=== PATIENT | male | born 1965 | race African-American/Black ===

== ENCOUNTER 2019-11-01 03:06 | Inpatient (IN) | payer MEDICARE, SELFPAY ==
[2019-11-01] VITALS (57 sets, daily range): BP systolic 92–188; BP diastolic 58–102; PULSE 42–92; RESP 14–24; TEMP 34.7–36.8; O2SAT 93–100; BMI 18.6
--- NOTE | ~2019-11-01 | XR_ITS ---
EXAMINATION: XR abdomen NG/feed tube insert DATE: 11/02/2019 12:16 INDICATION: Orogastric tube replacement. TECHNIQUE: An upright view of the abdomen was obtained. COMPARISON: Abdomen single view 11/01/2019 FINDINGS: The lower abdomen is excluded. The nasogastric tube tip is in the stomach. IMPRESSION: 1. Nasogastric tube tip in the stomach. Reviewed, dictated and finalized at location A.
--- NOTE | ~2019-11-01 | XR_ITS ---
EXAMINATION: XR abdomen NG/feed tube insert DATE: 11/01/2019 05:29 INDICATION: Orogastric tube placement TECHNIQUE: A supine view of the abdomen and lower chest was obtained for evaluation of feeding tube placement. COMPARISON: None. FINDINGS: Orogastric tube tip in proximal side port in the body of the stomach. No dilated loops of gas-filled bowel in the visualized abdomen. Calcified nodule at the left lung base consistent with old granuloma tous disease. IMPRESSION: 1. Orogastric tube tip in the stomach. Reviewed, dictated and finalized at location A.
--- NOTE | ~2019-11-01 | XR_ITS ---
EXAMINATION: XR chest 1V portable DATE: 11/05/2019 06:34 INDICATION: Respiratory failure. TECHNIQUE: A single frontal view of the chest was obtained. COMPARISON: Chest single view 11/04/2019, chest CT 11/02/2019 FINDINGS: There are airspace opacities in the right perihilar region and left lower lung zone. No ple ural effusion or pneumothorax. The heart size is normal. The endotracheal tube tip is 6.5 cm above th e river. The nasogastric tube tip is beyond the inferior margin of the radiograph, but at least to t he stomach. IMPRESSION: 1. Airspace opacities in the right perihilar region and left lower lung zone with worsening on the ri ght, consistent with atelectasis versus pneumonia. Reviewed, dictated and finalized at location A. IMPRESSION: 1. Airspace opacities in the right perihilar region and left lower lung zone wi th worsening on the right, consistent with atelectasis versus pneumonia.
--- NOTE | ~2019-11-01 | XR_ITS ---
EXAMINATION: XR chest ET placement DATE: 11/02/2019 12:49 INDICATION: Reintubation. TECHNIQUE: A single frontal view of the chest was obtained. COMPARISON: Chest single view at 12:10 PM FINDINGS: There is mild atelectasis in left lower lung zone. A calcified left lung nodule is consiste nt with old granulomatous disease. No pleural effusion or pneumothorax. The heart size is normal. The nasogastric tube tip is in the stomach. The endotracheal tube tip is 3.8 cm above the river. IMPRESSION: 1. Mild atelectasis in left lower lung zone. Reviewed, dictated and finalized at location A.
--- NOTE | ~2019-11-01 | XR_ITS ---
EXAMINATION: XR abdomen NG/feed tube insert DATE: 11/02/2019 12:49 INDICATION: Orogastric tube placement TECHNIQUE: A semiupright AP view of the upper abdomen and chest was obtained for evaluation of feedi ng tube placement. COMPARISON: 11/02/2019 at 12:16 PM FINDINGS: Orogastric tube has been advanced by several centimeters with distal tip in proximal side port in the body of the stomach. Endotracheal tube tip 3.2 cm above the river. Linear discoid atelectasis/scarr ing at the left lung base. No pleural effusion or pneumothorax. Gas in the stomach. No dilated loops of gas-filled bowel in the visualized upper abdomen. No free intraperineal gas. IMPRESSION: 1. Orogastric tube in the stomach. 2. Mild left basilar atelectasis. Reviewed, dictated and finalized at location A.
--- NOTE | ~2019-11-01 | XR_ITS ---
EXAMINATION: XR chest 1V portable DATE: 11/05/2019 13:09 INDICATION: Respiratory failure. TECHNIQUE: A single frontal view of the chest was obtained. COMPARISON: Chest single view 11/05/2019 at 5:35 AM, CT abdomen and pelvis 11/05/2019 FINDINGS: There are airspace opacities in the mid and lower lung zones. No pleural effusion or pneumo thorax. The heart size is normal. The endotracheal tube tip is 5.7 cm above the river. The nasogastr ic tube tip is in the stomach. IMPRESSION: 1. Worsened airspace opacities in the mid and lower lung zones, consistent with pneumonia. Reviewed, dictated and finalized at location A.
--- NOTE | ~2019-11-01 | XR_ITS ---
EXAMINATION: XR chest 1V portable DATE: 11/04/2019 05:41 INDICATION: Respiratory failure TECHNIQUE: frontal view of the chest was obtained. COMPARISON: Chest radiograph dated 11/03/2019 FINDINGS: Endotracheal tube tip 4.2 cm above the river. Nasogastric tube extends below the left hemidiaphragm with distal tip collimated off the study. Calcified nodule at the left lung base consistent with old granulomatous disease. Opacities in the bi lateral lower lung zones predominantly linear/bandlike discoid atelectasis although superimposed pneu monia not excludable. No pleural effusion or pneumothorax. The cardiomediastinal silhouette is normal . Visualized bones and soft tissues are unremarkable. IMPRESSION: 1. No change in opacities in the bilateral lower lung zones most likely atelectasis although superimp osed pneumonia not excludable. Reviewed, dictated and finalized at location A. IMPRESSION: 1. No change in opacities in the bilateral lower lung zones most likely atelect asis although superimposed pneumonia not excludable.
--- NOTE | ~2019-11-01 | XR_ITS ---
EXAMINATION: XR chest 1V portable DATE: 11/03/2019 05:48 INDICATION: Respiratory failure TECHNIQUE: frontal view of the chest was obtained. COMPARISON: Chest radiograph dated 11/02/2019 FINDINGS: Endotracheal tube tip 4.9 cm above the river. Nasogastric tube extends below the left hemidiaphragm with distal tip collimated off the study. Unchanged linear discoid atelectasis at the left lower lung zone. Calcified nodule at the left lower lung zone consistent with old granulomatous disease. No pleural effusion or pneumothorax. The cardiom ediastinal silhouette is normal. IMPRESSION: 1. Unchanged mild atelectasis at the left lower lung zone. Reviewed, dictated and finalized at location A.
--- NOTE | ~2019-11-01 | XR_ITS ---
EXAMINATION: XR chest 1V portable DATE: 11/06/2019 05:45 INDICATION: Respiratory failure. TECHNIQUE: A single frontal view of the chest was obtained. COMPARISON: Chest single view 11/05/2019, chest CT 11/05/2019 FINDINGS: There are airspace opacities in the perihilar regions and lower lung zones. No pleural effu neli or pneumothorax. Cardiomegaly is noted. The endotracheal tube tip is 6.3 cm above the river. Th e nasogastric tube tip is beyond the inferior margin of the radiograph, but at least to the stomach. IMPRESSION: 1. Stable airspace opacities in the perihilar regions and lower lung zones, consistent with pneumonia . 2. Cardiomegaly. Reviewed, dictated and finalized at location A. IMPRESSION: 1. Stable airspace opacities in the perihilar regions and lower lung zones, con sistent with pneumonia. 2. Cardiomegaly.
--- NOTE | ~2019-11-01 | XR_ITS ---
EXAMINATION: XR chest ET placement DATE: 11/02/2019 12:16 INDICATION: Endotracheal tube repositioning. TECHNIQUE: A single frontal view of the chest was obtained. COMPARISON: Chest single view at 5:31 AM FINDINGS: There is mild atelectasis in right midlung zone. A calcified left lung nodule is consistent with old granulomatous disease. No pleural effusion or pneumothorax. The heart size is normal. The e ndotracheal tube tip is 5.9 cm above the river. The nasogastric tube tip is in the stomach. IMPRESSION: 1. Endotracheal tube tip 5.5 cm above the river. 2. Mild atelectasis in right midlung zone. Reviewed, dictated and finalized at location A.
--- NOTE | ~2019-11-01 | XR_ITS ---
EXAMINATION: XR chest ET placement DATE: 11/01/2019 04:20 INDICATION: Endotracheal tube placement. TECHNIQUE: frontal view of the chest was obtained. COMPARISON: None FINDINGS: Endotracheal tube tip 4.4 cm above the river. Calcified nodule at the left lung base consistent with old granulomatous disease. No other airspace opacities, pulmonary edema, pleural effusion or pneumot horax. The cardiomediastinal silhouette is normal. Mild scattered degenerative skeletal changes. IMPRESSION: 1. Endotracheal tube tip 4.4 cm above the river. No acute cardiopulmonary disease. Reviewed, dictated and finalized at location A. IMPRESSION: 1. Endotracheal tube tip 4.4 cm above the river. No acute cardiopulmonary dise ase.
--- NOTE | ~2019-11-01 | CT_ITS ---
EXAMINATION: CT soft tissue neck chest w DATE: 11/02/2019 11:23 INDICATION: Angioedema. Swelling of the neck. Dental pain. TECHNIQUE: Computed tomography (CT) of the neck and chest was performed with 75 mL Omnipaque-350 intr avenous contrast. Automated exposure control and iterative reconstruction technique were employed. Th e dose-length product was 928.50 mGy-cm. COMPARISON: CT abdomen and pelvis 01/11/2019 FINDINGS: CT NECK: Right ocular globe is absent. There are no pathologically enlarged lymph nodes. There is fat stranding in the lower face and anterior neck bilaterally, consistent with edema. The endotracheal t ube tip is in expected position. The orogastric tube tip is in the stomach. The nasopharynx and oroph arynx are unremarkable. The epiglottis is normal. There is no abscess. There is mild mucosal thickeni ng in the paranasal sinuses. The mastoid air cells are normal. Multiple teeth are absent. No carious lesions identified. CT CHEST: There are blebs in right lung apex. There is mild atelectasis bilaterally with a posterior predominance. A calcified left lung nodule is consistent with old granulomatous disease. The heart si ze is normal. No pericardial effusion. There is mild bilateral gynecomastia. There are no pathologica lly enlarged lymph nodes. The bones are unremarkable. IMPRESSION: 1. Soft tissue edema in the lower face and anterior neck. No abscess. Reviewed, dictated and finalized at location A.
--- NOTE | ~2019-11-01 | CT_ITS ---
EXAMINATION: CT abdomen pelvis wo con DATE: 11/05/2019 10:00 INDICATION: Lymphadenopathy. TECHNIQUE: Computed tomography (CT) of the abdomen and pelvis was performed without intravenous contr ast. Automated exposure control and iterative reconstruction technique were employed. The dose-length product was 1252.06 mGy-cm. COMPARISON: CT abdomen and pelvis 01/11/2019 FINDINGS: Please refer to the chest CT performed at the same time for the chest findings. The nasogas tric tube tip is in the stomach. The liver, spleen, gallbladder, pancreas, adrenal glands, and kidney s are normal. There is no urolithiasis. There is a small left inguinal hernia containing fat. There a re no dilated loops of bowel. The appendix is normal. The prostate is mildly enlarged. There are no p athologically enlarged lymph nodes. There is edema of the intra-abdominal fat and body wall fat. The scrotum demonstrates hydroceles. There is severe lumbar spondylosis. IMPRESSION: 1. No lymphadenopathy. Reviewed, dictated and finalized at location A. IMPRESSION: 1. No lymphadenopathy.
--- NOTE | ~2019-11-01 | CT_ITS ---
EXAMINATION: CT soft tissue neck chest wo DATE: 11/05/2019 10:00 INDICATION: Respiratory failure. TECHNIQUE: Computed tomography (CT) of the neck and chest was performed intravenous contrast. The dos e-length product was 887.19 mGy-cm. COMPARISON: Neck and chest CT 11/02/2019 FINDINGS: NECK CT: Right neck in the globe is absent. There are no pathologically enlarged lymph nodes. The end otracheal tube tip is in expected position above the river. An orogastric tube is noted. The pharyng eal mucosal space is unremarkable. There is fat stranding in the lower face, consistent with edema. T here is mild mucosal thickening in the paranasal sinuses. The mastoid air cells are normal. There is mild cervical spondylosis. CHEST CT: There is mucous in the mainstem bronchi. There are extensive airspace opacities in the lowe r lobes, right worse than left. There are patchy airspace opacities and centrilobular nodules in the right middle lobe and right upper lobe. There is mild atelectasis in left upper lobe. A calcified lef t lung nodule is consistent with old granulomatous disease. There are small pleural effusions. Cardio megaly is noted. No pericardial effusion. There is mild thoracic spondylosis. IMPRESSION: 1. Bilateral pneumonia with a posterior predominance, right worse than left. 2. Small pleural effusions. Reviewed, dictated and finalized at location A.
--- NOTE | ~2019-11-01 | XR_ITS ---
EXAMINATION: XR chest 1V portable DATE: 11/02/2019 06:09 INDICATION: Respiratory failure TECHNIQUE: frontal view of the chest was obtained. COMPARISON: Chest radiograph dated 11/01/2019 FINDINGS: Endotracheal tube tip 4.8 cm above the river. Nasogastric tube with proximal side-port in the stoma ch and distal tip collimated off the study. Linear discoid atelectasis in the bilateral lower lung zones. Calcified nodule at the left lung base consistent with old granulomatous disease. No pulmonary edema, pleural effusion or pneumothorax. The cardiomediastinal silhouette is normal. Visualized bones and soft tissues are unremarkable. IMPRESSION: 1. Linear discoid atelectasis at both lower lung zones. Reviewed, dictated and finalized at location A.
[2019-11-01] MEDS: methylPREDNISolone SOD SUCC 125 MG VIAL IV PUSH (03:24)
[2019-11-01] MEDS: EPINEPHrine HCL INJ 1 MG/ML AMPUL 0.3 MG IM (03:24)
--- NOTE | 2019-11-01 03:36 | PC.NURSE ---
ERP in room at this time with patient, setting up intubation on standby. Patient receiving nebulized lidocaine per RT.
[2019-11-01] MEDS: LIDOCAINE HCL 4% SOLN 50 ML BTL 1 APPLIC TOPICAL (03:39)
[2019-11-01] MEDS: FAMOTIDINE 20 MG/2 ML VIAL IV PUSH ×3 (03:40→21:59)
--- NOTE | 2019-11-01 04:04 | PC.NURSE ---
Addendum entered by Lidia Calderon RN 11/01/19 05:08: ERP , SIDDHARTH Coker, and RT in room at this time. VORB 0405 20mg ketamine given per . 0407 VORB give 50mg IVP more of ketamine. 0408 ERP at head of bed attempting intubation with 6.5 size tube. VORB give 30mg of propofol via IVP. 0410 VORB give 30mg Etomidate and 100mg of succ rapid IVP. Intubation successful with chest rise and fall, color change and visually seeing tube pass through cords. VS: 110bpm, 100% being placed on ventilator, 14 RR, and 104/82 BP recycling vital signs. 0413 100mg of Propofol given IVP. 0415 xray in room to verify placement of ET tube. Original Note: ERP , SIDDHARTH Coker, and RT in room at this time. VORB 0405 20mg ketamine given per . 0407 VORB give 50mg IVP more of ketamine. 0408 ERP at head of bed attempting intubation with 6.5 size tube. VORB give 30mg of propofol via IVP. 0410 VORB give 30mg succs and 100mg of succ rapid IVP. Intubation successful with chest rise and fall, color change and visually seeing tube pass through cords. VS: 110bpm, 100% being placed on ventilator, 14 RR, and 104/82 BP recycling vital signs. 0413 100mg of Propofol given IVP. 0415 xray in room to verify placement of ET tube.
[2019-11-01 04:06] LABS: Basophils Percent Auto 0.4 % (0.2-1.2); Eosinophils Absolute Auto 0.1 K/mm3 (0-0.3); Eosinophils Percent Auto 2.6 % (0-4.4); Hematocrit 25.3 % (42.0-52.0); Hemoglobin 8.6 g/dL (14.0-18.0); Immature Granulocyte Absolute 0.01 K/mm3 (0.00-0.031); Immature Granulocyte Percent A 0.2 % (0-0.5); Lymphocytes Absolute Auto 2.86 K/mm3 (0.9-3.2); Lymphocytes Percent Auto 58.1 % (18.3-44.2); Mean Corpuscular Hemoglobin 36.1 pg (26-34); Mean Corpuscular Volume 106.3 fl (80-100); Mean Platelet Volume 10.2 fl (7.4-10.4); Monocytes Absolute Auto 0.4 K/mm3 (0.1-0.6); Monocytes Percent Auto 8.3 % (2.6-8.5); Neutrophils Absolute Auto 1.5 K/mm3 (1.3-6.7); Neutrophils Percent Auto 30.4 % (45.5-73.1); Platelet Count Result 85 k/mm3 (150-375); Red Blood Count 2.38 M/mm3 (4.6-6.20); Red Cell Distribution Width 12.4 % (11.5-14.5); White Blood Count 4.9 K/mm3 (4.5-10.0)
[2019-11-01] MEDS: PROPOFOL IV EMULSION 100 ML 20 MG IV CONT (04:15)
[2019-11-01 04:16] LABS: INR 1.7; Partial Thromboplastin Time 41.5 SECONDS (22.3-36.8); Prothrombin Time 19.2 Seconds (11.1-14.7)
--- NOTE | 2019-11-01 04:28 | PC.NURSE ---
OG placed and taped to ET tube.
--- NOTE | 2019-11-01 04:30 | PC.NURSE ---
IV propofol titrated up to 40mcg/kg/hr.
--- NOTE | 2019-11-01 04:31 | PC.NURSE ---
VOR 0430 give 1mg versed IVP.
--- NOTE | 2019-11-01 04:37 | PC.NURSE ---
VORB per ERP give 50mg of Jean via IVP.
--- NOTE | 2019-11-01 04:42 | PC.NURSE ---
IV propofol titrated up to 50mcg/kg/hr.
[2019-11-01 04:43] LABS: Basophils Percent Auto 0.6 % (0.2-1.2); Eosinophils Absolute Auto 0.2 K/mm3 (0-0.3); Eosinophils Percent Auto 2.9 % (0-4.4); Hematocrit 32.8 % (42.0-52.0); Hemoglobin 11.5 g/dL (14.0-18.0); Immature Granulocyte Absolute 0.01 K/mm3 (0.00-0.031); Immature Granulocyte Percent A 0.2 % (0-0.5); Lymphocytes Absolute Auto 2.96 K/mm3 (0.9-3.2); Lymphocytes Percent Auto 56.6 % (18.3-44.2); Mean Corpuscular HGB Conc 35.1 g/dl (32-36); Mean Corpuscular Hemoglobin 36.4 pg (26-34); Mean Corpuscular Volume 103.8 fl (80-100); Mean Platelet Volume 10.4 fl (7.4-10.4); Monocytes Absolute Auto 0.4 K/mm3 (0.1-0.6); Neutrophils Absolute Auto 1.7 K/mm3 (1.3-6.7); Neutrophils Percent Auto 31.7 % (45.5-73.1); Platelet Count Result 106 k/mm3 (150-375); Red Blood Count 3.16 M/mm3 (4.6-6.20); Red Cell Distribution Width 12.4 % (11.5-14.5); White Blood Count 5.2 K/mm3 (4.5-10.0)
[2019-11-01 04:55] LABS: Blood Urea Nitrogen 7 mg/dL (9-20); Calcium 7.2 mg/dL (8.4-10.2); Carbon Dioxide 19 mmol/L (22-30); Chloride 108 mmol/L (98-107); Estimated Glomerular Filt Rate > 60; Glucose 153 mg/dL (75-110); Potassium 3.4 mmol/L (3.4-5.0); Sodium 134 mmol/L (137-145)
[2019-11-01 04:56] LABS: Alveolar/Arterial O2 Gradient 270.2 mmHg; Base Excess ABG -5.6 mEq/l (+/-2.0); Carboxyhemoglobin 1.7 % THb (0-2.0); Fractional Inspired Oxygen 70 %; HCO3 ABG 18.6 mEq/l (22.0-26.0); Methemoglobin ABG 0.4 %THb (0-1.5); Oxygen Content ABG 16.7 %vol (16.0-22.0); Oxygen Saturation ABG 99.3 % (95.0-100.0); Oxyhemoglobin 96.4 % THb (90.0-100.0); PCO2 ABG 32.3 mmHg (35.0-45.0); PO2 ABG 194.2 mmHg (80.0-100.0); PO2 FiO2 Ratio Arterial Blood 2.77 %; Reduced Hemoglobin 1.5 %THb (0-5.0); pH ABG 7.378 (7.350-7.450)
[2019-11-01 04:57] LABS: Device VENTILATOR; Modified Allen's Test Pass; Site Drawn RIGHT RADIAL
[2019-11-01 04:58] LABS: Arterial Blood Gas PEEP 5 cmH2O; Arterial Blood Gas Tidal Volume 420 ml; Arterial Blood Gas Vent Mode CMV; Arterial Blood Gas Ventilator rate 18 /MIN
--- NOTE | 2019-11-01 05:30 | PC.NURSE ---
Patient's ET tube secured and OG tube secured at 60.
--- NOTE | 2019-11-01 05:36 | PC.NURSE ---
Patient bucking tube, ERP gives VORB to give patient 50mg more of Jean via IVP.
--- NOTE | 2019-11-01 05:37 | ED.GENADULT ---
HPI - General Adult General Chief complaint: Skin/Abscess/Foreign Body Stated complaint: Abcess Time Seen by Provider: 11/01/19 03:12 History of Present Illness HPI narrative: Patient is a 54-year-old male who presents ER with facial swelling. Began about 10:30 PM. Reports he noticed some swelling to his left cheek that then went into his tongue as well as his lips. He is being have difficulty breathing and swallowing. He still able to speak however it is slightly dysarthric due to the size of his tongue. Reports mild discomfort near the angle of the left jaw and was concerned he may have a dental abscess but not been having dental pain over the last couple of days. He has had no fevers or sweats or chills. He does take lisinopril for blood pressure. He has been taking this for about a decade. Patient is found no alleviating factors and noticed he been choking on water prior to coming to the ER. Related Data Home Medications Medication Instructions Recorded Confirmed gabapentin 11/01/19 lisinopril 11/01/19 metoprolol succinate PO 11/01/19 oxycodone-acetaminophen 11/01/19 Allergies Allergy/AdvReac Type Severity Reaction Status Date / Time No Known Allergies Allergy Unverified 01/11/19 21:10 Review of Systems Review of Systems: All systems reviewed & are unremarkable except as noted in HPI and below Constitutional: Constitutional: Denies chills, Denies fever(s) and Denies weakness ENT: Comments: Swelling of the tongue and lips as well as discomfort in the back of his throat. Cardiovascular: Cardiovascular: Denies chest pain and Denies radiating jaw, neck or arm pain Respiratory: Respiratory: Denies cough, Reports dyspnea and Denies wheezing Gastrointestinal: Gastrointestinal: Denies abdominal pain, Denies bloating, Denies nausea and Denies vomiting Musculoskeletal: Musculoskeletal: Denies back pain and Denies myalgias Neurologic: Denies numbness and Denies weakness Allergic/Immunologic: Allergic/Immunologic: Reports lip swelling, Reports throat swelling, Reports tongue swelling and Denies wheezing [facility] Past Medical History Medical History (Updated 11/01/19 @ 05:49 by Charles Segura MD) Depression GERD (gastroesophageal reflux disease) Hypertension Pancreatitis Prosthetic eye globe Right side Surgical History Surgical History (Updated 11/01/19 @ 05:41 by Charles Segura MD) H/O elbow surgery Left Social History Social History (Updated 11/01/19 @ 05:42 by Charles Segura MD) Smoking status: Current every day smoker Alcohol intake: current Gender identity (if verbalized by the patient): Female Exam Narrative: Exam Narrative: GENERAL: Uncomfortable-appearing, well-nourished, and in mild distress. HEAD: Normocephalic, atraumatic. ENT: Angioedema of the left half of the upper and lower lips as well as the left half of the tongue that is significant enough to obscure the posterior oropharynx. Palpation of the gum lines throughout the mouth reveal no fluctuant abscess or areas of tenderness. Submandibular glands seem to be swollen bilaterally. NECK: Supple. CHEST: Clear to auscultation. No stridor or wheezing. Reports difficulty breathing but is able to speak in full sentences. Broken speech due to tongue swelling. HEART: Regular rate and rhythm. Normal peripheral pulses. ABDOMEN: Soft, nontender, nondistended. EXTREMITIES: Normal range of motion. No edema. SKIN: Warm, dry, no rash. NEURO: Alert and oriented x3. Course Course Emergency Course: Patient received epinephrine, Solu-Medrol, Benadryl, and famotidine without improvement or cessation of symptoms. Patient's upper lips were entirely swollen by the time intubation was performed. Anesthesia contacted for support during semi-awake intubation. Patient received nebulized lidocaine 4% and glycopyrrolate to help with numbing of the airway and to decrease secretions. During intubation patient received 20 mg of k
--- NOTE | 2019-11-01 05:45 | PM.IMHP ---
H&P: HPI History of Present Illness Chief complaint: respiratory failure/akila induced angioedema Narrative: This is a 54 year old male with known history of HTN, Depression and Pancreatitis who presented to the hospital with lip swelling and posterior oral swelling. The patient is known to be on Lisinopril. His symptoms worsened in the ER and the patient was emergently intubated and placed on mechanical ventilation to protect his airway. The patient was treated with epinphrine, Solu-medrol, pepcid, and benadryl. Assistant Office Manager, Dr. Ratliff has been consulted. There is no family at bedside and on my encounter the patient is intubated and sedated. No futher history is unobtainable at this time. Review of Systems Review of Systems: ROS unobtainable: Yes unobtainable due to medical condition PMFSH Past Medical History Medical History Depression GERD (gastroesophageal reflux disease) Hypertension Pancreatitis Prosthetic eye globe Right side Surgical History Surgical History H/O elbow surgery Left Social History Social History Years smoked: 18 Smoking status: Current every day smoker Tobacco type: cigarettes Alcohol intake: current Gender identity (if verbalized by the patient): Female Spiritual care concerns: No Comments Family medical history is unobtainable from the patient. Meds Home Medications and Allergies Home Medications Medication Instructions Recorded Confirmed Type celecoxib 100 mg PO QAM 11/01/19 11/01/19 History chlorthalidone 50 mg PO DAILY 11/01/19 11/01/19 History diclofenac sodium 75 mg PO BID 11/01/19 11/01/19 History gabapentin 300 mg PO BID 11/01/19 11/01/19 History lisinopril 40 mg PO DAILY 11/01/19 11/01/19 History metoprolol succinate 50 mg PO DAILY 11/01/19 11/01/19 History omeprazole 20 mg PO DAILY 11/01/19 11/01/19 History oxycodone-acetaminophen 1 tablet PO Q8H 11/01/19 11/01/19 History Allergies Allergy/AdvReac Type Severity Reaction Status Date / Time ampicillin Allergy Severe Anaphylactic Verified 11/01/19 20:03 Shock lisinopril Allergy Severe Anaphylactic Verified 11/01/19 20:06 Shock Vital Signs Vital Signs - 24 hr 11/01/19 03:10 11/01/19 03:13 11/01/19 03:32 Temperature 36.2 C L 36.2 C L Pulse Rate 81 81 78 Respiratory Rate 15 20 14 Blood Pressure 132/90 132/90 118/81 Pulse Oximetry 100 100 100 11/01/19 03:39 11/01/19 04:24 11/01/19 04:34 Temperature Pulse Rate 77 92 88 Respiratory Rate 20 20 Blood Pressure 188/102 H Pulse Oximetry 100 100 11/01/19 04:35 11/01/19 04:59 11/01/19 05:07 Temperature Pulse Rate 88 82 80 Respiratory Rate 20 18 18 Blood Pressure 153/92 H 108/74 Pulse Oximetry 93 100 Exam Const: General: other (untubated, sedated, on mechanical ventilation) Nutritional Appearance: well nourished Orientation/consciousness: Other orientation findings (intubated and sedated) HENMT: General nose exam: Normal external nose present Face and sinus: other (labial edema of both upper/lower lips. ) Eyes: Pupils: Equal, round and reactive pupils present EOM: EOMs intact bilaterally Neck: Neck: supple and no JVD Thyroid: thyroid normal Lymphatic: lymphadenopathy not noted Resp: Effort & Inspection: normal respiratory effort Auscultation: clear to auscultation bilaterally Cardio: Rate: regular rate Rhythm: regular rhythm Heart sounds: no murmurs GI: Inspection: normal to inspection Auscultation: normal bowel sounds Skin: General skin exam: normal color Neuro: Cranial nerves: Yes Equal, round and reactive pupils present Extrem: General: no edema H&P: Results Labs Labs: Short CBC 11/01/19 11/01/19 Range/Units 04:00 04:35 WBC 4.9 5.2 (4.5-10.0) K/mm3 Hgb 8.6 L 11.5 L (14.0-18.0) g/dL Hct 25.3 L 32.8 L (42.0-52.0) %
[2019-11-01] MEDS: SODIUM CHLORIDE 0.9% IV 1,000 ML 125 ML IV CONT ×2 (06:39→15:32)
--- NOTE | 2019-11-01 06:39 | PC.NURSE ---
This patient, Harman Llamas, was admitted to Intensive Care Unit-11. Patient/family oriented to hospital policies and general routines including ID bracelet, bed and alarms, visiting hours, pain management, procedures, bathroom and other care routines, personal items, smoking policy, room service/diet, and visiting hours. Valuables list has been completed. Information on how to activate the Rapid Response Team has been discussed. Patient/Family are encouraged to report perceived risks to care and to ask questions if they do not understand what they are told or what they should do.
[2019-11-01 07:11] LABS: CRP 4.8 mg/dL (<1.0)
[2019-11-01 07:17] LABS: Erythrocyte Sedimentation Rate 21 mm/hr (0-20)
[2019-11-01 07:26] LABS: Hemoglobin A1C 5.9 % (<5.7)
[2019-11-01 08:14] LABS: Alveolar/Arterial O2 Gradient 97.1 mmHg; Base Excess ABG -4.1 mEq/l (+/-2.0); Fractional Inspired Oxygen 50 %; HCO3 ABG 20.5 mEq/l (22.0-26.0); Oxygen Saturation ABG 99.4 % (95.0-100.0); Oxyhemoglobin 98.2 % THb (90.0-100.0); PCO2 ABG 36.1 mmHg (35.0-45.0); PO2 ABG 218.8 mmHg (80.0-100.0); PO2 FiO2 Ratio Arterial Blood 4.38 %; Total Hemoglobin 13.4 g/dL (12.0-18.0); pH ABG 7.372 (7.350-7.450)
[2019-11-01 08:32] LABS: Site Drawn RIGHT BRACHIAL
[2019-11-01 08:33] LABS: Arterial Blood Gas PEEP 5 cmH2O; Arterial Blood Gas Tidal Volume 420 ml; Arterial Blood Gas Vent Mode CMV; Arterial Blood Gas Ventilator rate 18 /MIN; Device VENTILATOR
[2019-11-01] MEDS: ALBUTEROL SULFATE NEB 2.5 MG/0.5 ML INH 5 MG INHALATION ×3 (08:34→20:46)
[2019-11-01] MEDS: PROPOFOL IV EMULSION 100 ML 18.7 MG IV CONT (08:38)
[2019-11-01] MEDS: POTASSIUM CHLORIDE 20 MEQ PACKET (FOR LIQUID) 40 MEQ PO (08:46)
--- NOTE | 2019-11-01 10:00 | WPDCNINT ---
Assessment and Plan Assessment and plan (1) Acute respiratory failure: Qualifiers: Respiratory failure complication: unspecified whether with hypoxia or hypercapnia Qualified Code(s): J96.00 - Acute respiratory failure, unspecified whether with hypoxia or hypercapnia Code(s): J96.00 - Acute respiratory failure, unspecified whether with hypoxia or hypercapnia Status: Acute Assessment and Plan: Patient with pending respiratory failure was intubated with 6.5 ET tube secondary to swelling of the lips, tongue, posterior airway due to angioedema -intubation was difficult the ER note -wean FiO2 to maintain O2 sats greater than 92% -chest x-ray and ABGs reviewed, ventilator adjusted -sedation with Versed and propofol, will switch propofol to fentanyl -maintain RASS of 0 to -2, daily sedation vacation (2) Angioedema due to angiotensin converting enzyme inhibitor (CHARLES-I): Code(s): T78.3XXA - Angioneurotic edema, initial encounter; T46.4X5A - Adverse effect of wrvwboxenjq-jiobrysrai-eebcuv inhibitors, initial encounter Status: Acute Assessment and Plan: Swelling of the lips, tongue, oropharynx, anterior neck -continue Solu-Medrol, Pepcid, Benadryl -C1 esterase has been obtained and pending -patient received 2 units of FFP - will obtain CT scan of the soft tissues of the neck prior to extubation (3) Thrombocytopenia: Code(s): D69.6 - Thrombocytopenia, unspecified Status: Acute Assessment and Plan: Patient has had thrombocytopenia in the past in December 2018 -will continue to monitor platelet count (4) Abnormal glucose: Code(s): R73.09 - Other abnormal glucose Status: Acute Assessment and Plan: Elevated blood sugars could be related to steroids -continue Accu-Cheks and sliding scale insulin (5) Elevated lipase: Code(s): R74.8 - Abnormal levels of other serum enzymes Status: Acute Assessment and Plan: Lipase elevated, unknown reason -will continue to monitor (6) Dietary counseling and surveillance: Code(s): Z71.3 - Dietary counseling and surveillance Status: Acute Assessment and Plan: Will start tube feeds (7) DVT prophylaxis: Code(s): Z29.9 - Encounter for prophylactic measures, unspecified Status: Acute Assessment and Plan: SCDs due to thrombocytopenia Additional Plan Will replace potassium. Will update family Code status: Full code Critical care time spent: 43 minutes Due to a high probability of clinically significant, life threatening deterioration, the patient required my highest level of preparedness to intervene emergently and I personally spent this critical care time directly and personally managing the patient. This critical care time included obtaining a history; examining the patient; pulse oximetry; ordering and review of studies; arranging urgent treatment with development of a management plan; evaluation of patient's response to treatment; frequent reassessment; and discussions with other providers. It was exclusive of separately billable procedures and treating other patients and teaching time. Please see Assessment and Plan section and the rest of the note for further information on patient assessment and treatment [employer] [facility] [employer] Consult Note Consult date: 11/01/19 Time Seen: 07:07 Reason for consult: Acute respiratory failure, Angioedema likely secondary to lisinopril HPI: Harman Llamas is a 54 year old male with past medical history of essential hypertension, depression, GERD, pancreatitis, prosthetic eye globe on the right side presented the ED swelling of his lips, tongue and posterior oral swelling. Patient has been known to be on lisinopril. Patient stated his swelling started about 10:30 p.m. on 10/31/2019 and since has worsened to a level where he has been having difficulty breathing, difficulty swallowing, dysarthric due to increase in size of the tongue. He also re
--- NOTE | 2019-11-01 11:11 | PC.NURSE ---
Patient raising up chest/head in bed and kicking feet. Help called and RNs to bedside. Increased fentenyl to 200mcgs. Dr. asif updated.
--- NOTE | 2019-11-01 11:46 | PM.IMPN ---
Progress Note: A&P Assessment and Plan (1) Acute respiratory failure: Code(s): J96.00 - Acute respiratory failure, unspecified whether with hypoxia or hypercapnia Status: Acute Assessment and Plan: Secondary to angioedema. Remains on MV - continue ventilatory support. The patient is currently being sedated. Vent managemtn per ict help desk officer. (2) Angioedema due to angiotensin converting enzyme inhibitor (CHARLES-I): Code(s): T78.3XXA - Angioneurotic edema, initial encounter; T46.4X5A - Adverse effect of yehqhgwdgfh-eqznhkgkhp-gcbput inhibitors, initial encounter Status: Acute Assessment and Plan: Angioedema is likely secondary to ACEI. HOLD lisinopril. Continue Solumedrol, benadryl and Pepcid scheduled. Edema appears better. Continue current treatment. (3) Macrocytic anemia: Code(s): D53.9 - Nutritional anemia, unspecified Status: Deleted Assessment and Plan: Hgb 8.6 on admission but improved to 11.5 on recheck (first draw in error?). Continue to follow. (4) Thrombocytopenia: Code(s): D69.6 - Thrombocytopenia, unspecified Status: Acute Assessment and Plan: Plt 140K on admission but dropped to 85K but up to 106K on recheck. Continue to monitor platelets. (5) Abnormal glucose: Code(s): R73.09 - Other abnormal glucose Status: Acute Assessment and Plan: A1c 5.9. Glucose reviewed on 11/01/19. Patient on steroids so will start Acucheks with sliding scale. Subjective Date/time seen: 11/01/19 11:46 Interval history: 54yo male here for acute respiratory failure due to angioedema. Assuming care. Chart reviewed. Patient currently intubated and sedated. Per nursing staff, patient was more agitated earlier but sedation was adjusted and patient resting quietly now. No issues overnight Review of Systems Review of Systems: ROS unobtainable: Yes unobtainable due to endotracheal tube Exam Narrative: Exam Narrative: AF 97/67 57 15 100% MV Gen -intubated sedated HEENT - NC/AT, left pupil pinpoint. ETT and OG secured. lips edematous Chest - lungs clear anteriorly CV - RRR S1/S2; Tele showing no significant dysrhythmias Abd - Soft, ND, +BS Ext - No pedal edema Neuro - sedated Skin - Warm and dry Objective Data Vital Signs Vital Signs: Vital Signs - 24 hr 11/01/19 03:10 11/01/19 03:13 11/01/19 03:32 Temperature 97.1 F L 97.1 F L Pulse Rate 81 81 78 Respiratory Rate 15 20 14 Blood Pressure 132/90 132/90 118/81 Pulse Oximetry 100 100 100 11/01/19 03:39 11/01/19 04:24 11/01/19 04:34 Temperature Pulse Rate 77 92 88 Respiratory Rate 20 20 Blood Pressure 188/102 H Pulse Oximetry 100 100 11/01/19 04:35 11/01/19 04:59 11/01/19 05:07 Temperature Pulse Rate 88 82 80 Respiratory Rate 20 18 18 Blood Pressure 153/92 H 108/74 Pulse Oximetry 93 100 11/01/19 05:10 11/01/19 05:40 11/01/19 05:50 Temperature 98.2 F 97.6 F Pulse Rate 90 76 74 Respiratory Rate 24 H 18 18 Blood Pressure 125/90 148/102 H Pulse Oximetry 100 100 11/01/19 05:57 11/01/19 06:00 11/01/19 07:55 Temperature Pulse Rate 87 73 74 Respiratory Rate 18 20 Blood Pressure 117/89 Pulse Oximetry 97 100 11/01/19 08:00 11/01/19 08:01 11/01/19 08:24 Temperature 96.4 F L Pulse Rate 72 72 72 Respiratory Rate 18 18 Blood Pressure 115/81 Pulse Oximetry 100 11/01/19 08:35 11/01/19 08:45 11/01/19 09:05 Temperature Pulse Rate 69 74 72 Respiratory Rate 18 15 Blood Pressure Pulse Oximetry 100 11/01/19 10:00 11/01/19 10:01 11/01/19 10:45 Temperature Pulse Rate 63 64 57 L Respiratory Rate 15 15 Blood Pressure 97/67 L Pulse Oximetry 100 100 Intake/Output Intake/Output: Intake & Output 10/29/19 10/30/19 10/31/19 11/01/19 23:59 23:59 23:59 23:59 Output Total 1525 Balance -1525 Meds/Results Medications: Active Medications Generic Name Dose Route Start
[2019-11-01] MEDS: methylPREDNISolone SOD SUCC 125 MG VIAL 60 MG IV PUSH ×2 (13:38→17:40)
[2019-11-01 13:39] LABS: Glucose Point of Care 160 (65-105)
[2019-11-01] MEDS: SODIUM CHLORIDE 0.9% IV 250 ML 30 ML IV CONT (13:56)
--- NOTE | 2019-11-01 17:02 | PC.NURSE ---
Emergency contact criss. Brigette (DGT) to be patients 1 visitor for stay and point of contact. Patient does not have a spouse per daughter.
[2019-11-01 17:48] LABS: Glucose Point of Care 150 (65-105)
--- NOTE | 2019-11-01 19:38 | PC.NURSE ---
Blood consent was verified with Gissell who stated was patients in AM. After speaking with patient's dgt and son, patient does not have a . RN obtained consent from DGT for blood products. Consents in chart. Will continue to monitor patient.
[2019-11-02] VITALS (89 sets, daily range): BP systolic 106–144; BP diastolic 56–85; PULSE 48–135; RESP 15–22; TEMP 35.9–36.9; O2SAT 94–100
[2019-11-02] MEDS: methylPREDNISolone SOD SUCC 125 MG VIAL 60 MG IV PUSH ×4 (00:06→18:16)
[2019-11-02 00:14] LABS: Glucose Point of Care 141 (65-105)
[2019-11-02] MEDS: SODIUM CHLORIDE 0.9% IV 1,000 ML 75 ML IV CONT ×2 (01:53→13:37)
[2019-11-02] MEDS: ALBUTEROL SULFATE NEB 2.5 MG/0.5 ML INH 5 MG INHALATION ×4 (02:55→20:25)
[2019-11-02 04:11] LABS: Base Excess ABG -4.3 mEq/l (+/-2.0); Carboxyhemoglobin 0.3 % THb (0-2.0); Fractional Inspired Oxygen 30 %; HCO3 ABG 20.9 mEq/l (22.0-26.0); Methemoglobin ABG 0.5 %THb (0-1.5); Oxygen Content ABG 16.5 %vol (16.0-22.0); Oxygen Saturation ABG 97.8 % (95.0-100.0); Oxyhemoglobin 96.3 % THb (90.0-100.0); PCO2 ABG 38.7 mmHg (35.0-45.0); PO2 ABG 108.4 mmHg (80.0-100.0); PO2 FiO2 Ratio Arterial Blood 3.61 %; Reduced Hemoglobin 2.9 %THb (0-5.0); Total Hemoglobin 12.1 g/dL (12.0-18.0)
[2019-11-02 04:13] LABS: Arterial Blood Gas PEEP 5 cmH2O; Arterial Blood Gas Tidal Volume 500 ml; Arterial Blood Gas Vent Mode CMV; Arterial Blood Gas Ventilator rate 15 /MIN; Device VENTILATOR; Modified Allen's Test Pass; Site Drawn RIGHT RADIAL
[2019-11-02 04:38] LABS: Hematocrit 32.3 % (42.0-52.0); Hemoglobin 11.1 g/dL (14.0-18.0); Immature Granulocyte Absolute 0.06 K/mm3 (0.00-0.031); Immature Granulocyte Percent A 0.5 % (0-0.5); Lymphocytes Absolute Auto 0.96 K/mm3 (0.9-3.2); Lymphocytes Percent Auto 7.8 % (18.3-44.2); Mean Corpuscular HGB Conc 34.4 g/dl (32-36); Mean Corpuscular Volume 104.9 fl (80-100); Mean Platelet Volume 10.9 fl (7.4-10.4); Monocytes Absolute Auto 0.3 K/mm3 (0.1-0.6); Monocytes Percent Auto 2.6 % (2.6-8.5); Neutrophils Absolute Auto 10.9 K/mm3 (1.3-6.7); Neutrophils Percent Auto 89.1 % (45.5-73.1); Platelet Count Result 119 k/mm3 (150-375); Red Blood Count 3.08 M/mm3 (4.6-6.20); Red Cell Distribution Width 12.5 % (11.5-14.5); White Blood Count 12.2 K/mm3 (4.5-10.0)
[2019-11-02 04:54] LABS: Lactic Acid 2.6 mmol/L (0.7-2.1)
[2019-11-02 04:57] LABS: Blood Urea Nitrogen 6 mg/dL (9-20); CRP 2.5 mg/dL (<1.0); Calcium 7.9 mg/dL (8.4-10.2); Carbon Dioxide 23 mmol/L (22-30); Chloride 108 mmol/L (98-107); Estimated CRCL calculation 82 ml/min; Estimated Glomerular Filt Rate > 60; Glucose 189 mg/dL (75-110); Lipase 278 U/L (23-300); Magnesium 1.4 mg/dL (1.6-2.3); Phosphorus 2.9 mg/dL (2.5-4.5); Potassium 3.8 mmol/L (3.4-5.0); Sodium 138 mmol/L (137-145)
[2019-11-02 05:58] LABS: Glucose Point of Care 223 (65-105)
[2019-11-02] MEDS: INSULIN ASPART (*BKC) 100 UNITS/ML SUB-Q (06:01)
--- NOTE | 2019-11-02 08:03 | ECG_ITS ---
Measurements Intervals [place] Rate: 71 P: 55 CA: 146 QRS: 48 QRSD: 104 T: 5 QT: 418 QTc: 456 Interpretive Statements SINUS RHYTHM WITH SINUS ARRHYTHMIA NONSPECIFIC ST & T-WAVE ABNORMALITY- INF/LAT LEADS BORDERLINE ECG Electronically Signed On 11-02-2019 8:58:47 CDT by Kalpesh Rubi D.O.
--- NOTE | 2019-11-02 08:03 | PM.IMPN ---
Progress Note: A&P Assessment and Plan (1) Acute respiratory failure: Qualifiers: Respiratory failure complication: unspecified whether with hypoxia or hypercapnia Qualified Code(s): J96.00 - Acute respiratory failure, unspecified whether with hypoxia or hypercapnia Code(s): J96.00 - Acute respiratory failure, unspecified whether with hypoxia or hypercapnia Status: Acute Assessment and Plan: Secondary to angioedema. Remains on MV - continue ventilatory support. The patient is being weaned off sedation in plans for extubation later this morning. Vent management per photonics technician. Appreciate photonics technician input. (2) Angioedema due to angiotensin converting enzyme inhibitor (CHARLES-I): Code(s): T78.3XXA - Angioneurotic edema, initial encounter; T46.4X5A - Adverse effect of shxyyffigwo-tpcwwfjagz-fhgvap inhibitors, initial encounter Status: Acute Assessment and Plan: Angioedema is likely secondary to ACEI. HOLD lisinopril. Continue Solumedrol, benadryl and Pepcid scheduled. Edema continues to improve. Continue current treatment. (3) Macrocytic anemia: Code(s): D53.9 - Nutritional anemia, unspecified Status: Acute Assessment and Plan: Hgb 8.6 on admission but improved to 11.5 on recheck (first draw in error?). Hgb stable in the 11 range. Macrocytosis noted. Consider underlying liver disease as well. Will check B12 and hepatic panel. Continue to follow. Could also explain his TCP. Will ask about alchol use. (4) Thrombocytopenia: Code(s): D69.6 - Thrombocytopenia, unspecified Status: Acute Assessment and Plan: Plt 140K on admission but dropped to 85K but up to 106K on recheck. Platelet count 119 this morning. Continue to monitor platelets. (5) Abnormal glucose: Code(s): R73.09 - Other abnormal glucose Status: Acute Assessment and Plan: A1c 5.9. Glucose reviewed on 11/02/19. Glucose elevated at times most likely related to the steroids. Continue Acucheks with sliding scale. (6) Hypertension: Code(s): I10 - Essential (primary) hypertension Status: Acute Assessment and Plan: Blood pressure reviewed 11/02/2019. Blood pressure remains well controlled. Continue to hold chlorthalidone and metoprolol. No plans to resume lisinopril. Subjective Date/time seen: 11/02/19 08:03 Interval history: 54yo male here for acute respiratory failure due to angioedema. Patient remains intubated and mildly sedated. Patient is awake. He denies headache but is having sore throat. He also complains of abd and chest pain. Chest pain does not radiate. He continues to point to the restraints to appear to ask about having the restraints undone. Exam Narrative: Exam Narrative: AF 116/63 55 16 100% MV Gen -intubated and only mildly sedated HEENT - NC/AT, ETT and OG secured. lips with minimal edema Chest - lungs clear anteriorly CV - RRR S1/S2; Tele showing no significant dysrhythmias Abd - Soft, ND, +BS, no apparent tenderness and no guarding Ext - No pedal edema Neuro - awake but still mildly sedated Skin - Warm and dry Objective Data Vital Signs Vital Signs: Vital Signs - 24 hr 11/01/19 08:24 11/01/19 08:35 11/01/19 08:45 Temperature Pulse Rate 72 69 74 Respiratory Rate 18 18 15 Blood Pressure Pulse Oximetry 11/01/19 09:05 11/01/19 10:00 11/01/19 10:01 Temperature Pulse Rate 72 63 64 Respiratory Rate 15 Blood Pressure 97/67 L Pulse Oximetry 100 100 11/01/19 10:45 11/01/19 12:00 11/01/19 12:01 Temperature Pulse Rate 57 L 56 L 59 L Respiratory Rate 15 15 Blood Pressure 99/66 L Pulse Oximetry 100 100 11/01/19 12:10 11/01/19 13:01 11/01/19 13:24 Temperature Pulse Rate 49 L 48 L 47 L Respiratory Rate 15 15 Blood Pressure 92/59 L Pulse Oximetry 100 100 11/01/19 13:30 11/01/19 13:33 11/01/19 13:49 Temperature 95.4 F L 95.2 F L
[2019-11-02] MEDS: FAMOTIDINE 20 MG/2 ML VIAL IV PUSH ×2 (08:11→20:13)
[2019-11-02] MEDS: MAGNESIUM SULF 2 GM/WATER 50ML 2 GM/50 ML BAG IVPB (08:17)
[2019-11-02 09:00] LABS: Alanine Aminotransferase 37 U/L (4-50); Albumin Level 3.2 g/dL (3.5-5.1); Alkaline Phosphatase 53 U/L (38-126); Aspartate Amino Transferase 42 U/L (17-59); Bilirubin,Total 0.4 mg/dL (0.2-1.3)
[2019-11-02 09:07] LABS: Troponin I < 0.012 ng/mL (0.000-0.034)
[2019-11-02 10:04] LABS: Folic Acid 8.3 ng/mL (2.76->20)
--- NOTE | 2019-11-02 11:25 | PCDIET ---
ICU Rounding Note: Tube feedings on hold for SBT. Previously tolerating Jevity 1.2 which was advancing toward goal rate. Last recorded weight is 69.4kg which is increased from last review. Bowel Motility: No documented BM as of yet. Labs Reviewed: Glu (223), Alb (3.2), Danielle Ca (8.54) Meds Noted: Albuterol, Fentanyl, Solu Medrol, Pepcid, Novolog, Versed, NS at 75mL/hr, s/p Magnesium Sulfate Additional Notes: No documented skin breakdown. Following daily in ICU rounds. Assessing/reassessing every Thursday/Thursday.
[2019-11-02] MEDS: PROPOFOL IV EMULSION 100 ML 12.5 MG IV CONT (12:38)
[2019-11-02] MEDS: CISATRACURIUM BESYLATE 20 MG/10 ML VIAL 10.4 MG IV PUSH (13:47)
--- NOTE | 2019-11-02 14:17 | WPDINTPN ---
Progress Note: A&P Assessment and Plan (1) Acute respiratory failure: Qualifiers: Respiratory failure complication: unspecified whether with hypoxia or hypercapnia Qualified Code(s): J96.00 - Acute respiratory failure, unspecified whether with hypoxia or hypercapnia Code(s): J96.00 - Acute respiratory failure, unspecified whether with hypoxia or hypercapnia Status: Acute Assessment and Plan: Patient with pending respiratory failure was intubated with 6.5 ET tube secondary to swelling of the lips, tongue, posterior airway due to angioedema -on 11/02/2019, patient coughed up his OG tube and ET tube, had to be intubated using a glide scope and a size 6.5 ETT. Swelling and fullness was noted in the pharynx, hypopharynx and around the vocal cords. Intubation was uneventful. -intubation was difficult the ER note -chest x-ray and ABGs reviewed, patient on 40% FiO2 and peep of 5 -sedation with Versed, fentanyl and propofol. -patient started on Nimbex infusion (2) Angioedema due to angiotensin converting enzyme inhibitor (CHARLES-I): Code(s): T78.3XXA - Angioneurotic edema, initial encounter; T46.4X5A - Adverse effect of ulohrlhocxg-vprjkqazox-zfklno inhibitors, initial encounter Status: Acute Assessment and Plan: Swelling of the lips, tongue, oropharynx, anterior neck -continue Solu-Medrol, Pepcid, Benadryl -C1 esterase has been obtained and pending -patient received 2 units of FFP on in 10/2019, will give additional unit of FFP today -CT scan of the soft tissues of the neck showed soft tissue edema in the lower face and anterior neck, no abscess (3) Thrombocytopenia: Code(s): D69.6 - Thrombocytopenia, unspecified Status: Acute Assessment and Plan: Patient has had thrombocytopenia in the past in December 2018 -improving -will continue to monitor platelet count (4) Abnormal glucose: Code(s): R73.09 - Other abnormal glucose Status: Acute Assessment and Plan: Elevated blood sugars could be related to steroids -continue Accu-Cheks and sliding scale insulin (5) Elevated lipase: Code(s): R74.8 - Abnormal levels of other serum enzymes Status: Acute Assessment and Plan: Lipase elevated on admission, unknown reason -normalized this morning -will continue to monitor (6) Dietary counseling and surveillance: Code(s): Z71.3 - Dietary counseling and surveillance Status: Acute Assessment and Plan: Tolerating tube feeds (7) DVT prophylaxis: Code(s): Z29.9 - Encounter for prophylactic measures, unspecified Status: Acute Assessment and Plan: SCDs due to thrombocytopenia Additional Plan Discussed with patient and his daughter and updated them with patient's condition and plan of care. I answered all questions Code status: Full code Critical care time spent: 49 minutes Due to a high probability of clinically significant, life threatening deterioration, the patient required my highest level of preparedness to intervene emergently and I personally spent this critical care time directly and personally managing the patient. This critical care time included obtaining a history; examining the patient; pulse oximetry; ordering and review of studies; arranging urgent treatment with development of a management plan; evaluation of patient's response to treatment; frequent reassessment; and discussions with other providers. It was exclusive of separately billable procedures and treating other patients and teaching time. Please see Assessment and Plan section and the rest of the note for further information on patient assessment and treatment Subjective Date/time seen: 11/02/19 14:17 Interval history: Acute respiratory failure, angioedema 11/02/2019: Patient seen and examined the ICU. Remains intubated, on CMV mode, 30% FiO2, peep of 5. Urine output has been adequate, afebrile CRP is 2.5, lactic acid of 2.6 and magne
--- NOTE | 2019-11-02 14:26 | WPDPROCEDUR ---
Procedures Intubation Intubation Date: 11/02/19 Sedative: etomidate Paralytic: succinylcholine Laryngoscope: fiber optic video scope Assist device used: fiber optic device ET tube size: 6.5 Tube secured depth (cm): 28 Tube secured location: lips Tube placement confirmation: visualized tube passing through cords, equal breath sounds bilaterally, no breath sounds over epigastrium and confirmation by capnometry Patient tolerated procedure: well and no complications Intubation complications: none Additional comments: Patient coughed up his OG and his ETT, was not getting his tidal volume, patient was bagged, I alerted anesthesia for backup patient was a difficult intubation according the ER note when he presented on 11/01/2019. Patient was bagged with good O2 sats , I intubated the patient using the glide scope was able to visualize the vocal cords, the anesthesiologist was also by my side. ETT was successfully seen passing the vocal cords, confirmed by capnometry. Patient tolerated the procedure well
[2019-11-02 14:39] LABS: Glucose Point of Care 136 (65-105)
[2019-11-02] MEDS: PROPOFOL IV EMULSION 100 ML 14.6 MG IV CONT (17:46)
[2019-11-02 18:19] LABS: Glucose Point of Care 161 (65-105)
[2019-11-03] VITALS (77 sets, daily range): BP systolic 114–184; BP diastolic 56–97; PULSE 46–123; RESP 15–16; TEMP 35.8–36.6; O2SAT 97–100
[2019-11-03] MEDS: methylPREDNISolone SOD SUCC 125 MG VIAL 60 MG IV PUSH ×5 (00:01→23:12)
[2019-11-03 00:07] LABS: Glucose Point of Care 145 (65-105)
[2019-11-03] MEDS: ALBUTEROL SULFATE NEB 2.5 MG/0.5 ML INH 5 MG INHALATION ×4 (01:34→19:24)
[2019-11-03] MEDS: PROPOFOL IV EMULSION 100 ML 10.4 MG IV CONT (03:05)
--- NOTE | 2019-11-03 03:43 | PC.NURSE ---
11/03/19 0245 2/4 twitches left radial with baseline of 7 but nimbex increased due to pt moving eyebrows and bottom lip. Sedation changes charted.
[2019-11-03] MEDS: SODIUM CHLORIDE 0.9% IV 1,000 ML 75 ML IV CONT (04:07)
[2019-11-03 04:52] LABS: Alveolar/Arterial O2 Gradient 75.1 mmHg; Base Excess ABG -0.8 mEq/l (+/-2.0); Carboxyhemoglobin 0.2 % THb (0-2.0); Device VENTILATOR; Fractional Inspired Oxygen 30 %; HCO3 ABG 22.8 mEq/l (22.0-26.0); Methemoglobin ABG 0.3 %THb (0-1.5); Modified Allen's Test Pass; Oxygen Saturation ABG 97.8 % (95.0-100.0); Oxyhemoglobin 96.2 % THb (90.0-100.0); PCO2 ABG 34.1 mmHg (35.0-45.0); PO2 ABG 98.7 mmHg (80.0-100.0); PO2 FiO2 Ratio Arterial Blood 3.29 %; Reduced Hemoglobin 3.3 %THb (0-5.0); Site Drawn LEFT RADIAL; pH ABG 7.443 (7.350-7.450)
[2019-11-03 04:53] LABS: Arterial Blood Gas PEEP 5 cmH2O; Arterial Blood Gas Tidal Volume 500 ml; Arterial Blood Gas Vent Mode CMV; Arterial Blood Gas Ventilator rate 15 /MIN
[2019-11-03 04:57] LABS: Hematocrit 28.9 % (42.0-52.0); Hemoglobin 9.9 g/dL (14.0-18.0); Mean Corpuscular HGB Conc 34.3 g/dl (32-36); Mean Corpuscular Hemoglobin 36.3 pg (26-34); Mean Corpuscular Volume 105.9 fl (80-100); Mean Platelet Volume 10.9 fl (7.4-10.4); Platelet Count Result 123 k/mm3 (150-375); Red Blood Count 2.73 M/mm3 (4.6-6.20); Red Cell Distribution Width 13.1 % (11.5-14.5); White Blood Count 9.6 K/mm3 (4.5-10.0)
[2019-11-03 05:10] LABS: Potassium 3.7 mmol/L (3.4-5.0)
[2019-11-03 05:12] LABS: Blood Urea Nitrogen 9 mg/dL (9-20); Calcium 8.3 mg/dL (8.4-10.2); Carbon Dioxide 23 mmol/L (22-30); Chloride 108 mmol/L (98-107); Estimated CRCL calculation 99 ml/min; Estimated Glomerular Filt Rate > 60; Glucose 164 mg/dL (75-110); Sodium 138 mmol/L (137-145)
[2019-11-03 05:13] LABS: Magnesium 2.2 mg/dL (1.6-2.3); Phosphorus 3.2 mg/dL (2.5-4.5)
[2019-11-03] MEDS: FAMOTIDINE 20 MG/2 ML VIAL IV PUSH ×2 (08:48→20:03)
[2019-11-03] MEDS: PROPOFOL IV EMULSION 100 ML 14.6 MG IV CONT ×3 (08:54→20:20)
--- NOTE | 2019-11-03 09:06 | WPDINTPN ---
Progress Note: A&P Assessment and Plan (1) Acute respiratory failure: Qualifiers: Respiratory failure complication: unspecified whether with hypoxia or hypercapnia Qualified Code(s): J96.00 - Acute respiratory failure, unspecified whether with hypoxia or hypercapnia Code(s): J96.00 - Acute respiratory failure, unspecified whether with hypoxia or hypercapnia Status: Acute Assessment and Plan: Patient with pending respiratory failure was intubated with 6.5 ET tube secondary to swelling of the lips, tongue, posterior airway due to angioedema -on 11/02/2019, patient coughed up his OG tube and ET tube, had to be re-intubated using a glide scope and a size 6.5 ETT. Swelling and fullness was noted in the pharynx, hypopharynx and around the vocal cords. Intubation was uneventful. -intubation was difficult the 1st time when he was intubated in the ER -chest x-ray and ABGs reviewed, patient on 30% FiO2 and peep of 5 -sedation with Versed, fentanyl and propofol. -continue Nimbex infusion for paralysis. Patient being paralyzed as he coughed up as ETT on 11/02/2019, given significant swelling and fullness in the pharynx, hypopharynx and around the vocal cords it would be safe and in the best interest of the patient to be on Nimbex for paralysis (2) Angioedema due to angiotensin converting enzyme inhibitor (CHARLES-I): Code(s): T78.3XXA - Angioneurotic edema, initial encounter; T46.4X5A - Adverse effect of eliqmdnjgvr-rmdilbsgko-ciqslj inhibitors, initial encounter Status: Acute Assessment and Plan: Swelling of the lips, tongue, oropharynx, anterior neck -continue Solu-Medrol, Pepcid, Benadryl -C1 esterase has been obtained and pending -patient received total of 3 units of FFP since admission -CT scan of the soft tissues of the neck showed soft tissue edema in the lower face and anterior neck. No abscess (3) Thrombocytopenia: Code(s): D69.6 - Thrombocytopenia, unspecified Status: Acute Assessment and Plan: Patient has had thrombocytopenia in the past in December 2018 -improving -will continue to monitor platelet count (4) Abnormal glucose: Code(s): R73.09 - Other abnormal glucose Status: Acute Assessment and Plan: Elevated blood sugars could be related to steroids -continue Accu-Cheks and sliding scale insulin (5) Elevated lipase: Code(s): R74.8 - Abnormal levels of other serum enzymes Status: Acute Assessment and Plan: Lipase elevated on admission, unknown reason -resolved -will continue to monitor (6) Dietary counseling and surveillance: Code(s): Z71.3 - Dietary counseling and surveillance Status: Acute Assessment and Plan: Will restart tube feeds (7) DVT prophylaxis: Code(s): Z29.9 - Encounter for prophylactic measures, unspecified Status: Acute Assessment and Plan: SCDs due to thrombocytopenia Additional Plan Discussed with patient's daughter and updated her with patient's condition and plan of care. I answered all questions Code status: Full code Critical care time spent: 34 minutes Due to a high probability of clinically significant, life threatening deterioration, the patient required my highest level of preparedness to intervene emergently and I personally spent this critical care time directly and personally managing the patient. This critical care time included obtaining a history; examining the patient; pulse oximetry; ordering and review of studies; arranging urgent treatment with development of a management plan; evaluation of patient's response to treatment; frequent reassessment; and discussions with other providers. It was exclusive of separately billable procedures and treating other patients and teaching time. Please see Assessment and Plan section and the rest of the note for further information on patient assessment and treatment Subjective Date/time seen: 11/03/19 09:06 Int
[2019-11-03] MEDS: polyethylene glycoL 3350 17 GM POWD.PACK PO (11:23)
--- NOTE | 2019-11-03 11:44 | PCDIET ---
ICU Rounding Note: Tube feeding held due to self-extubation/reintubation. RN reports tube feedings now at 40mL/hr with goal of 60mL/hr Jevity 1.2. Last recorded weight is 66.6kg which is decreased from last review, despite +I/O. Bowel Motility: No reported BM. adding Miralax today. Labs Reviewed: Hgb (9.9), Hct (28.9), Glu (164), Alb (3.2), Danielle Ca (8.94) Meds Noted: Albuterol, Nimbex, Solu Medrol, Pepcid, Fentanyl, Versed, Novolog, Propofol (rate of 14.6mL/hr provides 353kcal over 24 hours) Additional Notes: No skin breakdown. Recommend continuing to advance tube feedings toward goal. If Propofol continues, may need to reduce goal but anticipate tapering. Following daily in ICU rounds. Assessing/reassessing every Thursday/Thursday.
[2019-11-03 11:53] LABS: Glucose Point of Care 164 (65-105)
--- NOTE | 2019-11-03 17:07 | PM.IMPN ---
Progress Note: A&P Assessment and Plan (1) Acute respiratory failure: Qualifiers: Respiratory failure complication: unspecified whether with hypoxia or hypercapnia Qualified Code(s): J96.00 - Acute respiratory failure, unspecified whether with hypoxia or hypercapnia Code(s): J96.00 - Acute respiratory failure, unspecified whether with hypoxia or hypercapnia Status: Acute Assessment and Plan: Secondary to angioedema. Back on MV and now requiring paralytics. Stable now. Continue ventilatory support. Vent management per adult school teacher. Appreciate adult school teacher input. (2) Angioedema due to angiotensin converting enzyme inhibitor (CHARLES-I): Code(s): T78.3XXA - Angioneurotic edema, initial encounter; T46.4X5A - Adverse effect of ftmybhckump-sjhjkpkvsd-hqzfmn inhibitors, initial encounter Status: Acute Assessment and Plan: Head/Neck CT 11/01 showing soft tissue edema in the lower face and anterior neck but no abscess. Angioedema is likely secondary to ACEI. HOLD lisinopril. Continue Solumedrol, benadryl and Pepcid scheduled. Edema continues to improve. Continue current treatment. (3) Macrocytic anemia: Code(s): D53.9 - Nutritional anemia, unspecified Status: Deleted Assessment and Plan: Hemoglobin 13 last year. Hemoglobin 8.6 on admission but may have been lab error since recheck was 11.5. Since that time, hemoglobin has dropped to 9.9 this morning. B12 and folate levels normal. (4) Thrombocytopenia: Code(s): D69.6 - Thrombocytopenia, unspecified Status: Acute Assessment and Plan: Plt 140K on admission but dropped to 85K but up to 123K on recheck today. Etiology unclear but possibly related to his macrocytic anemia. B12 level normal. Continue to monitor platelets. (5) Abnormal glucose: Code(s): R73.09 - Other abnormal glucose Status: Acute Assessment and Plan: A1c 5.9. Glucose reviewed on 11/03/19. Glucose elevated at times most likely related to the steroids. Continue Acucheks with sliding scale. Subjective Date/time seen: 11/03/19 17:07 Interval history: 54yo male here for acute respiratory failure due to angioedema. Patient intubated in ER on admission (11/01/19). He self extubated on 11/02/19 (coughed up tube) and required immediate re-intubation. Date of service 11/03/2019: Patient remains intubated, sedated and now paralyzed. Patient provide history. He is 200 fentanyl, 6 of Versed and Nimbex. He is tolerating his tube feedings. Exam Narrative: Exam Narrative: AF 134/74 48 15 99% MV Gen -intubated, sedated and paralyzed HEENT - NC/AT, ETT and OG secured. lips with minimal edema. Tongue swelling is improved Chest - lungs clear anteriorly CV - RRR S1/S2; Tele showing sinus bradycardia Abd - Soft, ND, +BS -Banks secured draining clear yellow urine. Ext - No pedal edema Neuro -sedated paralyzed Skin - Warm and dry Objective Data Vital Signs Vital Signs: Vital Signs - 24 hr 11/02/19 17:30 11/02/19 17:44 11/02/19 17:46 Temperature Pulse Rate 56 L 55 L 54 L Respiratory Rate 15 15 15 Blood Pressure 123/68 Pulse Oximetry 11/02/19 17:57 11/02/19 17:59 11/02/19 18:00 Temperature 96.8 F L Pulse Rate 59 L 53 L 58 L Respiratory Rate 15 15 15 Blood Pressure 121/72 Pulse Oximetry 100 11/02/19 18:13 11/02/19 19:26 11/02/19 19:30 Temperature 97.1 F L 97.1 F L Pulse Rate 57 L 59 L 57 L Respiratory Rate 15 15 15 Blood Pressure 120/69 124/71 Pulse Oximetry 99 99 11/02/19 19:45 11/02/19 19:46 11/02/19 20:00 Temperature 97.2 F L 97.2 F L Pulse Rate 54 L 59 L 52 L Respiratory Rate 15 15 15 Blood Pressure 120/61 122/70 120/61 Pulse Oximetry 100 100 11/02/19 20:01 11/02/19 20:16 11/02/19 20:29 Temperature 97.2 F L 97.1 F L Pulse Rate 57 L 59 L 54 L Respiratory Rate 15 15 Blood Pressure 120/61 123/65 Pulse Oximetry 100 99 100 11/02/19 20:30 07
[2019-11-03 18:00] LABS: Glucose Point of Care 166 (65-105)
[2019-11-03 23:24] LABS: Glucose Point of Care 180 (65-105)
[2019-11-04] VITALS (76 sets, daily range): BP systolic 119–198; BP diastolic 64–111; PULSE 57–155; RESP 14–15; TEMP 36.1–37.3; O2SAT 93–99
[2019-11-04] MEDS: ALBUTEROL SULFATE NEB 2.5 MG/0.5 ML INH 5 MG INHALATION ×4 (01:44→19:48)
[2019-11-04] MEDS: PROPOFOL IV EMULSION 100 ML 16.7 MG IV CONT (02:37)
[2019-11-04 04:13] LABS: Alveolar/Arterial O2 Gradient 57.1 mmHg; Base Excess ABG -0.6 mEq/l (+/-2.0); Carboxyhemoglobin 0.3 % THb (0-2.0); Fractional Inspired Oxygen 30 %; HCO3 ABG 25.8 mEq/l (22.0-26.0); Methemoglobin ABG 0.5 %THb (0-1.5); Oxygen Content ABG 16.6 %vol (16.0-22.0); Oxyhemoglobin 95.5 % THb (90.0-100.0); PCO2 ABG 49.9 mmHg (35.0-45.0); PO2 ABG 98.2 mmHg (80.0-100.0); PO2 FiO2 Ratio Arterial Blood 3.27 %; Reduced Hemoglobin 3.7 %THb (0-5.0); Total Hemoglobin 12.3 g/dL (12.0-18.0); pH ABG 7.332 (7.350-7.450)
[2019-11-04 04:14] LABS: Device VENTILATOR; Modified Allen's Test Unable to perform; Site Drawn RIGHT RADIAL
[2019-11-04 04:15] LABS: Arterial Blood Gas PEEP 5 cmH2O; Arterial Blood Gas Tidal Volume 500 ml; Arterial Blood Gas Vent Mode CMV; Arterial Blood Gas Ventilator rate 15 /MIN
[2019-11-04 04:41] LABS: Hematocrit 34.8 % (42.0-52.0); Hemoglobin 11.4 g/dL (14.0-18.0); Mean Corpuscular HGB Conc 32.8 g/dl (32-36); Mean Corpuscular Hemoglobin 35.1 pg (26-34); Mean Corpuscular Volume 107.1 fl (80-100); Mean Platelet Volume 10.7 fl (7.4-10.4); Platelet Count Result 135 k/mm3 (150-375); Red Blood Count 3.25 M/mm3 (4.6-6.20); Red Cell Distribution Width 13.2 % (11.5-14.5); White Blood Count 11.2 K/mm3 (4.5-10.0)
[2019-11-04 04:54] LABS: Lactic Acid 3.9 mmol/L (0.7-2.1)
[2019-11-04 04:58] LABS: Blood Urea Nitrogen 12 mg/dL (9-20); CRP 0.7 mg/dL (<1.0); Calcium 8.8 mg/dL (8.4-10.2); Carbon Dioxide 26 mmol/L (22-30); Chloride 105 mmol/L (98-107); Estimated CRCL calculation 78 ml/min; Estimated Glomerular Filt Rate > 60; Glucose 200 mg/dL (75-110); Magnesium 2.6 mg/dL (1.6-2.3); Phosphorus 3.2 mg/dL (2.5-4.5); Potassium 3.7 mmol/L (3.4-5.0); Sodium 139 mmol/L (137-145)
[2019-11-04] MEDS: methylPREDNISolone SOD SUCC 125 MG VIAL 60 MG IV PUSH ×4 (05:11→23:52)
[2019-11-04] MEDS: PROPOFOL IV EMULSION 100 ML 20.8 MG IV CONT ×4 (06:51→20:38)
[2019-11-04] MEDS: amLODIPine BESYLATE 5 MG TABLET PO (08:04)
[2019-11-04] MEDS: METOPROLOL TARTRATE 25 MG TABLET PO (08:05)
[2019-11-04] MEDS: FAMOTIDINE 20 MG/2 ML VIAL IV PUSH ×2 (08:06→20:37)
[2019-11-04] MEDS: polyethylene glycoL 3350 17 GM POWD.PACK PO (08:07)
--- NOTE | 2019-11-04 09:06 | PM.IMPN ---
Progress Note: A&P Assessment and Plan (1) Acute respiratory failure: Qualifiers: Respiratory failure complication: unspecified whether with hypoxia or hypercapnia Qualified Code(s): J96.00 - Acute respiratory failure, unspecified whether with hypoxia or hypercapnia Code(s): J96.00 - Acute respiratory failure, unspecified whether with hypoxia or hypercapnia Status: Acute Assessment and Plan: Secondary to angioedema. Patient intubated in the ER on admission (10/31). He coughed up his tube on 11/01 and ultimately required re-intubation later that day. Patient remains on MV and now requiring paralytics. Remaining stable. Continue ventilatory support. Vent management per conduit worker. Appreciate conduit worker input. (2) Angioedema due to angiotensin converting enzyme inhibitor (CHARLES-I): Code(s): T78.3XXA - Angioneurotic edema, initial encounter; T46.4X5A - Adverse effect of bloonmuxihh-fietnlzgle-uqfuko inhibitors, initial encounter Status: Acute Assessment and Plan: Head/Neck CT 11/01 showing soft tissue edema in the lower face and anterior neck but no abscess. Angioedema is likely secondary to ACEI. HOLD lisinopril. Continue Solumedrol, benadryl and Pepcid scheduled. Edema continues to improve. Continue current treatment. (3) Macrocytic anemia: Code(s): D53.9 - Nutritional anemia, unspecified Status: Deleted Assessment and Plan: Hemoglobin 13 last year. Hemoglobin 8.6 on admission but may have been lab error since recheck was 11.5. Since that time, hemoglobin mostly in the 11 range. B12 and folate levels normal. LFTs okay but will check abd US to assess liver and spleen. (4) Thrombocytopenia: Code(s): D69.6 - Thrombocytopenia, unspecified Status: Acute Assessment and Plan: Plt 140K on admission but dropped to 85K but up to 135K on recheck today. Etiology unclear but possibly in relation to his macrocytic anemia. B12 level normal. Continue to monitor platelets. (5) Abnormal glucose: Code(s): R73.09 - Other abnormal glucose Status: Acute Assessment and Plan: A1c 5.9. Glucose reviewed on 11/04/19. Glucose elevated at times most likely related to the steroids. Continue Acucheks with sliding scale. Subjective Date/time seen: 11/04/19 09:07 Interval history: 54yo male here for acute respiratory failure due to angioedema. Patient intubated in ER on admission (11/01/19). He self extubated on 11/02/19 (coughed up tube) and required immediate re-intubation. Date of service 11/04/2019: Patient remains intubated, sedated and paralyzed. Patient unable provide history. He is 200 fentanyl, 5 of Versed, 50 Propofol and Nimbex. He is tolerating his tube feedings. RN states that when she weanes paralytics and sedation, patient becomes agitated with HR in to the 140 and SBP into the 200's. Tongue swelling still evident with suctioning per RN Exam Narrative: Exam Narrative: AF 123/80 65 15 Gen -intubated, sedated and paralyzed HEENT - NC/AT, ETT and OG secured. lips with minimal edema. Tongue swelling mildly persistent but improved Chest - lungs clear anteriorly CV - RRR S1/S2; Tele showing occas Sinus Tach Abd - Soft, ND, +BS -Banks secured draining clear yellow urine. Ext - No pedal edema Neuro -sedated and paralyzed Skin - Warm and dry Objective Data Vital Signs Vital Signs: Vital Signs - 24 hr 11/03/19 10:00 11/03/19 11:00 11/03/19 12:00 Temperature 98 F 97.8 F Pulse Rate 56 L 53 L 49 L Respiratory Rate 15 15 15 Blood Pressure 114/60 121/71 123/68 Pulse Oximetry 98 100 11/03/19 12:08 11/03/19 12:11 11/03/19 12:29 Temperature Pulse Rate 51 L 53 L 48 L Respiratory Rate 15 15 Blood Pressure Pulse Oximetry 100 11/03/19 13:47 11/03/19 13:57 11/03/19 14:00 Temperature 97.5 F L Pulse Rate 52 L 53 L 57 L Respiratory Rate 15 15 15 Blood Pressure 127/63 Pulse Oximetry
--- NOTE | 2019-11-04 11:33 | WPDINTPN ---
Progress Note: A&P Assessment and Plan (1) Acute respiratory failure: Qualifiers: Respiratory failure complication: unspecified whether with hypoxia or hypercapnia Qualified Code(s): J96.00 - Acute respiratory failure, unspecified whether with hypoxia or hypercapnia Code(s): J96.00 - Acute respiratory failure, unspecified whether with hypoxia or hypercapnia Status: Acute Assessment and Plan: Patient with pending respiratory failure was intubated with 6.5 ET tube secondary to swelling of the lips, tongue, posterior airway due to angioedema -on 11/02/2019, patient coughed up his OG tube and ET tube, had to be re-intubated using a glide scope and a size 6.5 ETT. Swelling and fullness was noted in the pharynx, hypopharynx and around the vocal cords. Intubation was uneventful. -intubation was difficult the 1st time when he was intubated in the ER -chest x-ray and ABGs reviewed, patient on 30% FiO2 and peep of 5 -sedation with Versed, fentanyl and propofol. -continue Nimbex infusion for paralysis. Patient being paralyzed as he coughed up as ETT on 11/02/2019, given significant swelling and fullness in the pharynx, hypopharynx and around the vocal cords it would be safe and in the best interest of the patient to be on Nimbex for paralysis -swelling of the tongue still persists, swelling of the lips and neck has improved. Will obtain CT scan of the neck and soft tissues on 11/05/2019 (2) Angioedema due to angiotensin converting enzyme inhibitor (CHARLES-I): Code(s): T78.3XXA - Angioneurotic edema, initial encounter; T46.4X5A - Adverse effect of xxxawfwnata-cseifsbfly-taxowa inhibitors, initial encounter Status: Acute Assessment and Plan: Swelling of the lips, tongue, oropharynx, anterior neck on 11/01/2020 and intubating the 2nd time -continue Solu-Medrol, Pepcid, Benadryl -C1 esterase has been obtained and pending -patient received total of 3 units of FFP since admission -CT scan of the soft tissues of the neck showed soft tissue edema in the lower face and anterior neck. No abscess -will repeat CT scan of the neck and soft tissues on 11/05/2019 (3) Thrombocytopenia: Code(s): D69.6 - Thrombocytopenia, unspecified Status: Acute Assessment and Plan: Patient has had thrombocytopenia in the past in December 2018 -improving -will continue to monitor platelet count (4) Abnormal glucose: Code(s): R73.09 - Other abnormal glucose Status: Acute Assessment and Plan: Elevated blood sugars could be related to steroids -continue Accu-Cheks and sliding scale insulin (5) Elevated lipase: Code(s): R74.8 - Abnormal levels of other serum enzymes Status: Acute Assessment and Plan: Lipase elevated on admission, unknown reason -resolved -will continue to monitor (6) Dietary counseling and surveillance: Code(s): Z71.3 - Dietary counseling and surveillance Status: Acute Assessment and Plan: Tolerating tube feeds, at goal (7) DVT prophylaxis: Code(s): Z29.9 - Encounter for prophylactic measures, unspecified Status: Acute Assessment and Plan: SCDs due to thrombocytopenia Additional Plan Discussed with patient's daughter and updated her with patient's condition and plan of care. I answered all questions Code status: Full code Critical care time spent: 32 minutes Due to a high probability of clinically significant, life threatening deterioration, the patient required my highest level of preparedness to intervene emergently and I personally spent this critical care time directly and personally managing the patient. This critical care time included obtaining a history; examining the patient; pulse oximetry; ordering and review of studies; arranging urgent treatment with development of a management plan; evaluation of patient's response to treatment; frequent reassessment; and discussions with other providers. It was exclusi
--- NOTE | 2019-11-04 11:47 | PCDIET ---
Nutrition Follow-Up Complete: Nutrition Diagnosis: Inadequate oral intake related to oral intubation as evidenced by NPO status. Nutrition Goal: Patient to meet estimated nutritional needs. Goal met. Patient tolerating Jevity 1.2 at goal rate of 60mL/hr. Continues on 30mL water flush every 4 hours. Discussed with MD change to Glucerna 1.2 to potentially improve blood sugars. Recommend same rate of 60mL/hr x 22 hours/day for 1584kcal, 79g protein and 1062mL free water. Last recorded weight is 68.1 kg which is increased. +I/O noted. Bowel Motility: No reported BM. Labs Reviewed: Hgb (11.4), Hct (34.8), Glu (200) Meds Noted: Albuterol, Fentanyl, Nimbex, Novolog, Pepcid, Solu Medrol, Versed, Miralax Additional Notes: No documented pressure ulcers. MD approved change to Glucerna 1.2. Will continue to monitor with same goal. Nutrition Monitoring and Evaluation: Follow up every Thursday/Thursday. Follow daily in ICU rounds.
[2019-11-04 12:04] LABS: Glucose Point of Care 152 (65-105)
[2019-11-04] MEDS: METOPROLOL TARTRATE INJ 5 MG/5 ML VIAL IV PUSH (14:20)
[2019-11-04] MEDS: hydrALAZINE HCL 20 MG/ML VIAL IV PUSH (15:26)
[2019-11-04] MEDS: hydrALAZINE 10 MG TABLET FEED TUBE ×2 (16:53→20:38)
[2019-11-04] MEDS: amLODIPine BESYLATE 5 MG TABLET FEED TUBE (16:53)
[2019-11-04 17:37] LABS: Glucose Point of Care 152 (65-105)
--- NOTE | 2019-11-04 18:34 | PC.NURSE ---
Spoke with Mike DIAZ regarding patient o2 sat maintaining at 92-93%. Suctioned small amount of thick yellow from ET tube.
[2019-11-04] MEDS: METOPROLOL TARTRATE 50 MG TAB PO (20:37)
[2019-11-04 23:52] LABS: Glucose Point of Care 153 (65-105)
[2019-11-05] VITALS (52 sets, daily range): BP systolic 108–211; BP diastolic 60–114; PULSE 60–104; RESP 15–20; TEMP 36.7–37.6; O2SAT 93–100
[2019-11-05] MEDS: PROPOFOL IV EMULSION 100 ML 20.8 MG IV CONT ×5 (00:33→23:07)
[2019-11-05] MEDS: ALBUTEROL SULFATE NEB 2.5 MG/0.5 ML INH 5 MG INHALATION ×4 (01:59→20:36)
[2019-11-05 04:01] LABS: Alveolar/Arterial O2 Gradient 83.9 mmHg; Base Excess ABG 4.5 mEq/l (+/-2.0); Carboxyhemoglobin 0.3 % THb (0-2.0); Fractional Inspired Oxygen 30 %; HCO3 ABG 30.2 mEq/l (22.0-26.0); Methemoglobin ABG 0.5 %THb (0-1.5); Oxygen Content ABG 16.6 %vol (16.0-22.0); Oxygen Saturation ABG 94.4 % (95.0-100.0); Oxyhemoglobin 92.6 % THb (90.0-100.0); PCO2 ABG 49.3 mmHg (35.0-45.0); PO2 ABG 72.1 mmHg (80.0-100.0); Reduced Hemoglobin 6.6 %THb (0-5.0); Total Hemoglobin 12.7 g/dL (12.0-18.0); pH ABG 7.405 (7.350-7.450)
[2019-11-05 04:02] LABS: Arterial Blood Gas Vent Mode CMV; Arterial Blood Gas Ventilator rate 15 /MIN; Device VENTILATOR; Modified Allen's Test Unable to perform; Site Drawn RIGHT RADIAL
[2019-11-05 04:03] LABS: Arterial Blood Gas PEEP 5 cmH2O; Arterial Blood Gas Tidal Volume 500 ml
[2019-11-05 04:13] LABS: Hematocrit 32.2 % (42.0-52.0); Hemoglobin 10.8 g/dL (14.0-18.0); Mean Corpuscular HGB Conc 33.5 g/dl (32-36); Mean Corpuscular Hemoglobin 36.1 pg (26-34); Mean Corpuscular Volume 107.7 fl (80-100); Mean Platelet Volume 10.7 fl (7.4-10.4); Platelet Count Result 133 k/mm3 (150-375); Red Blood Count 2.99 M/mm3 (4.6-6.20); Red Cell Distribution Width 13.4 % (11.5-14.5); White Blood Count 7.1 K/mm3 (4.5-10.0)
[2019-11-05 04:28] LABS: Lactic Acid 1.7 mmol/L (0.7-2.1)
[2019-11-05 04:34] LABS: Blood Urea Nitrogen 17 mg/dL (9-20); CRP 3.3 mg/dL (<1.0); Calcium 8.1 mg/dL (8.4-10.2); Carbon Dioxide 28 mmol/L (22-30); Chloride 101 mmol/L (98-107); Estimated CRCL calculation 117 ml/min; Estimated Glomerular Filt Rate > 60; Glucose 145 mg/dL (75-110); Magnesium 2.5 mg/dL (1.6-2.3); Phosphorus 3.9 mg/dL (2.5-4.5); Potassium 4.5 mmol/L (3.4-5.0); Sodium 134 mmol/L (137-145)
[2019-11-05] MEDS: methylPREDNISolone SOD SUCC 125 MG VIAL 60 MG IV PUSH ×4 (05:15→23:18)
[2019-11-05 05:19] LABS: Glucose Point of Care 185 (65-105)
--- NOTE | 2019-11-05 07:30 | WPDINTPN ---
Progress Note: A&P Assessment and Plan (1) Acute respiratory failure: Qualifiers: Respiratory failure complication: unspecified whether with hypoxia or hypercapnia Qualified Code(s): J96.00 - Acute respiratory failure, unspecified whether with hypoxia or hypercapnia Code(s): J96.00 - Acute respiratory failure, unspecified whether with hypoxia or hypercapnia Status: Acute Assessment and Plan: Patient with pending respiratory failure was intubated with 6.5 ET tube secondary to swelling of the lips, tongue, posterior airway due to angioedema -on 11/02/2019, patient coughed up his OG tube and ET tube, had to be re-intubated using a glide scope and a size 6.5 ETT. Swelling and fullness was noted in the pharynx, hypopharynx and around the vocal cords. Intubation was uneventful. -intubation was difficult the 1st time when he was intubated in the ER -chest x-ray and ABGs reviewed, patient on 30% FiO2 and peep of 5 -sedation with Versed, fentanyl and propofol. -continue Nimbex infusion for paralysis. Patient being paralyzed as he coughed up as ETT on 11/02/2019, given significant swelling and fullness in the pharynx, hypopharynx and around the vocal cords it would be safe and in the best interest of the patient to be on Nimbex for paralysis -swelling of the tongue appears to have improved, swelling of the lips and neck has improved. Will obtain CT scan of the neck and soft tissues on 11/05/2019 -chest x-ray also shows worsening infiltrate but patient does not have any fever white count is normal. Will also obtain chest CT for further evaluation -check BNP (2) Angioedema due to angiotensin converting enzyme inhibitor (CHARLES-I): Code(s): T78.3XXA - Angioneurotic edema, initial encounter; T46.4X5A - Adverse effect of mvlbndwbtcb-xvsobyaiwy-pwjpbs inhibitors, initial encounter Status: Acute Assessment and Plan: Swelling of the lips, tongue, oropharynx, anterior neck on 11/01/2020 and intubating the 2nd time -continue Solu-Medrol, Pepcid, Benadryl -C1 esterase has been obtained and pending -patient received total of 3 units of FFP since admission -CT scan of the soft tissues of the neck showed soft tissue edema in the lower face and anterior neck. No abscess -will repeat CT scan of the neck and soft tissues today on 11/05/2019 (3) Thrombocytopenia: Code(s): D69.6 - Thrombocytopenia, unspecified Status: Acute Assessment and Plan: Patient has had thrombocytopenia in the past in December 2018 -improving -will continue to monitor platelet count (4) Abnormal glucose: Code(s): R73.09 - Other abnormal glucose Status: Acute Assessment and Plan: Elevated blood sugars could be related to steroids -continue Accu-Cheks and sliding scale insulin (5) Elevated lipase: Code(s): R74.8 - Abnormal levels of other serum enzymes Status: Acute Assessment and Plan: Lipase elevated on admission, unknown reason -resolved -will continue to monitor (6) Dietary counseling and surveillance: Code(s): Z71.3 - Dietary counseling and surveillance Status: Acute Assessment and Plan: Tolerating tube feeds, at goal (7) DVT prophylaxis: Code(s): Z29.9 - Encounter for prophylactic measures, unspecified Status: Acute Assessment and Plan: Was on SCDs due to thrombocytopenia Platelet count improved hence will start Lovenox (8) Hypertension: Code(s): I10 - Essential (primary) hypertension Status: Acute Assessment and Plan: Patient on p.o. amlodipine and metoprolol Will add IV p.r.n. Lopressor Additional Plan Code status: Full code Critical care time spent: 30 minutes Due to a high probability of clinically significant, life threatening deterioration, the patient required my highest level of preparedness to intervene emergently and I personally spent this critical care time directly and personally managing the pat
[2019-11-05] MEDS: amLODIPine BESYLATE 5 MG TABLET 10 MG FEED TUBE (08:26)
[2019-11-05] MEDS: FAMOTIDINE 20 MG/2 ML VIAL IV PUSH ×2 (08:26→21:06)
[2019-11-05] MEDS: hydrALAZINE 10 MG TABLET FEED TUBE ×4 (08:26→21:06)
[2019-11-05] MEDS: METOPROLOL TARTRATE 50 MG TAB PO ×2 (08:27→21:06)
[2019-11-05] MEDS: polyethylene glycoL 3350 17 GM POWD.PACK PO (08:27)
[2019-11-05] MEDS: hydrALAZINE HCL 20 MG/ML VIAL 10 MG IV PUSH (08:38)
--- NOTE | 2019-11-05 09:15 | PM.IMPN ---
Progress Note: A&P Assessment and Plan (1) Acute respiratory failure: Qualifiers: Respiratory failure complication: unspecified whether with hypoxia or hypercapnia Qualified Code(s): J96.00 - Acute respiratory failure, unspecified whether with hypoxia or hypercapnia Code(s): J96.00 - Acute respiratory failure, unspecified whether with hypoxia or hypercapnia Status: Acute Assessment and Plan: Secondary to angioedema. Patient intubated in the ER on admission (10/31). He coughed up his tube on 11/01 and ultimately required re-intubation later that day. Patient remains on MV and now requiring paralytics. Remaining stable. Continue ventilatory support. Vent management per emergency room doctor. Appreciate emergency room doctor input. (2) Angioedema due to angiotensin converting enzyme inhibitor (CHARLES-I): Code(s): T78.3XXA - Angioneurotic edema, initial encounter; T46.4X5A - Adverse effect of jhqfcafbyoc-ywlzfhzwye-inrtls inhibitors, initial encounter Status: Acute Assessment and Plan: Head/Neck CT 11/01 showing soft tissue edema in the lower face and anterior neck but no abscess. Angioedema is likely secondary to ACEI. HOLD lisinopril. Continue Solumedrol, benadryl and Pepcid scheduled. Edema continues to improve. Continue current treatment. Repeat CT ordered. (3) Macrocytic anemia: Code(s): D53.9 - Nutritional anemia, unspecified Status: Deleted Assessment and Plan: Hemoglobin 13 last year. Hemoglobin 8.6 on admission but may have been lab error since recheck was 11.5. Since that time, hemoglobin mostly in the 10-11 range. B12 and folate levels normal. LFTs okay but will check CT to assess liver and spleen. (4) Thrombocytopenia: Code(s): D69.6 - Thrombocytopenia, unspecified Status: Acute Assessment and Plan: Plt 140K on admission but dropped to 85K but up to 133K today. Etiology unclear but possibly in relation to his macrocytic anemia. B12 level normal. Continue to monitor platelets. (5) Abnormal glucose: Code(s): R73.09 - Other abnormal glucose Status: Acute Assessment and Plan: A1c 5.9. Glucose reviewed on 11/05/19. Glucose elevated at times most likely related to the steroids. Continue Acucheks with sliding scale. (6) Hypertension: Code(s): I10 - Essential (primary) hypertension Status: Acute Assessment and Plan: BP reviewed on 11/05/19. BP elevated this morning related to adjustments in sedation. Overnight, blood pressure well controlled. Continue metoprolol, Norvasc and hydralazine. Sedation has been increased so will recheck blood pressure to see if this improves. Subjective Date/time seen: 11/05/19 09:15 Interval history: 54yo male here for acute respiratory failure due to angioedema. Patient intubated in ER on admission (11/01/19). He self extubated on 11/02/19 (coughed up tube) and required immediate re-intubation. Date of service 11/05/2019: Patient remains intubated, sedated and paralyzed. Patient unable provide history. He remains on 200 fentanyl, 6 of Versed, 50 Propofol and Nimbex. He is tolerating his tube feedings. No issues overnight per RN. This morning however, RN states that when she weaned proprofol, the patient's HR and BP both became elevated. Exam Narrative: Exam Narrative: AF 211/113 101 15 Gen -intubated, sedated and paralyzed HEENT - NC/AT, ETT and OG secured. lips without edema. Tongue swelling mild Neck - less edema Chest - lungs clear anteriorly and in the flanks CV - RRR S1/S2; Tele showing no significant dysrhythmias Abd - Soft, ND, +BS -Banks secured draining clear yellow urine. Ext - No pedal edema Neuro -sedated and paralyzed Skin - Warm and dry Objective Data Vital Signs Vital Signs: Vital Signs - 24 hr 11/04/19 09:52 11/04/19 09:53 11/04/19 09:54 Temperature Pulse Rate 64 64 64 Respiratory Rate 15 15 15 Blood Pressure 121/8
[2019-11-05 09:56] LABS: NT Pro B Type Natriuretic Pept 1190 PG/ML (5-100)
[2019-11-05] MEDS: ENOXAPARIN 40 MG/0.4 ML SYRINGE SUB-Q (11:34)
[2019-11-05 11:39] LABS: Glucose Point of Care 145 (65-105)
[2019-11-05] MEDS: PROPOFOL IV EMULSION 200 MG/20 ML VIAL 50 MG IV PUSH (12:43)
--- NOTE | 2019-11-05 12:49 | PM.EVENT ---
Event Note Event Note Event Note: Chest CT obtained and showed evidence of pneumonia patient was started on aztreonam and Flagyl. I stopped the paralytic in anticipation of doing a sedation holiday and a weaning trial. Patient did have cuff leak on my exam. Once paralytics wore off patient became agitated. He was following commands intermittently but did not hold still for a breathing trial. I was evaluating patient to be extubated without doing weaning trial as patient's main issue is airway rather than hypoxia or ventilation. Despite pneumonia patient was saturating well on 30% FiO2. But while we were evaluating patient at bedside patient desatted into 80s, patient was suction and had secretions. Patient was bucking the vent and extubating at that point became risky hence patient was placed back on full ventilation and sedated. I have increased dose of both Versed and propofol. I will also add Precedex which may help next time will perform sedation holiday. I would try to avoid resuming nimbex if possible.
[2019-11-05] MEDS: PROPOFOL IV EMULSION 100 ML 29.1 MG IV CONT (15:01)
[2019-11-05] MEDS: metroNIDAZOLE 500 MG/ISO 100ML 500 MG/100 ML BAG 100 MG IVPB ×3 (15:33→23:18)
[2019-11-05] MEDS: AZTREONAM 1 GM in DEXTROSE 5% IN WATER 50 ML IVPB ×2 (17:38→21:08)
[2019-11-05 18:23] LABS: Glucose Point of Care 155 (65-105)
[2019-11-05 23:31] LABS: Glucose Point of Care 152 (65-105)
[2019-11-06] VITALS (25 sets, daily range): BP systolic 119–165; BP diastolic 71–97; PULSE 46–91; RESP 15–33; TEMP 36.3–38.1; O2SAT 91–99
[2019-11-06] MEDS: ALBUTEROL SULFATE NEB 2.5 MG/0.5 ML INH 5 MG INHALATION ×4 (02:58→20:21)
[2019-11-06] MEDS: PROPOFOL IV EMULSION 100 ML 20.8 MG IV CONT ×2 (03:35→08:03)
[2019-11-06 04:01] LABS: Hematocrit 30.7 % (42.0-52.0); Hemoglobin 10.5 g/dL (14.0-18.0); Mean Corpuscular HGB Conc 34.2 g/dl (32-36); Mean Corpuscular Hemoglobin 36.2 pg (26-34); Mean Corpuscular Volume 105.9 fl (80-100); Mean Platelet Volume 9.9 fl (7.4-10.4); Platelet Count Result 147 k/mm3 (150-375); Red Cell Distribution Width 13.4 % (11.5-14.5); White Blood Count 5.6 K/mm3 (4.5-10.0)
[2019-11-06 04:24] LABS: Blood Urea Nitrogen 22 mg/dL (9-20); Calcium 8.3 mg/dL (8.4-10.2); Carbon Dioxide 31 mmol/L (22-30); Chloride 102 mmol/L (98-107); Estimated CRCL calculation 97 ml/min; Estimated Glomerular Filt Rate > 60; Glucose 163 mg/dL (75-110); Potassium 4.6 mmol/L (3.4-5.0); Sodium 136 mmol/L (137-145)
[2019-11-06 04:25] LABS: Lactic Acid 1.5 mmol/L (0.7-2.1)
[2019-11-06 04:30] LABS: Alveolar/Arterial O2 Gradient 223.8 mmHg; Carboxyhemoglobin 0.3 % THb (0-2.0); Fractional Inspired Oxygen 50 %; HCO3 ABG 28.7 mEq/l (22.0-26.0); Methemoglobin ABG 0.3 %THb (0-1.5); Oxygen Content ABG 15.2 %vol (16.0-22.0); Oxygen Saturation ABG 96.4 % (95.0-100.0); Oxyhemoglobin 93.6 % THb (90.0-100.0); PCO2 ABG 44.1 mmHg (35.0-45.0); PO2 ABG 83.1 mmHg (80.0-100.0); PO2 FiO2 Ratio Arterial Blood 1.66 %; Reduced Hemoglobin 5.8 %THb (0-5.0); Total Hemoglobin 11.5 g/dL (12.0-18.0); pH ABG 7.432 (7.350-7.450)
[2019-11-06 04:31] LABS: Arterial Blood Gas PEEP 5 cmH2O; Arterial Blood Gas Tidal Volume 500 ml; Arterial Blood Gas Vent Mode CMV; Arterial Blood Gas Ventilator rate 15 /MIN; Device VENTILATOR; Modified Allen's Test Pass; Site Drawn RIGHT RADIAL
[2019-11-06 04:40] LABS: CRP 15.5 mg/dL (<1.0); Magnesium 2.8 mg/dL (1.6-2.3); Phosphorus 4.1 mg/dL (2.5-4.5)
[2019-11-06] MEDS: AZTREONAM 1 GM in DEXTROSE 5% IN WATER 50 ML IVPB ×3 (05:40→22:07)
[2019-11-06] MEDS: methylPREDNISolone SOD SUCC 125 MG VIAL 60 MG IV PUSH ×4 (05:40→23:40)
[2019-11-06] MEDS: metroNIDAZOLE 500 MG/ISO 100ML 500 MG/100 ML BAG 100 MG IVPB ×4 (05:41→23:38)
--- NOTE | 2019-11-06 07:30 | WPDINTPN ---
Progress Note: A&P Assessment and Plan (1) Acute respiratory failure: Qualifiers: Respiratory failure complication: unspecified whether with hypoxia or hypercapnia Qualified Code(s): J96.00 - Acute respiratory failure, unspecified whether with hypoxia or hypercapnia Code(s): J96.00 - Acute respiratory failure, unspecified whether with hypoxia or hypercapnia Status: Acute Assessment and Plan: Patient with pending respiratory failure was intubated with 6.5 ET tube secondary to swelling of the lips, tongue, posterior airway due to angioedema -on 11/02/2019, patient coughed up his OG tube and ET tube, had to be re-intubated using a glide scope and a size 6.5 ETT. Swelling and fullness was noted in the pharynx, hypopharynx and around the vocal cords. Intubation was uneventful. -intubation was difficult the 1st time when he was intubated in the ER -chest x-ray and ABGs reviewed, patient on 40% FiO2 and peep of 5 -sedation with Versed, fentanyl, fentanyl and propofol. - CT 11/04 IMPRESSION: 1. Bilateral pneumonia with a posterior predominance, right worse than left. 2. Small pleural effusions. -started aztreonam and Flagyl -sputum cultures ordered - Will give 40 of Lasix IV -Nimbex infusion was discontinued on 11/04 -swelling of the tongue appears to have improved, swelling of the lips and neck has improved. Will obtain CT scan of the neck and soft tissues on 11/05/2019 -BNP was elevated will give a dose of Lasix and check echocardiogram 11/04 - Once paralytics wore off patient became agitated. He was following commands intermittently but did not hold still for a breathing trial. I was evaluating patient to be extubated without doing weaning trial as patient's main issue is airway rather than hypoxia or ventilation. Despite pneumonia patient was saturating well on 30% FiO2. But while we were evaluating patient at bedside patient desatted into 80s, patient was suction and had secretions. Patient was bucking the vent and extubating at that point became risky hence patient was placed back on full ventilation and sedated. -will try a spontaneous breathing trial again today (2) Angioedema due to angiotensin converting enzyme inhibitor (CHARLES-I): Code(s): T78.3XXA - Angioneurotic edema, initial encounter; T46.4X5A - Adverse effect of pqcnwnqibyg-fvbmmuzogk-iwfdbb inhibitors, initial encounter Status: Acute Assessment and Plan: Swelling of the lips, tongue, oropharynx, anterior neck on 11/01/2020 and intubating the 2nd time -continue Solu-Medrol, Pepcid, Benadryl -C1 esterase has been obtained and pending -patient received total of 3 units of FFP since admission -CT scan of the soft tissues of the neck showed soft tissue edema in the lower face and anterior neck. No abscess -repeat CT scan of the neck and soft tissues done on 11/05/2019 was reviewed (3) Thrombocytopenia: Code(s): D69.6 - Thrombocytopenia, unspecified Status: Acute Assessment and Plan: Patient has had thrombocytopenia in the past in December 2018 -improving -will continue to monitor platelet count (4) Abnormal glucose: Code(s): R73.09 - Other abnormal glucose Status: Acute Assessment and Plan: Elevated blood sugars could be related to steroids -continue Accu-Cheks and sliding scale insulin (5) Elevated lipase: Code(s): R74.8 - Abnormal levels of other serum enzymes Status: Acute Assessment and Plan: Lipase elevated on admission, unknown reason -resolved -will continue to monitor (6) Dietary counseling and surveillance: Code(s): Z71.3 - Dietary counseling and surveillance Status: Acute Assessment and Plan: Tolerating tube feeds, at goal (7) DVT prophylaxis: Code(s): Z29.9 - Encounter for prophylactic measures, unspecified Status: Acute Assessment and Plan: Was on SCDs due to thrombocytopenia Platelet count improved hence was started o
[2019-11-06] MEDS: FUROSEMIDE INJ 40 MG/4 ML VIAL IV PUSH (07:35)
[2019-11-06] MEDS: amLODIPine BESYLATE 5 MG TABLET 10 MG FEED TUBE (07:53)
[2019-11-06] MEDS: ENOXAPARIN 40 MG/0.4 ML SYRINGE SUB-Q (07:53)
[2019-11-06] MEDS: FAMOTIDINE 20 MG/2 ML VIAL IV PUSH ×2 (07:53→21:05)
[2019-11-06] MEDS: hydrALAZINE 10 MG TABLET FEED TUBE ×3 (07:54→21:06)
--- NOTE | 2019-11-06 10:00 | PM.EVENT ---
Event Note Event Note Event Note: Sedation holiday was done. Patient awake following commands. Patient was placed on pressure support but did not tolerate as he kept on coughing and was agitated trying to get out of bed. He did had a cough leak and was saturating adequately on 40% FiO2. Lasix was given earlier and patient already put out 2 L of urine output. I think this is the best the patient was going to get and was ready for extubation hence I extubated patient without a spontaneous breathing trial. He has no stridor upon extubation and is saturating well on room air. Will continue monitoring. All sedation except Precedex is off. Incentive spirometry. Additional critical care time 20 minutes
--- NOTE | 2019-11-06 10:08 | PC.NURSE ---
At 0930 patient woke up, Dr. Contreras in the room and patient put on breathing trial. At 0935 Dr. Contreras ordered propofol cut to rate of 20. At 0940 Dr. Contreras ordered propofol be turned off. Patient awake, following commands with stable vitals signs so patient extubated at 0945 to 2L NC
--- NOTE | 2019-11-06 10:31 | PM.EVENT ---
Event Note Event Note Event Note: 5/5 PSV SBT done for more than 1 hour. RSBI, ABGI and Vitals acceptable. Pt awake and following commands. Will extubate and monitor. NPO for now. Bipap PRN
--- NOTE | 2019-11-06 11:15 | PM.IMPN ---
Progress Note: A&P Assessment and Plan (1) Acute respiratory failure: Qualifiers: Respiratory failure complication: unspecified whether with hypoxia or hypercapnia Qualified Code(s): J96.00 - Acute respiratory failure, unspecified whether with hypoxia or hypercapnia Code(s): J96.00 - Acute respiratory failure, unspecified whether with hypoxia or hypercapnia Status: Acute Assessment and Plan: Secondary to angioedema. Patient intubated in the ER on admission (10/31). He coughed up his tube on 11/01 and ultimately required re-intubation later that day. Patient able to be extubated earlier this morning. So far appears to be protecting his airway. Continue to monitor closely. Appreciate machining associate input. (2) Aspiration pneumonia: Code(s): J69.0 - Pneumonitis due to inhalation of food and vomit Status: Acute Assessment and Plan: Chest CT 11/04 showing bilateral PNA right>left. Possibly aspiration when he coughed up his ETT on 11/01. Abx started. Sputum Cx pending. Continue the same. (3) Angioedema due to angiotensin converting enzyme inhibitor (CHARLES-I): Code(s): T78.3XXA - Angioneurotic edema, initial encounter; T46.4X5A - Adverse effect of hghwuoytjsr-rojofroypp-jgyicb inhibitors, initial encounter Status: Acute Assessment and Plan: Head/Neck CT 11/01 showing soft tissue edema in the lower face and anterior neck but no abscess. Angioedema is likely secondary to ACEI. Repeat CT Head/neck showing lower face edema. Continue to HOLD lisinopril. Continue Solumedrol, benadryl and Pepcid scheduled. Facial edema almost resolved. Continue current treatment. (4) Macrocytic anemia: Code(s): D53.9 - Nutritional anemia, unspecified Status: Deleted Assessment and Plan: Hemoglobin 13 last year. Hemoglobin 8.6 on admission but may have been lab error since recheck was 11.5. Since that time, hemoglobin mostly in the 10-11 range. B12 and folate levels normal. LFTs okay. CT Abd/pelvis showing no organomegaly or lymphadenopathy. Follow HH. (5) Thrombocytopenia: Code(s): D69.6 - Thrombocytopenia, unspecified Status: Acute Assessment and Plan: Plt 140K on admission but dropped to 85K. Plt coung has improved to 147K today. Etiology unclear but possibly in relation to his macrocytic anemia. B12 level normal. Continue to monitor platelets. (6) Abnormal glucose: Code(s): R73.09 - Other abnormal glucose Status: Acute Assessment and Plan: A1c 5.9. Glucose reviewed on 11/06/19. Glucose elevated at times most likely related to the steroids. Continue Acucheks with sliding scale. (7) Hypertension: Code(s): I10 - Essential (primary) hypertension Status: Acute Assessment and Plan: BP reviewed on 11/06/19. BP well controlled. Continue metoprolol, Norvasc and hydralazine. Subjective Date/time seen: 11/06/19 11:16 Interval history: 54yo male here for acute respiratory failure due to angioedema. Patient intubated in ER on admission (11/01/19). He self extubated on 11/02/19 (coughed up tube) and required immediate re-intubation. Date of service 11/06/2019: Patient extubated earlier today. Currently switched to Precedex. He is somnolent but awake. He has a cough. Feels slightly SOB. +abd pain. No CP. Exam Narrative: Exam Narrative: AF 140/71 83 25 92% Gen - NARD sitting up in bed HEENT - NC/AT, no lip edema. no significant tongue swelling. Neck - supple Chest - bibasilat inspiratory crackles CV - RRR S1/S2; Tele showing no significant dysrhythmias Abd - Soft, ND, +BS, no guarding. -Banks secured draining clear yellow urine. Ext - No pedal edema Neuro - awake but somnolent. 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 Skin - Warm and dry Objective Data Vital Signs Vital Signs: Vital Signs - 24 hr 11/05/19 12:00 11/05/19 13:06 11/05/19 13:24 Temperature 98.2 F Pulse Rate
[2019-11-06] MEDS: METOPROLOL TARTRATE 50 MG TAB PO ×2 (12:46→21:06)
[2019-11-06 12:52] LABS: Glucose Point of Care 120 (65-105)
[2019-11-06] MEDS: PROMETHAZINE HCL 25 MG/ML AMPUL 12.5 MG IV PUSH ×2 (22:09→22:24)
[2019-11-06] MEDS: NICOTINE (*PBKC) 14 MG PATCH 1 PATCH TRANSDERM (23:38)
[2019-11-07] VITALS (20 sets, daily range): BP systolic 138–171; BP diastolic 75–100; PULSE 54–80; RESP 13–32; TEMP 36.5–37.9; O2SAT 93–98
--- NOTE | 2019-11-07 | ECHO_ITS ---
Patient Info Name: Harman Llamas Age: 54 years : 1965 Gender: Male Ht: 72 in Wt: 165 lbs BSA: 1.95 m2 HR: 60 bpm BP: 161 / 104 mmHg Heart Rhythm: Sinus Rhythm Technical Quality: Good Exam Date: 11/07/2019 1:23 PM Exam Location: [facility] Pulmonary Patient Status: Inpatient Admit Date: 11/01/2019 Staff Ordering Physician: Cristi Contreras MD Volunteer Assistant: Kee Rivera [facility] Attending Provider: Hiro Diaz MD Exam Type: CA echo doppler color flow Study Info Indications I50.9 - Heart failure, unspecified Complete two-dimensional, color flow and Doppler transthoracic echocardiogram is performed. History/Risk Factors Heart failure; HTN, acute respiratory failure 2/2 ACEinhibitor induced angiodema. Summary 1. Left ventricular chamber dimension is normal. 2. Left ventricular systolic function is hyperdynamic, estimated at 65-70%. 3. No significant valve pathology. Left Ventricle Left ventricular chamber dimension is normal. Left ventricular systolic function is hyperdynamic, estimated at 65-70%. The left ventricular diastolic function is normal. Right Ventricle Right ventricular chamber dimension is normal. Left Atria Left atrial chamber dimension is normal. Right Atria Right atrial chamber dimension is normal. Aortic Valve The aortic valve is normal. Pulmonic Valve The pulmonic valve is normal. Mitral Valve The mitral valve has normal leaflets. There is trace mitral valve regurgitation. Tricuspid Valve The tricuspid valve leaflets are normal. Pericardium/Pleural The pericardium appears normal. Aorta The aortic root size at the sinus of Valsalva is normal. Left Ventricular Outflow Tract Name Value Normal LVOT 2D LVOT Diameter 2.0 cm LVOT Doppler LVOT Peak Gradient 5 mmHg LVOT Mean Gradient 2 mmHg LVOT VTI 24 cm LVOT VTI/AV VTI Ratio 0.8 LVOT Stroke Volume 77 ml LVOT CO 5.1 l/min LVOT CI 2.6 l/min/m2 Mitral Valve Name Value Normal MV Doppler MV Decel Collin 511 cm/s2 MV PHT 47 ms MV Area (PHT) 4.7 cm2 4.0-5.0 MV Diastolic Function MV E Peak Velocity 83 cm/s MV A Peak Velocity 50 cm/s MV E/A 1.7 MV Decel Time 163 ms MV Annular TDI MV E/e' (Septal) 6.4 <=8.0 MV E/e' (Lateral)
[2019-11-07] MEDS: ALBUTEROL SULFATE NEB 2.5 MG/0.5 ML INH 5 MG INHALATION ×2 (01:24→09:36)
[2019-11-07] MEDS: hydrALAZINE HCL 20 MG/ML VIAL 10 MG IV PUSH (02:42)
[2019-11-07 04:55] LABS: Basophils Percent Auto 0.2 % (0.2-1.2); Hematocrit 36.2 % (42.0-52.0); Hemoglobin 12.8 g/dL (14.0-18.0); Immature Granulocyte Absolute 0.65 K/mm3 (0.00-0.031); Immature Granulocyte Percent A 5.2 % (0-0.5); Lymphocytes Absolute Auto 1.09 K/mm3 (0.9-3.2); Lymphocytes Percent Auto 8.6 % (18.3-44.2); Mean Corpuscular HGB Conc 35.4 g/dl (32-36); Mean Corpuscular Volume 101.7 fl (80-100); Mean Platelet Volume 10.2 fl (7.4-10.4); Monocytes Absolute Auto 1.2 K/mm3 (0.1-0.6); Monocytes Percent Auto 9.5 % (2.6-8.5); Neutrophils Absolute Auto 9.6 K/mm3 (1.3-6.7); Neutrophils Percent Auto 76.5 % (45.5-73.1); Nucleated Red Blood Cells Perc 0.2 % (0.0-0.2); Platelet Count Result 195 k/mm3 (150-375); Red Blood Count 3.56 M/mm3 (4.6-6.20); Red Cell Distribution Width 12.9 % (11.5-14.5); White Blood Count 12.6 K/mm3 (4.5-10.0)
[2019-11-07 05:11] LABS: Blood Urea Nitrogen 27 mg/dL (9-20); Calcium 8.7 mg/dL (8.4-10.2); Carbon Dioxide 32 mmol/L (22-30); Chloride 98 mmol/L (98-107); Estimated CRCL calculation 111 ml/min; Estimated Glomerular Filt Rate > 60; Glucose 129 mg/dL (75-110); Magnesium 2.4 mg/dL (1.6-2.3); Phosphorus 4.2 mg/dL (2.5-4.5); Potassium 3.3 mmol/L (3.4-5.0); Sodium 139 mmol/L (137-145)
[2019-11-07] MEDS: AZTREONAM 1 GM in DEXTROSE 5% IN WATER 50 ML IVPB ×3 (05:25→22:27)
[2019-11-07] MEDS: methylPREDNISolone SOD SUCC 125 MG VIAL 60 MG IV PUSH ×2 (05:25→16:58)
[2019-11-07] MEDS: metroNIDAZOLE 500 MG/ISO 100ML 500 MG/100 ML BAG 100 MG IVPB ×4 (05:25→23:54)
[2019-11-07 05:32] LABS: CRP 14.9 mg/dL (<1.0)
[2019-11-07] MEDS: amLODIPine BESYLATE 5 MG TABLET 10 MG FEED TUBE (08:39)
[2019-11-07] MEDS: hydrALAZINE 10 MG TABLET FEED TUBE ×2 (08:40→14:21)
[2019-11-07] MEDS: METOPROLOL TARTRATE 50 MG TAB PO ×2 (08:40→22:22)
[2019-11-07] MEDS: FAMOTIDINE 20 MG/2 ML VIAL IV PUSH (08:40)
[2019-11-07] MEDS: NICOTINE (*PBKC) 14 MG PATCH 1 PATCH TRANSDERM (08:41)
[2019-11-07] MEDS: polyethylene glycoL 3350 17 GM POWD.PACK PO (08:42)
[2019-11-07] MEDS: POTASSIUM CHLORIDE 20 MEQ TABLET 40 MEQ PO (08:45)
--- NOTE | 2019-11-07 09:59 | WPDINTPN ---
Progress Note: A&P Assessment and Plan (1) Acute respiratory failure: Qualifiers: Respiratory failure complication: unspecified whether with hypoxia or hypercapnia Qualified Code(s): J96.00 - Acute respiratory failure, unspecified whether with hypoxia or hypercapnia Code(s): J96.00 - Acute respiratory failure, unspecified whether with hypoxia or hypercapnia Status: Acute Assessment and Plan: Patient with pending respiratory failure was intubated with 6.5 ET tube secondary to swelling of the lips, tongue, posterior airway due to angioedema -on 11/02/2019, patient coughed up his OG tube and ET tube, had to be re-intubated using a glide scope and a size 6.5 ETT. Swelling and fullness was noted in the pharynx, hypopharynx and around the vocal cords. Intubation was uneventful. -intubation was difficult the 1st time when he was intubated in the ER - CT 11/04 IMPRESSION: 1. Bilateral pneumonia with a posterior predominance, right worse than left. 2. Small pleural effusions. -patient was started aztreonam and Flagyl for suspected aspiration pneumonia -sputum cultures ordered -BNP was elevated and echocardiogram is ordered and pending -patient was given 40 of Lasix IV yesterday -swelling of the tongue and lips appears to have resolved Patient was extubated yesterday and has done well and is now saturating on room air (2) Angioedema due to angiotensin converting enzyme inhibitor (CHARLES-I): Code(s): T78.3XXA - Angioneurotic edema, initial encounter; T46.4X5A - Adverse effect of pojxaekvrbv-edjtjixszr-imcpqi inhibitors, initial encounter Status: Acute Assessment and Plan: Swelling of the lips, tongue, oropharynx, anterior neck on 11/01/2020 and intubating the 2nd time -swelling has improved and almost resolved -decreased Solu-Medrol, and discontinue Pepcid, Benadryl -C1 esterase has been obtained and pending -patient received total of 3 units of FFP since admission -CT scan of the soft tissues of the neck showed soft tissue edema in the lower face and anterior neck. No abscess -repeat CT scan of the neck and soft tissues done on 11/05/2019 was reviewed (3) Thrombocytopenia: Code(s): D69.6 - Thrombocytopenia, unspecified Status: Acute Assessment and Plan: Patient has had thrombocytopenia in the past in December 2018 -improving and has normalized -will continue to monitor platelet count (4) Abnormal glucose: Code(s): R73.09 - Other abnormal glucose Status: Acute Assessment and Plan: Elevated blood sugars could be related to steroids -continue Accu-Cheks and sliding scale insulin (5) Elevated lipase: Code(s): R74.8 - Abnormal levels of other serum enzymes Status: Acute Assessment and Plan: Lipase elevated on admission, unknown reason -resolved -will continue to monitor (6) Dietary counseling and surveillance: Code(s): Z71.3 - Dietary counseling and surveillance Status: Acute Assessment and Plan: Diet advanced (7) DVT prophylaxis: Code(s): Z29.9 - Encounter for prophylactic measures, unspecified Status: Acute Assessment and Plan: Was on SCDs due to thrombocytopenia Platelet count improved hence was started on Lovenox (8) Hypertension: Code(s): I10 - Essential (primary) hypertension Status: Acute Assessment and Plan: Patient on p.o. amlodipine and metoprolol And IV p.r.n. Lopressor Additional Plan Code status: Full code Transfer out of ICU today Subjective Date/time seen: 11/07/19 0710 Patient was extubated yesterday and feels good today. He complains of back pain which is chronic and wants to get up and sit in chair. He was asking if he still has a tube in his lungs. He does have some dry cough otherwise feels good with no other new complaints. His voice is not hoarse and he would like to eat his breakfast. Patient was extubated yesterday He denies any fever
--- NOTE | 2019-11-07 10:51 | PCDIET ---
Nutrition Follow-Up Complete: Nutrition Diagnosis: Inadequate oral intake related to oral intubation as evidenced by NPO status. Nutrition Goal: Patient to meet estimated nutritional needs. Goal in progress. Patient extubated and clear liquid diet initiated. Patient reports tolerating clears well and is eager for diet to advance. Recommend NORMALIZER evaluation. Dietary to provide Ensure Clear (240kcal, 8g protein) TID with meals while on clear liquid diet. Last recorded weight is 64.3 kg which is down from last review. -I/O. Significant urine output noted. Bowel Motility: BM x 1 today. Labs Reviewed: Hgb (12.8), Hct (36.2), Glu (129), K (3.3) Meds Noted: Albuterol, Aztreonam, Solu Medrol, Flagyl, Miralax, s/p KCl Additional Notes: No documented skin breakdown. Will continue to monitor with same goals. Recommend advancing diet to heart healthy once diet able to safely advance. Nutrition Monitoring and Evalution: Follow up every 3 days.
--- NOTE | 2019-11-07 15:22 | PM.IMPN ---
Progress Note: A&P Assessment and Plan (1) Acute respiratory failure: Qualifiers: Respiratory failure complication: unspecified whether with hypoxia or hypercapnia Qualified Code(s): J96.00 - Acute respiratory failure, unspecified whether with hypoxia or hypercapnia Code(s): J96.00 - Acute respiratory failure, unspecified whether with hypoxia or hypercapnia Status: Acute Assessment and Plan: Secondary to angioedema. Patient intubated in the ER on admission (10/31). He coughed up his tube on 11/01 and ultimately required re-intubation later that day. He may have aspirated at that time. Patient able to be extubated on 11/05. Improved and not requiring supplemental O2. Continue to encourage IS use. (2) Aspiration pneumonia: Code(s): J69.0 - Pneumonitis due to inhalation of food and vomit Status: Acute Assessment and Plan: Chest CT 11/04 showing bilateral PNA right>left. Possibly aspiration when he coughed up his ETT on 11/01. Sputum Cx growing E coli. Currently on aztreonam and Flagyl. He has developed low-grade fever. White count higher today. Will add Levaquin to cover EColi. Repeat CXR in the morning. (3) Angioedema due to angiotensin converting enzyme inhibitor (CHARLES-I): Code(s): T78.3XXA - Angioneurotic edema, initial encounter; T46.4X5A - Adverse effect of rjewnsyncpp-ogvdwcuzcy-zwdjlt inhibitors, initial encounter Status: Acute Assessment and Plan: Head/Neck CT 11/01 showing soft tissue edema in the lower face and anterior neck but no abscess. Angioedema is likely secondary to ACEI. Repeat CT Head/neck 11/04 showing lower face edema. Continue to HOLD lisinopril. Continue Solumedrol. Benadryl and Pepcid have been stopped. Facial edema almost resolved. Continue current treatment. (4) Macrocytic anemia: Code(s): D53.9 - Nutritional anemia, unspecified Status: Deleted Assessment and Plan: Hemoglobin 13 last year. Hemoglobin 8.6 on admission but may have been lab error since recheck was 11.5. Since that time, hemoglobin mostly in the 10-11 range possibly related to IV fluids. Hemoglobin 12.8 today after giving Lasix yesterday. B12 and folate levels normal. LFTs okay. CT Abd/pelvis showing no organomegaly or lymphadenopathy. Follow HH. (5) Thrombocytopenia: Code(s): D69.6 - Thrombocytopenia, unspecified Status: Acute Assessment and Plan: Plt 140K on admission but dropped to 85K. Plt coung has improved to 195K today. Etiology unclear but possibly in relation to his macrocytic anemia. B12 level normal. Continue to monitor platelets. (6) Abnormal glucose: Code(s): R73.09 - Other abnormal glucose Status: Acute Assessment and Plan: A1c 5.9. Glucose reviewed on 11/07/19. Glucose elevated at times most likely related to the steroids. Continue Acucheks with sliding scale. (7) Hypertension: Code(s): I10 - Essential (primary) hypertension Status: Acute Assessment and Plan: BP reviewed on 11/07/19. BP more elevated today. Continue metoprolol, Norvasc and hydralazine. Will increase hydralazine. Subjective Date/time seen: 11/07/19 15:22 Interval history: 54yo male here for acute respiratory failure due to angioedema. Patient intubated in ER on admission (11/01/19). He self extubated on 11/02/19 (coughed up tube) and required immediate re-intubation. Date of service 11/07/2019: No problems overnight. Patient fels okay today. No Cp or SOB. Doing well with the IS. Toelrating the clear liquid diet without odynophagia or dysphagia. Was up to the chair. Patient did not sleep well. He did have low-grade fevers overnight. Exam Narrative: Exam Narrative: Tm 100.5 99.9 161/83 58 22 95% ra Gen - NARD sitting up in bed HEENT - NC/AT, no lip or tongue swelling. Neck - supple Chest -clear to auscultation bilaterally. Normal respiratory rate. CV - RRR S
--- NOTE | 2019-11-07 19:09 | PC.NURSE ---
This patient, Harman Llamas, was transferred to [[id number]] on 11/07/19 at 1909. Personal belongings sent with patient. Report given to [Martínez CANCINO]. Appropriate documentation sent with patient. Telemetry discontinued.
--- NOTE | 2019-11-07 19:51 | PC.NURSE ---
This patient, Harman Llamas, was admitted to Medical Room 250-. Patient/family oriented to hospital policies and general routines including ID bracelet, bed and alarms, visiting hours, pain management, procedures, bathroom and other care routines, personal items, smoking policy, room service/diet, and visiting hours. Valuables list has been completed. Information on how to activate the Rapid Response Team has been discussed. Patient/Family are encouraged to report perceived risks to care and to ask questions if they do not understand what they are told or what they should do.
[2019-11-07] MEDS: hydrALAZINE HCL 25 MG TABLET PO (22:24)
[2019-11-08] MEDS: AZTREONAM 1 GM in DEXTROSE 5% IN WATER 50 ML IVPB (05:52)
[2019-11-08 06:00] VITALS: BP 139/80; PULSE 60; RESP 18; TEMP 37.4; O2SAT 94
[2019-11-08] MEDS: methylPREDNISolone SOD SUCC 125 MG VIAL 60 MG IV PUSH (06:02)
[2019-11-08] MEDS: hydrALAZINE HCL 25 MG TABLET PO (06:06)
[2019-11-08 06:09] LABS: Basophils Percent Auto 0.3 % (0.2-1.2); Hematocrit 37.2 % (42.0-52.0); Hemoglobin 12.5 g/dL (14.0-18.0); Immature Granulocyte Absolute 0.27 K/mm3 (0.00-0.031); Immature Granulocyte Percent A 2.4 % (0-0.5); Lymphocytes Absolute Auto 1.21 K/mm3 (0.9-3.2); Lymphocytes Percent Auto 10.8 % (18.3-44.2); Mean Corpuscular HGB Conc 33.6 g/dl (32-36); Mean Corpuscular Hemoglobin 34.8 pg (26-34); Mean Corpuscular Volume 103.6 fl (80-100); Mean Platelet Volume 10.1 fl (7.4-10.4); Monocytes Absolute Auto 1.2 K/mm3 (0.1-0.6); Monocytes Percent Auto 10.8 % (2.6-8.5); Neutrophils Absolute Auto 8.5 K/mm3 (1.3-6.7); Neutrophils Percent Auto 75.7 % (45.5-73.1); Nucleated Red Blood Cells Perc 0.2 % (0.0-0.2); Platelet Count Result 189 k/mm3 (150-375); Red Blood Count 3.59 M/mm3 (4.6-6.20); Red Cell Distribution Width 12.9 % (11.5-14.5); White Blood Count 11.2 K/mm3 (4.5-10.0)
[2019-11-08] MEDS: metroNIDAZOLE 500 MG/ISO 100ML 500 MG/100 ML BAG 100 MG IVPB ×2 (06:23→12:41)
[2019-11-08 06:33] LABS: Albumin Level 3.2 g/dL (3.5-5.1); Blood Urea Nitrogen 23 mg/dL (9-20); Calcium 8.6 mg/dL (8.4-10.2); Carbon Dioxide 28 mmol/L (22-30); Chloride 101 mmol/L (98-107); Estimated CRCL calculation 102 ml/min; Estimated Glomerular Filt Rate > 60; Glucose 119 mg/dL (75-110); Magnesium 2.5 mg/dL (1.6-2.3); Phosphorus 4.7 mg/dL (2.5-4.5); Potassium 3.9 mmol/L (3.4-5.0); Sodium 132 mmol/L (137-145)
--- NOTE | 2019-11-08 09:00 | PC.NURSE ---
Patient refuses Lovenox, stating he is going to be discharged today. Will notify Dr. Bowling on rounds.
[2019-11-08 10:00] VITALS: BP 130/83; PULSE 61; RESP 14; TEMP 36.6; O2SAT 100
[2019-11-08 10:16] VITALS: PULSE 60
[2019-11-08] MEDS: amLODIPine BESYLATE 5 MG TABLET 10 MG PO (10:16)
[2019-11-08] MEDS: METOPROLOL TARTRATE 50 MG TAB PO (10:16)
[2019-11-08] MEDS: NICOTINE (*PBKC) 14 MG PATCH 1 PATCH TRANSDERM (10:17)
[2019-11-08] MEDS: polyethylene glycoL 3350 17 GM POWD.PACK PO (10:17)
--- NOTE | 2019-11-08 13:00 | PC.NURSE ---
Patient very talkative, telling me all about his family and all of his kids and relatives. Talking incessantly and does not stop for me to talk to him at all. Patient is oriented x 3. States he has been here for 7 days and he wants to go home. [facility]porters here to take patient to radiology for CXR and he refuses CXR stating he is going to be discharged today and he does not want another CXR. Spoke with Dr. Bowling and notified him that patient has refused his Lovenox and his CXR and is requesting discharge home. Daughter now here at bedside.
--- NOTE | 2019-11-08 14:00 | PC.NURSE ---
Reviewed discharge instructions with patient and his daughter. Patient continues to talk incessantly about going home. Refuses to go downstairs in a wheelchair. Discussed the fact that he has been slightly unsteady on his feet and I would feel better if he did not walk from his room to his daughter's car. Patient initially refusing wheelchair adamantly, but eventually agreed and got into wheelchair to be taken to his car.
--- NOTE | 2019-11-08 15:10 | PC.NURSE ---
Received call from patient's daughter Brigette. She states patient did well on the ride home from the hospital and was talkative but cooperative in the car. However, she states when they got home he got out of the car and ran into the house and has been steadily more agitated since arriving home. Patient is pacing at home and refuses to sit down and rest. He has thrown his incentive spirometer and a cup of water, according to daughter. She states her brother is also there trying to reason with the patient but he is very agitated and will not stop yelling. He refuses to listen to either of them. She is requesting medication to calm him down . Called Dr. Bowling and discussed situation with him. He states the family will have to bring the patient back to the ED if they cannot settle him down. He states they should try to give it a little time, but if the situation continues to escalate and he does not calm down, they may have to return to the ED. I spoke with Brigette again and informed her that I spoke with Dr. Bowling and if she and her family cannot get the patient to calm down, she may have to bring him back to the ED for further evaluation. She verbalized her understanding.
--- NOTE | 2019-11-08 16:02 | PM.DS ---
DS: Admitting Diagnosis Admitting Diagnosis Admitting Diagnosis: Acute respiratory failure, unspecified whether with hypoxia or hypercapnia DS: Discharge Diagnosis Discharge Diagnosis (1) Acute respiratory failure: Qualifiers: Respiratory failure complication: unspecified whether with hypoxia or hypercapnia Qualified Code(s): J96.00 - Acute respiratory failure, unspecified whether with hypoxia or hypercapnia Code(s): J96.00 - Acute respiratory failure, unspecified whether with hypoxia or hypercapnia Status: Acute Assessment and Plan: Secondary to angioedema. Patient intubated in the ER on admission (10/31). He coughed up his tube on 11/01 and ultimately required re-intubation later that day. He may have aspirated at that time. Patient able to be extubated on 11/05. Improved and not requiring supplemental O2. Received 4 days of IV antibiotics here along with Solu-Medrol and discharged on Levaquin 750 daily (2) Aspiration pneumonia: Code(s): J69.0 - Pneumonitis due to inhalation of food and vomit Status: Acute Assessment and Plan: Chest CT 11/04 showing bilateral PNA right>left. Possibly aspiration when he coughed up his ETT on 11/01. Sputum Cx grew E coli. Flagyl and Levaquin here. . White count higher 11/06 with slightly elevated but down to 11.2 the day of discharge . Levaquin to cover EColi for 3 more days for a total of 7 days treatment. (3) Angioedema due to angiotensin converting enzyme inhibitor (FRANCO-I): Code(s): T78.3XXA - Angioneurotic edema, initial encounter; T46.4X5A - Adverse effect of gctpvnaerhe-gmrefggmwa-zczzxm inhibitors, initial encounter Status: Acute Assessment and Plan: Head/Neck CT 11/01 showing soft tissue edema in the lower face and anterior neck but no abscess. Angioedema is likely secondary to ACEI. Repeat CT Head/neck 11/04 showing lower face edema. Discontinued lisinopril. Continue Solumedrol while here. Benadryl and Pepcid have been stopped. Facial edema almost resolved. Received 3 units of FFP also.. CT abdomen showed no lymphadenopathy Franco to suggest lymphoma and C1 esterase inhibitor assay was pending at the time of discharge (4) Macrocytic anemia: Code(s): D53.9 - Nutritional anemia, unspecified Status: Deleted Assessment and Plan: Hemoglobin 13 last year. Hemoglobin 8.6 on admission but may have been lab error since recheck was 11.5. Since that time, hemoglobin mostly in the 10-11 range possibly related to IV fluids. . B12 and folate levels normal. LFTs okay. CT Abd/pelvis showing no organomegaly or lymphadenopathy. Follow up with primary (5) Thrombocytopenia: Code(s): D69.6 - Thrombocytopenia, unspecified Status: Acute Assessment and Plan: Plt 140K on admission but dropped to 85K. Plt coung has improved and above 150 K a 11/06 and 11/07. Etiology unclear but possibly in relation to his macrocytic anemia. B12 level normal. (6) Abnormal glucose: Code(s): R73.09 - Other abnormal glucose Status: Acute Assessment and Plan: A1c 5.9. . Glucose elevated at times most likely related to the steroids. sliding scale. While here (7) Hypertension: Code(s): I10 - Essential (primary) hypertension Status: Acute Assessment and Plan: Good but discharge.. Continue metoprolol, and the substituted amlodipine for the lisinopril. Had hydralazine here but not discharged on that will follow-up with primary DS: Summary Hospital Course Hospital Course: 54-year-old hypertensive male admitted with angioedema and respiratory failure. Had to be intubated and thought to have aspirated when he self-extubated on . Reintubated and eventually extubated 11/05. Postextubation did fine respiratory mcclain and continued on antibiotics and Solu-Medrol. For the angioedema received Benadryl, steroids, FFP,. For presumed aspiration pneumonia received Flagyl
--- NOTE | 2019-11-12 10:25 | PC.NURSE ---
Brigette Llamas, patient's daughter, calls today, asking for copies of patient's medical record. She states he is not the same person that he was before he came to your hospital. They put him in a coma. She asks why didn't they do an MRI to check if there is something wrong with his brain? She asks if it is possible that he lost oxygen to his brain when they put him in a coma. I told her that he was most likely losing oxygen to his brain when the patient was intubated and that if the tube were dislodged, it would be difficult for him to get oxygen since his airway was swelled, obstructing his airway. She asked why an MRI wasn't done when he came in and I explained the doctor would have prioritized his airway & oxygenation above sending him to have a scan of his brain at that time. Brigette requests a copy of patient's medical record. I explained that Thursday, she would be able to obtain a release of information form to have him sign to obtain the medical record, which could take a couple of days. She states that he is in police custody and isn't sure whether she will be allowed to have him sign the form at the residential.
== END 2019-11-08 14:00 | disposition home or self-care (01) | DRG 915 ==
LOC: ANHED 05:50 → ANHICU 06:40 → ANH2MED 11-08 13:32 → ANHICU 11-09 09:18
PROVIDERS: Internal Medicine; Admitting Provider Family Medicine; Emergency Provider Emergency Medicine; Visit Provider Internal Medicine
DX: T78.3XXA Angioneurotic edema, initial encounter (principal); J96.00 Acute respiratory failure, unspecified whether with hypoxia or hypercapnia; J69.0 Pneumonitis due to inhalation of food and vomit; T88.6XXA Anaphylactic reaction due to adverse effect of correct drug or medicament properly administered, initial encounter; T46.4X5A Adverse effect of angiotensin-converting-enzyme inhibitors, initial encounter; D53.9 Nutritional anemia, unspecified; D69.6 Thrombocytopenia, unspecified; R73.09 Other abnormal glucose; I10 Essential (primary) hypertension
CPT/HCPCS: 31500; 36415; 36430; 36600; 70490; 70491; 71045; 71250; 71260; 74176; 80048; 80069; 80076; 82375; 82607; 82746; 82805; 83036; 83050; 83605; 83690; 83735; 83880; 84100; 84484; 85025; 85027; 85610; 85652; 85730; 86140; 86160; 86850; 86900; 86901; 87070; 87077; 87186; 87205; 93005; 93306; 94003; 94640; 96365; 96366; 96368; 96372; 96375; 96376; 97116; 97161; 97165; 97530; 97535; 99291; A9270; J0171; J0330; J0360; J1200; J1650; J1815; J1940; J1956; J2060; J2250; J2550; J2704; J2930; J3010; J3475; J7030; J7050; J7060; P9017; Q9967

== ENCOUNTER 2020-01-31 15:26 | Emergency (ER) | payer MEDICARE, SELFPAY ==
--- NOTE | 2020-01-31 15:35 | PC.NURSE ---
1533- Pt went to retrieve something from personal vehicle.
[2020-01-31 15:40] VITALS: BP 156/84; PULSE 60; RESP 16; TEMP 36.7; O2SAT 97
--- NOTE | 2020-01-31 16:01 | ED.ABDPAIN ---
HPI - Abdominal Pain General Chief Complaint: Abdominal Pain Stated Complaint: abdominal pains Time Seen by Provider: 01/31/20 16:02 Source: patient and RN notes reviewed Mode of arrival: ambulatory Limitations: no limitations History of Present Illness HPI narrative: 54-year-old male with history of pancreatitis presents with concern for 1 day history of epigastric pain, nausea with vomiting. Reports normal appetite, has been eating and drinking today. Reports he vomited 2 hours prior to arrival. He denies diarrhea, fever, body aches, chills, malaise. MD elicited complaint: abdominal pain Related Data Home Medications Medication Instructions Recorded Confirmed amlodipine [Norvasc] 10 mg PO DAILY 01/31/20 01/31/20 celecoxib [Celebrex] 100 mg PO DAILY 01/31/20 01/31/20 diclofenac sodium 75 mg PO BID 01/31/20 01/31/20 gabapentin [Neurontin] 300 mg PO BID 01/31/20 01/31/20 metoprolol succinate [Toprol XL] 50 mg PO DAILY 01/31/20 01/31/20 omeprazole magnesium [Prilosec OTC] 20 mg PO DAILY 01/31/20 01/31/20 oxycodone-acetaminophen 1 tablet PO Q6-8H 01/31/20 01/31/20 Allergies Allergy/AdvReac Type Severity Reaction Status Date / Time ampicillin Allergy Severe Anaphylactic Verified 01/31/20 15:46 Shock lisinopril Allergy Severe Anaphylactic Verified 01/31/20 15:46 Shock Review of Systems Review of Systems: Narrative: CONSTITUTIONAL: Denies malaise, chills, sweats, or fever. CARDIOVASCULAR: Denies chest pain, palpitations, or edema. RESPIRATORY: Denies cough or dyspnea. GASTROINTESTINAL: Reports epigastric abdominal pain, nausea, vomiting. Denies diarrhea, bloody, or mucous stools. GENITOURINARY: Denies dysuria or hematuria. MUSCULOSKELETAL: Denies myalgia. All systems reviewed & are unremarkable except as noted in HPI and below PMFSH Social History Social History Smoking packs per day: 0.5 Smoking cigarettes per day: 10.0 Years smoked: 40 Smoking pack-years: 20.00 Smoking status: Current every day smoker Tobacco type: cigarettes Alcohol intake: current Drinks per week: 2 Substance use: former Substance use type: former substance user and marijuana Gender identity (if verbalized by the patient): Male Spiritual care concerns: No Comments At time of signature, agree with nursing past medical, surgical, social and family history. There is no relevant family history pertinent to the presenting complaint Exam Narrative: Exam Narrative: GENERAL: Well-appearing, well-nourished, and in no acute distress. HEAD: Normocephalic. EYES: PERRLA, conjunctivae clear. NECK: Supple. No lymphadenopathy CHEST: Clear to auscultation. No respiratory distress. HEART: Regular rate and rhythm. No murmur heard. Normal peripheral pulses. ABDOMEN: Soft, epigastric tenderness upon palpation, nondistended, normal active bowel sounds, no palpable or pulsatile masses, no guarding. No CVA tenderness SKIN: Warm, dry, no rash. NEURO: Alert and oriented x3. PSYCH: Normal mood and affect Course Course Emergency Course: Patient is aware of, understands and agrees to be seen in the emergency department. Patient agrees to proceed directly to the emergency department. Portions of this record may have been created with voice recognition software Vital Signs Vital signs: Vital Signs Temperature 98.1 F 01/31/20 15:40 Pulse Rate 60 01/31/20 15:40 Respiratory Rate 16 01/31/20 15:40 Blood Pressure 156/84 H 01/31/20 15:40 Pulse Oximetry 97 01/31/20 15:40 Temperature 98.1 F 01/31/20 15:40 Pulse Rate 60 01/31/20 15:40 Respiratory Rate 16 01/31/20 15:40 Blood Pressure 156/84 H 01/31/20 15:40 Pulse Oximetry 97 01/31/20 15:40 Reviewed. Patient has history of hypertension Transfer Transfered to: [place] Transportation: Other (Private vehicle) Transfer rationale: Epigastric pain, history of pancreatitis Accepting physician: Efrem Best
== END 2020-01-31 16:11 | disposition short-term general hospital (02) ==
LOC: EXPCOLL 15:32
PROVIDERS: Emergency Provider Nurse Practitioner
DX: R10.13 Epigastric pain (principal); F17.210 Nicotine dependence, cigarettes, uncomplicated; I10 Essential (primary) hypertension; K21.9 Gastro-esophageal reflux disease without esophagitis; M10.9 Gout, unspecified; Z97.0 Presence of artificial eye
CPT/HCPCS: 99212; G0463

== ENCOUNTER 2020-01-31 16:32 | Emergency (ER) | payer MEDICARE, MEDICAID, SELFPAY ==
[2020-01-31 16:47] VITALS: BP 143/79; PULSE 64; RESP 14; TEMP 36.1; O2SAT 100
[2020-01-31 16:58] LABS: Basophils Percent Auto 0.4 % (0.2-1.2); Eosinophils Percent Auto 0.5 % (0-4.4); Hematocrit 41.3 % (42.0-52.0); Hemoglobin 14.6 g/dL (14.0-18.0); Immature Granulocyte Absolute 0.01 K/mm3 (0.00-0.031); Immature Granulocyte Percent A 0.1 % (0-0.5); Lymphocytes Absolute Auto 2.55 K/mm3 (0.9-3.2); Lymphocytes Percent Auto 34.5 % (18.3-44.2); Mean Corpuscular HGB Conc 35.4 g/dl (32-36); Mean Corpuscular Hemoglobin 35.8 pg (26-34); Mean Corpuscular Volume 101.2 fl (80-100); Mean Platelet Volume 9.9 fl (7.4-10.4); Monocytes Absolute Auto 0.7 K/mm3 (0.1-0.6); Monocytes Percent Auto 8.9 % (2.6-8.5); Neutrophils Absolute Auto 4.1 K/mm3 (1.3-6.7); Neutrophils Percent Auto 55.6 % (45.5-73.1); Platelet Count Result 156 k/mm3 (150-375); Red Blood Count 4.08 M/mm3 (4.6-6.20); White Blood Count 7.4 K/mm3 (4.5-10.0)
[2020-01-31 17:02] LABS: Add Urine Microscopic? NO; Appearance Urine Clear (Clear); Bilirubin Urine Negative (Negative); Blood Urine Negative (Negative); Color Urine Yellow (Yellow); Glucose Urine UA Negative (Negative); Ketones Urine Negative (Negative); Leukocyte Esterase Ur Negative LEU/UL (Negative); Nitrate Urine Negative (Negative); Protein Urine Negative (Negative); Specific Grav Ur 1.024 (1.001-1.035); Urobilinogen Urine Negative mg/dL (<2.0)
[2020-01-31 17:08] LABS: Alanine Aminotransferase 71 U/L (4-50); Albumin Level 4.4 g/dL (3.5-5.1); Alkaline Phosphatase 83 U/L (38-126); Anion Gap 11 mmol/L (8-16); Aspartate Amino Transferase 71 U/L (17-59); Bilirubin,Total 0.6 mg/dL (0.2-1.3); Blood Urea Nitrogen 11 mg/dL (9-20); Calcium 8.9 mg/dL (8.4-10.2); Carbon Dioxide 25 mmol/L (22-30); Chloride 99 mmol/L (98-107); Estimated CRCL calculation 78 ml/min; Estimated Glomerular Filt Rate > 60; Glucose 109 mg/dL (75-110); Lipase 794 U/L (23-300); Potassium 3.5 mmol/L (3.4-5.0); Sodium 135 mmol/L (137-145)
--- NOTE | 2020-01-31 18:12 | PC.NURSE ---
Pt has decided to leave and come back later. Ambulatory out of dept with steady gait.
== END 2020-01-31 18:12 | disposition left against medical advice (07) ==
LOC: ANHED 18:44
PROVIDERS: Emergency Provider Emergency Medicine
DX: R10.10 Upper abdominal pain, unspecified (principal)
CPT/HCPCS: 36415; 80053; 81003; 83690; 85025; 99199

== ENCOUNTER 2020-01-31 19:12 | Inpatient (IN) | payer MEDICARE, SELFPAY ==
--- NOTE | ~2020-01-31 | CT_ITS ---
EXAMINATION: CT abdomen pelvis w con INDICATION: Abdominal pain TECHNIQUE: Computed tomographic images of the abdomen and pelvis were obtained after the administrati on of 100 cc of Omnipaque 350 intravenous contrast. The dose-length product (DLP) was 379.11 mGy-cm. Automated exposure control and iterative reconstruction technique were employed. COMPARISON: 11/05/2019 FINDINGS: Minimal dependent atelectasis is present in the lung bases. The heart size is normal. The l iver, spleen, gallbladder, and adrenal glands are normal. There is peripancreatic fat stranding, wors t near the head and tail of the pancreas. A small amount of fluid is seen near the body of the pancre as. The kidneys are unremarkable. No pathologically enlarged abdominal or pelvic lymph nodes are iden tified. There is no free intraperitoneal gas or evidence of bowel obstruction. A moderate volume of c olonic stool is present. There is chronic enlargement of the appendix, which measures up to 8 mm, but contains gas and is without periappendiceal fat stranding. An intramuscular lipoma is noted in the l eft hip flexors. There is severe lumbar spondylosis. IMPRESSION: 1. Acute pancreatitis, likely interstitial edematous pancreatitis with acute peripancreatic fluid col lection Reviewed, dictated and finalized at location A. IMPRESSION: 1. Acute pancreatitis, likely interstitial edematous pancreatitis with acute pe ripancreatic fluid collection
[2020-01-31 19:34] VITALS: BP 149/88; PULSE 73; RESP 16; TEMP 36.4; O2SAT 99
--- NOTE | 2020-01-31 20:27 | ED.GENADULT ---
HPI - General Adult General Chief complaint: Abdominal Pain Stated complaint: abd pain Time Seen by Provider: 01/31/20 20:17 Source: patient History of Present Illness HPI narrative: Patient is 54 y/o male complaining of epigastric abdominal pain starting 3:00 AM this morning. He starts his pain radiates to back. He rates his pain as 9/10. He has some vomiting, but no diarrhea. He admits that he drank alcohol 2-3 days ago. He is concerned about pancreatitis. Related Data Home Medications Medication Instructions Recorded Confirmed amlodipine [Norvasc] 10 mg PO DAILY 01/31/20 01/31/20 celecoxib [Celebrex] 100 mg PO DAILY 01/31/20 01/31/20 diclofenac sodium 75 mg PO BID 01/31/20 01/31/20 gabapentin [Neurontin] 300 mg PO BID 01/31/20 01/31/20 metoprolol succinate [Toprol XL] 50 mg PO DAILY 01/31/20 01/31/20 omeprazole magnesium [Prilosec OTC] 20 mg PO DAILY 01/31/20 01/31/20 oxycodone-acetaminophen 1 tablet PO Q6-8H 01/31/20 01/31/20 Allergies Allergy/AdvReac Type Severity Reaction Status Date / Time ampicillin Allergy Severe Anaphylactic Verified 01/31/20 15:46 Shock lisinopril Allergy Severe Anaphylactic Verified 01/31/20 15:46 Shock Review of Systems Constitutional: Constitutional: Denies chills, Denies fever(s), Denies headache(s) and Denies weakness Eyes: Eyes: Denies blurry vision ENT: Denies headache(s) and Denies neck pain Cardiovascular: Cardiovascular: Denies chest pain and Denies dyspnea Respiratory: Respiratory: Denies cough and Denies dyspnea Gastrointestinal: Gastrointestinal: Reports abdominal pain, Denies diarrhea, Reports nausea and Reports vomiting Genitourinary: Genitourinary: Denies hematuria and Denies dysuria Musculoskeletal: Musculoskeletal: Denies back pain and Denies neck pain Neurologic: Denies headache(s) and Denies weakness PMF Past Medical History Medical History Depression GERD (gastroesophageal reflux disease) Hypertension Pancreatitis Prosthetic eye globe Right side Surgical History Surgical History H/O elbow surgery Left Social History Social History Smoking packs per day: 0.5 Smoking cigarettes per day: 10.0 Years smoked: 40 Smoking pack-years: 20.00 Smoking status: Current every day smoker Tobacco type: cigarettes Alcohol intake: current Drinks per week: 2 Substance use: former Substance use type: former substance user and marijuana Gender identity (if verbalized by the patient): Male Spiritual care concerns: No Exam Const: General: no acute distress and well developed Orientation/consciousness: oriented to person, oriented to place, oriented to time and patient oriented x3 HENMT: Head: normocephalic Ears: external ears normal General nose exam: Normal external nose present Eyes: General: appearance normal, both eyes and all related structures Conjunctivae: conjunctivae normal Neck: Neck: normal visual inspection and full ROM Chest: Chest palpation & inspection: normal inspection of the chest Resp: Effort & Inspection: normal respiratory effort Auscultation: clear to auscultation bilaterally Cardio: Rate: regular rate Rhythm: regular rhythm GI: GI Palp: Yes abdominal tenderness (epigastric area) and Yes Soft to palpation Skin: General skin exam: normal color and turgor normal Neuro: General: oriented to person, oriented to place, oriented to time and patient oriented x3 Cognition (Neuro): normal cognition Extrem: General: normal to inspection, full ROM and no pedal edema Psych: Appearance: grossly normal Mental Status: mental status grossly normal Affect: normal affect Course Consultations Consultation #1: Discussed with Dr. Erickson, who agrees to admit. Date: 01/31/20 Time: 23:05 Vital Signs Vital signs: Vital Signs Temperature 36.4 C
[2020-01-31 21:20] LABS: Basophils Percent Auto 0.3 % (0.2-1.2); Eosinophils Absolute Auto 0.1 K/mm3 (0-0.3); Eosinophils Percent Auto 0.7 % (0-4.4); Hematocrit 38.7 % (42.0-52.0); Hemoglobin 13.7 g/dL (14.0-18.0); Immature Granulocyte Absolute 0.01 K/mm3 (0.00-0.031); Immature Granulocyte Percent A 0.1 % (0-0.5); Lymphocytes Absolute Auto 2.91 K/mm3 (0.9-3.2); Lymphocytes Percent Auto 40.9 % (18.3-44.2); Mean Corpuscular HGB Conc 35.4 g/dl (32-36); Mean Corpuscular Hemoglobin 35.9 pg (26-34); Mean Corpuscular Volume 101.3 fl (80-100); Mean Platelet Volume 9.8 fl (7.4-10.4); Monocytes Absolute Auto 0.6 K/mm3 (0.1-0.6); Monocytes Percent Auto 8.2 % (2.6-8.5); Neutrophils Absolute Auto 3.5 K/mm3 (1.3-6.7); Neutrophils Percent Auto 49.8 % (45.5-73.1); Platelet Count Result 137 k/mm3 (150-375); Red Blood Count 3.82 M/mm3 (4.6-6.20); White Blood Count 7.1 K/mm3 (4.5-10.0)
[2020-01-31] MEDS: MORPHINE SULFATE (*CRX) 4 MG/ML INJ IV PUSH (21:26)
[2020-01-31] MEDS: KETOROLAC 15 MG/ML VIAL (*BKC) IV PUSH (21:26)
[2020-01-31] MEDS: ONDANSETRON INJ 4 MG/2 ML VIAL IV PUSH (21:26)
[2020-01-31] MEDS: SODIUM CHLORIDE 0.9% IV 1,000 ML 999 ML IV CONT (21:26)
[2020-01-31 21:30] VITALS: BP 158/83; PULSE 61; RESP 19; O2SAT 98
[2020-01-31 21:32] LABS: Alanine Aminotransferase 56 U/L (4-50); Albumin Level 3.8 g/dL (3.5-5.1); Alkaline Phosphatase 65 U/L (38-126); Anion Gap 7 mmol/L (8-16); Aspartate Amino Transferase 53 U/L (17-59); Bilirubin,Total 0.6 mg/dL (0.2-1.3); Blood Urea Nitrogen 10 mg/dL (9-20); Calcium 8.8 mg/dL (8.4-10.2); Carbon Dioxide 28 mmol/L (22-30); Chloride 99 mmol/L (98-107); Estimated CRCL calculation 87 ml/min; Estimated Glomerular Filt Rate > 60; Glucose 114 mg/dL (75-110); Lipase 978 U/L (23-300); Potassium 3.6 mmol/L (3.4-5.0); Sodium 134 mmol/L (137-145)
[2020-01-31 22:05] LABS: Add Urine Microscopic? NO; Appearance Urine Clear (Clear); Bilirubin Urine Negative (Negative); Blood Urine Negative (Negative); Color Urine Yellow (Yellow); Glucose Urine UA Negative (Negative); Ketones Urine Negative (Negative); Leukocyte Esterase Ur Negative LEU/UL (Negative); Nitrate Urine Negative (Negative); Protein Urine Negative (Negative); Specific Grav Ur 1.015 (1.001-1.035); Urobilinogen Urine Negative mg/dL (<2.0)
[2020-01-31 23:03] VITALS: BP 143/85; PULSE 65; RESP 20; O2SAT 100
[2020-01-31 23:48] VITALS: BP 141/88; PULSE 57; RESP 18; TEMP 36.7; O2SAT 97
--- NOTE | 2020-01-31 23:55 | PC.NURSE ---
This patient, Harman Llamas, was admitted to [facility] Surg Room 313-01. Patient/family oriented to hospital policies and general routines including ID bracelet, bed and alarms, visiting hours, pain management, procedures, bathroom and other care routines, personal items, smoking policy, room service/diet, and visiting hours. Valuables list has been completed. Information on how to activate the Rapid Response Team has been discussed. Patient/Family are encouraged to report perceived risks to care and to ask questions if they do not understand what they are told or what they should do.
[2020-02-01] VITALS: BP 135/90; PULSE 55; RESP 18; TEMP 35.9; O2SAT 94; BMI 25.9
[2020-02-01] MEDS: DEXTROSE 5%/0.45% SOD CHL 1,000 ML 150 ML IV CONT (00:17)
[2020-02-01] MEDS: MORPHINE SULFATE (*CRX) 4 MG/ML INJ IV PUSH ×3 (01:10→08:52)
[2020-02-01 06:00] VITALS: BP 133/85; PULSE 69; RESP 18; TEMP 36.4; O2SAT 97
[2020-02-01 08:55] VITALS: PULSE 69
[2020-02-01] MEDS: METOPROLOL SUCCINATE EXT REL 50 MG TABCR PO (08:55)
[2020-02-01] MEDS: LACTATED RINGERS 1,000 ML 125 ML IV CONT ×2 (08:55→16:32)
--- NOTE | 2020-02-01 09:07 | PM.IMHP ---
H&P: HPI History of Present Illness Date/Time: 02/01/20 09:07 Chief complaint: acute pancreatitis Narrative: Harman Llamas is a 54 year old male with PMH significant for pancreatitis associated with alcohol use, hypertension, and GERD who presented to the emergency department for the evaluation of abdominal pain. Pain started at 3AM yesterday morning and is located in the epigastrium with radiation to the back. He notes two episodes of associated vomiting yesterday morning. He endorses that he drank alcohol several days ago and he believes provoked this episode. He notes 4 prior episodes of pancreatitis since 2016 which were associated with alcohol use. He drinks socially and reports that he drinks three 12 oz beers approximately twice weekly. He has no prior hx of alcohol withdrawal or delirium tremens. He does not adhere to any specific diet. He had a regular, formed bowel movement yesterday and is not having any diarrhea, constipation, melena, hematochezia, and hematemesis. Initial workup was significant for lipase of [address] abd/pelvis demonstrating peripancreatic fat stranding, worse near the head and tail of the pancreas with a small amount of fluid near the body of the pancreas. AST was 53 and ALT 56. ALP is 65. Bilirubin 0.6. He was treated with IV fluids, antiemetics and analgesics PRN, and admitted to the hospitalist service. At the time of my evaluation, he feels much better. His pain has improved significantly. He is passing flatus. He denies associated fever, chills, chest pain, and dyspnea. Review of Systems Review of Systems: Narrative: Constitutional: Denies fever, chills, fatigue, and appetite change. Denies weight change. Eyes: Denies vision change. 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 No additional eye complaints. ENT: Denies change in hearing, nasal congestion, dysphagia, odynophagia, and sore throat. He has a hx of CHARLES inhibitor induced angioedema. Cardiovascular: Denies palpitations and chest pain. Denies PND and orthopnea. Denies dyspnea on exertion. Respiratory: Denies cough and shortness of breath. Gastrointestinal: As above. Genitourinary: Denies dysuria, frequency, urgency, and hesitancy. Musculoskeletal: Denies joint pain and swelling. Skin: Denies lesions and wounds. Neurologic: Denies focal weakness, paresthesias, confusion, headaches and speech change. Reports chronic pain in RLE due to pinched nerve. Psychiatric: Denies mood change. Denies anxiety and depression. Hematologic: Reports easy bruising. Denies easy bleeding. Denies hx of VTE. All systems reviewed & are unremarkable except as noted in HPI and below PMFSH Family History Family History Mother Hypertension Father Hypertension Other Unknown family medical history Social History Social History (Updated 02/01/20 @ 09:26 by Gypsy Enciso PA-C) Social History: Mr. Llamas lives alone in [place]. 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 He is currently unemployed at this time. 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 He reports social alcohol use twice weekly and drinks approximately 3 12oz beers. He is a current 0.5PPD smoker and he has smoked for 40 years. He reports marijuana use 2x per month and denies other illicit substance use. Smoking packs per day: 0.5 Smoking cigarettes per day: 10.0 Years smoked: 40 Smoking pack-years: 20.00 Smoking status: Current every day smoker Tobacco type: cigarettes Alcohol intake: current Drinks per week: 6 Substance use: current Substance use type: marijuana Last use: 01/26/20 Living arrangements: alone Occupation/Education: unemployed Gender identity (if verbalized by the patient): Male Sexual Orientation (if Verbalized by the Patient): Straight or Heterosexual Spiritual care concerns: No Meds
[2020-02-01] MEDS: NICOTINE (*PBKC) 21 MG PATCH 1 PATCH TRANSDERM (10:27)
[2020-02-01] MEDS: ENOXAPARIN 30 MG/0.3 ML SYRINGE SUB-Q (10:28)
[2020-02-01] MEDS: PANTOPRAZOLE 40 MG TABLET PO (10:30)
[2020-02-01] MEDS: amLODIPine BESYLATE 5 MG TABLET 10 MG PO (10:30)
[2020-02-01] MEDS: FOLIC ACID 1 MG TABLET PO (10:31)
[2020-02-01] MEDS: THIAMINE HCL 50 MG TABLET PO (10:31)
[2020-02-01 14:00] VITALS: BP 127/76; PULSE 54; RESP 20; TEMP 36.7; O2SAT 100
--- NOTE | 2020-02-02 07:03 | PM.DS ---
DS: Admitting Diagnosis Admitting Diagnosis Admitting Diagnosis: acute pancreatitis DS: Discharge Diagnosis Discharge Diagnosis (1) Acute alcoholic pancreatitis: Qualifiers: Acute pancreatitis complication: no infection or necrosis Qualified Code(s): K85.20 - Alcohol induced acute pancreatitis without necrosis or infection Code(s): K85.20 - Alcohol induced acute pancreatitis without necrosis or infection Status: Acute Assessment and Plan: Discharge Summary - PATIENT LEFT AMA AND WAS NOT FORMALLY DISCHARGED Harman Llamas is a 54 year old male with PMH significant for pancreatitis associated with alcohol use, hypertension, and GERD who presented to the emergency department for the evaluation of abdominal pain. Pain started at 3AM yesterday morning and is located in the epigastrium with radiation to the back. He had two episodes of associated vomiting. He reported recent alcohol use which he thinks provoked the episode. Initial workup was significant for lipase of [address] abd/pelvis demonstrated peripancreatic fat stranding, worse near the head and tail of the pancreas with a small amount of fluid near the body of the pancreas. AST was 53 and ALT 56. ALP is 65. Bilirubin 0.6. He was treated with IV fluids, antiemetics and analgesics PRN, and admitted to the hospitalist service. His pain improved and his diet was advanced to clear liquids which he tolerated without nausea, vomiting or pain. He left AMA on the evening of 02/01/20 so no further evaluation could be accomplished. (2) Alcohol use: Code(s): Z72.89 - Other problems related to lifestyle Status: Acute Assessment and Plan: The importance of alcohol cessation was discussed with the patient at length. He noted that his pancreatitis is precipitated by alcohol use and verbalized understanding regarding the need to avoid alcohol. Thiamine and folic acid were supplemented and CIWA protocol continued while inpatient. (3) Tobacco dependence: Code(s): F17.200 - Nicotine dependence, unspecified, uncomplicated Status: Acute Assessment and Plan: I discussed the importance of smoking cessation with the patient. Risks of continued smoking including adverse cardiopulmonary outcomes and cancer were discussed. He verbalized understand. Nicotine patch was given while inpatient. (4) Macrocytic anemia: Code(s): D53.9 - Nutritional anemia, unspecified Status: Acute Assessment and Plan: Appears chronic. Vitamin B12 and folate were sufficient during his last hospital stay 10/2019. Repeat vitamin B12, folate, and iron studies were ordered but never completed since the patient left AMA. There were no liver or spleen abnormalities on CT abd/pelvis. (5) Hypertension: Code(s): I10 - Essential (primary) hypertension Status: Chronic Assessment and Plan: Blood pressures were reviewed and reasonably controlled. Amlodipine and metoprolol were continued. (6) GERD (gastroesophageal reflux disease): Code(s): K21.9 - Gastro-esophageal reflux disease without esophagitis Status: Chronic Assessment and Plan: Protonix was given in place of omeprazole while inpatient. DS: Summary Hospital Course Reason for hospitalization: Abdominal pain and vomiting Hospital Course: As above. Time Spent with Patient Time attestation: Patient left AMA. DS: Data Data Completed and Pending Completed studies during hospitalization: Laboratory Tests 01/31/20 21:14 01/31/20 21:14 Imaging Radiologist's impression: ITS Impressions Abdomen/Pelvis CT 01/31/20 22:04 IMPRESSION: 1. Acute pancreatitis, likely interstitial edematous pancreatitis with acute peripancreatic fluid collection Discharge Plan Discharge Patient Disposition: Left Against Medical Advice Patient Instructions: How to Stop Smoking (DC), Pancreatitis (DC), Low Fat Diet (DC) Disch
== END 2020-02-01 19:05 | disposition left against medical advice (07) | DRG 440 ==
LOC: ANHED 23:34 → ANH3MEDSUR 23:46
PROVIDERS: Admitting Provider Internal Medicine; Emergency Provider Emergency Medicine; Visit Provider Physician Assistant
DX: K85.20 Alcohol induced acute pancreatitis without necrosis or infection (principal); I10 Essential (primary) hypertension; K21.9 Gastro-esophageal reflux disease without esophagitis; D53.9 Nutritional anemia, unspecified; F32.9 Major depressive disorder, single episode, unspecified; F17.200 Nicotine dependence, unspecified, uncomplicated; Z97.0 Presence of artificial eye; Z72.89 Other problems related to lifestyle
CPT/HCPCS: 36415; 74177; 80053; 81003; 83690; 85025; 96361; 96374; 96375; 99285; A9270; J1650; J1885; J2270; J2405; J7030; J7120; Q9967

== ENCOUNTER 2020-03-21 23:08 | Inpatient (IN) | payer MEDICARE, MEDICAID, SELFPAY ==
--- NOTE | ~2020-03-21 | XR_ITS ---
EXAMINATION: XR chest 1V portable DATE: 03/21/2020 23:41 INDICATION: Shortness of breath and chest pain/pressure TECHNIQUE: frontal view of the chest was obtained. COMPARISON: Chest radiograph dated 11/06/2019 FINDINGS: The lungs are clear with no focal airspace opacities, pulmonary edema, pleural effusion or pneumothor ax. The cardiomediastinal silhouette is normal. Visualized bones and soft tissues are unremarkable. IMPRESSION: 1. No acute cardiopulmonary disease. Reviewed, dictated and finalized at location H. [employer]
[2020-03-21 22:58] VITALS: BP 140/96; PULSE 151; RESP 22; TEMP 36.5; O2SAT 97
--- NOTE | 2020-03-21 23:16 | ECG_ITS ---
Measurements Intervals [place] Rate: 144 P: [place]: 0 QRS: 74 QRSD: 106 T: -78 QT: 276 QTc: 428 Interpretive Statements ATRIAL FIBRILLATION WITH RAPID VENTRICULAR RESPONSE VOLTAGE CRITERIA FOR LVH ST-T WAVE ABNORMALITY IN ANTEROLAT/INF LEADS- CONSIDER ISCHEMIA ABNORMAL ECG Electronically Signed On 03-22-2020 8:51:34 [employer]OOK[employer] by Kalpesh Rubi D.O.
[2020-03-21] MEDS: dilTIAZem HCl INJ 25 MG/5 ML VIAL 20 MG IV PUSH (23:24)
[2020-03-21 23:32] LABS: Basophils Percent Auto 0.5 % (0.2-1.2); Eosinophils Absolute Auto 0.1 K/mm3 (0-0.3); Hematocrit 34.9 % (42.0-52.0); Hemoglobin 12.6 g/dL (14.0-18.0); Immature Granulocyte Absolute 0.01 K/mm3 (0.00-0.031); Immature Granulocyte Percent A 0.2 % (0-0.5); Lymphocytes Absolute Auto 3.45 K/mm3 (0.9-3.2); Lymphocytes Percent Auto 59.2 % (18.3-44.2); Mean Corpuscular HGB Conc 36.1 g/dl (32-36); Mean Corpuscular Hemoglobin 36.3 pg (26-34); Mean Corpuscular Volume 100.6 fl (80-100); Mean Platelet Volume 9.9 fl (7.4-10.4); Monocytes Absolute Auto 0.5 K/mm3 (0.1-0.6); Monocytes Percent Auto 8.2 % (2.6-8.5); Neutrophils Absolute Auto 1.8 K/mm3 (1.3-6.7); Neutrophils Percent Auto 30.9 % (45.5-73.1); Platelet Count Result 154 k/mm3 (150-375); Red Blood Count 3.47 M/mm3 (4.6-6.20); Red Cell Distribution Width 13.5 % (11.5-14.5); White Blood Count 5.8 K/mm3 (4.5-10.0)
[2020-03-21 23:37] VITALS: BP 148/99; PULSE 140
[2020-03-21 23:43] LABS: INR 1.1; Prothrombin Time 14.4 Seconds (11.1-14.7)
[2020-03-21 23:44] LABS: Alanine Aminotransferase 93 U/L (4-50); Albumin Level 3.9 g/dL (3.5-5.1); Alkaline Phosphatase 65 U/L (38-126); Anion Gap 15 mmol/L (8-16); Aspartate Amino Transferase 78 U/L (17-59); Bilirubin,Total 0.5 mg/dL (0.2-1.3); Blood Urea Nitrogen 19 mg/dL (9-20); Calcium 8.5 mg/dL (8.4-10.2); Carbon Dioxide 20 mmol/L (22-30); Chloride 99 mmol/L (98-107); Estimated CRCL calculation 64 ml/min; Estimated Glomerular Filt Rate > 60; Glucose 187 mg/dL (75-110); Potassium 3.1 mmol/L (3.4-5.0); Sodium 134 mmol/L (137-145)
[2020-03-21 23:56] LABS: Troponin I < 0.012 ng/mL (0.000-0.034)
[2020-03-21 23:58] VITALS: BP 128/83; PULSE 133
[2020-03-22] VITALS (30 sets, daily range): BP systolic 118–136; BP diastolic 74–102; PULSE 50–144; RESP 16–31; TEMP 36.3–36.9; O2SAT 97–100; BMI 26.4
--- NOTE | 2020-03-22 00:16 | PC.NURSE ---
Called lab to add on MG
[2020-03-22 00:39] LABS: Magnesium 1.6 mg/dL (1.6-2.3)
[2020-03-22] MEDS: KCL 20 MEQ/SW 100 ML 100 ML 50 MEQ IVPB (00:41)
[2020-03-22] MEDS: SODIUM CHLORIDE 0.9% IV 1,000 ML 150 ML IV CONT (00:42)
--- NOTE | 2020-03-22 00:56 | PC.NURSE ---
called lab to add on Lipase
--- NOTE | 2020-03-22 01:04 | ED.CHESTPAIN ---
HPI - Chest Pain General Chief Complaint: Chest Pain Stated Complaint: CP Time Seen by Provider: 03/21/20 23:11 History of Present Illness HPI narrative: Patient is a 54-year-old gentleman who presents emerge department with chief complaint of chest pain. Patient reports that tonight he started having some tightness in his chest and also noticed that he had a fast heart rate. Patient reports has not had symptoms like this before in the past states that he was recently in the hospital for an episode of acute pancreatitis. Patient does report that he is an alcoholic and drinks approximately 6 drinks per day. Patient reports symptoms or not worsened by anything where they improved by anything. Related Data Home Medications Medication Instructions Recorded Confirmed amlodipine [Norvasc] 10 mg PO DAILY 01/31/20 02/01/20 celecoxib [Celebrex] 100 mg PO DAILY 01/31/20 02/01/20 diclofenac sodium 75 mg PO BID 01/31/20 02/01/20 gabapentin [Neurontin] 300 mg PO BID 01/31/20 02/01/20 metoprolol succinate [Toprol XL] 50 mg PO DAILY 01/31/20 02/01/20 omeprazole magnesium [Prilosec OTC] 20 mg PO DAILY 01/31/20 02/01/20 oxycodone-acetaminophen 1 tablet PO Q6-8H PRN 01/31/20 02/01/20 Allergies Allergy/AdvReac Type Severity Reaction Status Date / Time ampicillin Allergy Severe Anaphylactic Verified 01/31/20 15:46 Shock lisinopril Allergy Severe Anaphylactic Verified 01/31/20 15:46 Shock Review of Systems Review of Systems: Narrative: CONSTITUTIONAL: Denies fever, chills, or sweats. EYES: Denies visual changes, redness, or discharge. ENT: Denies rhinorrhea, congestion, sore throat, or otalgia. CARDIOVASCULAR: Denies chest pain, palpitations, or edema. RESPIRATORY: Denies cough or dyspnea. GASTROINTESTINAL: Denies abdominal pain, nausea, vomiting, or diarrhea. GENITOURINARY: Denies dysuria or hematuria. SKIN: Denies rash or itching. MUSCULOSKELETAL: Denies back pain, joint pain, or myalgia. NEUROLOGIC: Denies headache, numbness, or weakness. PSYCHIATRIC: Denies anxiety or depression. A 10 system review of systems was completed on the patient and is negative except for what is stated in the HPI. Nursing and ancillary documentation was reviewed. [facility] Past Medical History Medical History Depression GERD (gastroesophageal reflux disease) Hypertension Pancreatitis Prosthetic eye globe Right side Surgical History Surgical History H/O elbow surgery Left Family History Family History Mother Hypertension Father Hypertension Other Unknown family medical history Social History Social History Social History: Mr. Llamas lives alone in [place]. 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 He is currently unemployed at this time. 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 He reports social alcohol use twice weekly and drinks approximately 3 12oz beers. He is a current 0.5PPD smoker and he has smoked for 40 years. He reports marijuana use 2x per month and denies other illicit substance use. Smoking packs per day: 0.5 Smoking cigarettes per day: 10.0 Years smoked: 40 Smoking pack-years: 20.00 Smoking status: Current every day smoker Tobacco type: cigarettes Alcohol intake: current Drinks per week: 6 Substance use: current Substance use type: marijuana Last use: 01/26/20 Gender identity (if verbalized by the patient): Male Spiritual care concerns: No Exam Narrative: Exam Narrative: GENERAL: Well-appearing, well-nourished, and in no acute distress. HEAD: Normocephalic, atraumatic. EYES: PERRLA and EOMI. ENT: Nares clear, no rhinorrhea or epistaxis. Mucous memb
[2020-03-22 01:05] LABS: Lipase 199 U/L (23-300)
--- NOTE | 2020-03-22 01:33 | PM.IMHP ---
H&P: HPI History of Present Illness Date/Time: 03/22/20 01:33 Chief complaint: afib with RVR Narrative: This is a pleasant 54-year-old male with known history of chronic hypertension, GERD, and chronic pancreatitis from alcoholism presented to the hospital [facility] with a complaint of midsternal chest pain and a racing heart. Patient states he was not doing anything exertional when his chest discomfort started and he was worried that he may be having a heart attack. He states that he last had alcohol few days ago and drinks approximately 6 shots of hard liquor daily. Associated symptoms include mild shortness of breath. He denies any previous history of coronary artery disease or arrhythmias. In the ER [facility] the patient was found to be in atrial fibrillation with RVR. He was also found to have mild hypokalemia and elevated liver enzymes on routine labs. on further questioning he denies any recent fevers, chills, headache, cough, nausea, vomiting, dysuria, hematuria, diarrhea, rectal bleeding, open wounds, lower extremity swelling, lower extremity redness, or lower extremity pain. The patient was started on a Cardizem IV drip and given replacement IV potassium. The patient admits that he smokes a half a pack of cigarettes daily. He denies any other significant symptoms at this time. Review of Systems Review of Systems: All systems reviewed & are unremarkable except as noted in HPI and below PMFSH Past Medical History Medical History Depression GERD (gastroesophageal reflux disease) Hypertension Pancreatitis Prosthetic eye globe Right side Surgical History Surgical History H/O elbow surgery Left Family History Family History Mother Hypertension Father Hypertension Sibling Breast cancer Other Unknown family medical history Social History Social History Social History: Mr. Llamas lives alone in [place]. 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 He is currently unemployed at this time. 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 He reports social alcohol use twice weekly and drinks approximately 3 12oz beers. He is a current 0.5PPD smoker and he has smoked for 40 years. He reports marijuana use 2x per month and denies other illicit substance use. Smoking packs per day: 0.5 Smoking cigarettes per day: 10.0 Years smoked: 40 Smoking pack-years: 20.00 Smoking status: Current every day smoker Tobacco type: cigarettes Alcohol intake: current Drinks per week: 40 Substance use: current Substance use type: marijuana Last use: 01/26/20 Gender identity (if verbalized by the patient): Male Spiritual care concerns: No Meds Home Medications and Allergies Home Medications Medication Instructions Recorded Confirmed Type amlodipine [Norvasc] 10 mg PO DAILY 01/31/20 03/22/20 History celecoxib [Celebrex] 100 mg PO DAILY 01/31/20 03/22/20 History diclofenac sodium 75 mg PO BID 01/31/20 03/22/20 History gabapentin [Neurontin] 300 mg PO BID 01/31/20 03/22/20 History metoprolol succinate [Toprol XL] 50 mg PO DAILY 01/31/20 03/22/20 History omeprazole magnesium [Prilosec OTC] 20 mg PO DAILY 01/31/20 03/22/20 History oxycodone-acetaminophen 1 tablet PO Q4H PRN 01/31/20 03/22/20 History chlorthalidone 50 mg PO DAILY 03/22/20 03/22/20 History Allergies Allergy/AdvReac Type Severity Reaction Status Date / Time ampicillin Allergy Severe Anaphylactic Verified 01/31/20 15:46 Shock lisinopril Allergy Severe Anaphylactic Verified 01/31/20 15:46 Shock Vital Signs Vital Signs - 24 hr 03/21/20 22:58 03/21/20 23:37 03/21/20 23:58 Temperature 36.5 C Pulse Rate 151 H
[2020-03-22] MEDS: SODIUM CHLORIDE 0.9% IV 1,000 ML 125 ML IV CONT ×2 (02:00→04:58)
[2020-03-22 02:45] LABS: Troponin I 0.041 ng/mL (0.000-0.034)
--- NOTE | 2020-03-22 03:51 | ADMGEN ---
This patient, Harman Llamas, was admitted to IMU Room 203-01. Patient/family oriented to hospital policies and general routines including ID bracelet, bed and alarms, visiting hours, pain management, procedures, bathroom and other care routines, personal items, smoking policy, room service/diet, and visiting hours. Information on how to activate the Rapid Response Team has been discussed. Patient/Family are encouraged to report perceived risks to care and to ask questions if they do not understand what they are told or what they should do.
[2020-03-22 04:12] LABS: Add Urine Microscopic? NO; Appearance Urine Clear (Clear); Bilirubin Urine Negative (Negative); Blood Urine Negative (Negative); Color Urine Colorless (Yellow); Glucose Urine UA Negative (Negative); Ketones Urine Negative (Negative); Leukocyte Esterase Ur Negative LEU/UL (Negative); Nitrate Urine Negative (Negative); Protein Urine Negative (Negative); Specific Grav Ur 1.009 (1.001-1.035); Urobilinogen Urine Negative mg/dL (<2.0)
[2020-03-22 04:35] LABS: Amphetamine Screen Urine Negative (Negative); Barbiturate Screen Urine Negative (Negative); Benzodiazepines Screen Urine Negative (Negative); Cannabinoid Screen Urine Negative (Negative); Cocaine Screen Urine Negative (Negative); Methadone Screen Urine Negative (Negative); Opiate Screen Urine Positive (Negative); Phencyclidine Screen Urine Negative (Negative)
[2020-03-22 06:22] LABS: Troponin I 0.028 ng/mL (0.000-0.034)
[2020-03-22] MEDS: THIAMINE HCL 200 MG/2 ML VIAL 100 MG IV PUSH (09:04)
[2020-03-22] MEDS: PANTOPRAZOLE SODIUM IV 40 MG VIAL IV PUSH (09:04)
[2020-03-22] MEDS: ASPIRIN 81 MG ENTERIC TABLET PO (09:04)
--- NOTE | 2020-03-22 11:30 | PM.CNCAR ---
Assessment and Plan Additional Plan 54-year-old black male with acute onset atrial fibrillation last evening. Presented with some abrupt symptomatic tachycardia/palpitations his heart rate has been well controlled with diltiazem. No previous cardiac history. Does have a history of alcohol excess as mentioned in the chart. At this time I am going to recommend starting sotalol in attempt at restoring sinus rhythm. He should be systemically anticoagulated I am going to start apixaban. As he takes sotalol I would anticipate his heart rate decreasing in the need to reduce the diltiazem dosage IV. I did speak to his nurse about this concern. I also mentioned that if he converts on the sotalol the diltiazem can be stopped at that time. Echocardiography will be requested and probably done tomorrow as today is Day. Thank you for asking me to see this nice man in consultation González Verdin MD [facility] History of Present Illness History of Present Illness Consult date/time: 03/22/20 11:30 Consult reason: atrial fibrillation Reason For Visit: afib with RVR Narrative: This is a 54-year-old man I am seeing at the request of the hospitalist this morning to assist with the treatment and evaluation of atrial fibrillation. Patient does not have any previous history or knowledge of any cardiac problems and last night while he was at home at rest noted the abrupt onset of the sense of tachy palpitations. He had some mild shortness of breath when this began and so he became concerned about his condition and came immediately to the emergency room. He was found to be in atrial fibrillation with a relatively rapid ventricular response. He was otherwise hemodynamically stable. Of course he was placed on intravenous diltiazem and admitted to the IMU. His diltiazem drip is running at 20 minutes mg and his heart rate is very well controlled in the 70s and 80s at this time he is resting comfortably in bed and offers no other complaints. He has not been placed on an anticoagulant. He has no other cardiovascular complaints he denies any sense of chest pain he denies any history of syncope orthopnea PND or edema. His past medical history is primarily remarkable for alcohol excess and at least couple of admissions for pancreatitis. He does have a previous ECG in his record here at [place] from October of this year that showed him to be in normal sinus rhythm. Review of Systems Constitutional: Constitutional: Reports no additional constitutional complaints Eyes: Eyes: Reports no additional eye complaints ENT: Reports system reviewed and no additional complaints, except as documented Cardiovascular: Cardiovascular: Reports as per HPI Respiratory: Respiratory: Reports as per HPI Gastrointestinal: Gastrointestinal: Reports no additional gastrointestinal complaints Musculoskeletal: Musculoskeletal: Reports no additional musculoskeletal complaints Integumentary/Breasts: Skin/Breast: Reports system reviewed and no additional complaints, except as docu Endocrine: Endocrine: Reports no additional endocrine complaints Hematologic/Lymphatic: Hematologic/Lymphatic: Reports no additional hematologic/lymphatic complaints Allergic/Immunologic: Allergic/Immunologic: Reports no additional allergic/immunologic complaints PMFSH Past Medical History Medical History Depression GERD (gastroesophageal reflux disease) Hypertension Pancreatitis Prosthetic eye globe Right side Surgical History Surgical History H/O elbow surgery Left Family History Family History Mother Hypertension Father Hypertension Sibling Breast cancer Other Unknown family medical history Social History Social History Social History: Mr. Llamas lives alone in [facility]
--- NOTE | 2020-03-22 12:00 | PC.NURSE ---
Notified Dr. Verdin that patient converted to sinus rd. Dr. Verdin still want sotolol given, an EKG taken now and then 1 hour after Sotolol dose. Verbal orders carried out. Will continue to monitor.
[2020-03-22] MEDS: SOTALOL HCL 80 MG TABLET PO ×2 (12:05→21:54)
--- NOTE | 2020-03-22 12:10 | ECG_ITS ---
Measurements Intervals [place] Rate: 51 P: 38 [place]: 161 QRS: 30 QRSD: 106 T: 43 QT: 481 QTc: 447 Interpretive Statements SINUS BRADYCARDIA VOLTAGE CRITERIA FOR LVH BORDERLINE T WAVE ABNORMALITY- ANTERIOR LEADS BASELINE ARTIFACT- I, II, III, AVR, V6 BORDERLINE ECG Electronically Signed On 03-22-2020 16:09:09 KEY OPERATOR by Kalpesh Rubi D.O.
--- NOTE | 2020-03-22 13:15 | ECG_ITS ---
Measurements Intervals [place] Rate: 51 P: 37 [place]: 160 QRS: 43 QRSD: 92 T: 45 QT: 451 QTc: 419 Interpretive Statements SINUS BRADYCARDIA VOLTAGE CRITERIA FOR LVH NONSPECIFIC T-WAVE ABNORMALITY- ANTEROLATERAL LEADS BORDERLINE ECG Electronically Signed On 03-22-2020 16:08:13 OPERATIONAL RISK CONSULTANT by Kalpesh Rubi D.O.
--- NOTE | 2020-03-22 16:24 | PM.IMPN ---
Progress Note: A&P Assessment and Plan (1) Atrial fibrillation with rapid ventricular response: Code(s): I48.91 - Unspecified atrial fibrillation Status: Acute Assessment and Plan: -converted with Cardizem IV -echocardiogram ordered -CHADS2 Vasc 1, cardiology recommends anticoagulation, starting Eliquis 5 mg b.i.d. -rate control with sotalol, loading in the IMU -patient will not be taking his home metoprolol -keeping potassium greater than 4, Mag greater than 2 -continue telemetry -checking TSH with reflex (2) Chest pain: Qualifiers: Chest pain type: unspecified Qualified Code(s): R07.9 - Chest pain, unspecified Code(s): R07.9 - Chest pain, unspecified Status: Acute Assessment and Plan: Resolved, likely secondary to AFib with RVR (3) Macrocytic anemia: Code(s): D53.9 - Nutritional anemia, unspecified Status: Chronic Assessment and Plan: Chronic macrocytic anemia is likely alcohol induced. No signs of acute blood loss tonight. Monitor H&H, transfuse p.r.n.. (4) Abnormal glucose: Code(s): R73.09 - Other abnormal glucose Status: Acute Assessment and Plan: The patient was prediabetic back in October when his hemoglobin A1c was 5.9. (5) Elevated liver enzymes: Code(s): R74.8 - Abnormal levels of other serum enzymes Status: Chronic Assessment and Plan: Appears to be secondary to chronic alcoholism. Monitor LFTs. (6) Alcoholism: Code(s): F10.20 - Alcohol dependence, uncomplicated Status: Chronic Assessment and Plan: [facility] protocol. Ativan p.r.n. withdrawal. Thiamine p.o. daily (7) GERD (gastroesophageal reflux disease): Qualifiers: Esophagitis presence: esophagitis presence not specified Qualified Code(s): K21.9 - Gastro-esophageal reflux disease without esophagitis Code(s): K21.9 - Gastro-esophageal reflux disease without esophagitis Status: Chronic Assessment and Plan: Patient can take p.o. omeprazole (8) Hypertension: Qualifiers: Hypertension type: unspecified Qualified Code(s): I10 - Essential (primary) hypertension Code(s): I10 - Essential (primary) hypertension Status: Chronic Assessment and Plan: Resuming amlodipine, sitting metoprolol to sotalol for rate control by cardiology (9) Tobacco dependence: Code(s): F17.200 - Nicotine dependence, unspecified, uncomplicated Status: Chronic Assessment and Plan: Completed tobacco cessation counseling overnight. Subjective Date/time seen: 03/22/20 16:24 Patient examined. Patient converted to normal sinus rhythm with Cardizem drip. Cardiology evaluated and starting patient on Eliquis 5 mg b.i.d. for anticoagulation and sotalol for rate control. Patient had echocardiogram tomorrow. Patient denies fever, chills, nausea, vomiting, diarrhea, chest pain, dizziness, syncope. Will check TSH with reflex. Review of Systems Review of Systems: All systems reviewed & are unremarkable except as noted in HPI and below Exam Narrative: Exam Narrative: - GENERAL: Pleasant male in no acute distress - EYES: EOMI. Anicteric. - HENT: Moist mucous membranes. - LUNGS: Clear to auscultation bilaterally - CARDIOVASCULAR: Regular rate and rhythm. - ABDOMEN: Soft, non-tender and non-distended. No palpable masses. - EXTREMITIES: No edema. Peripheral pulses 2+. Non-tender. - NEUROLOGIC: No focal neurological deficits. CN II-XII grossly intact. - PSYCHIATRIC: Awake, Alert and oriented x 3. Appropriate mood and affect. - SKIN: No rashes or lesions. Warm. - LYMPH: No cervical lymphadenopathy. Objective Data Vital Signs Vital Signs: Vital Signs - 24 hr 03/21/20 22:58 03/21/20 23:37 03/21/20 23:58 Temperature 36.5 C Pulse Rate 151 H 140 H 133 H Respiratory Rate 22 H Blood Pressure 140/96 H 148/99 H 128/83 Pulse Oximetry 97 03/22/20 00:21 03/22/20 00:30 03/22/20
[2020-03-22] MEDS: oxyCODONE/ACETAMINOPHEN (*CRX) 5-325 MG TABLET 1 TABLET PO ×2 (17:43→21:55)
[2020-03-22] MEDS: GABAPENTIN 300 MG CAPSULE PO (17:44)
[2020-03-22] MEDS: APIXABAN 5 MG TABLET PO (19:58)
[2020-03-22] MEDS: oxyCODONE HCL (*CRX) 5 MG TAB IR PO (21:55)
[2020-03-23] VITALS (11 sets, daily range): BP systolic 113–133; BP diastolic 64–83; PULSE 50–91; RESP 14–20; TEMP 36.3–36.8; O2SAT 95–100
--- NOTE | 2020-03-23 | ECHO_ITS ---
Patient Info Name: Harman Llamas Age: 54 years : 1965 Gender: Male Ht: 67 in Wt: 169 lbs BSA: 1.92 m2 HR: 56 bpm BP: 113 / 64 mmHg Heart Rhythm: Bradycardia, Sinus Rhythm Technical Quality: Good Exam Date: 03/23/2020 9:42 AM Exam Location: [facility] Patient Status: Inpatient Admit Date: 03/22/2020 Staff Ordering Physician: González Verdin MD Circle Beveler: Kee Rivera ROXANNA Attending Provider: Jameson Kirkpatrick MD Referring Physician: Lambert EDWARDS; Exam Type: CA echo doppler color flow Study Info Indications I48.0 - Paroxysmal atrial fibrillation Complete two-dimensional, color flow and Doppler transthoracic echocardiogram is performed. History/Risk Factors New onset Afib; HTN, palpitations, bradycardia. Summary 1. Complete two-dimensional, color flow and Doppler transthoracic echocardiogram is performed. 2. Normal left ventricular systolic and diastolic function. 3. Mildly enlarged left atrium. 4. Mildly sclerotic aortic valve which is not functionally stenotic. Left Ventricle Left ventricular chamber dimension is normal. Left ventricular systolic function is normal, estimated at 60-65%. The left ventricular diastolic function is normal. Right Ventricle Right ventricular chamber dimension is normal. Left Atria Left atrial chamber dimension is mildly enlarged. Right Atria Right atrial chamber dimension is normal. Aortic Valve The aortic valve is trileaflet. There is mild aortic valve sclerosis. Pulmonic Valve The pulmonic valve is normal. Mitral Valve The mitral valve has normal leaflets. Tricuspid Valve The tricuspid valve leaflets are normal. Pericardium/Pleural The pericardium appears normal. Aorta The aortic root size at the sinus of Valsalva is normal. Left Ventricular Outflow Tract Name Value Normal LVOT 2D LVOT Diameter 2.0 cm LVOT Doppler LVOT Peak Gradient 3 mmHg LVOT Mean Gradient 2 mmHg LVOT VTI 18 cm LVOT VTI/AV VTI Ratio 0.6 LVOT Stroke Volume 57 ml LVOT CO 3.0 l/min LVOT CI 1.6 l/min/m2 Mitral Valve Name Value Normal MV Doppler MV Decel [place] 379 cm/s2 MV PHT 49 ms MV Area (PHT) 4.5 cm2 4.0-5.0 MV Diastolic Function MV E Peak Velocity 64 cm/s MV A Peak Velocity 55 cm/s MV E/A 1.2 MV Decel Time 168 ms MV Annular TDI
--- NOTE | 2020-03-23 00:14 | ECG_ITS ---
Measurements Intervals [place] Rate: 54 P: 29 [place]: 167 QRS: 33 QRSD: 101 T: 44 QT: 494 QTc: 471 Interpretive Statements SINUS BRADYCARDIA VOLTAGE CRITERIA FOR LVH BORDERLINE T WAVE ABNORMALITY- ANTERIOR LEADS BASELINE ARTIFACT- V3-V4 BORDERLINE ECG Electronically Signed On 03-23-2020 8:06:25 PERMIT TECHNICIAN by Kalpesh Rubi D.O.
--- NOTE | 2020-03-23 08:49 | PM.IMPN ---
Subjective Date/time seen: 03/23/20 08:49 Patient examined. He is being loaded with sotalol. He has normal sinus rhythm on telemetry. Will continue loading and watch on telemetry. Patient denies fever, chills, nausea, vomiting, diarrhea, chest pain, dyspnea, lightheadedness, dizziness. Review of Systems Review of Systems: All systems reviewed & are unremarkable except as noted in HPI and below Objective Data Vital Signs Vital Signs: Vital Signs - 24 hr 03/22/20 10:00 03/22/20 11:41 03/22/20 12:00 Temperature 36.4 C Pulse Rate 75 89 55 L Respiratory Rate 18 Blood Pressure 128/74 Pulse Oximetry 100 03/22/20 12:05 03/22/20 14:00 03/22/20 16:00 Temperature 36.7 C Pulse Rate 62 56 L 53 L Respiratory Rate 18 Blood Pressure 122/98 H Pulse Oximetry 100 03/22/20 18:00 03/22/20 20:00 03/22/20 21:54 Temperature 36.9 C Pulse Rate 70 73 73 Respiratory Rate 16 Blood Pressure 118/74 Pulse Oximetry 98 03/23/20 00:00 03/23/20 04:00 Temperature 36.8 C 36.8 C Pulse Rate 73 71 Respiratory Rate 16 14 Blood Pressure 118/75 113/64 Pulse Oximetry 99 95 Intake/Output Intake/Output: Intake & Output 03/20/20 03/21/20 03/22/20 03/23/20 23:59 23:59 23:59 23:59 Intake Total 3860 444 Output Total 1225 Balance 2635 444 Meds/Results Medications: Active Medications Generic Name Dose Route Start Last Admin Trade Name Freq PRN Reason Stop Dose Admin Acetaminophen 650 mg 03/22/20 00:53 Acetaminophen 325 Mg Tablet PO Q4H PRN Mild Pain (1-3) or Fever Amlodipine Besylate 10 mg 03/23/20 09:00 Amlodipine Besylate 5 Mg Tablet PO DAILY [facility] Apixaban 5 mg 03/22/20 21:00 03/22/20 19:58 Apixaban 5 Mg Tablet PO 5 mg Q12HR JUHI Administration Celecoxib 100 mg 03/23/20 09:00 Celecoxib 100 Mg Capsule PO DAILY [facility] Chlorthalidone 50 mg 03/23/20 09:00 Chlorthalidone 25 Mg Tablet PO DAILY [facility] Diclofenac Sodium 75 mg 03/22/20 16:50 Diclofenac Sod 75 Mg Tablet.Ec PO BID PRN Pain Gabapentin 300 mg 03/22/20 17:00 03/22/20 17:44 Gabapentin 300 Mg Capsule PO 300 mg BID JUHI Administration Lorazepam 1 mg 03/22/20 01:40 Lorazepam Inj (*Crx) 2 Mg/Ml Vial IV PUSH Q4H PRN Withdrawal Ondansetron HCl 4 mg 03/22/20 00:53 Ondansetron Inj 4 Mg/2 Ml Vial IV PUSH Q4H PRN Nausea Oxycodone HCl 5 mg 03/22/20 16:45 03/22/20 21:55 Oxycodone Hcl (*Crx) 5 Mg Tab Ir PO 5 mg Q4H PRN Administration Back Pain Oxycodone/Acetaminophen 1 tablet 03/22/20 16:44 03/22/20 21:55 Oxycodone/Acetaminophen (*Crx) 5-325 Mg Tablet PO 1 tablet Q4H PRN Administration Back Pain Sotalol HCl 80 mg 03/22/20 11:30 03/22/20 21:54 Sotalol Hcl 80 Mg Tablet PO 80 mg Q12HR JUHI Administration Thiamine HCl 100 mg 03/23/20 09:00 Thiamine Hcl 100 Mg Tablet PO QAM [facility] Radiology Results: ITS Impressions Chest X-Ray 03/21/20 23:46 IMPRESSION: 1. No acute cardiopulmonary disease. Labs Labs: Laboratory Results - last 24 hr 03/23/20 04:18 TSH (Reflex) 2.430 Quality VTE Prophylaxis VTE prophylaxis: mechanical ordered
[2020-03-23] MEDS: CHLORTHALIDONE 25 MG TABLET 50 MG PO (09:06)
[2020-03-23] MEDS: THIAMINE HCL 100 MG TABLET PO (09:06)
[2020-03-23] MEDS: GABAPENTIN 300 MG CAPSULE PO (09:06)
[2020-03-23] MEDS: SOTALOL HCL 80 MG TABLET PO (09:06)
[2020-03-23] MEDS: amLODIPine BESYLATE 5 MG TABLET 10 MG PO (09:06)
[2020-03-23] MEDS: APIXABAN 5 MG TABLET PO (09:08)
[2020-03-23] MEDS: CELECOXIB 100 MG CAPSULE PO (09:08)
[2020-03-23 09:49] LABS: Anion Gap 8 mmol/L (8-16); Blood Urea Nitrogen 10 mg/dL (9-20); Calcium 9.2 mg/dL (8.4-10.2); Carbon Dioxide 33 mmol/L (22-30); Chloride 97 mmol/L (98-107); Estimated CRCL calculation 71 ml/min; Estimated Glomerular Filt Rate > 60; Glucose 149 mg/dL (75-110); Potassium 3.9 mmol/L (3.4-5.0); Sodium 138 mmol/L (137-145)
--- NOTE | 2020-03-23 10:17 | PM.PNCARD ---
Progress Note: A&P Additional Plan 54-year-old gentleman with hypertension presenting with symptomatic atrial fibrillation. He has converted medically to sinus rhythm and seems to be stable today. He offers no complaints. Echocardiogram done this morning is pending at the time of this dictation. Assuming that no unexpected pathology is identified I believe he can be discharged at that time. I will arrange for office follow-up in 2-3 weeks and follow his AFib longitudinally in that fashion. González Verdin MD [facility] Subjective Date/time seen: Date of service: 03/23/20 10:17 Interval history: Follow-up visit in this 54-year-old gentleman with paroxysmal atrial fibrillation. He has longstanding hypertension probably the etiology of this. Converted to sinus rhythm yesterday morning while still on IV diltiazem. That has been discontinued he is now on oral sotalol and anticoagulated with apixaban. He had a follow-up echocardiogram done this morning obviously I have not yet read that study at the time of this dictation. Exam Const: General: comfortable and no acute distress Other: Pleasant gentleman resting comfortably in no distress hoping to be discharged HENMT: Mouth: Yes moist mucous membranes Eyes: Sclera: sclerae normal Pupils: Equal, round and reactive pupils present Neck: Neck: no JVD Thyroid: thyroid normal Resp: Effort & Inspection: normal respiratory effort Auscultation: clear to auscultation bilaterally Cardio: Rate: regular rate Rhythm: regular rhythm Other: No murmur no gallop no rub GI: GI Palp: Yes Soft to palpation Auscultation: normal bowel sounds Skin: General skin exam: normal color Neuro: Cognition (Neuro): normal cognition Extrem: General: normal to inspection Objective Data Vital Signs Vital Signs: Vital Signs - 24 hr 03/22/20 11:41 03/22/20 12:00 03/22/20 12:05 Temperature 36.4 C Pulse Rate 89 55 L 62 Respiratory Rate 18 Blood Pressure 128/74 Pulse Oximetry 100 03/22/20 14:00 03/22/20 16:00 03/22/20 18:00 Temperature 36.7 C Pulse Rate 56 L 53 L 70 Respiratory Rate 18 Blood Pressure 122/98 H Pulse Oximetry 100 03/22/20 20:00 03/22/20 21:00 03/22/20 21:54 Temperature 36.9 C Pulse Rate 73 60 73 Respiratory Rate 16 Blood Pressure 118/74 Pulse Oximetry 98 03/23/20 00:00 03/23/20 04:00 03/23/20 06:00 Temperature 36.8 C 36.8 C Pulse Rate 50 L 51 L 52 L Respiratory Rate 16 14 Blood Pressure 118/75 113/64 Pulse Oximetry 99 95 03/23/20 08:00 03/23/20 09:06 Temperature 36.3 C L Pulse Rate 53 L 65 Respiratory Rate 20 Blood Pressure 124/74 Pulse Oximetry 100 Intake/Output Intake/Output: Intake & Output 03/20/20 03/21/20 03/22/20 03/23/20 23:59 23:59 23:59 23:59 Intake Total 3860 444 Output Total 1225 550 Balance 2635 -106 Meds/Results Medications: Active Medications Generic Name Dose Route Start Last Admin Trade Name Freq PRN Reason Stop Dose Admin Acetaminophen 650 mg 03/22/20 00:53 Acetaminophen 325 Mg Tablet PO Q4H PRN Mild Pain (1-3) or Fever Amlodipine Besylate 10 mg 03/23/20 09:00 03/23/20 09:06 Amlodipine Besylate 5 Mg Tablet PO 10 mg DAILY JUHI Administration Apixaban 5 mg 03/22/20 21:00 03/23/20 09:08 Apixaban 5 Mg Tablet PO 5 mg Q12HR JUHI Administration Celecoxib 100 mg 03/23/20 09:00 03/23/20 09:08 Celecoxib 100 Mg Capsule PO 100 mg DAILY JUHI Administration Chlorthalidone 50 mg 03/23/20 09:00 03/23/20 09:06 Chlorthalidone 25 Mg Tablet PO 50 mg DAILY JUHI Administration Diclofenac Sodium 75 mg 03/22/20 16:50 Diclofenac Sod 75 Mg Tablet.Ec PO BID PRN Pain Gabapentin 300 mg 03/22/20 17:00 03/23/20 09:06 Gabapentin 300 Mg Capsule PO 300 mg BID JUHI Administration Lorazepam 1 mg 03/22/20 01:40 Lorazepam Inj (*Crx) 2 Mg/Ml Vial IV PUSH Q4H PRN Withdrawal Ondansetron HCl 4 mg
--- NOTE | 2020-03-23 11:10 | PC.NURSE ---
This patient, Harman Llamas, was received from [facility] [id number] to [facility] on 03/23/20 at 1110. Patient oriented to unit policies and routines.
--- NOTE | 2020-03-23 11:19 | PC.NURSE ---
Transferred patient to chest pain room 6. Pt transferred on room air, do distress noter. Patient a&o x 4. All belongings transferred with patient. report given to Shanna
--- NOTE | 2020-03-23 13:50 | PM.DS ---
DS: Admitting Diagnosis Admitting Diagnosis Admitting Diagnosis: afib with RVR DS: Discharge Diagnosis Discharge Diagnosis (1) Atrial fibrillation with rapid ventricular response: Code(s): I48.91 - Unspecified atrial fibrillation Status: Acute Assessment and Plan: -converted with Cardizem IV -echocardiogram with ventricular systolic function normal, EF 60-65%, mildly enlarged left atrium -cardiology recommends anticoagulation, starting Eliquis 5 mg b.i.d. -rate control with sotalol, stopping home metoprolol -keeping potassium greater than 4, Mag greater than 2 -patient was converted to normal sinus rhythm -TSH normal -etiology of his AFib was undetermined, may be secondary to hypokalemia however it was only as low as 3.1, tsh was normal and there were no other triggers by history other than possible alcohol withdrawal. (2) Chest pain: Qualifiers: Chest pain type: unspecified Qualified Code(s): R07.9 - Chest pain, unspecified Code(s): R07.9 - Chest pain, unspecified Status: Acute Assessment and Plan: Resolved, likely secondary to AFib with RVR (3) Macrocytic anemia: Code(s): D53.9 - Nutritional anemia, unspecified Status: Chronic Assessment and Plan: Macrocytic anemia likely secondary to alcohol (4) Abnormal glucose: Code(s): R73.09 - Other abnormal glucose Status: Acute Assessment and Plan: hemoglobin A1c was 5.9 10/2019 (5) Elevated liver enzymes: Code(s): R74.8 - Abnormal levels of other serum enzymes Status: Chronic Assessment and Plan: Stable, likely secondary to alcoholism (6) Alcoholism: Code(s): F10.20 - Alcohol dependence, uncomplicated Status: Chronic Assessment and Plan: Counseled cessation (7) GERD (gastroesophageal reflux disease): Qualifiers: Esophagitis presence: esophagitis presence not specified Qualified Code(s): K21.9 - Gastro-esophageal reflux disease without esophagitis Code(s): K21.9 - Gastro-esophageal reflux disease without esophagitis Status: Chronic Assessment and Plan: Patient can take p.o. omeprazole (8) Hypertension: Qualifiers: Hypertension type: unspecified Qualified Code(s): I10 - Essential (primary) hypertension Code(s): I10 - Essential (primary) hypertension Status: Chronic Assessment and Plan: Resuming amlodipine, switching metoprolol to sotalol for rate control by cardiology (9) Tobacco dependence: Code(s): F17.200 - Nicotine dependence, unspecified, uncomplicated Status: Chronic DS: Summary Hospital Course Hospital Course: Patient is a 54-year-old male with past medical history chronic hypertension, GERD, history of alcohol abuse, tobacco abuse presents to the hospital with complaints of midsternal chest pain and palpitations. He was found to be AFib RVR which was converted to normal sinus rhythm with diltiazem drip. Cardiology Dr. Verdin was consulted started patient on sotalol 80 mg b.i.d. for rate control Eliquis 5 mg b.i.d. for anticoagulation. Patient has some lab abnormality is likely secondary to alcohol abuse with elevated LFTs, hypokalemia, patient had cessation counseling. Once patient was converted to normal sinus rhythm he was asymptomatic and felt back to baseline. Echocardiogram showed EF 60 65% and no wall motion abnormalities. Patient will follow-up with cardiology in 2-3 weeks. Patient's labs stable, vitals stable, patient is stable for discharge. Status at Discharge Functional status at discharge: independent ambulation Overall status at discharge: patient is back to baseline Time Spent with Patient Time attestation: Total time spent providing and/or coordinating discharge services:35 Time spent: Greater than 30 minutes Exam Narrative: Exam Narrative: - GENERAL: Pleasant well-nourished male in no acute distress - EYES: Strabismus. Anicteric. - DOROTEO
--- NOTE | 2020-03-23 14:15 | PC.NURSE ---
Pt. given discharge education on diagnosis and prescriptions. Pt. instructed to follow up with [facility] in 3 weeks. Pt. given contact information for [facility] to establish appointment due to office being closed today. Pt. instructed to seek emergent care for chest pain/SOB/arrhythmias. Pt. verbalizes understanding of discharge education. Pt. in no apparent distress upon discharge. Pt. denies chest pain/palpitations/SOB upon discharge. Pt. noted to be in NSR upon discharge.
== END 2020-03-23 14:12 | disposition home or self-care (01) | DRG 310 ==
LOC: ANHED 03-22 01:07 → ANHIMU 03-22 06:32 → ANHCPC 03-23 11:55 → ANHIMU 03-28 10:35
PROVIDERS: Admitting Provider Family Medicine; Emergency Provider Emergency Medicine; Visit Provider Student in an Organized Health Care Education/Training Program
DX: I48.91 Unspecified atrial fibrillation (principal); F10.20 Alcohol dependence, uncomplicated; E87.6 Hypokalemia; D53.9 Nutritional anemia, unspecified; R73.09 Other abnormal glucose; K21.9 Gastro-esophageal reflux disease without esophagitis; I10 Essential (primary) hypertension; F17.210 Nicotine dependence, cigarettes, uncomplicated; Z28.21 Immunization not carried out because of patient refusal; Z79.899 Other long term (current) drug therapy; Z97.0 Presence of artificial eye
CPT/HCPCS: 36415; 71045; 80048; 80053; 80307; 81003; 83690; 83735; 84443; 84484; 85025; 85610; 85730; 93005; 93306; 96365; 96375; 99285; A9270; C9113; J3411; J3480; J7030

== ENCOUNTER 2020-05-25 15:20 | Outpatient (CLI) | payer MEDICARE, MEDICAID, SELFPAY ==
--- NOTE | ~2020-05-25 | XR_ITS ---
EXAMINATION: XR knee RT min 4V DATE: 05/25/2020 15:55 INDICATION: Right knee pain. TECHNIQUE: 4 views of right knee were obtained. COMPARISON: Right knee radiographs 04/08/2006 FINDINGS: There is varus angulation at the knee. No fracture. There is mild tricompartmental osteoart hritis characterized by tiny marginal osteophytes. No knee joint effusion. IMPRESSION: 1. Mild right knee osteoarthritis. Reviewed, dictated and finalized at location A. [employer]
== END 2020-05-25 15:21 | disposition home or self-care (01) ==
DX: M17.11 Unilateral primary osteoarthritis, right knee (principal)
CPT/HCPCS: 73564

== ENCOUNTER 2020-06-02 08:52 | Outpatient (CLI) | payer MEDICARE, SELFPAY ==
--- NOTE | ~2020-06-02 | MR_ITS ---
EXAMINATION: MR lumbar spine wo con DATE: 06/02/2020 09:54 INDICATION: Low back pain. TECHNIQUE: Magnetic resonance imaging (MRI) of the lumbar spine was performed without intravenous con trast. Sequences included sagittal T2-weighted FSE, sagittal T2-weighted FS FSE, sagittal T1-weighted FSE, and axial T2-weighted FSE. COMPARISON: Lumbar spine MRI 02/05/2010 FINDINGS: There is 4 degrees dextrocurvature of lumbar spine. There is 3 mm retrolisthesis of L4 on L 5. Vertebral body heights are normal. There is mildly decreased disc height from L1-L2 through L3-L4 and severely decreased disc height at L4-L5 and L5-S1. The distal spinal cord signal intensity is nor mal. The conus medullaris is at T12-L1. The following disc levels are specifically discussed: L1-L2: The disc is bulging and has an annular fissure. There is mild bilateral facet joint osteoarthr itis. There is mild bilateral neural foraminal stenosis. There is mild central canal stenosis. L2-L3: The disc is bulging and has an annular fissure. There is mild right and moderate left facet tequila int osteoarthritis. There is mild bilateral neural foraminal stenosis. There is mild central canal st enosis. L3-L4: The disc is bulging and has an annular fissure. There is moderate right and mild left facet tequila int osteoarthritis. There is mild right and moderate left neural foraminal stenosis. There is mild ce ntral canal stenosis. L4-L5: The disc is bulging disc composed left central extrusion. There is mild right and moderate lef t facet joint osteoarthritis. There is moderate bilateral neural foraminal stenosis. There is moderat e central canal stenosis. L5-S1: The disc is bulging with superimposed central extrusion. There is moderate right and mild left facet joint osteoarthritis. There is mild bilateral neural foraminal stenosis. There is mild central canal stenosis. IMPRESSION: 1. Severe lumbar spondylosis, worsened from 02/05/2010. Reviewed, dictated and finalized at location A. [employer] ENGL[employer]
== END 2020-06-02 08:53 ==
DX: M47.817 Spondylosis without myelopathy or radiculopathy, lumbosacral region (principal)
CPT/HCPCS: 72148

== ENCOUNTER 2020-08-14 02:48 | Observation (INO) | payer MEDICARE, MEDICAID, SELFPAY ==
[2020-08-14] VITALS (19 sets, daily range): BP systolic 104–156; BP diastolic 69–99; PULSE 61–92; RESP 13–22; TEMP 36.6–36.9; O2SAT 97–100; BMI 26.0
--- NOTE | ~2020-08-14 | XR_ITS ---
XR chest 2V DATE: 08/14/2020 03:31 INDICATION: Midsternal chest pain, palpitations. History of atrial fibrillation. TECHNIQUE: AP and lateral views COMPARISON: 03/21/2020 portable AP chest FINDINGS: The cardiac images also through unremarkable. There is mild aortic unfolding. No pulmonary infiltrate or consolidation, pleural effusion or pulmonary vascular congestion or pneumothorax. IMPRESSION: No active cardiopulmonary disease Reviewed, dictated and finalized at location A.
--- NOTE | 2020-08-14 02:49 | ECG_ITS ---
Measurements Intervals [place] Rate: 94 P: 31 UT: 139 QRS: 35 QRSD: 105 T: -4 QT: 342 QTc: 428 Interpretive Statements SINUS RHYTHM POSSIBLE LEFT ATRIAL ENLARGEMENT LEFT VENTRICULAR HYPERTROPHY AND ST-T CHANGE BORDERLINE ST-T WAVE ABNORMALITY- INF/LAT LEADS BORDERLINE ECG Electronically Signed On 08-14-2020 7:22:06 CDT by Kalpesh Rubi D.O.
[2020-08-14 03:17] LABS: Basophils Percent Auto 0.9 % (0.2-1.2); Eosinophils Absolute Auto 0.1 K/mm3 (0-0.3); Eosinophils Percent Auto 1.6 % (0-4.4); Hematocrit 40.4 % (42.0-52.0); Hemoglobin 14.5 g/dL (14.0-18.0); Immature Granulocyte Absolute 0.01 K/mm3 (0.00-0.031); Immature Granulocyte Percent A 0.2 % (0-0.5); Lymphocytes Absolute Auto 2.56 K/mm3 (0.9-3.2); Lymphocytes Percent Auto 57.5 % (18.3-44.2); Mean Corpuscular HGB Conc 35.9 g/dl (32-36); Mean Corpuscular Volume 100.2 fl (80-100); Mean Platelet Volume 9.9 fl (7.4-10.4); Monocytes Absolute Auto 0.4 K/mm3 (0.1-0.6); Monocytes Percent Auto 8.3 % (2.6-8.5); Neutrophils Absolute Auto 1.4 K/mm3 (1.3-6.7); Neutrophils Percent Auto 31.5 % (45.5-73.1); Platelet Count Result 153 k/mm3 (150-375); Red Blood Count 4.03 M/mm3 (4.6-6.20); Red Cell Distribution Width 13.4 % (11.5-14.5); White Blood Count 4.5 K/mm3 (4.5-10.0)
[2020-08-14 03:27] LABS: Anion Gap 10 mmol/L (8-16); Blood Urea Nitrogen 6 mg/dL (9-20); Calcium 9.2 mg/dL (8.4-10.2); Carbon Dioxide 26 mmol/L (22-30); Chloride 102 mmol/L (98-107); Estimated CRCL calculation 87 ml/min; Estimated Glomerular Filt Rate > 60; Glucose 188 mg/dL (75-110); Sodium 138 mmol/L (137-145)
[2020-08-14 03:29] LABS: INR 1.2; Prothrombin Time 15.3 Seconds (11.1-14.7)
[2020-08-14 03:30] LABS: Partial Thromboplastin Time 27.9 SECONDS (22.3-36.8)
--- NOTE | 2020-08-14 03:30 | ED.CHESTPAIN ---
HPI - Chest Pain General Chief Complaint: Chest Pain Stated Complaint: palpitations Time Seen by Provider: 08/14/20 03:03 Source: patient Mode of arrival: ambulatory Limitations: no limitations History of Present Illness HPI narrative: This is a 54 year old male with history of alcohol abuse, pancreatitis and atrial fibrillation who presents for evaluation chest pain and heart racing. He states around 10 pm last night he started feeling sensation that his heart was racing at his left chest . He also reports midsternal chest pain that he is unable to describe. He reports intermittent shortness of breath. He denies nausea, vomting or fever. He complains of mild cough with clear phlegm. He admits to drinking alcohol last night. His last drink was around 8 pm. He drank 4 beers and 2 shots. He states he drinks almost daily but he denies history of alcohol withdrawals. HE takes anticoagulation. He reports his chest pain has improved. Related Data Home Medications Medication Instructions Recorded Confirmed oxycodone-acetaminophen 1 tablet PO BID PRN 08/14/20 08/14/20 Allergies Allergy/AdvReac Type Severity Reaction Status Date / Time ampicillin Allergy Severe Anaphylactic Verified 08/14/20 12:53 Shock lisinopril Allergy Severe Anaphylactic Verified 08/14/20 12:53 Shock Review of Systems Review of Systems: All systems reviewed & are unremarkable except as noted in HPI and below Constitutional: Constitutional: Denies chills and Denies fever(s) Cardiovascular: Cardiovascular: Reports chest pain, Reports rapid heart rate and Denies radiating jaw, neck or arm pain Respiratory: Respiratory: Reports cough, Reports dyspnea and Denies wheezing Gastrointestinal: Gastrointestinal: Reports abdominal pain, Denies diarrhea, Reports nausea and Denies vomiting PMFSH Past Medical History Medical History Depression GERD (gastroesophageal reflux disease) Hypertension Pancreatitis Prosthetic eye globe Right side Surgical History Surgical History H/O elbow surgery Left Family History Family History Mother Hypertension Father Hypertension Sibling Breast cancer Other Unknown family medical history Social History Social History Social History: Mr. Llamas lives alone in [place]. 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 He is currently unemployed at this time. 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 He reports social alcohol use twice weekly and drinks approximately 3 12oz beers. He is a current 0.5PPD smoker and he has smoked for 40 years. He reports marijuana use 2x per month and denies other illicit substance use. Smoking packs per day: 0.5 Smoking cigarettes per day: 10.0 Years smoked: 25 Smoking pack-years: 12.50 Smoking status: Current every day smoker Tobacco type: cigarettes Alcohol intake: current Drinks per week: 10 Substance use: current Substance use type: marijuana Last use: 01/26/20 Gender identity (if verbalized by the patient): Male Spiritual care concerns: No Exam Const: General: no acute distress and alert Orientation/consciousness: patient oriented x3 Eyes: EOM: EOMs intact bilaterally Chest: Chest palpation & inspection: normal inspection of the chest Resp: Effort & Inspection: normal respiratory effort and no retractions Auscultation: clear to auscultation bilaterally Cardio: Rate: regular rate Rhythm: regular rhythm Heart sounds: no murmurs GI: Inspection: distended GI Palp: Yes Soft to palpation, Yes Tenderness to palpation present (GI) (epigastric), No Guarding due to palpation present (GI) and No Rigid due to palpation A
[2020-08-14 03:39] LABS: Troponin I 0.012 ng/mL (0.000-0.034)
[2020-08-14] MEDS: ASPIRIN 81 MG CHEWABLE TABLET 324 MG PO (03:41)
[2020-08-14] MEDS: POTASSIUM CHLORIDE 20 MEQ TABLET 40 MEQ PO ×2 (03:41→15:10)
[2020-08-14 04:37] LABS: Alanine Aminotransferase 97 U/L (4-50); Albumin Level 4.1 g/dL (3.5-5.1); Alkaline Phosphatase 73 U/L (38-126); Aspartate Amino Transferase 134 U/L (17-59); Bilirubin,Total 0.3 mg/dL (0.2-1.3); Lipase 182 U/L (23-300); Magnesium 1.2 mg/dL (1.6-2.3)
[2020-08-14] MEDS: MAGNESIUM SULF 2 GM/WATER 50ML 2 GM/50 ML BAG IVPB ×2 (05:16→15:10)
[2020-08-14 06:34] LABS: Troponin I 0.023 ng/mL (0.000-0.034)
--- NOTE | 2020-08-14 06:54 | PC.NURSE ---
pt resting on stretcher c eyes closed. no s/s of distress. denies complaints. will continue to monitor.
--- NOTE | 2020-08-14 06:56 | PC.NURSE ---
3x nitro tabs given sl as ordered. pt reports improvement in cp 06/06. resting on stretcher. will continue to monitor.
--- NOTE | 2020-08-14 07:11 | PC.NURSE ---
Report received from JULITA Fuller.
--- NOTE | 2020-08-14 08:01 | PC.NURSE ---
Pt reports last etoh intake last evening 8pm. Requests something to eat.
--- NOTE | 2020-08-14 08:19 | PC.NURSE ---
Attempt to call report, floor unable to take.
--- NOTE | 2020-08-14 12:00 | PM.IMHP ---
H&P: HPI History of Present Illness Date/Time: 08/14/20 12:00 This is a 54 year old male with history of alcohol abuse, pancreatitis and atrial fibrillation who presents for evaluation chest pain and heart racing since last night. He states around 10 pm last night he started feeling sensation that his heart was racing at his left chest . He also reports midsternal chest pain that he is unable to describe. He reports intermittent shortness of breath. The chest presesure he felt was during the palpitations he was getting. He denies nausea, vomting or fever. He complains of mild cough with clear phlegm. He admits to drinking alcohol last night. His last drink was around 8 pm. He drank 4 beers and 2 shots. He states he drinks almost daily but he denies history of alcohol withdrawals. HE takes anticoagulation for his atrial fibrillation, sounds like eliqus. currently his chest pain has reosvled. he is getting admitted for furthe revaluation. EKG in the ED showed sinus rhythm and has been on sinus rhythm. He states he would like to eat and wants to go home today. Chief Complaint: palpitations Review of Systems Review of Systems: Narrative: - CONSTITUTIONAL: Denies weight loss, fever and chills. - HEENT: Denies changes in vision and hearing - RESPIRATORY: Denies SOB and cough. - CV: reports palpitations and CP. - GI: Denies abdominal pain, nausea, vomiting and diarrhea. - : Denies dysuria and urinary frequency. - MSK: Denies myalgia and joint pain. - SKIN: Denies rash and pruritus. - NEUROLOGICAL: Denies headache and syncope. - PSYCHIATRIC: Denies recent changes in mood. Denies anxiety and depression. All systems reviewed & are unremarkable except as noted in HPI and below PMFSH Past Medical History Medical History Depression GERD (gastroesophageal reflux disease) Hypertension Pancreatitis Prosthetic eye globe Right side Surgical History Surgical History H/O elbow surgery Left Family History Family History Mother Hypertension Father Hypertension Sibling Breast cancer Other Unknown family medical history Social History Social History Social History: Mr. Llamas lives alone in [place]. 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 He is currently unemployed at this time. 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 He reports social alcohol use twice weekly and drinks approximately 3 12oz beers. He is a current 0.5PPD smoker and he has smoked for 40 years. He reports marijuana use 2x per month and denies other illicit substance use. Smoking packs per day: 0.5 Smoking cigarettes per day: 10.0 Years smoked: 25 Smoking pack-years: 12.50 Smoking status: Current every day smoker Tobacco type: cigarettes Alcohol intake: current Drinks per week: 10 Substance use: current Substance use type: marijuana Last use: 01/26/20 Gender identity (if verbalized by the patient): Male Spiritual care concerns: No Meds Home Medications and Allergies Home Medications Medication Instructions Recorded Confirmed Type amlodipine [Norvasc] 10 mg PO DAILY 01/31/20 03/22/20 History celecoxib [Celebrex] 100 mg PO DAILY 01/31/20 03/22/20 History diclofenac sodium 75 mg PO BID 01/31/20 03/22/20 History gabapentin [Neurontin] 300 mg PO BID 01/31/20 03/22/20 History omeprazole magnesium [Prilosec OTC] 20 mg PO DAILY 01/31/20 03/22/20 History oxycodone-acetaminophen 1 tablet PO Q4H PRN 01/31/20 03/22/20 History chlorthalidone 50 mg PO DAILY 03/22/20 03/22/20 History apixaban [Eliquis] 5 mg PO Q12HR 30 Days #60 tablet 03/23/20 Rx sotalol 80 mg PO Q12HR 30 Days #60 tablet 03/23/20 Rx Allergies
--- NOTE | 2020-08-14 12:08 | ECG_ITS ---
Measurements Intervals [place] Rate: 56 P: 28 CT: 144 QRS: 31 QRSD: 103 T: 24 QT: 422 QTc: 409 Interpretive Statements SINUS BRADYCARDIA POSSIBLE LEFT ATRIAL ENLARGEMENT POSSIBLE LEFT VENTRICULAR HYPERTROPHY BORDERLINE R WAVE PROGRESSION, ANTERIOR LEADS BORDERLINE T WAVE ABNORMALITY- ANTERIOR LEADS BASELINE WANDER- I, II, III, AVL, AVF, V1 BORDERLINE ECG Electronically Signed On 08-14-2020 13:15:10 CDT by Kalpesh Rubi D.O.
[2020-08-14 13:00] LABS: Hemoglobin A1C 5.9 % (<5.7)
--- NOTE | 2020-08-14 14:40 | PM.CNCAR ---
Assessment and Plan Assessment and plan (1) PAF (paroxysmal atrial fibrillation): Code(s): I48.0 - Paroxysmal atrial fibrillation Status: Acute Assessment and Plan: It sounds if he had a burst of atrial fibrillation yesterday. in part worsened by his alcohol use as well as electrolyte abnormalities. He also has significant hypokalemia which may be related to his chlorthalidone also. I have recommend an additional 40 mEq of p.o. potassium chloride x1 as well as an extra 2 g of IV magnesium x1. Agree with stopping chlorthalidone for now. Can add an additional or different agent if need be for blood pressure control. Continue sotalol and Eliquis. (2) Chest pain: Code(s): R07.9 - Chest pain, unspecified Status: Acute Assessment and Plan: Atypical. Possibly related to atrial fibrillation in and of itself. Cannot exclude underlying ischemia though. Will order another troponin now. If troponin is negative, patient is okay to be discharged home on beta-abrahan and will be scheduled for an outpatient exercise stress echocardiogram and follow-up with Dr. Verdin. Because of his alcohol use and chest pain, will protect his GI tract with higher dose omeprazole 40 mg p.o. daily. Because of his anticoagulation, will hold off on aspirin therapy. Consider outpatient monitoring and evaluation advisor but will defer to Dr. Verdin (3) Hypomagnesemia: Code(s): E83.42 - Hypomagnesemia Status: Acute Assessment and Plan: Additional 2 g of IV magnesium given (4) Hypokalemia: Code(s): E87.6 - Hypokalemia Status: Acute Assessment and Plan: Additional potassium given (5) Alcoholism: Code(s): F10.20 - Alcohol dependence, uncomplicated Status: Chronic Assessment and Plan: Alcohol abuse counseling performed (6) Elevated liver enzymes: Code(s): R74.8 - Abnormal levels of other serum enzymes Status: Chronic Assessment and Plan: Likely secondary to ETOH (7) Tobacco dependence: Code(s): F17.200 - Nicotine dependence, unspecified, uncomplicated Status: Chronic Assessment and Plan: Tobacco abuse counseling performed (8) Hypertension: Qualifiers: Hypertension type: unspecified Qualified Code(s): I10 - Essential (primary) hypertension Code(s): I10 - Essential (primary) hypertension Status: Chronic Assessment and Plan: At reasonable control for now. History of Present Illness History of Present Illness Consult date/time: 08/14/20 14:40 Requesting physician: Meme Keller MD Consult reason: chest pain and atrial fibrillation Reason For Visit: chest pain/hypokalemia/hypomagnesemia/alcoholism Narrative: Date of service 08/14/2020 History: Patient is a 54-year-old male who has history of hypertension. He presented to [facility] in February of 2020 with of breath some set a palpitations. This was accompanied with shortness of breath. He was seen by Dr. Verdin at the time. The patient was started on sotalol and Eliquis prior to discharge. He was kept on chlorthalidone and amlodipine because of hypertension. He did have follow-up with our nurse practitioner in the office in April of 2020. At that time he states that he was having some palpitations whenever he missed doses of sotalol. He continues to drink about 6 beers per night. He was admitted because of chest pain. Came to the hospital last night because palpitations and chest pain which he describes as a tightness. He also states that it was a muscle cramp sensation. It did not radiate into his arm back neck or jaw. It was associated with some shortness of breath as well as sweatiness. He felt his heart beating fast during both occasions lasting about 3-4 minutes at a time. This constellation of symptoms spontaneously resolved. He has not had any recurrence. He sometimes has some occasional paroxysmal nocturnal dyspnea. He denies
[2020-08-14 15:19] LABS: Troponin I < 0.012 ng/mL (0.000-0.034)
--- NOTE | 2020-08-14 17:20 | PM.SD2 ---
Same Day Admit/Disch: HPI History of Present Illness Chief complaint: chest pain/hypokalemia/hypomagnesemia/alcoholism Narrative: Harman Llamas is a 54 year old male with history of alcohol abuse, pancreatitis and atrial fibrillation who presents for evaluation chest pain and heart racing since last night. He states around 10 pm last night he started feeling sensation that his heart was racing at his left chest . He also reports midsternal chest pain that he is unable to describe. He reports intermittent shortness of breath. The chest presesure he felt was during the palpitations he was getting. He denies nausea, vomting or fever. He complains of mild cough with clear phlegm. He admits to drinking alcohol last night. His last drink was around 8 pm. He drank 4 beers and 2 shots. He states he drinks almost daily but he denies history of alcohol withdrawals. HE takes anticoagulation for his atrial fibrillation, sounds like eliqus. currently his chest pain has reosvled. he is getting admitted for furthe revaluation. EKG in the ED showed sinus rhythm and has been on sinus rhythm. He states he would like to eat and wants to go home today. Chief Complaint: palpitations PMFSH Past Medical History Medical History Depression GERD (gastroesophageal reflux disease) Hypertension Pancreatitis Prosthetic eye globe Right side Surgical History Surgical History H/O elbow surgery Left Family History Family History Mother Hypertension Father Hypertension Sibling Breast cancer Other Unknown family medical history Social History Social History Social History: Mr. Llamas lives alone in [place]. 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 He is currently unemployed at this time. 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 He reports social alcohol use twice weekly and drinks approximately 3 12oz beers. He is a current 0.5PPD smoker and he has smoked for 40 years. He reports marijuana use 2x per month and denies other illicit substance use. Smoking packs per day: 0.5 Smoking cigarettes per day: 10.0 Years smoked: 25 Smoking pack-years: 12.50 Smoking status: Current every day smoker Tobacco type: cigarettes Alcohol intake: current Drinks per week: 10 Substance use: current Substance use type: marijuana Last use: 01/26/20 Gender identity (if verbalized by the patient): Male Spiritual care concerns: No Same Day Admit/Disch: Med Pre-admit Medications Home Medications Medication Instructions Recorded Confirmed Type omeprazole magnesium [Prilosec OTC] 20 mg PO DAILY 01/31/20 08/14/20 History chlorthalidone 50 mg PO DAILY 03/22/20 08/14/20 History apixaban [Eliquis] 5 mg PO Q12HR 30 Days #60 tablet 03/23/20 08/14/20 Rx sotalol 80 mg PO Q12HR 30 Days #60 tablet 03/23/20 08/14/20 Rx oxycodone-acetaminophen 1 tablet PO BID PRN 08/14/20 08/14/20 History Exam Narrative: Exam Narrative: xam Narrative: GENERAL: The patient is well developed, not in acute distress HEENT: Nonicteric sclerae, PERRLA, EOMI. Oropharynx clear. Moist mucous membranes. Conjunctivae appear well perfused. CHEST: Chest wall is nontender. HEART: Regular rate and rhythm without murmur, rubs, or gallops LUNGS: Clear to auscultation bilaterally. no respiratory distress ABDOMEN: Soft, positive bowel sounds, non-tender, no organomegaly. SKIN: No rash, no excessive bruising, petechiae, or purpura. NEUROLOGIC: Cranial nerves II-XII intact, alert and oriented x 3, no gross motor deficits EXTREMITIES: no edema, cyanosis or clubbing DS: Data Data Completed and Pending Labs on day of discharge: Labs from last 24 hours 08/14/20 08/14/20
== END 2020-08-14 18:06 | disposition home or self-care (01) ==
LOC: ANHED 07:44 → ANHIMU 07:55
PROVIDERS: Internal Medicine Cardiovascular Disease; Admitting Provider Internal Medicine; Emergency Provider General Practice; Visit Provider Internal Medicine
DX: R00.2 Palpitations (principal); R07.9 Chest pain, unspecified; E87.6 Hypokalemia; E83.42 Hypomagnesemia; F17.210 Nicotine dependence, cigarettes, uncomplicated; F10.10 Alcohol abuse, uncomplicated; I48.91 Unspecified atrial fibrillation; I10 Essential (primary) hypertension; R06.02 Shortness of breath; R73.9 Hyperglycemia, unspecified; R74.8 Abnormal levels of other serum enzymes; Z79.01 Long term (current) use of anticoagulants
CPT/HCPCS: 36415; 71046; 80048; 80076; 83036; 83690; 83735; 84484; 85025; 85610; 85730; 93005; 96365; 96376; 99285; A9270; G0378; J3475

== ENCOUNTER 2020-11-06 17:54 | Inpatient (IN) | payer MEDICARE, MEDICAID, SELFPAY ==
--- NOTE | ~2020-11-06 | XR_ITS ---
EXAMINATION: XR chest 1V portable EXAM DATE: 11/06/2020 22:18 INDICATION: Cough, Hypertension. TECHNIQUE: Portable AP frontal chest x-ray was obtained. Comparison is made to prior examination from 08/15/2019. FINDINGS: The lungs are clear. There are no pleural effusions. The cardiomediastinal silhouette is within normal limits. There is no pneumothorax suspected. The bones and soft tissues are unremarkab le. IMPRESSION: No acute cardiopulmonary findings. Reviewed, dictated and finalized at location A.
[2020-11-06 18:30] VITALS: BP 144/86; PULSE 73; RESP 20; TEMP 37.1; O2SAT 100
--- NOTE | 2020-11-06 22:18 | ECG_ITS ---
Measurements Intervals [place] Rate: 65 P: 34 CA: 157 QRS: 36 QRSD: 102 T: 8 QT: 444 QTc: 462 Interpretive Statements SINUS RHYTHM POSSIBLE LEFT ATRIAL ENLARGEMENT LEFT VENTRICULAR HYPERTROPHY BORDERLINE R WAVE PROGRESSION, ANTERIOR LEADS BASELINE ARTIFACT- V4 BORDERLINE ECG Electronically Signed On 11-07-2020 6:35:16 CDT by Kalpesh Rubi D.O.
[2020-11-06 22:20] VITALS: BP 151/96; PULSE 70; RESP 16; O2SAT 98
[2020-11-06 22:24] VITALS: BP 134/92; PULSE 69
--- NOTE | 2020-11-06 22:24 | ED.GENADULT ---
HPI - General Adult General Chief complaint: Upper Respiratory Infection Stated complaint: cold symptoms Time Seen by Provider: 11/06/20 22:06 Source: patient and RN notes reviewed Mode of arrival: ambulatory Limitations: no limitations History of Present Illness HPI narrative: This is a 55 year old male with history of pancreatitis, alcohol abuse who presents for evaluation of flu like symptoms. He developed symptoms 3 days ago. He reports body aches, cough, diarrhea. He has productive cough with green sputum. He reports chest pain only with coughing and sob with coughing. He reports he has had 10 episodes of diarrhea today, and he notes bright red blood when he wipes. He also complains of epigastric abdominal pain from his pancreatitis. He continues to drink alcohol and he states he drank yesterday. He denies fever or chills. HE denies sick contacts but he has not been vaccinated for COVID. He is also complaining of dizziness with coughing and standing. Related Data Home Medications Medication Instructions Recorded Confirmed oxycodone-acetaminophen 1 tablet PO BID PRN 08/14/20 11/07/20 Allergies Allergy/AdvReac Type Severity Reaction Status Date / Time ampicillin Allergy Severe Anaphylactic Verified 11/07/20 03:11 Shock lisinopril Allergy Severe Anaphylactic Verified 11/07/20 03:11 Shock Review of Systems Review of Systems: All systems reviewed & are unremarkable except as noted in HPI and below Constitutional: Constitutional: Denies chills and Denies fever(s) Cardiovascular: Cardiovascular: Denies chest pain Respiratory: Respiratory: Reports cough and Reports dyspnea Gastrointestinal: Gastrointestinal: Reports abdominal pain (chronic ), Reports diarrhea and Denies vomiting Comments: blood when wipe Musculoskeletal: Musculoskeletal: Reports myalgias PMFSH Past Medical History Medical History Alcoholic pancreatitis Depression GERD (gastroesophageal reflux disease) Hypertension Megaloblastic anemia due to alcoholism PAF (paroxysmal atrial fibrillation) Prosthetic eye globe Right side Smoker Surgical History Surgical History (Updated 11/07/20 @ 06:59 by Tahira Erickson DO) H/O elbow surgery Left History of enucleation of right eyeball Family History Family History Mother Hypertension Father Hypertension Sibling Breast cancer Social History Social History (Updated 11/07/20 @ 07:02 by Tahira Erickson DO) Social History: Mr. Llamas lives alone in [place]. 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 He reports social alcohol use several times a week and drinks approximately 6-12oz beers and 2 mixed drinks containing 4 shots of hard liquor. He is a current 1 PPD smoker and he has smoked for 40 years. He reports marijuana use 2x per month and denies other illicit substance use. Smoking packs per day: 1 Smoking cigarettes per day: 20.0 Years smoked: 40 Smoking pack-years: 40.00 Smoking status: Current every day smoker Alcohol intake: current Drinks per week: 10 Substance use: current Substance use type: marijuana Last use: 01/26/20 Gender identity (if verbalized by the patient): Male Sexual Orientation (if Verbalized by the Patient): Straight or Heterosexual Spiritual care concerns: No Exam Const: General: no acute distress and alert Orientation/consciousness: patient oriented x3 Resp: Effort & Inspection: normal respiratory effort and no retractions Auscultation: clear to auscultation bilaterally Cardio: Rate: regular rate Rhythm: regular rhythm Heart sounds: no murmurs GI: GI Palp: Yes Soft to palpation, Yes Tenderness to palpation present (GI) (epigastric) and No Guarding due to palpation present (GI) Auscultation: normal bowel sound
[2020-11-06 22:25] VITALS: BP 135/99; PULSE 75
[2020-11-06 22:26] VITALS: BP 119/86; PULSE 78
--- NOTE | 2020-11-06 23:16 | PC.NURSE ---
pt states he isn't able to urinate at this time, refused straight cath. pt instructed to use call light when hes able to give sample.
[2020-11-06 23:18] LABS: Basophils Percent Auto 0.3 % (0.2-1.2); Eosinophils Percent Auto 0.3 % (0-4.4); Hematocrit 41.6 % (42.0-52.0); Hemoglobin 14.4 g/dL (14.0-18.0); Immature Granulocyte Absolute 0.01 K/mm3 (0.00-0.031); Immature Granulocyte Percent A 0.3 % (0-0.5); Lymphocytes Absolute Auto 2.16 K/mm3 (0.9-3.2); Lymphocytes Percent Auto 60.3 % (18.3-44.2); Mean Corpuscular HGB Conc 34.6 g/dl (32-36); Mean Corpuscular Hemoglobin 35.3 pg (26-34); Mean Platelet Volume 11.2 fl (7.4-10.4); Monocytes Absolute Auto 0.3 K/mm3 (0.1-0.6); Monocytes Percent Auto 8.7 % (2.6-8.5); Neutrophils Absolute Auto 1.1 K/mm3 (1.3-6.7); Neutrophils Percent Auto 30.1 % (45.5-73.1); Platelet Count Result 88 k/mm3 (150-375); Red Blood Count 4.08 M/mm3 (4.6-6.20); Red Cell Distribution Width 12.8 % (11.5-14.5); White Blood Count 3.6 K/mm3 (4.5-10.0)
[2020-11-06 23:32] VITALS: BP 130/93; PULSE 65; RESP 16; O2SAT 99
[2020-11-06] MEDS: LACTATED RINGERS 1,000 ML 999 ML IV CONT (23:34)
[2020-11-06 23:38] LABS: Partial Thromboplastin Time 28.5 SECONDS (22.3-36.8)
[2020-11-06 23:49] LABS: Alanine Aminotransferase 118 U/L (4-50); Albumin Level 4.2 g/dL (3.5-5.1); Alkaline Phosphatase 73 U/L (38-126); Anion Gap 10 mmol/L (8-16); Aspartate Amino Transferase 113 U/L (17-59); Bilirubin,Total 0.7 mg/dL (0.2-1.3); Blood Urea Nitrogen 11 mg/dL (9-20); CRP 1.7 mg/dL (<1.0); Calcium 8.3 mg/dL (8.4-10.2); Carbon Dioxide 30 mmol/L (22-30); Chloride 95 mmol/L (98-107); Estimated CRCL calculation 77 ml/min; Estimated Glomerular Filt Rate > 60; Glucose 111 mg/dL (75-110); Lipase 276 U/L (23-300); Magnesium 1.3 mg/dL (1.6-2.3); Potassium 2.6 mmol/L (3.4-5.0); Sodium 135 mmol/L (137-145)
[2020-11-06 23:58] LABS: Ethanol < 10 mg/dL (<10)
[2020-11-07] VITALS (7 sets, daily range): BP systolic 117–153; BP diastolic 67–98; PULSE 61–77; RESP 16–24; TEMP 36.4–37.1; O2SAT 97–100; BMI 26.8
[2020-11-07 00:18] LABS: Add Urine Microscopic? YES; Appearance Urine Clear (Clear); Bilirubin Urine Negative (Negative); Blood Urine Negative (Negative); Color Urine Yellow (Yellow); Glucose Urine UA Negative (Negative); Ketones Urine Negative (Negative); Leukocyte Esterase Ur Negative LEU/UL (Negative); Mucus Urine Rare /lpf; Nitrate Urine Negative (Negative); Protein Urine 1+ mg/dL (Negative); RBC Urine 0-2 /hpf (0-2); Specific Grav Ur 1.018 (1.001-1.035); Squamous Epithelial Cell Urine Rare /hpf (Few); WBC Urine 0-3 /hpf
[2020-11-07] MEDS: POTASSIUM CHLORIDE 20 MEQ TABLET 40 MEQ PO (00:20)
[2020-11-07] MEDS: MAGNESIUM SULF 2 GM/WATER 50ML 2 GM/50 ML BAG IVPB (00:22)
--- NOTE | 2020-11-07 03:32 | ADMGEN ---
This patient, Harman Llamas, was admitted to [facility] Surg Room 329-01 at 0315. Patient/family oriented to hospital policies and general routines including ID bracelet, bed and alarms, visiting hours, pain management, procedures, bathroom and other care routines, personal items, smoking policy, room service/diet, and visiting hours. Information on how to activate the Rapid Response Team has been discussed. Patient/Family are encouraged to report perceived risks to care and to ask questions if they do not understand what they are told or what they should do.
[2020-11-07] MEDS: SODIUM CHLORIDE 0.9% IV 1,000 ML 125 ML IV CONT ×2 (04:05→12:36)
--- NOTE | 2020-11-07 05:40 | PM.IMHP ---
H&P: HPI History of Present Illness Date/Time: 11/07/20 05:40 Chief Complaint: fever, body aches and cough Narrative: 55-year-old male with past medical history of paroxysmal atrial fibrillation, chronic alcohol abuse, alcoholic pancreatitis and essential hypertension who presented to the ER with cough, fever body aches for 3 days. he denies any known recent ill contacts. He has not had a COVID vaccine. 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 He reports subjective fever but did not measure a temperature. He has been afebrile since admission. His symptoms were accompanied by diarrhea for the last 3 days and was brown watery and somewhat mucousy. He had been having about 4 stools a day until today when he had about 10 stools. He reported that he did have some blood on the toilet paper when he would wipe. He had reported epigastric abdominal pain when he was down in the ER but denied having abdominal pain at the time of my evaluation. He has also been having associated body aches. His cough was productive of some Grade colored sputum. He had some chest discomfort only associated with coughing and shortness of breath associated with coughing. He was having some lightheadedness with standing and generalized weakness. He denies any loss of sense of smell or taste. He drinks about a 6 pack of beer a day and 2 mixed drinks a day that contain about 4 shots of hard liquor. His last drink was yesterday. Review of Systems Review of Systems: Narrative: 12 systems were reviewed with pertinent positives and negatives per HPI. Except as documented in the HPI, all other systems were reviewed and are negative. [facility] Past Medical History Medical History Alcoholic pancreatitis Depression GERD (gastroesophageal reflux disease) Hypertension Megaloblastic anemia due to alcoholism PAF (paroxysmal atrial fibrillation) Prosthetic eye globe Right side Smoker Surgical History Surgical History (Updated 11/07/20 @ 06:59 by Tahira Erickson DO) H/O elbow surgery Left History of enucleation of right eyeball Family History Family History Mother Hypertension Father Hypertension Sibling Breast cancer Social History Social History (Updated 11/07/20 @ 07:02 by Tahira J. Hopen, DO) Social History: Mr. Llamas lives alone in [place]. 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 He reports social alcohol use several times a week and drinks approximately 6-12oz beers and 2 mixed drinks containing 4 shots of hard liquor. He is a current 1 PPD smoker and he has smoked for 40 years. He reports marijuana use 2x per month and denies other illicit substance use. Smoking packs per day: 1 Smoking cigarettes per day: 20.0 Years smoked: 40 Smoking pack-years: 40.00 Smoking status: Current every day smoker Alcohol intake: current Drinks per week: 10 Substance use: current Substance use type: marijuana Last use: 01/26/20 Gender identity (if verbalized by the patient): Male Sexual Orientation (if Verbalized by the Patient): Straight or Heterosexual Spiritual care concerns: No Meds Home Medications and Allergies Home Medications Medication Instructions Recorded Confirmed Type Eliquis 5 mg PO Q12HR 30 Days #60 tablet 03/23/20 11/07/20 Rx omeprazole 40 mg PO DAILY #30 cap 08/14/20 11/07/20 Rx oxycodone-acetaminophen 1 tablet PO BID PRN 08/14/20 11/07/20 History Allergies Allergy/AdvReac Type Severity Reaction Status Date / Time ampicillin Allergy Severe Anaphylactic Verified 11/07/20 03:11 Shock lisinopril Allergy Severe Anaphylactic Verified 11/07/20 03:11 Shock Vital Signs Vital Signs - 24 hr
[2020-11-07 06:46] LABS: Hematocrit 37.6 % (42.0-52.0); Hemoglobin 12.8 g/dL (14.0-18.0); Mean Corpuscular Volume 102.7 fl (80-100); Mean Platelet Volume 11.5 fl (7.4-10.4); Platelet Count Result 87 k/mm3 (150-375); Red Blood Count 3.66 M/mm3 (4.6-6.20); Red Cell Distribution Width 12.7 % (11.5-14.5)
[2020-11-07 07:00] LABS: Potassium 2.9 mmol/L (3.4-5.0)
[2020-11-07 07:09] LABS: Anion Gap 9 mmol/L (8-16); Blood Urea Nitrogen 6 mg/dL (9-20); Calcium 7.8 mg/dL (8.4-10.2); Carbon Dioxide 27 mmol/L (22-30); Chloride 101 mmol/L (98-107); Estimated CRCL calculation 83 ml/min; Estimated Glomerular Filt Rate > 60; Glucose 166 mg/dL (75-110); Sodium 137 mmol/L (137-145)
[2020-11-07] MEDS: POTASSIUM CHLORIDE 20 MEQ TABLET 60 MEQ PO (08:30)
[2020-11-07] MEDS: APIXABAN 5 MG TABLET PO ×2 (08:30→21:28)
[2020-11-07] MEDS: PANTOPRAZOLE SODIUM IV 40 MG VIAL IV PUSH ×2 (08:31→16:58)
--- NOTE | 2020-11-07 13:26 | PM.IMPN ---
Progress Note: A&P Assessment and Plan (1) Person under investigation for COVID-19: Code(s): Z20.822 - Contact with and (suspected) exposure to COVID-19 Status: Acute Assessment and Plan: symptoms suspicious for COVID with cough, subjective fever, diarrhea and pancytopenia no acute cardio pulmonary findings on chest x-ray COVID swab is pending trend symptoms (2) Hypomagnesemia: Code(s): E83.42 - Hypomagnesemia Status: Acute Assessment and Plan: magnesium today was 2.0 trend labs replace as needed labs in a.m. (3) Hypokalemia: Code(s): E87.6 - Hypokalemia Status: Acute Assessment and Plan: potassium was 2.9 after 80 mics of potassium replaced with another 60 p.o. trend labs labs in the a.m. replace as needed (4) Alcoholism: Code(s): F10.20 - Alcohol dependence, uncomplicated Status: Chronic Assessment and Plan: patient admits to drinking a 6 pack of beer +2 mixed drinks with 4 shots of liquor per day Librium p.r.n. CIWA transfer symptoms of withdrawal folic acid 1mg PO Daily and thiamine 100 mg p.o. daily (5) Diarrhea: Qualifiers: Diarrhea type: presumed infectious Qualified Code(s): R19.7 - Diarrhea, unspecified Code(s): R19.7 - Diarrhea, unspecified Status: Acute Assessment and Plan: patient still has diarrhea will monitor fluid status a and electrolytes replace electrolytes as needed (6) Pancytopenia: Code(s): D61.818 - Other pancytopenia Status: Acute Assessment and Plan: white blood cell count is 4.0 RBCs 3.66 trend labs labs the am Time Spent With Patient Time with patient: 25 - 35 minutes Subjective Date/time seen: 11/07/20 11:00 Interval history: 55-year-old male with past medical history of paroxysmal atrial fibrillation, chronic alcohol abuse, alcoholic pancreatitis and essential hypertension who presented to the ER with cough, fever body aches for 3 days.Patient did say that he was feeling better and denies chest pain shortness of breath, chills sweats or fevers. Patient did say that he has been lightheaded and dizzy usually happens when he stands. He also stated day did that his cough he does have lots of sputum it that is then he smokes half pack a day. Patient denies abnormal swelling but states that he has a decreased appetite and nausea. Review of Systems Review of Systems: All systems reviewed & are unremarkable except as noted in HPI and below Exam Const: General: cooperative, healthy appearing, comfortable, no acute distress, well developed, alert, awake and tired appearing Nutritional Appearance: well nourished Orientation/consciousness: oriented to person, oriented to place, oriented to time and patient oriented x3 Limitations: no limitations HENMT: Head: normal to inspection Ears: hearing grossly normal bilaterally General nose exam: Normal external nose present Mouth: Yes Normal oral and palatal mucosa present, Yes lip normal and Yes tongue normal Teeth and gingiva: abnormal tooth and associated gingiva and poor dentition Eyes: General: appearance normal, both eyes and all related structures Neck: Neck: normal visual inspection, full ROM, trachea midline and supple Chest: Chest palpation & inspection: normal inspection of the chest Resp: Effort & Inspection: normal respiratory effort and able to speak in complete sentences Auscultation: clear to auscultation bilaterally Cardio: Jugular venous distension: no JVD Rate: regular rate Rhythm: regular rhythm Heart sounds: S1 normal heart sound present and S2 normal heart sound present Peripheral pulses: Peripheral pulses 2+ throughout GI: Inspection: normal to inspection GI Palp: Yes Soft to palpation and No Tenderness to palpation present (GI) Auscultation: normal bowel sounds Skin: General skin exam: norm
[2020-11-07 15:09] LABS: Potassium 3.5 mmol/L (3.4-5.0)
[2020-11-07 16:35] LABS: SARS-CoV-2 RNA PCR Positive
[2020-11-07] MEDS: FOLIC ACID 1 MG TABLET PO (16:54)
[2020-11-07] MEDS: THIAMINE HCL 100 MG TABLET PO (16:54)
--- NOTE | 2020-11-07 21:42 | PC.NURSE ---
upon coming on shift patient stated he wanted to leave, the day nurse talked him into staying the night. When I went in for 2100 med pass he was insistent on leaving, I discussed this with Pamella and Anne and talked to the patient about his risks and what worsening symptoms would look like, as well as got him the form.
--- NOTE | 2020-11-07 22:02 | PC.NURSE ---
patient signed AMA form , education given on dehydration, quitting smoking, covid 19, isolation etc. IV removed as well as tele, walked pt to front door where he said he had a ride. -SHILPA RN
--- NOTE | 2020-11-08 06:32 | P.DS_ITS ---
DS: Admitting Diagnosis Admitting Diagnosis Admitting Diagnosis: COVID like symptoms including nausea vomiting diarrhea for 3 days with body aches DS: Discharge Diagnosis Discharge Diagnosis (1) Person under investigation for COVID-19: Code(s): Z20.822 - Contact with and (suspected) exposure to COVID-19 Status: Acute Assessment and Plan: * symptoms suspicious for COVID with cough, subjective fever, diarrhea and pancytopenia * no acute cardio pulmonary findings on chest x-ray * COVID swab is pending * trend symptoms (2) Hypomagnesemia: Code(s): E83.42 - Hypomagnesemia Status: Acute Assessment and Plan: * magnesium today was 2.0 * trend labs * replace as needed * labs in a.m. (3) Hypokalemia: Code(s): E87.6 - Hypokalemia Status: Acute Assessment and Plan: * potassium was 2.9 after 80 mics of potassium * replaced with another 60 p.o. * trend labs * labs in the a.m. * replace as needed (4) Alcoholism: Code(s): F10.20 - Alcohol dependence, uncomplicated Status: Chronic Assessment and Plan: * patient admits to drinking a 6 pack of beer +2 mixed drinks with 4 shots of liquor per day * Librium p.r.n. * CIWA * transfer symptoms of withdrawal * folic acid 1mg PO Daily and thiamine 100 mg p.o. daily (5) Diarrhea: Qualifiers: Diarrhea type: presumed infectious Qualified Code(s): R19.7 - Diarrhea, unspecified Code(s): R19.7 - Diarrhea, unspecified Status: Acute Assessment and Plan: * patient still has diarrhea will monitor fluid status a and electrolytes * replace electrolytes as needed (6) Pancytopenia: Code(s): D61.818 - Other pancytopenia Status: Acute Assessment and Plan: * white blood cell count is 4.0 RBCs 3.66 * trend labs * labs the am DS: Summary Hospital Course Hospital Course: 55-year-old male with past medical history of paroxysmal atrial fibrillation, chronic alcohol abuse, alcoholic pancreatitis and essential hypertension who presented to the ER with cough, fever body aches for 3 days. Patient was treated for electrolyte imbalance. Potassium was 2.6 on arrival with proper replacement came to 3.5. Magnesium was also treated was 1.3 upon arrival and 2.0 after replacement. Liver enzymes were also elevated AST 113 and ALT 119 probably from chronic alcohol use. Patient also had a positive COVID swab. According to nurse's notes patient was informed of all risk of leaving against medical advice. However patient made the decision left AMA. Time spent discussing smoking cessation with patient: more than 10 minutes Status at Discharge Functional status at discharge: independent ambulation Overall status at discharge: patient is progressing back to baseline Time Spent with Patient Time attestation: Total time spent providing and/or coordinating discharge services: Exam Const: General: cooperative, healthy appearing, comfortable, no acute distress, well developed, alert, awake and tired appearing Nutritional Appearance: well nourished Orientation/consciousness: oriented to person, oriented to place, oriented to time and patient oriented x3 Limitations: no limitations HENMT: Head: normal to inspection Ears: hearing grossly normal bilaterally General nose exam: Normal external nose present Mouth: Yes Normal oral and palata
--- NOTE | 2020-11-08 06:32 | PM.DS ---
DS: Admitting Diagnosis Admitting Diagnosis Admitting Diagnosis: COVID like symptoms including nausea vomiting diarrhea for 3 days with body aches DS: Discharge Diagnosis Discharge Diagnosis (1) Person under investigation for COVID-19: Code(s): Z20.822 - Contact with and (suspected) exposure to COVID-19 Status: Acute Assessment and Plan: symptoms suspicious for COVID with cough, subjective fever, diarrhea and pancytopenia no acute cardio pulmonary findings on chest x-ray COVID swab is pending trend symptoms (2) Hypomagnesemia: Code(s): E83.42 - Hypomagnesemia Status: Acute Assessment and Plan: magnesium today was 2.0 trend labs replace as needed labs in a.m. (3) Hypokalemia: Code(s): E87.6 - Hypokalemia Status: Acute Assessment and Plan: potassium was 2.9 after 80 mics of potassium replaced with another 60 p.o. trend labs labs in the a.m. replace as needed (4) Alcoholism: Code(s): F10.20 - Alcohol dependence, uncomplicated Status: Chronic Assessment and Plan: patient admits to drinking a 6 pack of beer +2 mixed drinks with 4 shots of liquor per day Librium p.r.n. CIWA transfer symptoms of withdrawal folic acid 1mg PO Daily and thiamine 100 mg p.o. daily (5) Diarrhea: Qualifiers: Diarrhea type: presumed infectious Qualified Code(s): R19.7 - Diarrhea, unspecified Code(s): R19.7 - Diarrhea, unspecified Status: Acute Assessment and Plan: patient still has diarrhea will monitor fluid status a and electrolytes replace electrolytes as needed (6) Pancytopenia: Code(s): D61.818 - Other pancytopenia Status: Acute Assessment and Plan: white blood cell count is 4.0 RBCs 3.66 trend labs labs the am DS: Summary Hospital Course Hospital Course: 55-year-old male with past medical history of paroxysmal atrial fibrillation, chronic alcohol abuse, alcoholic pancreatitis and essential hypertension who presented to the ER with cough, fever body aches for 3 days. Patient was treated for electrolyte imbalance. Potassium was 2.6 on arrival with proper replacement came to 3.5. Magnesium was also treated was 1.3 upon arrival and 2.0 after replacement. Liver enzymes were also elevated AST 113 and ALT 119 probably from chronic alcohol use. Patient also had a positive COVID swab. According to nurse's notes patient was informed of all risk of leaving against medical advice. However patient made the decision left AMA. Time spent discussing smoking cessation with patient: more than 10 minutes Status at Discharge Functional status at discharge: independent ambulation Overall status at discharge: patient is progressing back to baseline Time Spent with Patient Time attestation: Total time spent providing and/or coordinating discharge services: Exam Const: General: cooperative, healthy appearing, comfortable, no acute distress, well developed, alert, awake and tired appearing Nutritional Appearance: well nourished Orientation/consciousness: oriented to person, oriented to place, oriented to time and patient oriented x3 Limitations: no limitations HENMT: Head: normal to inspection Ears: hearing grossly normal bilaterally General nose exam: Normal external nose present Mouth: Yes Normal oral and palatal mucosa present, Yes lip normal and Yes tongue normal Teeth and gingiva: abnormal tooth and associated gingiva and poor dentition Eyes: General: appearance normal, both eyes and all related structures Neck: Neck: normal visual inspection, full ROM, trachea midline and supple Chest: Chest palpation & inspection: normal inspection of the chest Resp: Effort & Inspection: normal respiratory effort and able to speak in complete sentences Auscultation: clear to auscultation bilaterally Cardio: Jugular venous distension
== END 2020-11-07 21:50 | disposition left against medical advice (07) | DRG 178 ==
LOC: ANHED 11-07 01:38 → ANH3MEDSUR 11-07 04:19
PROVIDERS: Admitting Provider Internal Medicine; Emergency Provider General Practice; Visit Provider Nurse Practitioner
DX: U07.1 COVID-19 (principal); D61.818 Other pancytopenia; F10.20 Alcohol dependence, uncomplicated; D53.1 Other megaloblastic anemias, not elsewhere classified; F17.210 Nicotine dependence, cigarettes, uncomplicated; I48.0 Paroxysmal atrial fibrillation; E83.42 Hypomagnesemia; E87.6 Hypokalemia; R19.7 Diarrhea, unspecified; I10 Essential (primary) hypertension; K21.9 Gastro-esophageal reflux disease without esophagitis; Z79.01 Long term (current) use of anticoagulants; Z79.899 Other long term (current) drug therapy; Z87.19 Personal history of other diseases of the digestive system
CPT/HCPCS: 36415; 71045; 80048; 80053; 80307; 81001; 83690; 83735; 84132; 85025; 85027; 85610; 85730; 86140; 86850; 86900; 86901; 87804; 93005; 96361; 96365; 99285; A9270; C9113; C9803; J3475; J3480; J7030; J7120; U0003; U0005

== ENCOUNTER 2020-12-05 02:11 | Emergency (ER) | payer MEDICARE, MEDICAID, SELFPAY ==
--- NOTE | ~2020-12-05 | XR_ITS ---
XR toe 1st RT min 2V DATE: 12/05/2020 06:21 INDICATION: Pain and swelling. History of gout. TECHNIQUE: 3 views COMPARISON: None FINDINGS: There is mild spurring and joint space narrowing at the first metatarsophalangeal joint con sistent with osteoarthritis. No punched-out erosions are noted. No fracture or dislocation, periosteal reaction or bone destruction. IMPRESSION: Osteoarthritis at first metatarsophalangeal joint Reviewed, dictated and finalized at location A.
[2020-12-05 02:18] VITALS: BP 147/88; PULSE 84; RESP 18; TEMP 36.6; O2SAT 100
[2020-12-05 05:36] VITALS: BP 153/88; PULSE 67; RESP 16; O2SAT 100
[2020-12-05] MEDS: HYDROcodone/acetaminophen (*CRX) 5-325 MG TABLET 1 TAB PO (06:03)
[2020-12-05] MEDS: predniSONE 20 MG TABLET 60 MG PO (06:03)
[2020-12-05] MEDS: COLCHICINE 0.6 MG TABLET 1.2 MG PO (06:04)
[2020-12-05 06:29] VITALS: BP 142/98; PULSE 70; RESP 18; O2SAT 100
--- NOTE | 2020-12-05 06:56 | ED.EXTPRO ---
HPI - Extremity Problem General Chief complaint: Extremity Problem,Nontraumatic Stated complaint: gout Time Seen by Provider: 12/05/20 05:12 Source: patient and RN notes reviewed Mode of arrival: ambulatory Limitations: no limitations History of Present Illness HPI Narrative: This is a 55 year old male with history of alcohol abuse and gout who presents for evaluation of right great toe pain. He developed pain on Thursday. He reports pain is constant and it is worse with movement. He has also noticed swelling. He has not taken anything for his pain. He denies fever or chills. HE admits to drinking alcohol 3 days ago. This pain feels similar to previous episode of gout. Related Data Home Medications Medication Instructions Recorded Confirmed oxycodone-acetaminophen 1 tablet PO BID PRN 08/14/20 11/07/20 Allergies Allergy/AdvReac Type Severity Reaction Status Date / Time ampicillin Allergy Severe Anaphylactic Verified 11/07/20 03:11 Shock lisinopril Allergy Severe Anaphylactic Verified 11/07/20 03:11 Shock Review of Systems Review of Systems: All systems reviewed & are unremarkable except as noted in HPI and below PMFSH Past Medical History Medical History Alcoholic pancreatitis Depression GERD (gastroesophageal reflux disease) Hypertension Megaloblastic anemia due to alcoholism PAF (paroxysmal atrial fibrillation) Prosthetic eye globe Right side Smoker Surgical History Surgical History H/O elbow surgery Left History of enucleation of right eyeball Family History Family History Mother Hypertension Father Hypertension Sibling Breast cancer Social History Social History (Updated 11/07/20 @ 07:02 by Tahira Erickson DO) Social History: Mr. Llamas lives alone in [place]. 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 He reports social alcohol use several times a week and drinks approximately 6-12oz beers and 2 mixed drinks containing 4 shots of hard liquor. He is a current 1 PPD smoker and he has smoked for 40 years. He reports marijuana use 2x per month and denies other illicit substance use. Smoking packs per day: 1 Smoking cigarettes per day: 20.0 Years smoked: 40 Smoking pack-years: 40.00 Smoking status: Current every day smoker Alcohol intake: current Drinks per week: 10 Substance use: current Substance use type: marijuana Last use: 01/26/20 Gender identity (if verbalized by the patient): Male Spiritual care concerns: No Exam Const: General: alert Orientation/consciousness: patient oriented x3 Resp: Effort & Inspection: normal respiratory effort and no retractions Auscultation: clear to auscultation bilaterally Cardio: Heart sounds: no murmurs Skin: General skin exam: normal color Rashes: no rashes Neuro: General: patient oriented x3 and moves all extremities Extrem: Other: right foot- palpable pedal pulse, mild swelling at right MTP, no erythema Psych: Mental Status: mental status grossly normal Affect: normal affect Course Reevaluation(s) Reevaluation #1: PAtient is in room sleeping in no pain. This appears to be gout flare. He takes eliquis for atrial fibrillation so hold off on indomethacin. Date: 12/05/20 Time: 07:02 Vital Signs Vital signs: Vital Signs Temperature 97.9 F 12/05/20 02:18 Pulse Rate 84 12/05/20 02:18 Respiratory Rate 18 12/05/20 02:18 Blood Pressure 147/88 H 12/05/20 02:18 Pulse Oximetry 100 12/05/20 02:18 Temperature 97.9 F 12/05/20 02:18 Pulse Rate 56 L 12/05/20 07:33 Respiratory Rate 15 12/05/20 07:33 Blood Pressure 155/98 H 12/05/20 07:33 Pulse Oximetry 100 12/05/20 07:33 MDM - Extremity (Nontraumatic) Imaging Da
[2020-12-05] MEDS: COLCHICINE 0.6 MG TABLET PO (07:29)
[2020-12-05 07:33] VITALS: BP 155/98; PULSE 56; RESP 15; O2SAT 100
== END 2020-12-05 07:34 | disposition home or self-care (01) ==
PROVIDERS: Emergency Provider General Practice; PCP Internal Medicine
DX: M10.9 Gout, unspecified (principal); K21.9 Gastro-esophageal reflux disease without esophagitis; I10 Essential (primary) hypertension; D53.1 Other megaloblastic anemias, not elsewhere classified; I48.0 Paroxysmal atrial fibrillation; F17.210 Nicotine dependence, cigarettes, uncomplicated; Z79.01 Long term (current) use of anticoagulants
CPT/HCPCS: 73660; 99283; A9270; J7512

== ENCOUNTER 2022-03-28 14:22 | Emergency (ER) | payer MEDICARE, MEDICAID, SELFPAY ==
[2022-03-28 14:30] VITALS: BP 138/75; PULSE 79; RESP 16; TEMP 37.4; O2SAT 99
--- NOTE | 2022-03-28 15:03 | ED.URI ---
HPI - URI/Sore Throat General Chief Complaint: Upper Respiratory Infection Stated Complaint: headache, dizziness, body ache Time Seen by Provider: 03/28/22 15:03 Source: patient Mode of arrival: ambulatory Limitations: no limitations History of Present Illness HPI Narrative: 56-year-old male presents with complaint of nasal congestion, sinus congestion, headache, dizziness, body aches and chills for 2-3 days. Denies chest pain, shortness of breath. Denies nausea vomiting diarrhea. Taking [id number]-[id number] medications to treat his symptoms. States he is blowing a lot of mucus out of his nose. Dizziness is intermittent. All systems reviewed and negative except as noted above. Related Data Home Medications Medication Instructions Recorded Confirmed oxycodone-acetaminophen 7.5 mg-325 1 tablet PO BID PRN Pain (Scale 08/14/20 03/28/22 mg tablet Score 7-10) Allergies Allergy/AdvReac Type Severity Reaction Status Date / Time ampicillin Allergy Severe Anaphylactic Verified 03/28/22 14:30 Shock lisinopril Allergy Severe Anaphylactic Verified 03/28/22 14:30 Shock Review of Systems Review of Systems: CONSTITUTIONAL: Denies fever, chills, or sweats. Reports fatigue. EYES: Denies visual changes, redness, or discharge. ENT: Reports rhinorrhea, congestion, sore throat,, sinus pressure. Denies otalgia. CARDIOVASCULAR: Denies chest pain, palpitations, or edema. RESPIRATORY: reports cough. Denies dyspnea. GASTROINTESTINAL: Denies abdominal pain, nausea, vomiting, or diarrhea. GENITOURINARY: Denies dysuria or hematuria. SKIN: Denies rash or itching. MUSCULOSKELETAL: Denies back pain, joint pain, or myalgia. NEUROLOGIC: Denies headache, numbness, or weakness. PSYCHIATRIC: Denies anxiety or depression. All other systems reviewed are negative, except as documented in HPI. [facility] Past Medical History Medical History Alcoholic pancreatitis Depression GERD (gastroesophageal reflux disease) Hypertension Megaloblastic anemia due to alcoholism PAF (paroxysmal atrial fibrillation) Prosthetic eye globe Right side Smoker Surgical History Surgical History H/O elbow surgery Left History of enucleation of right eyeball Family History Family History Mother Hypertension Father Hypertension Sibling Breast cancer Social History Social History (Updated 11/07/20 @ 07:02 by Tahira Erickson DO) Social History: Mr. Llamas lives alone in [place]. 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 He reports social alcohol use several times a week and drinks approximately 6-12oz beers and 2 mixed drinks containing 4 shots of hard liquor. He is a current 1 PPD smoker and he has smoked for 40 years. He reports marijuana use 2x per month and denies other illicit substance use. Smoking packs per day: 1 Smoking cigarettes per day: 20.0 Years smoked: 40 Smoking pack-years: 40.00 Smoking status: Current every day smoker Alcohol intake: current Drinks per week: 10 Substance use: current Substance use type: marijuana Last use: 01/26/20 Gender identity (if verbalized by the patient): Male Sexual Orientation (if Verbalized by the Patient): Straight or Heterosexual Spiritual care concerns: No Comments At time of signature, agree with nursing past medical, surgical, social and family history. There is no relevant family history pertinent to the presenting complaint. Exam Narrative: GENERAL: This is a well-nourished, well-developed patient, in no apparent distress. HEAD: normocephalic, atraumatic. EYES: PERRL. Sclera clear/white. Vision is grossly intact. EARS: External ears normal, auditory canals clear and without drainage, fluid bilateral TMs with air bubbles.
== END 2022-03-28 15:21 | disposition home or self-care (01) ==
PROVIDERS: Emergency Provider Nurse Practitioner Family
DX: J06.9 Acute upper respiratory infection, unspecified (principal); I10 Essential (primary) hypertension; I48.0 Paroxysmal atrial fibrillation; F17.210 Nicotine dependence, cigarettes, uncomplicated; Z79.891 Long term (current) use of opiate analgesic; Z20.822 Contact with and (suspected) exposure to COVID-19
CPT/HCPCS: 87426; 87804; 99213; C9803; G0463

== ENCOUNTER 2022-05-17 07:34 | Observation (INO) | payer MEDICARE, MEDICAID, SELFPAY ==
[2022-05-17] VITALS (23 sets, daily range): BP systolic 121–135; BP diastolic 73–92; PULSE 62–100; RESP 16–24; TEMP 35.5–36.8; O2SAT 96–100
--- NOTE | ~2022-05-17 | XR_ITS ---
EXAMINATION: XR chest 2V DATE: 05/17/2022 09:09 INDICATION: Chest pain. TECHNIQUE: Frontal and lateral views of the chest were obtained. COMPARISON: Chest single view 11/06/2020, CT abdomen and pelvis 01/31/2020 FINDINGS: A calcified left lung nodule is consistent with old granulomatous disease. There is no pneu monia, pleural effusion, or pneumothorax. The heart size is normal. IMPRESSION: 1. No acute cardiopulmonary disease. Reviewed, dictated and finalized at location A. ING FOLDER MACHINE
--- NOTE | ~2022-05-17 | US_ITS ---
EXAMINATION: US right upper quadrant DATE: 05/18/2022 09:37 INDICATION: Abnormal liver function tests. TECHNIQUE: Multiple grayscale and Doppler ultrasound images of the abdomen were obtained. COMPARISON: CT abdomen and pelvis 01/31/2020 FINDINGS: The pancreas is hypoechoic with heterogeneous echogenicity. There is diffuse hepatic steato sis. There is normal flow in main portal vein. The gallbladder is normal in size. No gallstones or ga llbladder wall thickening. There is no sonographic Sherwood sign. The common duct is normal and measure s 6 mm . IMPRESSION: 1. Heterogeneous pancreas, likely chronic pancreatitis. 2. Diffuse hepatic steatosis. Reviewed, dictated and finalized at location A. ICAL PREPARER
--- NOTE | 2022-05-17 07:42 | ECG_ITS ---
Measurements Intervals [place] Rate: 84 P: 47 VT: 150 QRS: 50 QRSD: 110 T: 27 QT: 395 QTc: 467 Interpretive Statements SINUS RHYTHM POSSIBLE LEFT ATRIAL ENLARGEMENT LEFT VENTRICULAR HYPERTROPHY AND ST-T CHANGE CANNOT RULE OUT SEPTAL INFARCT, AGE INDETERMINATE BORDERLINE ST-T WAVE ABNORMALITY- INFERIOR LEADS ABNORMAL ECG COMPARED TO ECG 11/06/2020 22:37:21 ST (T WAVE) DEVIATION NOW PRESENT Electronically Signed On 05-17-2022 10:07:02 [facility] by Kalpesh Rubi D.O.
[2022-05-17 08:04] LABS: Basophils Percent Auto 0.3 % (0.2-1.2); Eosinophils Percent Auto 1.1 % (0-4.4); Hematocrit 38.6 % (42.0-52.0); Immature Granulocyte Absolute 0.01 K/mm3 (0.00-0.031); Immature Granulocyte Percent A 0.3 % (0-0.5); Lymphocytes Absolute Auto 1.88 K/mm3 (0.9-3.2); Lymphocytes Percent Auto 52.5 % (18.3-44.2); Mean Corpuscular HGB Conc 36.3 g/dl (32-36); Mean Corpuscular Hemoglobin 38.3 pg (26-34); Mean Corpuscular Volume 105.5 fl (80-100); Mean Platelet Volume 10.3 fl (7.4-10.4); Monocytes Absolute Auto 0.6 K/mm3 (0.1-0.6); Monocytes Percent Auto 15.9 % (2.6-8.5); Neutrophils Absolute Auto 1.1 K/mm3 (1.3-6.7); Neutrophils Percent Auto 29.9 % (45.5-73.1); Platelet Count Result 125 k/mm3 (150-375); Red Blood Count 3.66 M/mm3 (4.6-6.20); Red Cell Distribution Width 13.8 % (11.5-14.5); White Blood Count 3.6 K/mm3 (4.5-10.0)
[2022-05-17] MEDS: ASPIRIN 81 MG CHEWABLE TABLET 324 MG PO (08:10)
[2022-05-17 08:14] LABS: INR 1.1; Prothrombin Time 13.5 Seconds (11.1-14.7)
[2022-05-17 08:15] LABS: Partial Thromboplastin Time 30.3 SECONDS (22.3-36.8)
[2022-05-17 08:23] LABS: Alanine Aminotransferase 81 U/L (6-50); Albumin Level 4.7 g/dL (3.5-5.1); Alkaline Phosphatase 101 U/L (38-126); Anion Gap 13 mmol/L (8-16); Aspartate Amino Transferase 152 U/L (17-59); Bilirubin,Total 0.8 mg/dL (0.2-1.3); Blood Urea Nitrogen 5 mg/dL (9-20); Calcium 8.5 mg/dL (8.4-10.2); Carbon Dioxide 25 mmol/L (22-30); Chloride 90 mmol/L (98-107); Estimated Glomerular Filt Rate > 60; Glucose 150 mg/dL (65-110); Lipase 196 U/L (23-300); Potassium 2.6 mmol/L (3.4-5.0); Sodium 128 mmol/L (137-145)
[2022-05-17 08:26] LABS: Troponin I < 0.012 ng/mL (0.000-0.034)
[2022-05-17] MEDS: POTASSIUM CHLORIDE 20 MEQ TABLET 40 MEQ PO ×2 (08:47→20:53)
[2022-05-17] MEDS: KCL 20 MEQ/SW 100 ML 100 ML 50 MEQ IVPB (08:59)
[2022-05-17] MEDS: SODIUM CHLORIDE 0.9% IV 1,000 ML 75 ML IV CONT (09:00)
--- NOTE | 2022-05-17 09:10 | ED.CHESTPAIN ---
HPI - Chest Pain General Chief Complaint: Chest Pain Stated Complaint: chest pain Time Seen by Provider: 05/17/22 07:52 History of Present Illness HPI narrative: Patient is a 56-year-old male who presents ER with chest pain. Burning central. No radiation. Associated with racing of heart. Has history of atrial fibrillation. Denies symptomatology sweats blurred Eliquis at home. Reports he been out drinking alcohol last night. No history of cardiac stenting. Related Data Home Medications Medication Instructions Recorded Confirmed amlodipine 10 mg tablet 10 mg PO DAILY 05/17/22 05/17/22 apixaban 5 mg tablet (Eliquis) 5 mg PO Q12H 05/17/22 05/17/22 chlorthalidone 50 mg tablet 50 mg PO DAILY 05/17/22 05/17/22 oxycodone-acetaminophen 7.5 mg-325 1 tablet PO Q12H PRN Pain 05/17/22 05/17/22 mg tablet sotalol 80 mg tablet 80 mg PO Q12H 05/17/22 05/17/22 Allergies Allergy/AdvReac Type Severity Reaction Status Date / Time ampicillin Allergy Severe Anaphylactic Verified 03/28/22 14:30 Shock lisinopril Allergy Severe Anaphylactic Verified 03/28/22 14:30 Shock Review of Systems Review of Systems: All systems reviewed & are unremarkable except as noted in HPI and below Constitutional: Constitutional: Denies chills, Denies fatigue and Denies fever(s) ENT: Denies nasal congestion and Denies sore throat Cardiovascular: Cardiovascular: Reports chest pain, Reports rapid heart rate and Denies radiating jaw, neck or arm pain Respiratory: Respiratory: Denies cough and Denies dyspnea Gastrointestinal: Gastrointestinal: Denies abdominal pain, Denies nausea and Denies vomiting [facility] Past Medical History Medical History Alcoholic pancreatitis Depression GERD (gastroesophageal reflux disease) Hypertension Megaloblastic anemia due to alcoholism PAF (paroxysmal atrial fibrillation) Prosthetic eye globe Right side Smoker Surgical History Surgical History H/O elbow surgery Left History of enucleation of right eyeball Family History Family History Mother Hypertension Father Hypertension Sibling Breast cancer Social History Social History (Updated 05/17/22 @ 13:22 by Hiro Diaz MD) Social History: Mr. Llamas lives alone in [place]. 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 Alcohol use as above. He has smoked up to 1 PPD and has smoked for 40 years. He is down to 1/2PPD. He denies marijuana use now. No other drug use. No hx of IVDU. Smoking packs per day: 0.5 Smoking cigarettes per day: 10.0 Years smoked: 40 Smoking pack-years: 20.00 Smoking status: Current every day smoker Tobacco type: cigarettes Alcohol intake: current Drinks per week: 10 Substance use: current Substance use type: marijuana Last use: 01/26/20 Lack of Transportation: No Lack of Food: Never True Current Housing: I Have Housing Concerned About Future Housing: No Difficulty Paying Gas/Electric Bills: No Difficulty Paying for Meds: No Currently Unemployed: No Education: Don't Know Difficulty w/ Childcare or Family Care: No Living arrangements: alone Occupation/Education: unemployed Gender identity (if verbalized by the patient): Male Sexual Orientation (if Verbalized by the Patient): Straight or Heterosexual Spiritual care concerns: No Exam Narrative: GENERAL: Well-appearing, well-nourished, and in no acute distress. HEAD: Normocephalic, atraumatic. EYES: PERRL and EOMI. ENT: Mucous membranes moist. CHEST: Clear to auscultation. No respiratory distress. HEART: Regular rate and rhythm. Normal peripheral pulses. ABDOMEN: Soft, nontender, nondistended. EXTREMITIES: Normal range of motion. No edema. NEURO: Alert and oriented x3. PSYCH:
[2022-05-17 09:20] LABS: Influenza A QL RT-PCR Negative (Negative); Influenza B QL RT-PCR Negative (Negative); SARS-CoV-2 RNA PCR Negative
--- NOTE | 2022-05-17 09:31 | PC.NURSE ---
Patient reported pain at insertion site during IV potassium infusion. Rate adjusted.
[2022-05-17] MEDS: PANTOPRAZOLE SODIUM IV 40 MG VIAL IV PUSH (10:09)
[2022-05-17] MEDS: THIAMINE HCL 100 MG TABLET PO (10:09)
[2022-05-17 11:33] LABS: Troponin I 0.017 ng/mL (0.000-0.034)
--- NOTE | 2022-05-17 11:36 | PM.IMHP ---
H&P: HPI History of Present Illness Date/Time: 05/17/22 11:36 Chief Complaint: Chest pain Narrative: 56yo male with hx of pAFib, alcoholism, alcoholic pancreatitis and HTN here for chest pain. Patient states the chest pain began around 7:00 a.m. this morning. Chest pain was left sided and 'burning' quality. He felt his heart was racing. This has occurred in the past when he narvaez not take his medications. This last happened about 2 years ago. He has a history of atrial fibrillation and takes Sotalol and Eliquis. He sees Dr Verdin. He did miss his medications yesterday because he did not sleep at home. He took his medications this morning. His symptoms resolved after about 45 minutes. He had a stress test about 2 years ago that was negative. Review systems was undertaken and was negative. Specifically denies any fever, chills, nausea, vomiting, shortness of breath, abdominal pain, dyspnea on exertion, dysuria or hematuria. No exertional chest pain prior to the onset of these symptoms. No increasing dyspnea on exertion. he drove himself to the emergency room. The symptoms resolved prior to coming into the emergency room. In the emergency room, his vital signs were stable. White count and platelet count were low which has been noted before. Sodium was 128 and potassium 2.6. AST 152 and ALT 81 otherwise liver hepatic panel was normal (also noted before). Troponin negative x2. Lipase was normal. Influenza and COVID negative. Chest x-ray is clear. EKG showed normal sinus rhythm with LVH with strain pattern and borderline ST T wave changes in the inferior leads. Patient was given aspirin and oral potassium. Also given Protonix and thiamine. We started IV fluids. IV potassium also ordered. He does have a history of alcoholism and drinks about 3 mixed drinks a day (with 2 shots per drink high (as well as 4 beers per day. He has no history of withdrawal seizures. He last stopped drinking for prolonged periods time about 5 years ago there is no issues with stopping drinking. He normally drinks 2 times a week but has drink more regularly since the loss of his dog earlier this year. Patient was admitted to the IMU for further care. He is requesting discharge. Review of Systems Review of Systems: All systems reviewed & are unremarkable except as noted in HPI and below PMFSH Past Medical History Medical History Alcoholic pancreatitis Depression GERD (gastroesophageal reflux disease) Hypertension Megaloblastic anemia due to alcoholism PAF (paroxysmal atrial fibrillation) Prosthetic eye globe Right side Smoker Surgical History Surgical History H/O elbow surgery Left History of enucleation of right eyeball Family History Family History Mother Hypertension Father Hypertension Sibling Breast cancer Social History Social History (Updated 05/17/22 @ 13:22 by Hiro Diaz MD) Social History: Mr. Llamas lives alone in [place]. 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 Alcohol use as above. He has smoked up to 1 PPD and has smoked for 40 years. He is down to 1/2PPD. He denies marijuana use now. No other drug use. No hx of IVDU. Smoking packs per day: 0.5 Smoking cigarettes per day: 10.0 Years smoked: 40 Smoking pack-years: 20.00 Smoking status: Current every day smoker Tobacco type: cigarettes Alcohol intake: current Drinks per week: 10 Substance use: current Substance use type: marijuana Last use: 01/26/20 Lack of Transportation: No Lack of Food: Never True Current Housing: I Have Housing Concerned About Future Housing: No Difficulty Paying Gas/Electric Bills: No Difficulty Paying for Meds: No Currently Unemployed: No Education: Don't
--- NOTE | 2022-05-17 11:55 | ADMGEN ---
This patient, Harman Llamas, was admitted to IMU Room 206-01. Patient/family oriented to hospital policies and general routines including ID bracelet, bed and alarms, visiting hours, pain management, procedures, bathroom and other care routines, personal items, smoking policy, room service/diet, and visiting hours. Information on how to activate the Rapid Response Team has been discussed. Patient/Family are encouraged to report perceived risks to care and to ask questions if they do not understand what they are told or what they should do.
[2022-05-17] MEDS: FOLIC ACID 1 MG TABLET PO (16:26)
[2022-05-17 16:44] LABS: Troponin I 0.022 ng/mL (0.000-0.034)
[2022-05-17 17:20] LABS: Alanine Aminotransferase 72 U/L (6-50); Albumin Level 3.8 g/dL (3.5-5.1); Alkaline Phosphatase 89 U/L (38-126); Aspartate Amino Transferase 153 U/L (17-59); Bilirubin,Total 0.8 mg/dL (0.2-1.3); Magnesium 1.8 mg/dL (1.6-2.3); Potassium 3.4 mmol/L (3.4-5.0)
[2022-05-17 18:10] LABS: Thyroid Stimulating Hormone Reflex 0.366 uIU/mL (0.465-4.68)
[2022-05-17 18:26] LABS: Folic Acid 6.2 ng/mL (2.76->20)
[2022-05-17 18:28] LABS: Glucose Point of Care 197 mg/dl (65-105)
[2022-05-17 18:45] LABS: Creatinine Urine 55.7 mg/dL
[2022-05-17 18:46] LABS: Sodium Urine Random 43 meq/L
[2022-05-17 19:33] LABS: Free T4 Free Thyroxine Reflex 0.69 ng/dL (0.78-2.19)
[2022-05-17] MEDS: MAGNESIUM SULF 2 GM/WATER 50ML 2 GM/50 ML BAG IVPB (20:52)
[2022-05-17] MEDS: APIXABAN 5 MG TABLET PO (20:54)
[2022-05-17] MEDS: chlordiazePOXIDE (*CRX) 25 MG CAPSULE PO (20:54)
[2022-05-17] MEDS: SOTALOL HCL 80 MG TABLET PO (20:55)
[2022-05-17 23:14] LABS: Glucose Point of Care 135 mg/dl (65-105)
[2022-05-18] VITALS (8 sets, daily range): BP systolic 119–133; BP diastolic 73–84; PULSE 49–71; RESP 16; TEMP 35.5–36.2; O2SAT 98–100
[2022-05-18 05:10] LABS: Basophils Percent Auto 0.3 % (0.2-1.2); Eosinophils Percent Auto 0.9 % (0-4.4); Hematocrit 35.3 % (42.0-52.0); Hemoglobin 12.2 g/dL (14.0-18.0); Lymphocytes Absolute Auto 1.72 K/mm3 (0.9-3.2); Lymphocytes Percent Auto 51.7 % (18.3-44.2); Mean Corpuscular HGB Conc 34.6 g/dl (32-36); Mean Corpuscular Hemoglobin 37.8 pg (26-34); Mean Corpuscular Volume 109.3 fl (80-100); Mean Platelet Volume 10.9 fl (7.4-10.4); Monocytes Absolute Auto 0.5 K/mm3 (0.1-0.6); Monocytes Percent Auto 14.1 % (2.6-8.5); Neutrophils Absolute Auto 1.1 K/mm3 (1.3-6.7); Platelet Count Result 109 k/mm3 (150-375); Red Blood Count 3.23 M/mm3 (4.6-6.20); White Blood Count 3.3 K/mm3 (4.5-10.0)
[2022-05-18 05:28] LABS: Alanine Aminotransferase 59 U/L (6-50); Albumin Level 3.8 g/dL (3.5-5.1); Alkaline Phosphatase 76 U/L (38-126); Anion Gap 5 mmol/L (8-16); Aspartate Amino Transferase 99 U/L (17-59); Bilirubin,Total 0.8 mg/dL (0.2-1.3); Blood Urea Nitrogen 6 mg/dL (9-20); Calcium 8.2 mg/dL (8.4-10.2); Carbon Dioxide 27 mmol/L (22-30); Chloride 99 mmol/L (98-107); Estimated Glomerular Filt Rate > 60; Glucose 129 mg/dL (65-110); Magnesium 2.2 mg/dL (1.6-2.3); Phosphorus 2.3 mg/dL (2.5-4.5); Potassium 3.3 mmol/L (3.4-5.0); Sodium 131 mmol/L (137-145)
[2022-05-18] MEDS: THIAMINE HCL 100 MG TABLET PO (09:00)
[2022-05-18] MEDS: PANTOPRAZOLE SODIUM IV 40 MG VIAL IV PUSH (09:00)
[2022-05-18] MEDS: SOTALOL HCL 80 MG TABLET PO (09:00)
[2022-05-18] MEDS: FOLIC ACID 1 MG TABLET PO (09:01)
[2022-05-18] MEDS: amLODIPine BESYLATE 5 MG TABLET 10 MG PO (09:01)
[2022-05-18] MEDS: APIXABAN 5 MG TABLET PO (09:01)
[2022-05-18] MEDS: THERAPEUTIC MULTIVITAMINS/MINERALS TAB (*BKC) 1 TABLET PO (09:01)
[2022-05-18] MEDS: POTASSIUM PHOS/SODIUM PHOS 250 MG TABLET PO (11:43)
[2022-05-18] MEDS: POTASSIUM CHLORIDE 20 MEQ TABLET 40 MEQ PO (11:43)
[2022-05-18 11:58] LABS: Glucose Point of Care 134 mg/dl (65-105)
--- NOTE | 2022-05-18 13:35 | PM.DS ---
DS: Admitting Diagnosis Discharge Date 05/18/22 Admitting Diagnosis Chest pain DS: Discharge Diagnosis Discharge Diagnosis (1) Chest pain: Code(s): R07.9 - Chest pain, unspecified Status: Acute (2) Hypokalemia: Code(s): E87.6 - Hypokalemia Status: Acute (3) Atrial fibrillation: Code(s): I48.91 - Unspecified atrial fibrillation Status: Acute (4) Alcoholism: Code(s): F10.20 - Alcohol dependence, uncomplicated Status: Chronic (5) Hyponatremia: Code(s): E87.1 - Hypo-osmolality and hyponatremia Status: Acute (6) Elevated liver enzymes: Code(s): R74.8 - Abnormal levels of other serum enzymes Status: Chronic (7) Pancytopenia: Code(s): D61.818 - Other pancytopenia Status: Acute (8) Hypertension: Qualifiers: Hypertension type: unspecified Qualified Code(s): I10 - Essential (primary) hypertension Code(s): I10 - Essential (primary) hypertension Status: Chronic (9) Tobacco dependence: Code(s): F17.200 - Nicotine dependence, unspecified, uncomplicated Status: Chronic DS: Summary Hospital Course Reason for hospitalization: 56yo male with hx of pAFib, alcoholism, alcoholic pancreatitis and HTN here for chest pain. Please see H&P for details. Hospital Course: In the emergency room, his vital signs were stable.? White count and platelet count were low which has been noted before.? Sodium was 128 and potassium 2.6.? AST 152 and ALT 81 otherwise liver hepatic panel was normal (also noted before).? Troponin negative x2.? Lipase was normal.? Influenza and COVID negative. Chest x-ray is clear.? EKG showed normal sinus rhythm with LVH with strain pattern and borderline ST T wave changes in the inferior leads.? Patient was given aspirin, oral potassium and started IV fluids.? IV potassium also given.? He does have a history of alcoholism but no history of withdrawal seizures.?He states the chest pain is very similar to the times when he is in AFib.? Nothing on the monitor but suspect patient probably was in AFib prior to admission and that he converted prior to admission. Repeat potassium was better. Garber hypokalemia related to his chlorthalidone. Chlorthalidone was held. BP remained stable. We continued his Norvasc. Patient has a history of atrial fibrillation.? He is on sotalol for rhythm maintenance.? He is also on Eliquis for stroke prophylaxis.? He is followed by Cardiology.? Suspect patient went back in atrial fibrillation because he was off his medications but also due to the electrolyte abnormalities.? We resumed sotalol and Eliquis.? TSH low and FT4 low as well to suggest a central process. Will plan to repeat these values as outpatient. No episodes of AFib on tele. Patient was educated about the benefits of abstaining from alcohol.? He was treated with thiamine, folate and multivitamin.? We had Librium available as needed for signs and symptoms of withdrawal.? He was monitored with [facility] protocol.? Care coordination provided information about alcohol rehab and AA.? Sodium level at 128 on admission.? Probably related to his alcoholism, poor oral intake and diuretic use.? Repeat Na 131. AST and ALT are elevated.? Suspect related to alcohol use.? Probably alcoholic hepatitis.? Right upper quadrant ultrasound showing evidence of chronic pancreatitis and hepatic steatosis. White count was 3600 with a predominant lymphocytosis.? This has been noted before.? He also has a macrocytosis without anemia.? Probably related to underlying liver dysfunction.? Platelet count is low as well and this is more intermittent and chronic.? Thrombocytopenia could be related to toxic affects of alcohol and/or sequestration and/or bone marrow suppression.? Will check B12 folate level.? Patient has been educated about the benefits of abstaining from alcohol and tobacco use.? Continue to follow. Patient was educated about the benefits of smoking cessation.
[2022-05-18 15:06] LABS: Hepatitis B Surface Antigen Negative (Negative)
[2022-05-18 15:12] LABS: HAV RESULT Negative (Negative); Hepatitis B Core IgM Result Negative (Negative)
[2022-05-18 15:24] LABS: Hepatitis C Virus Antibody Negative (Negative)
--- NOTE | 2022-05-20 08:54 | PC.NURSE ---
Hepatitis are negative.Dr. Emily walker.
== END 2022-05-18 14:30 | disposition home or self-care (01) ==
LOC: ANHED 08:36 → ANHIMU 10:01
PROVIDERS: Admitting Provider Internal Medicine; Emergency Provider Emergency Medicine; Visit Provider Internal Medicine
DX: R07.9 Chest pain, unspecified (principal); E87.6 Hypokalemia; R00.0 Tachycardia, unspecified; I48.91 Unspecified atrial fibrillation; F10.20 Alcohol dependence, uncomplicated; R74.8 Abnormal levels of other serum enzymes; D61.818 Other pancytopenia; I10 Essential (primary) hypertension; F17.210 Nicotine dependence, cigarettes, uncomplicated; E87.1 Hypo-osmolality and hyponatremia; Z20.822 Contact with and (suspected) exposure to COVID-19; R94.31 Abnormal electrocardiogram [ECG] [EKG]; K85.20 Alcohol induced acute pancreatitis without necrosis or infection; D53.1 Other megaloblastic anemias, not elsewhere classified; F32.A Depression, unspecified; K76.0 Fatty (change of) liver, not elsewhere classified; K21.9 Gastro-esophageal reflux disease without esophagitis; Z97.0 Presence of artificial eye; Z79.01 Long term (current) use of anticoagulants; Z79.891 Long term (current) use of opiate analgesic; Z79.899 Other long term (current) drug therapy; Z82.49 Family history of ischemic heart disease and other diseases of the circulatory system
CPT/HCPCS: 36415; 71046; 76705; 80053; 80074; 80076; 82570; 82607; 82746; 82948; 83690; 83735; 84100; 84132; 84300; 84439; 84443; 84484; 85025; 85610; 85730; 87636; 93005; 96365; 96375; 96376; 99285; A9270; C9113; G0378; J3475; J3480; J7030

== ENCOUNTER 2022-08-11 17:19 | Emergency (ER) | payer MEDICARE, MEDICAID, SELFPAY ==
[2022-08-11 17:33] VITALS: BP 158/98; PULSE 105; RESP 16; TEMP 37.2; O2SAT 99
--- NOTE | 2022-08-11 18:33 | ED.WOUNDLAC ---
HPI - Wound/Laceration General Chief Complaint: Skin/Abscess/Foreign Body Stated Complaint: Left Hand Finger Laceration Time Seen by Provider: 08/11/22 18:25 Source: patient and RN notes reviewed Mode of arrival: ambulatory Limitations: no limitations History of Present Illness HPI narrative: Patient presents today with a laceration to his left 3rd finger tip that occurred last night at 7:00 p.m. at home on a knife while cutting potatoes. He cleaned with peroxide and dressed the wound. He currently rates his pain 6/10. He is up-to-date on his tetanus vaccine. Denies numbness or tingling. Related Data Home Medications Medication Instructions Recorded Confirmed amlodipine 10 mg tablet 10 mg PO DAILY 05/17/22 08/11/22 apixaban 5 mg tablet (Eliquis) 5 mg PO Q12H 05/17/22 08/11/22 chlorthalidone 50 mg tablet 50 mg PO DAILY 05/17/22 08/11/22 oxycodone-acetaminophen 7.5 mg-325 1 tablet PO Q12H PRN Pain 05/17/22 08/11/22 mg tablet sotalol 80 mg tablet 80 mg PO Q12H 05/17/22 08/11/22 Allergies Allergy/AdvReac Type Severity Reaction Status Date / Time ampicillin Allergy Severe Anaphylactic Verified 08/11/22 17:37 Shock lisinopril Allergy Severe Anaphylactic Verified 08/11/22 17:37 Shock Review of Systems Review of Systems: CONSTITUTIONAL: Denies body aches, fever, chills, or sweats. EYES: Denies visual changes, redness, or discharge. ENT: Denies rhinorrhea, congestion, sore throat, or otalgia. CARDIOVASCULAR: Denies chest pain, palpitations, or edema. RESPIRATORY: Denies cough or dyspnea. GASTROINTESTINAL: Denies abdominal pain, nausea, vomiting, or diarrhea. GENITOURINARY: Denies dysuria or hematuria. SKIN: Denies rash, itching. + finger laceration MUSCULOSKELETAL: Denies back pain, joint pain, or myalgia. NEUROLOGIC: Denies headache, numbness, tingling, or weakness. PSYCH: Denies depression or anxiety. PMF Past Medical History Medical History Alcoholic pancreatitis Depression GERD (gastroesophageal reflux disease) Hypertension Megaloblastic anemia due to alcoholism PAF (paroxysmal atrial fibrillation) Prosthetic eye globe Right side Smoker Surgical History Surgical History H/O elbow surgery Left History of enucleation of right eyeball Family History Family History Mother Hypertension Father Hypertension Sibling Breast cancer Social History Social History Social History: Mr. Llamas lives alone in [place]. 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 Alcohol use as above. He has smoked up to 1 PPD and has smoked for 40 years. He is down to 1/2PPD. He denies marijuana use now. No other drug use. No hx of IVDU. Smoking packs per day: 0.5 Smoking cigarettes per day: 10.0 Years smoked: 40 Smoking pack-years: 20.00 Smoking status: Current every day smoker Tobacco type: cigarettes Alcohol intake: current Drinks per week: 10 Substance use: current Substance use type: marijuana Last use: 01/26/20 Lack of Transportation: No Lack of Food: Never True Current Housing: I Have Housing Concerned About Future Housing: No Difficulty Paying Gas/Electric Bills: No Difficulty Paying for Meds: No Currently Unemployed: No Education: Don't Know Difficulty w/ Childcare or Family Care: No Living arrangements: alone Occupation/Education: unemployed Gender identity (if verbalized by the patient): Male Sexual Orientation (if Verbalized by the Patient): Straight or Heterosexual Spiritual care concerns: No Comments At time of signature, I have reviewed and agree with nursing past medical, surgical, social and family history unless otherwise noted. Please se
== END 2022-08-11 18:39 | disposition home or self-care (01) ==
PROVIDERS: Emergency Provider Nurse Practitioner
DX: S61.213A Laceration without foreign body of left middle finger without damage to nail, initial encounter (principal); W26.0XXA Contact with knife, initial encounter; F17.210 Nicotine dependence, cigarettes, uncomplicated; K21.9 Gastro-esophageal reflux disease without esophagitis; I10 Essential (primary) hypertension; I48.0 Paroxysmal atrial fibrillation; D53.1 Other megaloblastic anemias, not elsewhere classified; Z97.0 Presence of artificial eye; Z79.01 Long term (current) use of anticoagulants
CPT/HCPCS: 99212; G0463

== ENCOUNTER 2022-09-05 14:00 | Emergency (ER) | payer MEDICARE, MEDICAID, SELFPAY ==
[2022-09-05 14:13] VITALS: BP 152/86; PULSE 97; RESP 16; TEMP 37.2; O2SAT 100
--- NOTE | 2022-09-05 14:27 | ED.GENADULT ---
HPI - General Adult General Chief complaint: Extremity Problem,Nontraumatic Stated complaint: Gout in foot Time Seen by Provider: 09/05/22 14:16 Source: patient Mode of arrival: ambulatory Limitations: no limitations History of Present Illness HPI narrative: Patient presents today complaining of pain and redness to his right foot since yesterday. States he is having a gout flare. Last flare was 2 years ago. Currently rates his pain 9/10 and has tried no medication for symptoms prior to arrival. Does report some tingling in the dorsum of his foot as well. Related Data Home Medications Medication Instructions Recorded Confirmed amlodipine 10 mg tablet 10 mg PO DAILY 05/17/22 09/05/22 apixaban 5 mg tablet (Eliquis) 5 mg PO Q12H 05/17/22 09/05/22 chlorthalidone 50 mg tablet 50 mg PO DAILY 05/17/22 09/05/22 oxycodone-acetaminophen 7.5 mg-325 1 tablet PO Q12H PRN Pain 05/17/22 09/05/22 mg tablet sotalol 80 mg tablet 80 mg PO Q12H 05/17/22 09/05/22 Allergies Allergy/AdvReac Type Severity Reaction Status Date / Time ampicillin Allergy Severe Anaphylactic Verified 08/11/22 17:37 Shock lisinopril Allergy Severe Anaphylactic Verified 08/11/22 17:37 Shock Review of Systems Review of Systems: CONSTITUTIONAL: Denies body aches, fever, chills, or sweats. EYES: Denies visual changes, redness, or discharge. ENT: Denies rhinorrhea, congestion, sore throat, or otalgia. CARDIOVASCULAR: Denies chest pain, palpitations, or edema. RESPIRATORY: Denies cough or dyspnea. GASTROINTESTINAL: Denies abdominal pain, nausea, vomiting, or diarrhea. GENITOURINARY: Denies dysuria or hematuria. SKIN: Denies rash, itching, or wounds. MUSCULOSKELETAL: Denies back pain, or myalgia.+ right foot pain NEUROLOGIC: Denies headache, numbness, or weakness.+ right foot tingling PSYCH: Denies depression or anxiety. [facility] Past Medical History Medical History Alcoholic pancreatitis Depression GERD (gastroesophageal reflux disease) Hypertension Megaloblastic anemia due to alcoholism PAF (paroxysmal atrial fibrillation) Prosthetic eye globe Right side Smoker Surgical History Surgical History H/O elbow surgery Left History of enucleation of right eyeball Family History Family History Mother Hypertension Father Hypertension Sibling Breast cancer Social History Social History Social History: Mr. lLamas lives alone in [place]. 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 Alcohol use as above. He has smoked up to 1 PPD and has smoked for 40 years. He is down to 1/2PPD. He denies marijuana use now. No other drug use. No hx of IVDU. Smoking packs per day: 0.5 Smoking cigarettes per day: 10.0 Years smoked: 40 Smoking pack-years: 20.00 Smoking status: Current every day smoker Tobacco type: cigarettes Alcohol intake: current Drinks per week: 10 Substance use: current Substance use type: marijuana Last use: 01/26/20 Lack of Transportation: No Lack of Food: Never True Current Housing: I Have Housing Concerned About Future Housing: No Difficulty Paying Gas/Electric Bills: No Difficulty Paying for Meds: No Currently Unemployed: No Education: Don't Know Difficulty w/ Childcare or Family Care: No Living arrangements: alone Occupation/Education: unemployed Gender identity (if verbalized by the patient): Male Sexual Orientation (if Verbalized by the Patient): Straight or Heterosexual Spiritual care concerns: No Comments At time of signature, I have reviewed and agree with nursing past medical, surgical, social and family history unless otherwise noted. Please see nursing chart for
== END 2022-09-05 14:36 | disposition home or self-care (01) ==
PROVIDERS: Emergency Provider Nurse Practitioner
DX: M10.9 Gout, unspecified (principal); F17.210 Nicotine dependence, cigarettes, uncomplicated; K21.9 Gastro-esophageal reflux disease without esophagitis; I10 Essential (primary) hypertension; Z97.0 Presence of artificial eye; I48.0 Paroxysmal atrial fibrillation
CPT/HCPCS: 99213; G0463

== ENCOUNTER 2023-08-11 19:32 | Emergency (ER) | payer OTHER, MEDICARE, MEDICAID, SELFPAY ==
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
[2023-08-11 19:44] VITALS: BP 157/93; PULSE 90; RESP 20; TEMP 36.6; O2SAT 99
--- NOTE | 2023-08-11 19:48 | PC.NURSE ---
patient states that he has not taken blood thinner in 1 month. refusing all treatment.
== END 2023-08-11 19:56 | disposition home or self-care (01) ==
PROVIDERS: Emergency Provider Emergency Medicine
DX: S40.212A Abrasion of left shoulder, initial encounter (principal); S40.211A Abrasion of right shoulder, initial encounter; F17.210 Nicotine dependence, cigarettes, uncomplicated; F32.A Depression, unspecified; K21.9 Gastro-esophageal reflux disease without esophagitis; I10 Essential (primary) hypertension; V48.0XXA Car driver injured in noncollision transport accident in nontraffic accident, initial encounter
CPT/HCPCS: 99283

== ENCOUNTER 2024-08-26 20:16 | Emergency (ER) | payer MEDICARE, MEDICAID, SELFPAY ==
--- NOTE | ~2024-08-26 | XR_ITS ---
XR ankle RT 2V Ordering provider: Florence Esparza PA-C History: . gout . Comparison: None. FINDINGS: BONES: No acute fracture or dislocation. Small bony fragments are seen inferior to the proximal tarsal bones as seen in the lateral view most likely due to old fracture. JOINT SPACES: Normal. SOFT TISSUES: Normal. IMPRESSION: No definite acute osseous abnormality of the right ankle. Reviewed, dictated and finalized at location A.
--- NOTE | ~2024-08-26 | XR_ITS ---
XR foot RT 2V Ordering provider: Florence Esparza PA-C History: . gout . Comparison: None. FINDINGS: BONES: No acute fracture or dislocation. Bony fragments are seen inferior to the proximal tarsal bones. Lucencies are seen in the base of the proximal phalanx of the middle finger JOINT SPACES: Normal. No tarsal coalition. SOFT TISSUES: Normal. IMPRESSION: No acute osseous abnormality of the right foot. No definite evidence of gout seen. Clinical correlation advised Reviewed, dictated and finalized at location A.
[2024-08-26 20:21] VITALS: BP 158/97; PULSE 100; RESP 18; TEMP 36.8; O2SAT 100
--- NOTE | 2024-08-26 20:43 | ED_ITS ---
HPI - Extremity Problem General Chief complaint: Extremity Problem,Nontraumatic Stated complaint: Gout pain right lower leg Time Seen by Provider: 08/26/24 20:30 History of Present Illness HPI Narrative: 58-year-old male with history of alcoholism, gout and hypertension presents to the emergency department for a gout flare to his right ankle/foot that started at midnight. Patient states he has redness and pain to his right foot and ankle which is how his gout normally presents. Denies injury or trauma, fever. Denies history of kidney disease. Related Data Home Medications ?Medication ?Instructions ?Recorded ?Confirmed ?Last Taken ?Type amlodipine 10 mg tablet 10 mg PO DAILY 05/17/22 09/05/22 Unknown History chlorthalidone 50 mg tablet 50 mg PO DAILY 05/17/22 09/05/22 Unknown History oxycodone-acetaminophen 7.5 mg-325 1 tablet PO Q12H PRN Pain 05/17/22 09/05/22 Unknown History mg tablet sotalol 80 mg tablet 80 mg PO Q12H 05/17/22 09/05/22 Unknown History Allergies Allergy/AdvReac Type Severity Reaction Status Date / Time ampicillin Allergy Severe Anaphylactic Verified 08/26/24 20:17 Shock lisinopril Allergy Severe Anaphylactic Verified 08/26/24 20:17 Shock Review of Systems Review of Systems: All systems reviewed & are unremarkable except as noted in HPI and below PMFSH Past Medical History Medical History Megaloblastic anemia due to alcoholism Smoker Alcoholic pancreatitis PAF (paroxysmal atrial fibrillation) GERD (gastroesophageal reflux disease) Depression Prosthetic eye globe Right side Hypertension Surgical History Surgical History History of enucleation of right eyeball H/O elbow surgery Left Family History Family History Mother Hypertension Father Hypertension Sibling Breast cancer Social History Social History Social History: Mr. Llamas lives alone in [place]. 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 Alcohol use as above. He has smoked up to 1 PPD and has smoked for 40 years. He is down to 1/2PPD. He denies marijuana use now. No other drug use. No hx of IVDU. Smoking packs per day: 0.5 Smoking cigarettes per day: 10.0 Years smoked: 40 Smoking pack-years: 20.00 Smoking status: Current every day smoker Tobacco type: cigarettes Alcohol intake: current Drinks per week: 10 Substance use: current Substance use type: marijuana Last use: 01/26/20 Lack of Transportation: No Lack of Food: Never True Current Housing: I Have Housing Concerned About Future Housing: No Difficulty Paying Gas/Electric Bills: No Difficulty Paying for Meds: No Currently Unemployed: No Education: Don't Know Difficulty w/ Childcare or Family Care: No Living arrangements: alone Occupation/Education: unemployed Gender identity (if verbalized by the patient): Male Sexual Orientation (if Verbalized by the Patient): Straight or Heterosexual Spiritual care concerns: No Exam Narrative: GENERAL: Well-appearing, well-nourished, and in no acute distress. HEAD: Normocephalic, atraumatic. EYES:EOMI. ENT: Nares clear, no rhinorrhea or epistaxis. Mucous membranes moist. NECK: Supple. CHEST: Clear to auscultation. No respiratory distress. HEART: Regular rate and rhythm. No murmur heard. Normal peripheral pulses. EXTREMITIES: Tenderness, warmth and mild edema to the dorsum of the proximal right foot over medial malleolus. Patient is able to wiggle toes. DP pulses 2+. Sensation intact. Limited active range of motion of ankle secondary to pain. No tenderness remainder of extremity SKIN: Warm, dry, no rash. NEURO: No focal deficits. Alert and oriented x3 Course Vital Signs Vital signs: Vital Signs Temperature 98.3 F 08/26/24 20: Pulse Rate 100 08/26/24 20:21 Respiratory Rate 18 08/26/24 20:21 Blood Pressure 158/97 H 08/26/24 20:21 Pulse Oximetry 100 08/26/24 20:21 Oxygen Delivery Room Air 08/26/24 20:21 Temperature 98.3 F 08/26/24 20:21 Pulse Rate 100 08/26/24 20:21 Respiratory Rate 18 08/26/24 20:21 Blood Pressure 158/97 H 08/26/24 20:21 Pulse Oximetry 100 08/26/24 20:21 Oxygen Delivery Room Air 08/26/24 20:21 MDM - Extremity (Nontraumatic) MDM Narrative Medical decision making narrative: 58-year-old male with history of gout presents to emergency department with concerns for a gout flare to his right ankle and foot that started at midnight. No injury or trauma. States this is normally how his gout presents. Triage vitals with elevated blood pressure, otherwise unremarkable. Exam is notable for the above. Patient is neurovascularly intact. X-ray of the ankle and foot show no acute osseous findings. Patient updated on results. His presentation is consistent with acute gout flare. Patient was started on prednisone and provided [place] for breakthrough pain. He was also given Franco wrap and crutches a dvised to follow-up with his PCP. Instruction on diet changes provided. Discussed strict ED return precautions. He is agreeable with the plan and verbalized understanding. Discharged in stable condition. Discharge Plan Discharge Clinical Impression: Gout flare Qualifiers: Gout site: foot Gout etiology: unspecified cause Laterality: right Qualified Code(s): M10.9 - Gout, unspecified Patient Disposition: Home Condition: Stable Instructions: Antibiotic Form, Low Purine Diet (ED), Gout (ED) Additional Instructions: Your evaluated in the emergency department for a gout flare. Please take steroids as directed. Take hydrocodone as needed for breakthrough pain. Follow-up closely with her primary care provider. Return to the emergency department if you develop new or worsening symptoms. Patient Language: Estonian Prescriptions: New prednisone 10 mg tablet 10 mg PO DIRECTED Qty: 30 0RF Rx Instructions: Take 5 tabs once daily for days 1 & 2, take 4 tabs once daily for days 3 & 4, take 3 tabs once daily for days 5 & 6, take 2 tabs once daily for days 7 & 8, take 1 tab once daily for days 9 & 10 hydrocodone-acetaminophen 5-325 mg tablet 1 tablet PO Q8H PRN (Reason: pain) Qty: 14 0RF No Action methylprednisolone [Medrol ([place])] 4 mg tablets,dose pack See Rx Instructions .ROUTE .COMPLEX Qty: 21 0RF Rx Instructions: orally per package directions colchicine 0.6 mg tablet 0.6 mg PO DAILY 7 Days Qty: 7 0RF sotalol 80 mg tablet 80 mg PO Q12H amlodipine 10 mg tablet 10 mg PO DAILY chlorthalidone 50 mg tablet 50 mg PO DAILY oxycodone-acetaminophen 7.5-325 mg tablet 1 tablet PO Q12H PRN (Reason: Pain) acetaminophen 500 mg tablet 1,000 mg PO TID PRN (Reason: dana) 7 Days Qty: 42 0RF methocarbamol 750 mg tablet 1,500 mg PO TID Qty: 42 0RF Follow-up/Referrals: UNKNOWN,DOCTOR [Primary Care Provider] -
[2024-08-26] MEDS: HYDROcodone/acetaminophen (*CRX) 5-325 MG TABLET 1 TAB PO (20:47)
[2024-08-26 22:04] VITALS: BP 166/92; PULSE 95; RESP 18; O2SAT 100
[2024-08-26] MEDS: predniSONE 40 MG, predniSONE 10 MG 50 MG PO (22:05)
--- OUTSIDE RECORDS SUMMARY | 2024-08-27 15:19 | XMS_ITS | Continuity of Care Document ---
Author Organization [facility] Address [address] [place] [address] Phone Care Team Providers Care High School Counselor Name Role Phone Unavailable Unavailable Unavailable Advance Directives Directive Yes / No Effective Date File Name No Information Encounters Encounter Description Practice Location Reason(s) For Visit Diagnoses Date Provider Providers Copied on Encounter [facility] , [address], [place], [place], [id number], [place] tel:[phone] [facility] [place] No Information No Information Family History Family [...]
--- OUTSIDE RECORDS SUMMARY | 2024-08-27 15:19 | XMS_ITS | Referral Summary ---
Author Organization [facility] [address] Address [address] [place] [address] Care Team Providers Care Biology Department Chair Name Role Phone Alise Noguera MD Primary Care Provider + Allergies Active Allergy Reactions Criticality Noted Date Comments Franco Inhibitors Unknown 01/22/2022 Penicillins Other (See comments) Medium 05/16/2020 unknown Medications chlorthalidone 50 mg tablet TK 1 T PO D 0 Active amLODIPine (NORVASC) 10 mg tablet TK 1 T PO QD 0 Active allopurinoL (ZYLOPRIM) 300 mg tablet Take 1 tablet (300 mg total) by mouth daily Active omeprazole (PriLOSEC) 20 mg capsule Take by mouth daily 2 Active varenicline tartrate (CHANTIX CLAUDY) 0.5 mg (11)- 1 mg (42) tablet as directed 2 Active methylPREDNISolon e (MEDROL DOSEPACK) 4 mg Dosepack 2 Active fluticasone propionate (FLONASE) 50 mcg/actuation nasal spray SHAKE LIQUID AND USE 1 SPRAY IN EACH NOSTRIL TWICE DAILY 2 Active benzonatate (TESSALON) 200 mg capsule TAKE 1 CAPSULE BY MOUTH THREE TIMES DAILY NEEDED FOR COUGH 2 Active loratadine (CLARITIN) 10 mg tablet Take 1 tablet (10 mg total) by mouth daily 2 Active celecoxib (CeleBREX) 100 mg capsuleIndication s:Osteoarthritis Take 1 capsule (100 mg total) by mouth daily 30 capsule 11 3 Active sotaloL (BETAPACE) 80 mg tabletIndications :Paroxysmal atrial fibrillation (HCC) Take 1 tablet (80 mg total) by mouth 2 (two) times a day 180 tablet 2 3 Active gabapentin (NEURONTIN) 300 mg capsuleIndication s:Neuropathic Pain Take 1 capsule (300 mg total) by mouth 2 (two) times a day 60 capsule 5 4 Active oxyCODONE-acetami nophen (PERCOCET) 7.5-325 mg per tabletIndications :Pain Take 1 tablet by mouth 2 (two) times a day as needed for pain 60 tablet 4 Active oxyCODONE-acetami nophen (PERCOCET) 7.5-325 mg per tabletIndications :Pain Take 1 tablet by mouth 2 (two) times a day as needed for pain 60 tablet 4 Active oxyCODONE-acetami nophen (PERCOCET) 7.5-325 mg per tabletIndications :Pain Take 1 tablet by mouth daily as needed for pain 30 tablet 4 Active Active Problems Problem Noted Date Diagnosed Date 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 Encounter for screening colonoscopy 06/19/2021 Overview (06/19/2021): Added automatically from request for surgery [id number] Localized osteoarthritis of left knee 09/06/2020 Bulging of lumbar intervertebral disc without my elopathy 06/07/2020 Lumbar stenosis without neurogenic claudication 06/07/2020 Localized osteoarthritis of right knee Atrial fibrillation 05/25/2020 Right knee pain 05/16/2020 Radiculopathy, lumbosacral region 05/16/2020 Chronic bilateral low back pain with bilateral s ciatica 05/16/2020 Lumbar facet joint syndrome 05/16/2020 Social History Tobacco Use Types Packs/Day Years Used Date Smoking Tobacco: Every Day Cigarettes Smokeless Tobacco: Never Tobacco Cessation:Ready to Q uit: Not Asked; Counseling Given: Not Answered Comments:1/2 pack daily Alcohol Use Standard Drinks/Week Comments Yes 3 (1 standard drink = 0.6 oz pur e alcohol) AUDIT-C Answer Date Recorded Q1: How often do you have a drink containing alc ohol? 2-3 times a week 07/04/2021 Q2: How many drinks containi ng alcohol do you have on a typical day when you are drinking? 3 or 4 07/04/2021 Q3: How often do you have si x or more drinks on one occasion? Less than monthly 07/04/2021 Sex and Gender Information Value Date Recorded Sex Assigned at Not on file Legal Sex Male 7:57 PM PROJECT FINANCE ANALYST Gender Identity Not on file Sexual Orientation Not on file Last Filed Vital Signs Vital Sign Reading Time Taken Comments Blood Pressure 158/82 04/01/2024 1:31 PM PROJECT FINANCE ANALYST Pulse 82 04/01/2024 1:31 PM PROJECT FINANCE ANALYST Temperature 36.2 C (97.1 F) 07/09/2020 3:10 PM CDT Respiratory Rate 17 11/04/2023 11:38 AM CDT Oxygen Saturation 99% 04/01/2024 1:31 PM PROJECT FINANCE ANALYST Inhaled Oxygen Concentration - - Weight 75.8 kg (167 lb 1.6 oz) 04/01/2024 1:31 P M PROJECT FINANCE ANALYST Height 170.2 cm (5' 7 ) 04/01/2024 1:31 PM PROJECT FINANCE ANALYST Body Mass Index 26.17 04/01/2024 1:31 PM PROJECT FINANCE ANALYST Plan of Treatment Not on file Procedures Procedure Name Priority Date/Time Associated Diagnosis Comments COLONOSCOPY 07/04/2021 10:43 AM PROJECT FINANCE ANALYST from Last 3 Months or Most Recently Relevant to Health Maintenance Results * COLONOSCOPY (07/04/2021 10:43 AM PROJECT FINANCE ANALYST) Anatomical Region Laterality Modality Other Narrative Procedure Note Flaco Tian MD - 07/04/2021 10:43 AM CST [facility] Patient Name: Harman Llamas Procedure Date: 07/04/2021 10:43 AM Date of : 1965 Admit Type: Outpatient Age: 55 Gender: Male Note Status: Finalized Attending MD: Flaco Tian M.D. Procedure Date: 07/04/2021 Procedure: Colonoscopy Indications: Screening for colorectal malignant neoplasm, Thisis the patient's first colonoscopy Providers: Flaco Tian M.D., XANDER Corea (Anesthesia Staff), Ehsan Hilario RN, Hanny, Rotary Helper Referring MD: Alise Noguera M.D. Medicines: Monitored Anesthesia Care Complications: No immediate complications. Estimated Blood Loss: Estimated blood loss was minimal. Procedure: Pre-Anesthesia Assessment: - Prior to the procedure, a History and Physicalwas performed, and patient medications and allergieswere reviewed. The patient is competent. The risks and benefits of the procedure and the sedation optionsand risks were discussed with the patient. Allquestions were answered and informed consent was obtained. Patient identification and proposed procedure were verified by the physician, the nurse, the anesthesiologist and the correctional case manager in theprocedure room. Mental Status Examination: alert andoriented. Airway Examination: normal oropharyngeal airway and neck mobility. Respiratory Examination: clear to auscultation. CV Examination: normal. Prophylactic Antibiotics: The patient does not requireprophylactic antibiotics. Prior Anticoagulants: The patient has taken Eliquis (apixaban), last dose was day of procedure. ASA Grade Assessment: III - A patientwith severe systemic disease. After reviewing the risksand benefits, the patient was deemed in satisfactory condition to undergo the procedure. The anesthesia plan was to use monitored anesthesia care (MAC). Immediately prior to administration of medications, the patient was re-assessed for adequacy to receive sedatives. The heart rate, respiratory rate, oxygen saturations, blood pressure, adequacy of pulmonary ventilation, and response to care were monitored throughout the procedure. The physical status ofthe patient was re-assessed after the procedure. - The risks and benefits of the procedure and the sedation options and risks were discussed with the patient. All questions were answered and informed consent was obtained. After I obtained informed consent, the scope was passed under direct vision. Throughout theprocedure, the patient's blood pressure, pulse, and oxygen saturations were monitored continuously. The scopewas passed under direct vision. The Colonoscope was introduced through the anus and advanced to the the cecum, identified by appendiceal orifice andileocecal valve. The colonoscopy was performed without difficulty. The patient tolerated the procedurewell. The quality of the bowel preparation was adequate.The bowel preparation used was polyethylene glycol(PEG) and bisacodyl tablets via split dose instruction. Findings: A 4 mm polyp was found in the ascending colon. The polyp was sessile. The polyp was removed with a hot biopsy forceps. Resection andretrieval were complete. Estimated blood loss was minimal. Non-bleeding internal hemorrhoids were found during retroflexion. The hemorrhoids were mild. The exam was otherwise without abnormality. Impression: - One 4 mm polyp in the ascending colon, removedwith a hot biopsy forceps. Resected and retrieved. - Non-bleeding internal hemorrhoids. - The examination was otherwise normal. Recommendation: - Await pathology results. - Repeat colonoscopy in 7 years for surveillance. Procedure Code(s): --- Professional --- 08718, Colonoscopy, flexible; with removal of tumor(s), polyp(s), or other lesion(s) by hotbiopsy forceps Diagnosis Code(s): --- Professional --- Z12.11, Encounter for screening for malignantneoplasm of colon D12.2, Benign neoplasm of ascending colon K64.8, Other hemorrhoids CPT copyright 2020 [employer]. All rights reserved. The codes documented in this report are preliminary and upon parking regulation enforcement officer reviewmay be revised to meet current compliance requirements. Electronically signed by Flaco Tian M.D. Flaco Tian M.D. 07/04/2021 11:09:02 AM Number of Addenda: 0 Note Initiated On: 07/04/2021 10:43 AM Flaco Tian MD ENDOSCOPY PROCEDURES Fi nal Result from Last 3 Months or Most Recently Relevant to Health Maintenance Insurance [employer] MEDICARE HMO HUMAN CHOICE MEDICARE PPO IDPA IDPA [facility] MEDICARE O Care Teams Biology Department Chair Relationship Specialty Start Date End Date Alise Noguera MD [address] [place], [place] [id number] [facility] - General 12/23/16
--- OUTSIDE RECORDS SUMMARY | 2024-08-27 15:19 | XMS_ITS | Patient Health Record ---
Author Organization [facility] Address [address] [place], [place] [address] Care Team Providers Care Doggy Daycare Activities Director Name Role Phone Poornima Alise Primary Care Provider [phone] Alise Noguera Unavailable Unavailable Allergies Allergen (clinical drug ingredient) Drug/Non Drug Allergy documented on EMR Reaction Allergy Type Onset Date Status Lisinopril Unknown Drug Allergy 11/23/2019 Activ e angiotensin-converti ng enzyme inhibitor (FN) CHARLES Inhibitors Other Reaction: Yes; ANGIOEDEMA-SEVER E Drug Allergy 11/23/2019 Active Results Component Value Reference Range Notes Lipid Profile Reviewed date:06/22/2024 12:23:16 PM Interpretation: Performing Lab:[facility], [address] [facility] [place], [place] [id number], Phone - [phone] Notes/Report: TESTING PERFORMED AT: [] [facility], [address] [place] [address], [place], [address], PHONE: [phone], MEDICAL CLAIMS REPRESENTATIVE: MARCIA RIVAS, PHD This order was split into 2 orders: [id number] (CBC W/AUTO DIFF ), [id number] (Hemoglobin A1C, TSH Only No Reflex,Lipid Profile,CMP) CHOLESTEROL, TOTAL 138 100-199 MG/DL TRIGLYCERIDES 182 0-149 MG/DL HDL CHOLESTEROL 36 >39 MG/DL LDL/HDL RATIO 2.0 0.0-3.6 RATIO LDL/HDL RATIO MEN WOMEN 1/2 AVG.RISK 1.0 1.5 AVG.RISK 3.6 3.2 2X AVG.RISK 6.2 5.0 3X AVG.RISK 8.0 6.1 LDL CHOL CALC (NIH) 71 0-99 MG/DL Thyroid Stimulating Hormone Reviewed date:06/20/2024 10:46:56 AM Interpretation: Performing Lab:, [facility], [address] [place] [address], [place], [place] [id number], Phone - [phone] Notes/Report: TESTING PERFORMED AT: [] [facility], [address] [place] [address], [address], PHONE: [phone], MEDICAL CLAIMS REPRESENTATIVE: MARCIA RIVAS, PHD This order was split into 2 orders: [id number] (CBC W/AUTO DIFF ), [id number] (Hemoglobin A1C, TSH Only No Reflex,Lipid Profile,CMP) TSH 3.210 0.450-4.500 UIU/ML Hemoglobin A1C Reviewed date:06/20/2024 10:36:50 AM Interpretation: Performing Lab: [facility], [address] [place] [address], [place], [place] [address], Phone - [phone] Notes/Report: TESTING PERFORMED AT: [] [address], [address], PHONE: [phone], MEDICAL CLAIMS REPRESENTATIVE: MARCIA RIVAS, PHD This order was split into 2 orders: [id number] (CBC W/AUTO DIFF ), [id number] (Hemoglobin A1C, TSH Only No Reflex,Lipid Profile,CMP) HEMOGLOBIN A1C 5.9 4.8-5.6 % PREDIABETES: 5.7 - 6.4 DIABETES: >6.4 GLYCEMIC CONTROL FOR ADULTS WITH DIABETES: <7.0 CMP Reviewed date:06/22/2024 12:25:01 PM Interpretation: Performing Lab:, [facility], [address] [place] [address], [place], [place] [id number], Phone - [phone] Notes/Report: TESTING PERFORMED AT: [] [facility], [address] [place] [address], [address], PHONE: [phone], MEDICAL CLAIMS REPRESENTATIVE: MARCIA RIVAS, PHD This order was split into 2 orders: [id number] (CBC W/AUTO DIFF ), [id number] (Hemoglobin A1C, TSH Only No Reflex,Lipid Profile,CMP) GLUCOSE TEST NOT PERFORMED. TEST NOT PERFORMED. SERUM WAS IN CONTACT WITH CELLS WHEN RECEIVED WHICH WILL MAKE THE RESULT INACCURATE. BUN 7 6-24 MG/DL CREATININE 0.89 0.76-1.27 MG/DL EGFR 100 >59 ML/MIN/1.73 BUN/CREATININE RATIO 8 9-20 SODIUM 140 134-144 MMOL/L POTASSIUM TEST NOT PERFORMED. TEST NOT PERFORMED. SERUM WAS IN CONTACT WITH CELLS WHEN RECEIVED WHICH WILL MAKE THE RESULT INACCURATE. CHLORIDE 101 96-106 MMOL/L CARBON DIOXIDE, TOTAL 18 20-29 MMOL/L CALCIUM 9.5 8.7-10.2 MG/DL PROTEIN, TOTAL 8.7 6.0-8.5 G/DL ALBUMIN 4.9 3.8-4.9 G/DL GLOBULIN, TOTAL 3.8 1.5-4.5 G/DL BILIRUBIN, TOTAL 1.0 0.0-1.2 MG/DL ALKALINE PHOSPHATASE 127 44-121 IU/L AST (SGOT) 164 0-40 IU/L ALT (SGPT) 98 0-44 IU/L CBC W/AUTO DIFF Reviewed date:06/22/2024 12:22:49 PM Interpretation: Performing Lab:[facility]ICOLE, [facility] ([facility]), [address] [place], [place] [address], Phone - [phone] Notes/Report: Test Performed at [facility], [address] [facility] , [place] [address]. [phone]. Machine Setter: Fariha Hussein MD. CLIA# [id number] This order was split into 2 orders: [id number] (CBC W/AUTO DIFF ), [id number] (Hemoglobin A1C, TSH Only No Reflex,Lipid Profile,CMP) White blood cell count 5.68 3.80-10.80 K/uL Re sults verified by repeat analysis.NCS Red blood cell count 3.96 4.20-5.80 M/uL Resul ts verified by repeat analysis.NCS Hemoglobin 14.3 13.2-17.1 g/dL Hematocrit 41.2 38.5-50.0 % Mean Cell Volume 104 80-100 fL Mean Corpuscular Hemoglobin 36.1 27.0-33.0 pg Mean Corpuscular Hemoglobin Concentration 34.7 32.0-36.0 % Red Cell Distribution Width 14.1 11.0-15.0 % Platelet Count 119 130-400 K/uL Results verif ied by repeat analysis.NCS Mean Platelet Volume 11.8 7.4-11.5 fL Neutrophil # 2.3 2.0-6.9 K/uL Lymphocyte # 2.8 0.6-3.4 K/uL Monocyte # 0.5 0.0-0.9 K/uL Eosinophil # 0.02 0.00-0.70 K/uL Basophil # 0.060 0.000-0.200 K/uL Neutrophil % 40.2 37.0-80.0 % Lymphocyte% 48.4 10.0-50.0 % Monocyte % 9.5 0.0-12.0 % Eosinophil % 0.4 0.0-10.0 % Basophil % 1.1 0.0-3.0 % XRAY CHEST 2 VIEW Reviewed date:10/20/2023 08:44:25 AM Interpretation: Performing Lab: Notes/Report: [email or web address]/bmIwZw== XRAY CHEST 2 VIEW HISTORY: Hemoptysis. FINDINGS: Heart size is normal. Mediastinal structures appear unremarkable. Both lungs are fully expanded without evidence of pulmonary infiltrates or additional significant findings. IMPRESSION: NO EVIDENCE OF ACUTE CARDIOPULMONARY DISEASE. Silas Shaniqua [email or web address]/bmIwZw== [email or web address]== XRAY CHEST 2 VIEW XRAY CHEST 2 VIEW XRAY CHEST 2 VIEW HISTORY: Hemoptysis. XRAY CHEST 2 VIEW FINDINGS: Heart size is normal. Mediastinal structures appear unremarkable. Both lungs XRAY CHEST 2 VIEW are fully expanded without evidence of pulmonary infiltrates or additional significant XRAY CHEST 2 VIEW findings. XRAY CHEST 2 VIEW IMPRESSION: XRAY CHEST 2 VIEW NO EVIDENCE OF ACUTE CARDIOPULMONARY DISEASE. XRAY CHEST 2 VIEW Silas Mcgovern [email or web address]/bmIwZw== Reason For Referral Reason Please evaluate and treat [facility] Diagnosis 1 Degeneration, interv ertebral disc, lumbar (M51.36) Diagnosis 2 Other chronic pain ( G89.29) Referral Organization [facility] Referring Provider First Name Alise Referring Provider Last Name Poornima Referring Provider Speciality Internal edicine Referred Provider Specialty Pain Medicin e General Notes Sharon Montes 2023 11:56:21 AM >Faxed pain management referral to [facility] @ [phone] and pt will call/schedule his appt. Referral Priority Routine Reason Please evaluate and treat Dr. Osborne Diagnosis 1 Degeneration, interv ertebral disc, lumbar (M51.36) Referral Organization [facility] Referring Provider First Name Alise Referring Provider Last Name Poornima Referring Provider Speciality Internal edicine Referred Provider Specialty Pain Medicin e General Notes Sharon Montes 2023 10:00:32 AM >Faxed pain managment referral with notes to Dr Osborne @ [phone], pain clinic will contact pt with appt and pt given Dr Osborne number [phone]. Referral Priority Routine Reason Please evaluate and treat. Would like to discuss surgery BACK PAIN Diagnosis 1 Degeneration, interv ertebral disc, lumbar (M51.36) Referral Organization [facility] Referring Provider First Name Alise Referring Provider Last Name Poornima Referring Provider Speciality Internal edicine Referred Organization [facility] Referred Address [address] [place], [place],[address] Referred Provider Specialty Orthopedic General Notes Sharon Montes 2023 04:13:28 PM >Faxed orthopedics referral with notes to [facility] @ [phone] and pt given orthopedics number [phone] to call/schedule appt. Referral Priority Routine Reason low dose chest CT Pt lives in [place] Diagnosis 1 Screening for lung c ancer (Z12.2) Referral Organization [facility] Referring Provider First Name Alise Referring Provider Last Name Poornima Referring Provider Speciality Internal M edicine Referred Provider Specialty Radiology Referral Priority Routine Medications Medication SIG (Take, Route, Frequency, Duration) Notes Start Date End Date Status Eliquis 5 MG as directed Orally q 12 hrs for 90 days Not-Taking Potassium Chloride ER 10 MEQ 2 tablets with food Orally Once a day for 90 days 12/13/2024 Active Chlorthalidone 50 MG TAKE 1 TABLET BY MOUTH EVERY MORNING WITH FOOD for 90 days 12/13/2024 Active amLODIPine Besylate 10 MG TAKE 1 TABLET BY MOUTH EVERY DAY for 90 days Active tiZANidine HCl 4 MG 1 tablet prn back spasm Orally three times a day for 30 days 08/24/2024 10/23/2024 Active Chlorthalidone 25 MG 1 tablet in the morning with food Orally Once a day for 30 day(s) 06/11/2022 Not-Taking Diclofenac Sodium 75 MG twice a day prn pain/inflammation. Take w/ food Oral twice a day 01/11/2020 Not-Taking Sotalol HCl 80 MG 1 tablet Orally ever y 12 hrs for 30 Active oxyCODONE-Acetaminophen 7.5-325 MG 1 tablet as needed Orally every 12 hrs Active Omeprazole 20 MG TAKE 1 CAPSULE BY MOUTH EVERY DAY for 90 days Active Allopurinol 300 MG Take 1 tablet by mouth once daily. to prevent gout Once a day for 90 days Active Immunizations Vaccine Route Administration Date Status Comme nts SARS-COV-2 (COVID-19) Vaccine 100mcg/0.5mL IM Intramuscular 01/24/2021 Administered COVID VAC BOOSTER - MODERNA IM Intramuscular 07/18/2021 Administered Social History Tobacco Use: Social History Observation Description Date Details (start date - stop date) Current Smoker NA - NA Sex Assigned At : Social History Observation Description Sex Assigned At Male SBIRT (2018 Edition) Question Answer Notes Patient refused/declined SBIRT screening at this time? No 1. How often do you have a drink containing alco hol? Never SCORE 0 Interpretation Negative How many times in the past y ear have you used an illegal drug or used a prescription medication for non-medical reasons? 0 Total Count 0 Interpretation Negative Tobacco Control (Standard) Question Answer Notes Tobacco use: Current smoker How often do you smoke cigarettes? Every day How many cigarettes a day do you smoke? 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) Active confirmed Problem Hyperlipidemia (47368073) Hyperlipidemia, unspecified (E78.5) 014 Active confirmed Problem Chronic pain (03487603) Other chronic pain (G89.29) 015 Active confirmed Problem Essential hypertension (91519757) Essential (primary) hypertension (I10) 012 Active confirmed Problem 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) 019 Active confirmed Problem Primary gout (60237124) Idiopathic gout, unspecified ankle and foot (M10.079) 017 Active confirmed Problem Low back pain (716786552) Low back pain (M54.5) 012 Active confirmed CHRONIC Problem Nicotine dependence (disorder) (94350508) Nicotine dependence, cigarettes, w oth disorders (F17.218) 018 Active confirmed Problem Elevated levels of transaminase & lactic acid dehydrogenase (152765715) Nonspec elev of levels of transamns & lactic acid dehydrgnse (R74.0) 016 Active confirmed Problem Alcohol abuse with other alcohol-induced disorder (F10.188) 016 Inactive confirmed Vital Signs Heart Rate 73 /min 08/24/2024 f/u appt Routi ne Checkup, no other concerns [facility] Temperature 98.5 degrees Fahrenheit 08/24/2024 f/u appt Routine Checkup, no other concerns [facility] Blood pressure diastolic 88 mm Hg 08/24/2024/u appt Routine Checkup, no other concerns [facility] Oximetry 96 % 08/24/2024/u appt Routi ne Checkup, no other concerns [facility] Weight-kg 69.85 kg 08/24/2024/u appt Routi ne Checkup, no other concerns [facility] Height 68 in 08/24/2024/u appt Routi ne Checkup, no other concerns [facility] Blood pressure systolic 144 mm Hg 08/24/2024/u appt Routine Checkup, no other concerns [facility] Weight 154 lbs 08/24/2024/u appt Routi ne Checkup, no other concerns [facility] BMI 23.41 kg/m2 08/24/2024/u appt Routi ne Checkup, no other concerns [facility] Encounters Encounter Location Date Provider Diagnosis [facility] [place], [place] [id number] 10/02/2023 Alise Poornima [facility] [address] [id number] 11/24/2023 Alise Poornima Degeneration, intervertebral disc, lumbar M51.36 and Other [facility]89.29 [facility] [address] [id number] 10/08/2023 Alise Poornima Hemoptysis R04.2 and Nicotine dependence, cigarettes, w oth disorders F17.[address] [facility] [address] [id number] 12/29/2023 Alise Poornima Degeneration, intervertebral disc, lumbar M51.36 ; Essential (primary) hypertension I10 ; Hyperlipidemia, unspecified E78.5 ; Nicotine dependence, cigarettes, w oth disorders F17.218 and Atrial fibrillation, unspecified type I48.91 [facility] [address] [place] [phone] 06/16/2024 Alise Poornima Essential (primary) hypertension I10 ; Hyperlipidemia, unspecified E78.5 ; Nicotine dependence, cigarettes, w oth disorders F17.218 ; Abnormal blood chemistry R79.9 ; Alcohol abuse with other alcohol-induced disorder F10.188 and Degeneration of intervertebral disc of lumbar region with discogenic back pain and lower extremity pain M51.362 [facility] [address] [place], [place] [id number] 08/24/2024 Alise Poornima Nicotine dependence, cigarettes, w oth disorders F17.218 ; Essential (primary) hypertension I10 ; Atrial fibrillation, unspecified type I48.91 ; Screening for lung cancer Z12.2 ; Alcohol abuse with other alcohol-induced disorder F10.188 and Degeneration of intervertebral disc of lumbar region with discogenic back pain and lower extremity pain M51.362 [facility] [address] [place], [place] [id number] 10/26/2023 Alise Poornima Hemoptysis R04.2 ; Essential (primary) hypertension I10 ; Hyperlipidemia, unspecified E78.5 and Nicotine dependence, cigarettes, w oth disorders F17.218 [facility] [address] [place], [place] [id number] 10/09/2023 Alise Poornima Hemoptysis R04.2 Assessments Encounter Date Diagnosis (ICD Code) Assessment Notes Treatment Notes Treatment Clinical Notes Section Notes 10/09/2023 Hemoptysis (ICD-10 - R04.2) 10/08/2023 Hemoptysis (ICD-10 - R04.2) ?etiol Lungs or GI. Cont to monitor to ED prn recurs increased amount 10/08/2023 Nicotine dependence, cigarettes, w oth disorders (ICD-10 - F17.218) cessation discussed 06/16/2024 Hyperlipidemia, unspecified (ICD-10 - E78.5) 06/16/2024 Essential (primary) hypertension (ICD-10 - I10) 12/29/2023 Degeneration, intervertebral disc, lumbar (ICD-10 - M51.36) refer ortho and PM 11/24/2023 Other chronic pain (ICD-10 - G89.29) 11/24/2023 Degeneration, intervertebral disc, lumbar (ICD-10 - M51.36) 12/29/2023 Essential (primary) hypertension (ICD-10 - I10) controlled. CPM 10/26/2023 Essential (primary) hypertension (ICD-10 - I10) controlled. CPM 10/26/2023 Hemoptysis (ICD-10 - R04.2) no further episodes. CXR w/o abnormalities 08/24/2024 Essential (primary) hypertension (ICD-10 - I10) controlled. CPM 08/24/2024 Nicotine dependence, cigarettes, w oth disorders (ICD-10 - F17.218) back up to 8 cigarettes/day 08/24/2024 Atrial fibrillation, unspecified type (ICD-10 - I48.91) in sinus, rate controlled. Cont sotalol. F/u as scheduled cardiology 12/29/2023 Hyperlipidemia, unspecified (ICD-10 - E78.5) 10/26/2023 Hyperlipidemia, unspecified (ICD-10 - E78.5) 06/16/2024 Nicotine dependence, cigarettes, w oth disorders (ICD-10 - F17.218) approx 4 cigs/day 06/16/2024 Abnormal blood chemistry (ICD-10 - R79.9) 10/26/2023 Nicotine dependence, cigarettes, w oth disorders (ICD-10 - F17.218) states read to stop. Plans to call [place] quit line for assistance. We discussed nicotine patch- smokes close to 1PPD, recommend start 21mg/day patch 12/29/2023 Nicotine dependence, cigarettes, w oth disorders (ICD-10 - F17.218) trying to decrease to stop 08/24/2024 Screening for lung cancer (ICD-10 - Z12.2) refer low dose CTlungs 08/24/2024 Alcohol abuse with other alcohol-induced disorder (ICD-10 - F10.188) congratulated. encouraged to continue 12/29/2023 Atrial fibrillation, unspecified type (ICD-10 - I48.91) Needs f/u cardiology, pt will call 06/16/2024 Alcohol abuse with other alcohol-induced disorder (ICD-10 - F10.188) decreased significantly per pt 06/16/2024 Degeneration of intervertebral disc of lumbar region with discogenic back pain and lower extremity pain (ICD-10 - M51.362) gave him # to call ortho- referred 12/2023.. They noted unable to reach pt. 08/24/2024 Degeneration of intervertebral disc of lumbar region with discogenic back pain and lower extremity pain (ICD-10 - M51.362) encouraged to cont PT, HEP. Only able to go once/week due to copay. F/u Ortho [facility] as scheduled. rx tizanidine Plan Of Treatment Pending Test Test Name Order Date PSA, TOTAL 10/17/2021 X ray : Chest 2 Views 10/09/2023 Next Appt Details Provider Name:Alise Noguera, 11/23/2024 01:00:00 PM, [address] [place], [place], [id number], Insurance Providers Payer Name Payer Address Payer Phone Subscriber Number Group Number Insured Name Patient Relationship to Insured Coverage Start Date Coverage End Date [facility] Medicare [address] [address] [place] [address] [id number] Harman Llamas Self - patient is the insured 9 NOT ACCEPTED DENTAL [employer] [address] [address] [place] [address] [phone] [id number] Harman Llamas Self - patient is the insured 0 Medical (General) History Medical History History ICD Code Essential (primary) hypertension I10 Alcohol-induced chronic pancreatitis K86 .0 Idiopathic gout, unspecified ankle and f oot M10.079 Nicotine dependence, cigarettes, w oth d isorders F17.218 Atrial fibrillation, unspecified type I4 8.91
--- OUTSIDE RECORDS SUMMARY | 2024-08-27 15:19 | XMS_ITS ---
Author Organization [employer] Address 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 Role Phone Alise Noguera Primary Care Provider [phone] Alise Noguera Unavailable Unavailable Allergies Allergen (clinical drug ingredient) Drug/Non Drug Allergy documented on EMR Reaction Allergy Type Onset Date Status Lisinopril Unknown Drug Allergy 11/23/2019 Activ e angiotensin-converti ng enzyme inhibitor (FN) CHARLES Inhibitors Other Reaction: Yes; ANGIOEDEMA-SEVER E Drug Allergy 11/23/2019 Active Reason For Referral Reason low dose chest CT Pt lives in [place] Diagnosis 1 Screening for lung c ancer (Z12.2) Referral Organization [employer] Pop e Referring Provider First Name Alise Referring Provider Last Name Poornima Referring Provider Speciality Internal M edicine Referred Provider Specialty Radiology Referral Priority Routine REASON FOR VISIT follow up HTN, HLD, chronic low back pain. states started PT after ortho visit. Helping some w/ pain, but feels tight ., States no alcohol x 2 months Medications Medication SIG (Take, Route, Frequency, Duration) Notes Start Date End Date Status Eliquis 5 MG as directed Orally q 12 hrs for 90 days Not-Taking Potassium Chloride ER 10 MEQ 2 tablets with food Orally Once a day for 90 days 12/13/2024 Active Chlorthalidone 50 MG TAKE 1 TABLET BY MOUTH EVERY MORNING WITH FOOD for 90 days 12/13/2024 Active Chlorthalidone 25 MG [...] day for 30 days 08/24/2024 10/23/2024 Active Sotalol HCl 80 MG 1 tablet Orally ever y 12 hrs for 30 Active oxyCODONE-Acetaminophen 7.5-325 MG 1 tablet as needed Orally every 12 hrs Active Omeprazole 20 MG TAKE 1 CAPSULE BY MOUTH EVERY DAY for 90 days Active Allopurinol 300 MG Take 1 tablet by mouth once daily. to prevent gout Once a day for 90 days Active Social History Tobacco Use: Social History Observation [...] do you smoke? 5 or les s Vital Signs Temperature 98.5 degrees Fahrenheit 08/25/19 25 Blood pressure systolic 144 mm Hg 08/25/19 25 Blood pressure diastolic 88 mm Hg 025 Heart Rate 73 /min 08/24/2024 Height 68 in 08/24/2024 Weight 154 lbs 08/24/2024 BMI 23.41 kg/m2 08/24/2024 Oximetry 96 % 08/24/2024 Weight-kg 69.85 kg 08/24/2024 f/u appt Routine Checkup, n o other concerns [facility] RMA Encounters Encounter Location Date Provider Diagnosis [address] [id number] 08/24/2024 Alise Noguera Nicotine dependence, cigarettes, w oth disorders F17.218 ; Essential (primary) hypertension I10 ; Atrial fibrillation, unspecified type I48.91 ; Screening for lung cancer Z12.2 ; Alcohol abuse with other alcohol-induced disorder F10.188 and Degeneration of intervertebral disc of lumbar region with discogenic back pain and lower extremity pain M51.362 Assessments Encounter Date Diagnosis (ICD Code) Assessment Notes Treatment Notes Treatment Clinical Notes Section Notes 08/24/2024 Nicotine dependence, cigarettes, w oth disorders (ICD-10 - F17.218) back up to 8 cigarettes/day 08/24/2024 Essential (primary) hypertension (ICD-10 - I10) controlled. CPM 08/24/2024 Atrial fibrillation, unspecified type (ICD-10 - I48.91) in sinus, rate controlled. Cont sotalol. F/u as scheduled cardiology 08/24/2024 Screening for lung cancer (ICD-10 - Z12.2) refer low dose CTlungs 08/24/2024 Alcohol abuse with other alcohol-induced disorder (ICD-10 - F10.188) congratulated. encouraged to continue 08/24/2024 Degeneration of intervertebral disc of lumbar region with discogenic back pain and lower extremity pain (ICD-10 - M51.362) encouraged to cont PT, HEP. Only able to go once/week due to copay. F/u [facility] as scheduled. rx tizanidine Plan Of Treatment Medication Medication Name Sig Start Date Stop Date Notes tiZANidine HCl 4 MG 1 tablet prn back sp asm Orally three times a day for 30 days 08/24/2024 10/23/2024 Treatment Notes Assessment Notes Nicotine dependence, cigaret julisa, w oth disorders back up to 8 cigarettes/day Essential (primary) hypertension control led. CPM Atrial fibrillation, unspecified type in sinus, rate controlled. Cont sotalol. F/u as scheduled cardiology Screening for lung cancer refer low dose CTlungs Alcohol abuse with other alc ohol-induced disorder congratulated. encouraged to continue Degeneration of intervertebr al disc of lumbar region with discogenic back pain and lower extremity pain encouraged to cont PT, HEP. Only able to go once/week due to copay. F/u [facility] as scheduled. 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 states started PT after ortho visit. Helping some w/ pain, but feels tight .States no alcohol x 2 months * HPI: D epression Screening: PHQ-9 L ittle interest or pleasure in doing things?Not at all F eeling down, depressed, or hopeless N ot at all T rouble falling or staying asleep, or sleeping too much S everal days F eeling tired or having little energy S everal days P oor appetite or overeating N ot at all F eeling bad about yourself or that you are a failure, or have let yourself or your family down N ot at all T rouble concentrating on things, such as reading the newspaper or watching television N ot at all M oving or speaking so slowly that other people could have noticed; or the opposite, being so fidgety or restless that you have been moving around a lot more than usual N ot at all T houghts that you would be better off or of hurting yourself in some way N ot at all T otal Score 2 I nterpretation M inimal Depression Intervention D epression Screening Findings M inimal Depression F ollow-Up for Depression P atient refused behavioral health C ompleted By Flory Pettit Maricruz * Medical History: * Surgical History: D enies Past Surgical History * Ocular Surgical History: * Hospitalization/Major Diagno stic Procedure: D enies Past Hospitalization * Social History: T obacco Use: T obacco Counseling: Yes . Tobacco Control (Standard) T obacco use: C urrent smoker H ow often do you smoke cigarettes? E very day H ow many cigarettes a day do you smoke? 5 or less D rugs/Alcohol: Tj RANDLE (2018 Edition) P atient refused/declined SBIRT screening at this time? N o 1 . How often do you have a drink containing alcohol? N ever S CORE 0 I nterpretation N egative H ow many times in the past year have you used an illegal drug or used a prescription medication for non-medical reasons? 0 T otal Count 0 I nterpretation N egative * Medications: T akingAllopurinol 300 MG Tablet Take 1 tablet by mouth once daily. to prevent gout Once a day Omeprazole 20 MG Capsule Delayed Release TAKE 1 CAPSULE BY MOUTH EVERY DAY oxyCODONE-Acetaminophen 7.5-325 MG Tablet 1 tablet as needed Orally every 12 hrs Sotalol HCl 80 MG Tablet 1 tablet Orally every 12 hrs amLODIPine Besylate 10 MG Tablet TAKE 1 TABLET BY MOUTH EVERY DAY Chlorthalidone 50 MG Tablet TAKE 1 TABLET BY MOUTH EVERY MORNING WITH FOOD , stop date 12/13/2024Potassium Chloride ER 10 MEQ Tablet Extended Release 2 tablets with food Orally Once a day , stop date 12/13/2024Taking Allopurinol 300 MG Tablet Take 1 tablet by mouth once daily. to prevent gout Once a day Taking Omeprazole 20 MG Capsule Delayed Release TAKE 1 CAPSULE BY MOUTH EVERY DAY Taking oxyCODONE-Acetaminophen 7.5-325 MG Tablet 1 tablet as needed Orally every 12 hrs Taking Sotalol HCl 80 MG Tablet 1 tablet Orally every 12 hrs Taking amLODIPine Besylate 10 MG Tablet TAKE 1 TABLET BY MOUTH EVERY DAY Taking Chlorthalidone 50 MG Tablet TAKE 1 TABLET BY MOUTH EVERY MORNING WITH FOOD , stop date 12/13/2024Taking Potassium Chloride ER 10 MEQ Tablet Extended Release 2 tablets with food Orally Once a day , stop date 12/13/2024Not-TakingEliquis 5 MG Tablet as directed Orally q 12 hrs Chlorthalidone 25 MG Tablet 1 tablet in the morning with food Orally Once a day Diclofenac Sodium 75 MG Tablet Delayed Release twice a day prn pain/inflammation. Take w/ food Oral twice a day Medication List reviewed and reconciled with the patientNot-Taking Eliquis 5 MG Tablet as directed Orally q 12 hrs Not-Taking Chlorthalidone 25 MG Tablet 1 tablet in the morning with food Orally Once a day Not-Taking Diclofenac Sodium 75 MG Tablet Delayed Release twice a day prn pain/inflammation. Take w/ food Oral twice a day Medication List reviewed and reconciled with the patient * Allergies: L isinopril: Allergy - Onset Date 11/23/2019ACE Inhibitors: Other Reaction: Yes; ANGIOEDEMA-SEVERE - Allergy - Onset Date 11/23/2019no[Allergies Verified] Objective: * Vitals: W t:154lbs, Ht: 68 in, BMI:23.41Index, BP: 158/99 mm Hg,144/88mm Hg, Temp:98.5F, Oxygen sat %:96%, HR:73/min, Pain scale:51-10, Cuff Size:large, Wt-k.85 kg. f/u appt Routine Checkup, no other concerns [place] RMA. Vision: Spectacle Rx: Contact Lens: Eye Examination: Special Tests: * Examination: G eneral Examination: GENERAL APPEARANCE: a lert, well hydrated, in no distress.? HEART: S 1, S2 normal, regular rate and rhythm, no S3, S4.? LUNGS: g ood air movement, clear to auscultation bilaterally, no wheezes, rales, rhonchi. ABDOMEN: s oft, nontender, nondistended, bowel sounds present, no hepatosplenomegaly, no masses palpable. BACK: + spasm bilat lumbar muscles. Nontender muscles and midline. EXTREMITIES: n o clubbing, cyanosis, or edema. ? Assessment: * Assessment: 1. E ssential (primary) hypertension - I10 (Primary) 2 . N icotine dependence, cigarettes, w oth disorders - F17.218 3 . A trial fibrillation, unspecified type - I48.91 4 . S creening for lung cancer - Z12.2 5 . A lcohol abuse with other alcohol-induced disorder - F10.188 6 . D egeneration of intervertebral disc of lumbar region with discogenic back pain and lower extremity pain - M51.362? Plan: * Treatment: 2. N icotine dependence, cigarettes, w oth disorders Notes: back up to 8 cigarettes/day 3. A trial fibrillation, unspecified type Notes: in sinus, rate controlled. Cont sotalol. F/u as scheduled cardiology 4. S creening for lung cancer Notes: refer low dose CTlungs Referral To:Radiology Reason:low dose chest CT Pt lives in [place] 5. A lcohol abuse with other alcohol-induced disorder Notes: congratulated. encouraged to continue 6. D egeneration of intervertebral disc of lumbar region with discogenic back pain and lower extremity pain Notes: encouraged to cont PT, HEP. Only able to go once/week due to copay. F/u [facility] as scheduled. rx tizanidine 7. O thers Start tiZANidine HCl Tablet, 4 MG, 1 tablet prn back spasm, Orally, three times a day, 30 days, 90 Tablet, Refills 1. * Procedure Codes: 3 077F SYST BP = 140 MM HG6 [id number] DIAST BP 80-89 MM [id number] BRIEF EMOTIONAL/BEHAV ASSMT, Modifiers: 59 3288F FALL RISK ASSESSMENT [id number] DOC MEDS VERIFIED W/PT OR [id number] ANNUAL DEPRESSION SCREENING 15 [id number] ANNUAL ALCOHOL MISUSE SCREEN 15 [id number] AMNT PAIN NOTED PAIN [id number] Fq visit- estab [id number] Office Visit- Est Pt. Level 3, Modifiers: 25 G8420 BMI is documented within Normal [id number] Pt scrn tbco and id as [id number] Pt recv tbco cess interv * Preventive Medicine: Infectious Disease: P OC HIV Test Patient Declined POC HIV Test Y es Completed By OSIEL Kellogg * Follow Up: 3 Months, refer Lung CT [place] screen, rx [facility] [place] Care Plan: * Problems: * Billing Information: * Visit Code: * Procedure Codes: 3077F SYST BP = 140 MM HG6 IT. 3079F DIAST BP 80-89 [place]. [address]56 BRIEF EMOTIONAL/BEHAV ASSMT. Modifiers: 59 3288F FALL RISK ASSESSMENT DOCD. G8427 DOC MEDS VERIFIED W/PT OR RE. G0444 ANNUAL DEPRESSION SCREENING 15 MIN. G0442 ANNUAL ALCOHOL MISUSE SCREEN 15 MIN. 1125F AMNT PAIN NOTED PAIN PRSNT. G0467 Fq[place]. [id number] Office Visit- Est Pt. Level 3. Modifiers: 25 G8420 BMI is documented within Normal Parameters. G9902 Pt scrn tbco and id as user. G9906 Pt recv tbco cess interv. * Sign off status: Completed true * Provider: Carter Noguera MD Date: 0 08/24/2024 Generated for Franca gould/Tianna/eTransmgeno on: 0 08/27/2024 03:19 PM CDT History and Physical Notes * HPI (History of Present Illness) Category Sub-Category Detail Notes Category Not es Depression Screening PHQ-9 Little inte rest or pleasure in doing things: Not at all Feeling down, depressed, or hopeless: No t at all Trouble falling or staying asleep, or sl eeping too much: Several days Feeling tired or having little energy: S everal days Poor appetite or overeating: Not at all Feeling bad about yourself o r that you are a failure, or have let yourself or your family down: Not at all Trouble concentrating on thi ngs, such as reading the newspaper or watching television: Not at all Moving or speaking so slowly that other people could have noticed; or the opposite, being so fidgety or restless that you have been moving around a lot more than usual: Not at all Thoughts that you would be b amanda off or of hurting yourself in some way: Not at all Total Score: 2 Interpretation: Minimal Depression Intervention Depression Screening Findings: M inimal Depression Follow-Up for Depression: Patient refuse d behavioral health Completed By: OSIEL Aguiar Examination Category Sub-Category Detail Notes Category Not es General Examination GENERAL APPEARANCE: alert, w ell hydrated, in no distress HEART: S1, S2 normal, regul ar rate and rhythm, no S3, S4 LUNGS: good air movement, c lear to auscultation bilaterally, no wheezes, rales, rhonchi ABDOMEN: soft, nontender, non distended, bowel sounds present, no hepatosplenomegaly, no masses palpable EXTREMITIES: no clubbing, cyanosi s, or edema BACK: + spasm bilat lumbar muscles. Nontender muscles and midline Consultation Request Notes Referral Date Referring Provider Referred Provider Not es 08/24/2024 Alise Noguera , low dose chest CT Pt lives in [place]
--- OUTSIDE RECORDS SUMMARY | 2024-08-27 15:19 | XMS_ITS | Clinical Summary ---
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 Name Role Phone Alise Noguera MD Primary [...] (06/19/2021): Added automatically from request for surgery [id number] Localized osteoarthritis of left knee 09/06/2020 Bulging of lumbar intervertebral disc without my elopathy 06/07/2020 Lumbar stenosis without neurogenic claudication 06/07/2020 Localized osteoarthritis of right knee Atrial fibrillation 05/25/2020 Right knee pain 05/16/2020 Radiculopathy, lumbosacral region 05/16/2020 Chronic bilateral low back pain with bilateral s ciatica 05/16/2020 Lumbar facet joint syndrome 05/16/2020 Surgical History Surgery Date Site/Laterality Comments COLONOSCOPY 07/04/2021 first screening [facility]BOW SURGERY Medical History Medical History Date Comments Hypertension Arrhythmia Pancreatitis Arthritis High blood pressure Family History Medical History Relation Name Comments Hypertension Father Family history of hypertension - (Added by TW Conv) Kidney disease Father Family histor y of kidney disease - (Added by TW Conv) Alcohol abuse Maternal Grandfather Family history of alcoholism - Relation: Grandfather (Added by TW Conv) Stroke Maternal Grandfather Family history of cerebrovascular accident (CVA) - Relation: Grandfather (Added by TW Conv) Alcohol abuse Mother Family history of alcoholism - (Added by TW Conv) Arthritis Mother Family history of arthritis - (Added by TW Conv) Hypertension Mother Family history of hypertension - (Added by TW Conv) Hypertension Sister 1 Family history of hypertension - (Added by TW Conv) Arthritis Sister 2 Family history of arthritis - (Added by TW Conv) Hypertension Son 1 Family history of hypertension - (Added by TW Conv) Diabetes Son 2 Family history of diabetes mellitus - (Added by TW Conv) Relation Name Status Comments Father Maternal Grandfather Mother Sister 1 Sister 2 Son 1 Son 2 Social History Tobacco Use Types Packs/Day Years [...] on file 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 Gender Identity Not on file Sexual Orientation Not on file Obstetrics History Last Filed Vital Signs Vital Sign Reading Time Taken Comments Blood Pressure 158/82 04/01/2024 1:31 PM DIE CUTTER APPRENTICE Pulse 82 04/01/2024 1:31 PM DIE CUTTER APPRENTICE Temperature 36.2 C (97.1 F) 07/09/2020 3:10 PM CDT Respiratory Rate 17 11/04/2023 11:38 AM CDT Oxygen Saturation 99% 04/01/2024 1:31 PM DIE CUTTER APPRENTICE Inhaled Oxygen Concentration - - Weight 75.8 kg (167 lb 1.6 oz) 04/01/2024 1:31 P M DIE CUTTER APPRENTICE Height 170.2 cm (5' 7 ) 04/01/2024 1:31 PM DIE CUTTER APPRENTICE Body Mass Index 26.17 04/01/2024 1:31 PM DIE CUTTER APPRENTICE Plan of Treatment Health Maintenance Due Date Last Done Comments Depression Screening 1965 Hepatitis C Screening 1965 Prostate Cancer Screening-PSA 1966 DTaP/Tdap/Td Vaccine (1 - Tdap) 1977 Hepatitis B Screening 1984 Regular Well Visit/Exam 18-64 1984 Pneumococcal vaccine <65 (1 of 2 - PCV) 1985 Zoster Vaccine (1 of 2) 2016 Influenza Vaccine (#1) 2023 Colon Cancer Screening-Colonoscopy 07/05/20312021 Colon Cancer Screening-CT Colonography Discontinued Colon Cancer Screening-DNA Stool Discontinued 07/05/19 Colon Cancer Screening-FIT Discontinued 07/04/2021 Colon Cancer Screening-Sigmoidoscopy Discontinued 06/25 Procedures Procedure Name Priority Date/Time Associated Diagnosis Comments COLONOSCOPY 07/04/2021 10:43 AM 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 End[facility] Patient Name: Harman Llamas Procedure Date: 07/04/2021 10:43 AM Date of : 1965 Admit Type: Outpatient Age: 55 Gender: Male Note Status: Finalized Attending MD: Flaco Tian M.D. Procedure Date: 07/04/2021 Procedure: Colonoscopy Indications: Screening for colorectal malignant neoplasm, Thisis the patient's first colonoscopy Providers: Flaco Tian M.D., XANDER Corea (Anesthesia Staff), Ehsan Hilario RN, Hanny, Investigation Lieutenant Referring MD: Alise Noguera M.D. Medicines: Monitored [...] physician, the nurse, the anesthesiologist and the rails developer in theprocedure room. Mental Status Examination: alert [...] for surveillance. Procedure Code(s): --- Professional --- 88303, Colonoscopy, flexible; with removal of tumor(s), polyp(s), or other lesion(s) by hotbiopsy forceps Diagnosis Code(s): --- Professional --- Z12.11, Encounter for screening for malignantneoplasm of colon D12.2, Benign neoplasm of ascending colon K64.8, Other hemorrhoids CPT copyright 2020 [employer]. All rights reserved. The codes documented in this report are preliminary and upon training technician reviewmay be revised to meet current compliance requirements. Electronically signed by Flaco Tian M.D. Flaco Tian M.D. 07/04/2021 11:09:02 AM Number of Addenda: 0 Note Initiated On: 07/04/2021 10:43 AM Flaco Tian MD ENDOSCOPY PROCEDURES Fi nal Result from Last 3 Months or Most Recently Relevant to Health Maintenance Insurance IDPA [employer] MEDICARE HMO HU[employer]NA CHOICE MEDICARE O IDPA IDPA [facility] MEDICARE HMO Care Teams Deck Builder Relationship Specialty Start Date End Date Alise Noguera MD [address] [place] [address] PCP - General 12/23/16
--- OUTSIDE RECORDS SUMMARY | 2024-08-27 15:19 | XMS_ITS | Data Portability ---
Author Organization [facility] Address [address] [place] [address] Assessment No assessment recorded. Plan of Treatment Reminders Order Date Submit Date Provider Last Modified By Organization Details Last Modified Time Details Appointments None record ed. Lab None record ed. Referral None record ed. Procedures None record ed. Surgeries None record ed. Imaging None record ed. Medication Orders None record ed. Patient TargetsNo targets recorded. Patient Instructions Encounter Date Encounter Id Patient Instructions Last Modified By Organization Details Last Modified Time 01/09/2023 [id number] gout: care instructions Not available 01/09/2023 12:10:26 osteoarthritis: care instructions Not available 01/09/2023 12:10:26 Quitting Tobacco : Care Instructions Not available 01/09/2023 12:10:26 learning about high blood pressure Not available 01/09/2023 12:10:26 high cholesterol : care instructions Not available 01/09/2023 12:10:26 02/13/2023 [id number] gout: care instructions Not available 02/13/2023 12:42:10 osteoarthritis: care instructions Not available 02/13/2023 12:42:10 Quitting Tobacco : Care Instructions Not available 02/13/2023 12:42:10 learning about high blood pressure Not available 02/13/2023 12:42:10 high cholesterol : care instructions Not available 02/13/2023 12:42:10 Reason for Referral None Reported. Problems Name Problem SNOMED Code Status Onset Date Resolution Date Notes Provider Name and Address Organization Details Recorded Time Essential hypertension 35263988 Active 2022 DANY Maynard [facility] 3 11:44:31 Problem Notes None recorded. Procedures Surgical History Date Name Laterality Status Provider Name and Address Organization Details Recorded Time 9 operation on fingernail completed Ángela Loredo MA [facility] 01/09/2023 11:47:36 8 Eye Surgery completed Ángela Loredo MA [facility] 01/09/2023 11:46:45 2 procedure on elbow completed Ángela Lroedo MA [facility] 01/09/2023 11:47:01 Imaging Results None recorded. Procedure Notes None recorded. Medical Equipment None Reported. Allergies Allergen ID Allergen Name Allergen Category Reaction Reaction Severity Criticality Documentation Date Start Date Code Code System Note Provider Name and Address Organization Details Recorded Time 634433 Product containin g penicilli n (product) medicatio n wheezing moderate high 01/09/2023 81753 8001 SNOMED DANY Maynard [facility] 3 11:43:59 Medications Name Sig Start Date Stop Date Status Note LastModified by Organization Details LastModified Time benzonatate 200 mg capsule TAKE 1 CAPSULE BY MOUTH THREE TIMES DAILY NEEDED FOR COUGH active Not Available Not Available No t Available sotalol 80 mg tablet active Not Available Not Available Not Available potassium chloride ER 10 mEq tablet,extende d release active Not Available Not Available No t Available chlorthalidone 50 mg tablet TAKE 1 TABLET BY MOUTH EVERY DAY IN THE MORNING WITH FOOD active Not Available Not Available No t Available amlodipine 10 mg tablet TAKE 1 TABLET BY MOUTH EVERY DAY active Not Available Not Available No t Available gabapentin 300 mg capsule TAKE 1 CAPSULE BY MOUTH TWICE DAILY active Not Available Not Available No t Available omeprazole 20 mg capsule,delaye d release TAKE 1 CAPSULE BY MOUTH EVERY DAY active Not Available Not Available No t Available allopurinol 300 mg tablet active Not Available Not Availabl e Not Available oxycodone-acet aminophen 7.5 mg-325 mg tablet TAKE 1 TABLET BY MOUTH TWICE DAILY NEEDED FOR PAIN active Not Available Not Available No t Available methylpredniso lone 4 mg tablets in a dose pack TAKE BY MOUTH DIRECTED ON INSIDE OF PACKAGE active Not Available Not Available No t Available colchicine 0.6 mg tablet TAKE 1 TABLET BY MOUTH ONCE DAILY FOR 7 DAYS active Not Available Not Available No t Available celecoxib 100 mg capsule active Not Available Not Available N ot Available fluticasone propionate 50 mcg/actuation nasal spray,suspensi on SHAKE LIQUID AND USE 1 SPRAY IN EACH NOSTRIL TWICE DAILY active Not Available Not Available No t Available loratadine 10 mg tablet TAKE 1 TABLET BY MOUTH DAILY active Not Available Not Available No t Available varenicline tartrate 0.5 mg (11)-1 mg (42) tablets in a dose pack USE DIRECTED active Not Available Not Available No t Available Eliquis 5 mg tablet active Not Available Not Available Not Available Vitals Date Recorded Body height Body mass index (BMI) Body weight Oxygen saturation Oxygen saturation in Arterial blood by Pulse oximetry Heart rate Respiratory rate Body temperature Systolic blood pressure Diastolic blood pressure Provider Name and Address Organization Details Last Updated DateTime 3 172.72 cm 22.9 kg/m2 91884.9 6 g 99 % 99 % 86 /min 16 /min 97.9 [degF] 157 mm[Hg] 101 mm[Hg] Ángela Loredo MA [facility] 3 11:42:52 Date Recorded Body height Body mass index (BMI) Body weight Oxygen saturation Oxygen saturation in Arterial blood by Pulse oximetry Pain severity - 0-10 verbal numeric rating [Score] - Reported Heart rate Respiratory rate Body temperature Systolic blood pressure Diastolic blood pressure Provider Name and Address Organization Details Last Updated DateTime 3 172.72 cm 23.5 kg/m2 00111.6 2 g 98 % 98 % 0 110 /min 17 /min 98.8 [degF] 164 mm[Hg] 103 mm[Hg] Jimy Madrid MA [facility] 3 12:29:03 Date Recorded Body height Provider Name an d Address Organization Details Last Updated DateTime 05/18/2023 172.72 cm Sophie Lockhart LPN [facility] 05/18 10:55:30 Social History Question Answer Notes LastModified by Organizat ion Details LastModified Time Tobacco Smoking Status Current Every Day Smoker Ángela Loredo MA [facility], [facility] 01/09/2023 11:45:14 Do You Have An Advance Directive? Yes Information not available 01/09/2023 What Is Your Level Of Alcohol Consumption? Occasional Information not available 01/09/2023 How Many Years Have You Consumed Alcohol? 20 Information not available 01/09/2023 Are You Blind Or Do You Have Difficulty Seeing? Yes Information not available 01/09/2023 What Is Your Level Of Caffeine Consumption? Moderate Information not available 01/09/2023 In The 14 Days Before Symptom Onset, Have You Had Close Contact With A Laboratory-confir med COVID-19 While That Case Was Ill? No Information not available 01/09/2023 In The 14 Days Before Symptom Onset, Have You Had Close Contact With A Person Who Is Under Investigation For COVID-19 While That Person Was Ill? No Information not available 01/09/2023 Have You Been To An Area Known To Be High Risk For COVID-19? No Information not available 01/09/2023 Are You Currently Employed? No Information not available 01/09/2023 Are You Deaf Or Do You Have Serious Difficulty Hearing? No Information not available 01/09/2023 What Type Of Diet Are You Following? REGULAR Information not available 01/09/2023 Are There Any Guns Present In Your Home? No Information not available 01/09/2023 What Was The Date Of Your Most Recent Tobacco Screening? 01/09/2023 Information not available 01/09/2023 How Many Children Do You Have? 11 Information not available 01/09/2023 What Is Your Current Pack Years? 30ormorepackye ars Information not available 01/09/2023 Do You Use Protection During Sex? Usually Information not available 01/09/2023 What Is Your Relationship Status? Information not available 01/09/2023 Do You Use Your Seat Belt Or Car Seat Routinely? Yes Information not available 01/09/2023 Are You Sexually Active? Yes Information not available 01/09/2023 Do You Have Smoke And Carbon Monoxide Detectors In Your Home? Yes Information not available 01/09/2023 At What Age Did You Start Smoking Tobacco? 17 Information not available 01/09/2023 Are You Passively Exposed To Smoke? Yes Information no t available 01/09/2023 How Much Tobacco Do You Smoke? 0.5 PPD Information not available 01/09/2023 Do You Feel Stressed (tense, Restless, Nervous, Or Anxious, Or Unable To Sleep At Night)? [id number] Information not available 01/09/2023 Do You Use Any Illicit Or Recreational Drugs? No Information not available 01/09/2023 Do You Use Sunscreen Routinely? No Information not available 01/09/2023 Has Tobacco Cessation Counseling Been Provided? Yes Information not available 01/09/2023 On What Date Was Tobacco Cessation Counseling Provided? 01/09/2023 Information not available 01/09/2023 How Many Years Have You Smoked Tobacco? 40 Information not available 01/09/2023 Do You Or Have You Ever Used Any Other Forms Of Tobacco Or Nicotine? No Information not available 01/09/2023 Sex: Male Functional Status Question Answer Note LastModified by [employer] ion Details LastModified Time Are you able to care for yourself? Yes Information not available 01/09/2023 What is your exercise level? Occasional Information not available 01/09/2023 Mental Status None recorded. Family History Nothing Reported. Medical History Condition Response Coronary Artery Disease N Other N High Blood Pressure Y Atrial Fibrillation N Kidney or Bladder Problems N Thyroid Problems N GI Problems N Depression N COPD N Blood Clots N Skin Problems N Eating Disorder N Anemia N Heart Attack (RI) N Anxiety Disorder N Diabetes N Muscle, Joint, or Bone Problems Y Seizures/Epilepsy N Acid Reflux (GERD) N Cancer N Stroke N Asthma N Allergies N ADHD N Substance Abuse N High Cholesterol Y Hepatitis N Liver Disease N Schizophrenia N Headaches Y Osteoporosis N Heart Failure N Past Encounters Encounter ID Performer Location Encounter Start Date Encounter Closed Date Diagnosis/Indication Diagnosis SNOMED-CT Code Diagnosis ICD10 Code Diagnosis Note [id number] Nestor Colindres MD [address] [address] 01/09/2023 11:26:28 01/14/2023 14:19:26 Smoker 73960456 F17.200 1/2 ppd Body mass index 20-24 - normal 385192363 Z68.22 Gout 70290155 M10.9 h/o gout in right foot.. reduced alcohol... History of pancreatitis 3879776108 9107 Z87.19 reduced alcohol... Osteoarthritis 896098882 M19.90 low back and left knee... in pain management ... Essential hypertension 80822572 I10 meds and follow up... Hyperlipidemia 19423048 E78.5 labs and follow up... Paroxysmal atrial fibrillation 214842845 I48.0 seeing cardiology ... [id number] Nestor Colindres MD [address] [address] 02/13/2023 12:20:03 02/16/2023 10:11:50 Body mass index 20-24 - normal 514598524 Z68.22 bmi=23.5 Essential hypertension 55414023 I10 meds and follow up... dos not take daily... amlodipine 10 mg/chortha lidone 50 mg/potassi um 10 meq Smoker 66315493 F17.200 1/2 ppd Gout 36388604 M10.9 h/o gout in right foot.. reduced alcohol... allopurino l... History of pancreatitis 9692836735 9107 Z87.19 reduced alcohol... Osteoarthritis 604025454 M19.90 low back and left knee... in pain management ... Hyperlipidemia 21362294 E78.5 labs and follow up... Paroxysmal atrial fibrillation 683318178 I48.0 seeing cardiology ... Eliquis Health Concerns Section Related Observation LastModified by Organization Detai ls LastModified Time None Recorded Concern Status LastModified by Organization Details LastModified Time None Recorded Advance Directives Directive Y: Payers Encounter Date Sequence Insurance Name Policy Number Policy Echevarria Covered Member ID Echevarria Member ID Guarantor Name 01/09/[address] [facility] - DOS ON OR AFTER 20 (MEDICAID REPLACEMENT - HMO) Harman Llamas [id number] Harman Llamas 02/13/2023 1 [place] Harman Llamas [id number] Harman Llamas 02/13/[address] [facility] ON OR AFTER 10/25/20 (MEDICAID REPLACEMENT - HMO) Harman Llamas [id number] Harman Llamas Notes Date Note Type Note Provider Name and Address Organization Details Recorded Time 01/09/2023 text/html HTN med hx... wa s being treated for HTN... 1/2 ppd... once week drinker... rare recreational smoker... Nestor Colindres MD Attn: [address] [place], [address], [facility] 01/09/2023 12:11:48 02/13/2023 text/html no fevers/chills/SOB. .. smokes cigarettes 1/2 ppd... history pancreatitis... weekend drinker... in pain management... recreational edible user... low back pain with prolonged standing/sitting.. . Nestor Colindres MD Attn: [address] [place], [address], [facility] 02/13/2023 12:43:32
--- OUTSIDE RECORDS SUMMARY | 2024-08-27 15:19 | XMS_ITS ---
Author Organization [facility] [employer] Address [address] [place], [place] [id number] Care Team Providers Care Social Sciences Instructor Name Role Phone Alise Noguera Primary Care Provider Alise Noguera Unavailable Unavailable REASON FOR VISIT 2 month f/u Medications Medication SIG (Take, Route, Frequency, Duration) Notes Start Date End Date Status Chlorthalidone 25 MG 1 tablet in the morning with food Orally Once a day for 30 day(s) 06/11/2022 Not-Taking Chlorthalidone 50 MG TAKE 1 TABLET BY MOUTH EVERY MORNING WITH FOOD for 90 days 12/13/2024 Active Potassium Chloride ER 10 MEQ 2 tablets with food Orally Once a day for 90 days 12/13/2024 Active Diclofenac Sodium 75 MG twice a day prn pain/inflammation. Take w/ food Oral twice a day 01/11/2020 Not-Taking amLODIPine Besylate 10 MG TAKE 1 TABLET BY MOUTH EVERY DAY for 90 days Active Eliquis 5 MG as directed Orally q 12 hrs for 90 days Not-Taking oxyCODONE-Acetaminophen 7.5-325 MG 1 tablet as needed Orally every 12 hrs Active Sotalol HCl 80 MG 1 tablet Orally ever y 12 hrs for 30 Active Allopurinol 300 MG Take 1 tablet by mouth once daily. to prevent gout Once a day for 90 days Active Omeprazole 20 MG TAKE 1 CAPSULE BY MOUTH EVERY DAY for 90 days Active Social History Sex Assigned At : Social History Observation Description Sex Assigned At Male Encounters Encounter Location Date Provider Diagnosis [facility] / [facility] [address] [place], [place] [id number] 08/23/2024 Alise Noguera Plan Of Treatment Next Appt Details Provider Name:Alise Noguera, 11/23/2024 01:00:00 PM, [address] [place] [address], [place], [id number], Progress Notes * Harman CERVANTES TDOB:1965 (58 yo M)Acc No.[id number]:08/23/2024 Progress Notes Patient: Harman RICCI Provider: Carter Noguera MD :1965 A ge:58 Y S ex:Male Date:08/23/2024 Address:[address] [place], [place] [id number] Subjective: * Chief Complaints: * 1 . [...] Electronic signature of Josue Noguera MD on 08/27/2024 at 03:19 PM CDT Sign off status: Pending * Provider: Carter Noguera MD Date: 0 08/23/2024 Generated for Franca gould/Tianna/Moses on: 0 08/27/2024 03:19 PM CDT
--- OUTSIDE RECORDS SUMMARY | 2024-08-27 15:20 | XMS_ITS | Continuity of Care Document ---
Author Organization [facility] Address [address] [place] [address] [address] [place] [address] Phone Care Team Providers Care Discharge Specialist Name Role Phone Guillermo Adair Unavailable Unavailable [...] Exercise Jan- Manual Therapy Jan- Therapeutic Activities Jan- Neuromuscular Re-Ed Jan- Therapeutic Exercise Jan- Therapeutic Activities Neuromuscular Re-Ed Jan- Therapeutic Exercise Jan- Manual Therapy Jan- Therapeutic Activities Neuromuscular Re-Ed Jan- Therapeutic Exercise Jan- Neuromuscular Re-Ed Therapeutic Activities Therapeutic Exercise Neuromuscular Re-Ed Dec- Therapeutic Exercise Dec- Therapeutic Activities Dec- Therapeutic Activities Dec- Neuromuscular Re-Ed Dec- Therapeutic Exercise Dec- Therapeutic Activities Dec- Neuromuscular Re-Ed Dec- Therapeutic Exercise Dec- Therapeutic Activities Dec- Neuromuscular Re-Ed Dec- Therapeutic Exercise Dec- Therapeutic Activities Dec- Manual Therapy Dec- Therapeutic Exercise Dec- Neuromuscular Re-Ed Dec- Therapeutic Activities Dec- Neuromuscular Re-Ed Dec- Manual Therapy Dec- Therapeutic Exercise Dec- PT Evaluation Moderate Complexity Therapeutic Activities Therapeutic Exercise Advance Directives Directive Yes / No Effective Date File Name No Information Encounters Encounter Description Practice Location Reason(s) For Visit Diagnoses Date Provider Providers Copied on Encounter [facility] [facility], [place], [place], [id number], tel:[phone] [place] No Information [address] [facility], [address], [place], [place], [facility], . tel: [phone] [facility] [facility], [place], [place], [id number], tel:[phone] [place] No Information [address] [address] [facility], [address], [place], [place], [facility], . tel:[phone] Referring Provider: Alise Noguera, [address] [place] [address], [address]. tel:[phone], [id number], [place] [phone] [place] No Information 4 Jd Li. [address] [place] [address], [address], [place], [place], [facility], [place]. tel:[phone] Referring Provider: Alise Noguera, [address] [place] [address], [address]. tel:[phone], [id number], [place] tel:[phone] [place] No Information 4 Jd Li. [address] [place] [address], [address], [place], [facility], [place]. tel:[phone] Referring Provider: Alise Noguera, [address] [place] [address], [address]. tel:[phone], [id number], [place] tel:[phone] [place] No Information 4 Seth Sweet. . Referring Provider: Alise Noguera [address] [place] [address], [address]. tel:[phone], [id number], [place] tel:[phone] [place] No Information 0 4 Mdaonna Peña. . Referring Provider: Alise Noguera [address] [place] [address], [address]. tel:[phone], [id number], [place] tel:[phone] [place] No Information Jul-2 [address] [facility], [address], [place], [place], [facility], . tel: [phone] Referring Provider: Alise Noguera, [address] [place] [address], [address]. tel:[phone] [place] [address], [id number], [place] tel:[phone] [place] No Information Apr-2 4 Winkeler Kee. . Referring Provider: lAise Noguera, [address] [place] [address], [address]. tel:[phone] [place] [address], [place], [place], [id number], tel:[phone] [place] No Information 2 - [address] [facility], [address], [place], [place], [facility], . tel:[phone] Referring Provider: Alise Noguera, [address] [place] [address], [address]. tel:[phone], [id number], [place] tel:[phone] [place] No Information 2 2- 4 Modglin Kiko. . Referring Provider: Alise Noguera [address] [place] [address], [address]. tel:[phone] [place] [address], [place], [place], [id number], [place] tel:[phone] [place] No Information 1 4 Modglin Kiko. . Referring Provider: Alise Noguear, [address] [place] [address], [address]. tel:[phone], [id number], [place] tel:[phone] [place] No Information 2-202 [address] [facility], [address], [place], [facility], . tel: [phone] Referring Provider: Alise Noguera, [address] [place] [address], [address]. tel:[phone], [id number], [place] tel:[phone] [place] No Information Jan-2 0-202 2 Martínez Dakotah. . Referring Provider: Alise Noguera, [address] [place] [address], [address]. tel:[phone], [id number], [place] tel:[phone] [place] No Information 8- [address] [facility], [address], [place], [place], [facility], . tel: [phone] Referring Provider: Alise Noguera, [address] [place] [address], [address]. tel:[phone], [id number], [place] tel:[phone] [place] No Information 1 3-202 2 Martínez Dakotah. . Referring Provider: Alise Noguera [address] [place] [address], [address]. tel:[phone], [id number], [place] tel:[phone] [place] No Information Jan-0 7-202 2 Martínez Dakotah. . Referring Provider: Alise Noguera [address] [place] [address], [address]. tel:[phone] [place] [address], [place], [place], [id number], [place] tel:[phone] [place] No Information Jan-0 4-202 2 Martínez Dakotah. . Referring Provider: Alise Noguera [address] [place] [address], [address]. tel:[phone], [id number], tel:[phone] [place] No Information Sep-3 0- 2 Martínez Dakotah. . Referring Provider: Alise Noguera, [address] [place] [address], [address]. tel:[phone] [place] [address], [id number], [place] tel:[phone] [place] No Information Sep-2 [address] [place] [address], [address], [place], [facility], . tel: [phone] Referring Provider: Alise Noguera, [address] [place] [address], [address]. tel:[phone], [id number], [place] tel:[phone] [place] No Information Sep-2 2- 2 Martínez Dakotah. . Referring Provider: Alise Noguera, [address] [place] [address], [address]. tel:[phone], [id number], tel:[phone] [place] No Information Sep-2 0 2 Modglin Kiko. . Referring Provider: Alise Noguera, [address] [place] [address], [address]. tel:[phone], [id number], [place] tel:[phone] [place] No Information Sep-1 2 Martínez Dakotah. . Referring Provider: Alise Noguera, [address] [place] [address], [address]. tel:[phone] [place] [address], [id number], [place] tel:[phone] [place] No Information Dec- 2 Martínez Avila . Referring Provider: Alise Noguera, [address] [place] [address], [address]. tel:[phone] [facility], [address] [facility] [address], [place], [place], [id number], tel:[phone] [place] No Information Sep-0 2 Martínez Avila . Referring Provider: Alise Noguera, [address] [place] [address], [address]. tel:[phone] Family History Family Member Type Diagnosis Age At Onset No Information Payers Payer name Insurance type Covered alliance party ID Authoriza nicolasa(s) [employer] Medicare Replacement 16 [id number] Medicaid OON Write Off CI 00 Social History Type Description Quantity Date Captured Comments Sex Male Smoking Status No Information Chief Complaint And Reason For Visit No Information Reason For Referral Reason For Referral No Information Plan Of Treatment Date Type Action Status Goal Tobacco cessation counseling completed Goal Tobacco Cessation Counseling completed Goal Tobacco cessation counseling completed Goal Tobacco Cessation Counseling completed History Of Present Illness Encounter Date [...]
--- OUTSIDE RECORDS SUMMARY | 2024-08-27 15:20 | XMS_ITS ---
Author Organization [facility] [employer] [address] Address [address] [place], [place] [address] Care Team Providers Care Core Finisher Name Role Phone Alise Noguera Primary Care Provider Alise Noguera Unavailable Unavailable REASON FOR VISIT 2month f/u Medications Medication SIG (Take, Route, Frequency, Duration) Notes Start Date End Date Status Diclofenac Sodium 75 MG twice a day prn pain/inflammation. Take w/ food Oral twice a day 01/11/2020 Not-Taking amLODIPine Besylate 10 MG TAKE 1 TABLET BY MOUTH EVERY DAY for 90 days Active Chlorthalidone 50 MG TAKE 1 TABLET BY MOUTH EVERY MORNING WITH FOOD for 90 days 12/13/2024 Active Potassium Chloride ER 10 MEQ 2 tablets with food Orally Once a day for 90 days 12/13/2024 Active Chlorthalidone 25 MG 1 tablet in the morning with food Orally Once a day for 30 day(s) 06/11/2022 Not-Taking Allopurinol 300 MG Take 1 tablet by mouth once daily. to prevent gout Once a day for 90 days Active oxyCODONE-Acetaminophen 7.5-325 MG 1 tablet as needed Orally every 12 hrs Active Sotalol HCl 80 MG 1 tablet Orally ever y 12 hrs for 30 Active Eliquis 5 MG as directed Orally q 12 hrs for 90 days Not-Taking Omeprazole 20 MG TAKE 1 CAPSULE BY MOUTH EVERY DAY for 90 days Active Social History Sex Assigned At : Social History Observation Description Sex Assigned At Male Encounters Encounter Location Date Provider Diagnosis [facility] Jones [address] [place], [place] [id number] 08/16/2024 Alise Noguera Plan Of Treatment Next Appt Details Provider Name:Alise Noguera, 11/23/2024 01:00:00 PM, [address] [place], [place], [id number], Progress Notes * Harman CERVANTES TDOB:1965 (58 yo M)Acc No.[id number]:08/16/2024 Progress Notes Patient: Harman RICCI Provider: Carter Noguera MD :1965 A ge:58 Y S ex:Male Date:08/16/2024 Address:[address] [place], [place] [id number] Subjective: * Chief Complaints: * 1 . [...] MD Date: 0 08/16/2024 Generated for Franca gould/Tianna/Moses on: 0 08/27/2024 03:19 PM CDT
--- OUTSIDE RECORDS SUMMARY | 2024-08-27 15:32 | XMS_ITS | Continuity of Care Document ---
Author Organization [employer] [facility] Address [address] [place] [address] [address] [place] [address] Phone Care Team Providers Care Missile Facilities Repairer Name Role Phone Guillermo Adair Unavailable Unavailable [...] Diagnoses Date Provider Providers Copied on Encounter [facility] [employer] [facility], [place], [place], [id number], tel:[phone] [place] No Information 4 Jd Li. [address] [facility], [address], [place], [place], [facility], . tel: [phone] [facility] [employer] [facility], [place], [place], [id number], tel:[phone] [place] No Information 4 Leyda Delgado. [address] [facility], [address], [place], [place], [facility], . tel:[phone] Referring Provider: Alise Noguera, [address] [place] [address], [address]. tel:[phone], [id number], [place] [phone] [place] No Information 4 Jd Li. [address] [place] [address], [address], [place], [place], [facility], [place]. tel:[phone] Referring Provider: Alise Noguera, [address] [place] [address], [address]. tel:[phone], [id number], [place] tel:[phone] [place] No Information 4 Jd Li. [address] [place] [address], [address], [place], [facility], [place]. tel:[phone] Referring Provider: Alise Noguera, [address] [place] [address], [address]. tel:[phone], [id number], [place] tel:[phone] [place] No Information 4 Seth Sweet. . Referring Provider: Alise Noguera [address] [place] [address], [address]. tel:[phone], [id number], [place] tel:[phone] [place] No Information 0 4 Madonna Peña. . Referring Provider: Alise Noguera [address] [place] [address], [address]. tel:[phone], [id number], [place] tel:[phone] [place] No Information Jul-2 4 Muehl Guillermo. [address] [facility], [address], [place], [place], [facility], . tel: [phone] Referring Provider: Alise Noguera, [address] [place] [address], [address]. tel:[phone] [place] [address], [id number], [place] tel:[phone] [place] No Information Apr-2 4 Winkeler Kee. . Referring Provider: Alise Noguera, [address] [place] [address], [address]. tel:[phone] [place] [address], [place], [place], [id number], tel:[phone] [place] No Information 2 - 4 Michaell Guillermo. [address] [facility], [address], [place], [facility], . tel:[phone] Referring Provider: Alise Noguera, [address] [place] [address], [address]. tel:[phone], [id number], [place] tel:[phone] [place] No Information 2 2- 4 Modglin Kiko. . Referring Provider: Alise Noguera [address] [place] [address], [address]. tel:[phone] [place] [address], [place], [place], [id number], [place] tel:[phone] [place] No Information 1 4 Modglin Kiko. . Referring Provider: Alise Noguera, [address] [place] [address], [address]. tel:[phone], [id number], [place] tel:[phone] [place] No Information 2-202 4 Muehl Guillermo. [address] [facility], [address], [place], [facility], . tel: [phone] Referring Provider: Alise Noguera, [address] [place] [address], [address]. tel:[phone], [id number], [place] tel:[phone] [place] No Information Jan-2 0-202 2 Martínez Dakotah. . Referring Provider: Alise Noguera, [address] [place] [address], [address]. tel:[phone], [id number], [place] tel:[phone] [place] No Information 8- 2 Muehl Guillermo. [address] [facility], [address], [place], [facility], . tel: [phone] Referring Provider: Alise Noguera, [address] [place] [address], [address]. tel:[phone], [id number], [place] tel:[phone] [place] No Information 1 3-202 2 Martínez Dakotah. . Referring Provider: Alise Noguera [address] [place] [address], [address]. tel:[phone], [id number], [place] tel:[phone] [place] No Information Jan-0 7-202 2 Martínez Dakotah. . Referring Provider: Alise Noguera [address] [place] [address], [address]. tel:[phone] [place] [address], [place], [id number], [place] tel:[phone] [place] No Information Jan-0 4-202 2 Martínez Dakotah. . Referring Provider: Alise Noguera [address] [place] [address], [address]. tel:[phone], [id number], tel:[phone] [place] No Information Sep-3 0- 2 Martínez Dakotah. . Referring Provider: Alise Noguera, [address] [place] [address], [address]. tel:[phone] [place] [address], [id number], [place] tel:[phone] [place] No Information Sep-2 [address] [place] [address], [address], [place], [facility], . tel: [phone] Referring Provider: Alise Noguera, [address] [place] [address], [address]. tel:[phone], [id number], [place] tel:[phone] [place] No Information Sep-2 2- 2 Martínez Dakotah. . Referring Provider: Alise Noguera, [address] [place] [address], [address]. tel:[phone], [id number], tel:[phone] [place] No Information Sep-2 0 2 Modglin Kiko. . Referring Provider: Alise Noguera, [address] [place] [address], [address]. tel:[phone], [id number], [place] tel:[phone] [place] No Information Sep-1 2 Martínez Dakotah. . Referring Provider: Alise Noguera, [address] [place] [address], [address]. tel:[phone] [place] [address], [id number], [place] tel:[phone] [place] No Information Dec- 2 Martínez Avila . Referring Provider: Alise Noguera, [address] [place] [address], [address]. tel:[phone] [facility], [address] [facility] [address], [place], [place], [id number], tel:[phone] [place] No Information Sep-0 2 Martínez Avila . Referring Provider: Alise Noguera, [address] [place] [address], [address]. tel:[phone] Family History Family Member Type Diagnosis Age At Onset No Information Payers Payer name Insurance type Covered green party ID Authoriza nicolasa(s) [employer] Medicare Replacement 16 [id number] Medicaid OON Write Off CI 00 Social [...]
--- OUTSIDE RECORDS SUMMARY | 2024-08-27 15:32 | XMS_ITS | Continuity of Care Document ---
Author Organization [facility] Address [address] [place] [address] Phone Care Team Providers Care Bead Supervisor Name Role Phone Unavailable Unavailable Unavailable Advance Directives Directive Yes / No Effective Date File Name No Information Encounters Encounter Description Practice Location Reason(s) For Visit Diagnoses Date Provider Providers [facility]ied on Encounter [facility] , [address], [place], [place], [id number], [place] tel:[phone] [place] No Information No Information Family History Family Member Type Diagnosis Age At Onset No Information Payers Payer name Insurance type Covered democrat ID Authoriza tion(s) No Information Social History [...]
== END 2024-08-26 22:15 | disposition home or self-care (01) ==
PROVIDERS: Emergency Provider Physician Assistant
DX: M10.9 Gout, unspecified (principal); I10 Essential (primary) hypertension; I48.0 Paroxysmal atrial fibrillation; K21.9 Gastro-esophageal reflux disease without esophagitis; D53.1 Other megaloblastic anemias, not elsewhere classified; F10.20 Alcohol dependence, uncomplicated; Z79.899 Other long term (current) drug therapy
CPT/HCPCS: 73600; 73620; 99283; A9270; J7512

== ENCOUNTER 2025-03-01 13:35 | Emergency (ER) | payer MEDICARE, MEDICAID, SELFPAY ==
--- OUTSIDE RECORDS SUMMARY | 2024-03-29 07:00 | XMS_ITS ---
Author Organization [facility] Address [address] [place], [place] [address] Care Team Providers Care Sheet Metal Insulator Name Role Phone Poornima Alise Primary Care Provider [phone] Alise Noguera Unavailable Unavailable REASON FOR VISIT [...] Male Encounters Encounter Location Date Provider Diagnosis [employer] [address] [place], [place] [id number] 03/29/2024 Alise Noguera Plan Of Treatment No Information Progress Notes * Harman CERVANTES TDOB:1965 (59 yo M)Acc No.[id number]:03/29/2024 Progress Notes Patient: Harman RICCI Provider: Carter Noguera MD :1965 A ge:58 Y S ex:Male Date:03/29/2024 Address:[address] [place], [place] [id number] Subjective: * Chief Complaints: * 1 . [...] Electronic signature of Josue Noguera MD on 03/02/2025 at 12:52 PM ASSOCIATE PROFESSOR OF SURGERY Sign off status: Pending * Provider: Carter Noguera MD Date: 05/30/2023 Generated for Franca gould/Tianna/eTransmitting on: 05/02/2024 12:52 PM ASSOCIATE PROFESSOR OF SURGERY
--- OUTSIDE RECORDS SUMMARY | 2024-05-03 07:30 | XMS_ITS ---
Author Organization [facility] Address [address] [place], [place] [id number] Care Team Providers Care Dominatrix Name Role Phone Alise Noguera Primary Care Provider Alise Noguera Unavailable Unavailable REASON FOR VISIT follow up Social History Sex Assigned At : Social History Observation Description Sex Assigned At Male Encounters Encounter Location Date Provider Diagnosis [facility] [address] [place], [place] [id number] 05/03/2024 Alise Noguera Plan Of Treatment No Information Progress Notes * Harman CERVANTES TDOB:1965 (59 yo M)Acc No.[id number]:05/03/2024 Progress Notes Patient: Harman RICCI Provider: Carter Noguera MD :1965 A ge:58 Y S ex:Male Date:05/03/2024 Address:[address] [place], [place] [id number] Subjective: * Chief Complaints: * 1 . Follow up. * Medical History: * Ocular Surgical History: Objective: * Vitals: Vision: Spectacle Rx: Contact Lens: Eye Examination: Special Tests: Assessment: Plan: * Treatment: Care Plan: * Problems: * Billing Information: * Visit Code: * Procedure Codes: * Electronic signature of Josue Noguera MD on 03/02/2025 at 12:52 PM AIRPORT REPRESENTATIVE Sign off status: Pending * Provider: Carter Noguera MD Date: 0 05/03/2024 Generated for Franca gould/Tianna/Moses on: 1 05/02/2024 12:52 PM AIRPORT REPRESENTATIVE
--- OUTSIDE RECORDS SUMMARY | 2024-05-26 07:30 | XMS_ITS ---
Author Organization [facility] Address [address] [place], [place] [id number] Care Team Providers Care International Project Engineer Name Role Phone Poornima Alise Primary Care Provider Alise Noguera Unavailable Unavailable REASON FOR VISIT 3 month f/u Medications Medication SIG (Take, Route, Frequency, Duration) Notes Start Date End Date Status amLODIPine Besylate 10 MG TAKE 1 TABLET BY MOUTH EVERY DAY; Duration: 90 days Active Potassium Chloride ER 10 MEQ 2 tablets with food Orally Once a day; Duration: 90 days Active Allopurinol 300 MG Take 1 tablet by marcela once daily. to prevent gout Once a day; Duration: 90 days Active Omeprazole 20 MG TAKE 1 CAPSULE BY MOUTH EVERY DAY; Duration: 90 days Active Sotalol HCl 80 MG 1 tablet Orally ever y 12 hrs; Duration: 30 Active Chlorthalidone 50 MG TAKE 1 TABLET BY MO UT EVERY DAY IN THE MORNING WITH FOOD; Duration: 90 days Active oxyCODONE-Acetaminophen 7.5-325 MG 1 tablet as needed Orally every 12 hrs Active Eliquis 5 MG as directed Orally q 12 hrs; Duration: 90 days Not-Taking Chlorthalidone 25 MG 1 tablet in the morning with food Orally Once a day; Duration: 30 day(s) 06/11/2022 Not-Taking Diclofenac Sodium 75 MG twice a day prn pain/inflammation. Take w/ food Oral twice a day 01/11/2020 Not-Taking Social History Sex Assigned At : Social History Observation Description Sex Assigned At Male Encounters Encounter Location Date Provider Diagnosis [facility] [address] [place], [place] [id number] 05/26/2024 Alise Noguera Plan Of Treatment No Information Progress Notes * Harman CERVANTES TDOB:1965 (59 yo M)Acc No.[id number]:05/26/2024 Progress Notes Patient: Harman RICCI Provider: Carter Noguera MD :1965 A ge:58 Y S ex:Male Date:05/26/2024 Address:[address] [place], [place] [id number] Subjective: * Chief Complaints: * 1 . [...] Noguera MD on 03/02/2025 at 12:52 PM MANAGER REGIONAL SALES Sign off status: Pending * Provider: Carter Noguera MD Date: 05/26/2024 Generated for Franca gould/Tianna/eTransmitting on: 05/02/2024 12:52 PM MANAGER REGIONAL SALES
--- OUTSIDE RECORDS SUMMARY | 2024-08-16 07:00 | XMS_ITS ---
Author Organization [facility] Address [address] [place], [place] [phone] Care Team Providers Care Stage Producer Name Role Phone PoornimaAlise bliss Primary Care [...] Male Encounters Encounter Location Date Provider Diagnosis [facility] [address] [place], [place] [phone] 08/16/2024 Alise Noguera Plan Of Treatment No Information Progress Notes * Harman CERVANTES TDOB:1965 (59 yo M)Acc No.[id number]:08/16/2024 Progress Notes Patient: Harman RICCI Provider: Carter Noguera MD :1965 A ge:58 Y S ex:Male Date:08/16/2024 Address:[address] [place], [place] [phone] Subjective: * Chief Complaints: * 1 . [...] of Josue Noguera MD on 03/02/2025 at 12:53 PM CHIEF CREATIVE OFFICER Sign off status: Pending * Provider: Carter Noguera MD Date: 0 08/16/2024 Generated for Franca gould/Tianna/eTpallavismitting on: 1 05/02/2024 12:53 PM CHIEF CREATIVE OFFICER
--- OUTSIDE RECORDS SUMMARY | 2024-08-23 07:00 | XMS_ITS ---
Author Organization [facility] Address [address] [place], [place] [phone] Care Team Providers Care Digital Content Specialist Name Role Phone PoornimaAlise bliss Primary Care Provider [phone] Alise Noguera Unavailable Unavailable REASON FOR VISIT [...] Male Encounters Encounter Location Date Provider Diagnosis [facility] [address] [place], [place] [phone] 08/23/2024 Alise Noguera Plan Of Treatment No Information Progress Notes * Harman CERVANTES TDOB:1965 (59 yo M)Acc No.[id number]:08/23/2024 Progress Notes Patient: Harman RICCI Provider: Carter Noguera MD :1965 A ge:58 Y S ex:Male Date:08/23/2024 Address:[address] [place], [place] [id number] Subjective: * Chief Complaints: * 1 . [...] Noguera MD on 03/02/2025 at 12:53 PM ACCOUNT SUPPORT MANAGER Sign off status: Pending * Provider: Carter Noguera MD Date: 0 08/23/2024 Generated for Franca gould/Tianna/Moses on: 05/02/2024 12:53 PM ACCOUNT SUPPORT MANAGER
--- OUTSIDE RECORDS SUMMARY | 2024-11-23 07:00 | XMS_ITS ---
Author Organization [employer] Address [address] [place], [place] [address] Care Team Providers Care Treasury Accountant Name Role Phone Alise Noguera Primary Care [...] ever y 12 hrs; Duration: 30 Active amLODIPine Besylate 10 MG TAKE 1 TABLET BY MOUTH EVERY DAY; Duration: 90 days Active Omeprazole 20 MG TAKE 1 CAPSULE BY MOUTH EVERY DAY; Duration: 90 days Active oxyCODONE-Acetaminophen 7.5-325 MG 1 tablet as needed Orally every 12 hrs Active Allopurinol 300 MG Take 1 tablet by mouth once daily. to prevent gout Once a day; Duration: 90 days Active Social History Sex Assigned At : Social History Observation Description Sex Assigned At Male Encounters Encounter Location Date Provider Diagnosis TRAFI Jones [address] [place], [place] [id number] 11/23/2024 Alise Noguera Plan Of Treatment No Information Progress Notes * Harman CERVANTES TDOB:1965 (59 yo M)Acc No.[id number]:11/23/2024 Progress Notes Patient: Harman RICCI Provider: Carter Noguera MD :1965 A ge:59 Y S ex:Male Date:11/23/2024 Address:[address] [place], [place] [id number] Subjective: * Chief Complaints: * 1 . [...] Noguera MD on 03/02/2025 at 12:52 PM BROOM MAKER Sign off status: Pending * Provider: Carter Noguera MD Date: 0 11/23/2024 Generated for Franca gould/Tianna/Faviolaitting on: 05/02/2024 12:52 PM BROOM MAKER
[2025-03-01 13:35] VITALS: BP 146/77; PULSE 86; RESP 16; TEMP 36.4; O2SAT 99
--- OUTSIDE RECORDS SUMMARY | 2025-03-02 12:52 | XMS_ITS | Patient Health Record ---
Author Organization [facility] Address [address] [place], [place] [address] Care Team Providers Care Veterinary Toxicologist Name Role Phone Poornima Alise Primary Care Provider Alise Noguera Unavailable Unavailable Allergies Allergen (clinical drug ingredient) Drug/Non Drug Allergy documented on EMR Reaction Allergy Type Onset Date Status lisinopril Lisinopril Unknown Drug Allergy 11/23/2019 Acti ve angiotensin-converti ng enzyme inhibitor (FN) CHARLES Inhibitors Other Reaction: Yes; ANGIOEDEMA-SEVER E Drug Allergy 11/23/2019 Active Results Component Value Reference Range Notes Lipid Profile Reviewed date:06/22/2024 12:23:16 PM Interpretation: Performing Lab:[facility], [address] [facility] [place], [place] [address], Phone - [phone] Notes/Report: TESTING PERFORMED AT: [] [facility], [address] [place] [address], [address], PHONE: [phone], UNIT OPERATOR: MARCIA RIVAS, PHD This order was split into 2 orders: [id number] (CBC W/AUTO DIFF ), [id number] (Hemoglobin A1C, TSH Only No Reflex,Lipid Profile,CMP) CHOLESTEROL, TOTAL 138 100-199 MG/DL TRIGLYCERIDES 182 0-149 MG/DL HDL CHOLESTEROL 36 >39 MG/DL LDL/HDL RATIO 2.0 0.0-3.6 RATIO LDL/HDL RATIO MEN WOMEN 1/2 AVG.RISK 1.0 1.5 AVG.RISK 3.6 3.2 2X AVG.RISK 6.2 5.0 3X AVG.RISK 8.0 6.1 LDL CHOL CALC ([facility]) 71 0-99 MG/DL Thyroid Stimulating Hormone Reviewed date:06/20/2024 10:46:56 AM Interpretation: Performing Lab:[facility], [address] [facility] [address], [place], [place] [address], Phone - [phone] Notes/Report: TESTING PERFORMED AT: [] [facility], [address] [place], [address], PHONE: [phone], UNIT OPERATOR: MARCIA RIVAS, PHD This order was split into 2 orders: [id number] (CBC W/AUTO DIFF ), [id number] (Hemoglobin A1C, TSH Only No Reflex,Lipid Profile,CMP) TSH 3.210 0.450-4.500 UIU/ML CBC W/AUTO DIFF Reviewed date:06/22/2024 12:22:49 PM Interpretation: Performing Lab:[facility], [facility] ([facility]), [address] [place], [place] [address], Phone - [phone] Notes/Report: Test Performed at [facility], [address] [facility] , [place] [address]. [id number]. Party Demonstrator: Fariha Hussein MD. CLIA# [id number] This order was split into 2 orders: [id number] (CBC W/AUTO DIFF ), [id number] (Hemoglobin A1C, TSH Only No Reflex,Lipid Profile,CMP) [...] 0.0-10.0 % Basophil % 1.1 0.0-3.0 % Hemoglobin A1C Reviewed date:06/20/2024 10:36:50 AM Interpretation: Performing Lab: [facility], [address] [place] [id number], Phone - [phone] Notes/Report: TESTING PERFORMED AT: [] [employer], [address], PHONE: [phone], UNIT OPERATOR: MARCIA RIVAS, PHD This order was split into 2 orders: [id number] (CBC W/AUTO DIFF ), [id number] (Hemoglobin A1C, TSH Only No Reflex,Lipid Profile,CMP) HEMOGLOBIN A1C 5.9 4.8-5.6 % PREDIABETES: 5.7 - 6.4 DIABETES: >6.4 GLYCEMIC CONTROL FOR ADULTS WITH DIABETES: <7.0 CMP Reviewed date:06/22/2024 12:25:01 PM Interpretation: Performing Lab: [facility], [address] [place] [address], [place], [place] [address], Phone - [phone] Notes/Report: TESTING PERFORMED AT: [] [employer], [address], PHONE: [phone], UNIT OPERATOR: MARCIA RIVAS, PHD This order was split into 2 orders: [id number] (CBC W/AUTO DIFF ), [id number] (Hemoglobin A1C, TSH Only No Reflex,Lipid Profile,CMP) [...] 0-40 IU/L ALT (SGPT) 98 0-44 IU/L Reason For Referral Reason low dose chest CT Pt lives in [place] Diagnosis 1 Cigarette nicotine d ependence without complication (F17.210) Diagnosis 2 Screening for lung c ancer (Z12.2) Referral Organization [facility] Referring Provider First Name Alise Referring Provider Last Name Poornima Referring Provider Speciality Internal M edicine Referred Provider Specialty Radiology General Notes Sharon Montes 2024 02:42:01 PM >Schedule low dose lung ca screening chest ct @ [address] for 09/08/24 @ 1:30, faxed referal to [phone] and pt notifed via telephone @ [phone]. Clinical Notes Alise Noguera 10/10 08:28:27 AM >added diagnosis of Screen lung CA Referral Priority Routine Referral Appointment Date 09/08/2024 Medications Medication SIG (Take, Route, Frequency, Duration) Notes Start Date End Date Status Sotalol HCl 80 MG 1 tablet Orally [...] Once a day; Duration: 90 days Active Diclofenac Sodium 75 MG twice a day prn pain/inflammation. Take w/ food Oral twice a day 01/11/2020 Not-Taking Immunizations Vaccine Route Administration Date Status Comme nts COVID VAC BOOSTER - MODERNA IM Intramuscular 07/18/2021 Administered SARS-COV-2 (COVID-19) Vaccine 100mcg/0.5mL IM Intramuscular 01/24/2021 Administered Social History Tobacco Use: Social History [...] Problem Status W/U Status Risk Notes Problem Long-term current use of anticoagulant (577075942) halfway (current) use of anticoagulants (Z79.01) Active confirmed Problem Tobacco user (490539646) Cigarette nicotine dependence without complication (F17.210) Active confirmed Problem Atrial fibrillation (84735899) Atrial fibrillation, unspecified type (I48.91) Active confirmed Problem Benign neoplasm of colon (53297755) Adenomatous polyp of colon, unspecified part of colon (D12.6) Active confirmed 2021, repeat SEVEN years Problem Degeneration of lumbar intervertebral disc (81321557) Degeneration, intervertebral disc, lumbar (M51.36) Active confirmed Problem 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) Active confirmed Problem Hyperlipidemia (61389434) Hyperlipidemia, unspecified (E78.5) 014 Active confirmed Problem Chronic pain (04762181) Other chronic pain (G89.29) 015 Active confirmed Problem Essential hypertension (54762458) Essential (primary) hypertension (I10) 012 Active confirmed Problem 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) 019 Active confirmed Problem Primary gout (86269193) Idiopathic gout, unspecified ankle and foot (M10.079) 017 Active confirmed Problem Low back pain (575752074) Low back pain (M54.5) 012 Active confirmed CHRONIC Problem Nicotine dependence (disorder) (49887732) Nicotine dependence, cigarettes, w oth disorders (F17.218) 018 Active confirmed Problem Elevated levels of transaminase & lactic acid dehydrogenase (637423358) Nonspec elev of levels of transamns & lactic acid dehydrgnse (R74.0) 016 Active confirmed Problem Alcohol abuse with other alcohol-induced disorder (F10.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) 016 Inactive confirmed Vital Signs Heart Rate 73 /min 08/24/2024/u appt Routi ne Checkup, no other concerns [place] RMA Temperature 98.5 degrees Fahrenheit 08/24/2024/u appt Routine Checkup, no other concerns [place] RMA Oximetry 96 % 08/24/2024u appt Routi ne Checkup, no other concerns [place] RMA Blood pressure diastolic 88 mm Hg 08/24/2024/u appt Routine Checkup, no other concerns [place] RMA Weight-kg [...] RMA Encounters Encounter Location Date Provider Diagnosis [facility] [address] [place], [place] [id number] 06/16/2024 Alise Poornima Essential (primary) hypertension I10 ; Hyperlipidemia, unspecified E78.5 ; Nicotine dependence, cigarettes, w oth disorders F17.218 ; Abnormal blood chemistry R79.9 ; Alcohol abuse with other alcohol-induced disorder F10.188 and Degeneration of intervertebral disc of lumbar region with discogenic back pain and lower extremity pain M51.362 [facility] [address] [place], [place] [address] 08/24/2024 Alise Poornima Nicotine dependence, cigarettes, w [...] Treatment Notes Treatment Clinical Notes Section Notes 06/16/2024 Hyperlipidemia, unspecified (ICD-10 - E78.5) 06/16/2024 Essential (primary) hypertension (ICD-10 - I10) 08/24/2024 Essential (primary) hypertension (ICD-10 - I10) controlled. CPM 08/24/2024 Nicotine dependence, cigarettes, w oth disorders (ICD-10 - F17.218) back up to 8 cigarettes/day 08/24/2024 Atrial fibrillation, unspecified type (ICD-10 - I48.91) in sinus, rate controlled. Cont sotalol. F/u as scheduled cardiology 06/16/2024 Nicotine dependence, cigarettes, w oth disorders (ICD-10 - F17.218) approx 4 cigs/day 06/16/2024 Abnormal blood chemistry (ICD-10 - R79.9) 08/24/2024 Screening for lung cancer (ICD-10 - Z12.2) refer low dose CTlungs 08/24/2024 Alcohol abuse with other alcohol-induced disorder (ICD-10 - F10.188) congratulated. encouraged to continue 06/16/2024 Alcohol abuse with other alcohol-induced disorder [...] X ray : Chest 2 Views 10/09/2023 Insurance Providers Payer Name Payer Address Payer Phone Subscriber Number Group Number Insured Name Patient Relationship to Insured Coverage Start Date Coverage End Date [employer] [address] [address] [place] [address] [id number] Harman Llamas Self - patient is the insured 9 [employer] [address] [address] [place] [address] [phone] [id number] LlamasHarman Self - patient is the insured 0 Medical (General) History Medical History History ICD Code Essential (primary) hypertension I10 Alcohol-induced chronic pancreatitis K86 .0 Idiopathic gout, unspecified ankle and f oot M10.079 Nicotine dependence, cigarettes, w oth d isorders F17.218 Atrial fibrillation, unspecified type I4 8.91
--- OUTSIDE RECORDS SUMMARY | 2025-03-02 12:52 | XMS_ITS | Clinical Summary ---
Author Organization [facility] [address] Address [address] [place] [address] Care Team Providers Care Research Administrator Name Role Phone Alise Noguera MD Primary [...] (06/19/2021): Added automatically from request for surgery [id number] Localized osteoarthritis of left knee 09/06/2020 Bulging [...] on file Legal Sex Male 7:57 PM CHEMIST PROTEINS Gender Identity Not on file Sexual Orientation Not on file Last Filed Vital Signs Vital Sign Reading Time Taken Comments Blood Pressure 158/82 04/01/2024 1:31 PM CHEMIST PROTEINS Pulse 82 04/01/2024 1:31 PM CHEMIST PROTEINS Temperature 36.2 C (97.1 F) 07/09/2020 3:10 PM CDT Respiratory Rate 17 11/04/2023 11:38 AM CDT Oxygen Saturation 99% 04/01/2024 1:31 PM CHEMIST PROTEINS Inhaled Oxygen Concentration - - Weight 75.8 kg (167 lb 1.6 oz) 04/01/2024 1:31 P M CHEMIST PROTEINS Height 170.2 cm (5' 7) 04/01/2024 1:31 PM CHEMIST PROTEINS Body Mass Index 26.17 04/01/2024 1:31 PM CHEMIST PROTEINS Plan of Treatment Health Maintenance Due Date Last Done Comments Depression Screening 1965 Hepatitis C Screening 1965 Prostate Cancer Screening-PSA 1966 DTaP/Tdap/Td Vaccine (1 - Tdap) 1977 Hepatitis B Screening 1984 Regular Well Visit/Exam 18-64 1984 Pneumococcal vaccine <65 (1 of 2 - PCV) 1985 Zoster Vaccine (1 of 2) 2016 Influenza Vaccine (#1) 2024 Colon Cancer Screening-Colonoscopy 07/05/20312021 Colon Cancer Screening-CT Colonography Discontinued Colon Cancer Screening-DNA Stool Discontinued 07/05/19 Colon Cancer Screening-FIT Discontinued 07/04/2021 Colon Cancer Screening-Sigmoidoscopy Discontinued 06/25 Procedures Procedure Name Priority Date/Time Associated Diagnosis Comments COLONOSCOPY 07/04/2021 10:43 AM CHEMIST PROTEINS from Last 3 Months or Most Recently Relevant to Health Maintenance Results * COLONOSCOPY (07/04/2021 10:43 AM CHEMIST PROTEINS) Anatomical Region Laterality Modality Other Narrative Procedure Note Flaco Tian MD - 07/04/2021 10:43 AM CST [facility] Endoscopy Lab Patient Name: Harman Llamas Procedure Date: 07/04/2021 10:43 AM Date of : 1965 Admit Type: Outpatient Age: 55 Gender: Male Note Status: Finalized Attending MD: Flaco Tian M.D. Procedure Date: 07/04/2021 Procedure: Colonoscopy Indications: Screening for colorectal malignant neoplasm, Thisis the patient's first colonoscopy Providers: Flaco Tian M.D., XANDER Corea (Anesthesia Staff), Ehsan Hilario RN, Hanny, Financial Cost Analyst Referring MD: Alise Noguera M.D. Medicines: Monitored [...] physician, the nurse, the anesthesiologist and the research dietitian in theprocedure room. Mental Status Examination: alert [...] for surveillance. Procedure Code(s): --- Professional --- 33014, Colonoscopy, flexible; with removal of tumor(s), polyp(s), or other lesion(s) by hotbiopsy forceps Diagnosis Code(s): --- Professional --- Z12.11, Encounter for screening for malignantneoplasm of colon D12.2, Benign neoplasm of ascending colon K64.8, Other hemorrhoids CPT copyright 2020 [employer]. All rights reserved. The codes documented in this report are preliminary and upon reconciliation specialist reviewmay be revised to meet current compliance requirements. Electronically signed by Flaco Tian M.D. Flaco Tian M.D. 07/04/2021 11:09:02 AM Number of Addenda: 0 Note Initiated On: 07/04/2021 10:43 AM Flaco Tian MD ENDOSCOPY PROCEDURES Fi nal Result from Last 3 Months or Most Recently Relevant to Health Maintenance Insurance IDPA HUMANA MEDICARE HMO HUMANA CHOICE MEDICARE O IDPA IDPA [facility] MEDICARE HMO Care Teams Research Administrator Relationship Specialty Start Date End Date Alise Noguera MD [address] [place] [address] PCP - General 12/23/16
--- OUTSIDE RECORDS SUMMARY | 2025-03-02 12:53 | XMS_ITS | Data Portability ---
[facility] Organization [facility] Address [address] [place] [address] Assessment No assessment recorded. Plan of Treatment [...] By Organization Details Last Modified Time 01/09/2023 [id number] gout: care instructions Not available 01/09/2023 12:10:26 osteoarthritis: care instructions Not available 01/09/2023 12:10:26 Quitting Tobacco : Care Instructions Not available 01/09/2023 12:10:26 learning about high blood pressure Not available 01/09/2023 12:10:26 high cholesterol : care instructions Not available 01/09/2023 12:10:26 02/13/2023 [id number] gout: care instructions Not available 02/13/2023 12:42:10 [...] Address Organization Details Recorded Time Essential hypertension 10312089 Active 2022 DANY Maynard [facility] 3 11:44:31 Problem Notes None recorded. Procedures Surgical History Date Name Laterality Status Provider Name and Address Organization Details Recorded Time 9 operation on fingernail completed Ángela Loredo MA [facility] 01/09/2023 11:47:36 8 Eye Surgery completed Ángela Loredo MA [facility] 01/09/2023 11:46:45 2 procedure on elbow completed Ángela Loredo MA [facility] 01/09/2023 11:47:01 Imaging Results None recorded. Procedure Notes None recorded. Medical Equipment None Reported. Allergies Allergen ID Allergen Name Allergen Category Reaction Reaction Severity Criticality Documentation Date Start Date Code Code System Note Provider Name and Address Organization Details Recorded Time 190215 Product containin g penicilli n (product) medicatio n wheezing moderate high 01/09/2023 60596 8001 [facility]ED [facility] 11:[facility]59 Medications Name Sig Start Date [...] Not Available Vitals Date Recorded Body height Provider Name an d Address Organization Details Last Updated DateTime 05/18/2023 172.72 cm Sophie Lockhart LPN [facility] 05/18 10:55:30 Date Recorded Body height Body mass index (BMI) Body weight Oxygen saturation Oxygen saturation in Arterial blood by Pulse oximetry Heart rate Respiratory rate Body temperature Systolic And Diastolic Provider Name and Address Organization Details Last Updated DateTime 3 172.72 cm 22.9 kg/m2 63816.9 6 g 99 % 99 % 86 /min 16 /min 97.9 [degF] 157/101 mm[Hg] Ángela Loredo MA [facility] 3 11:42:52 Date Recorded Body height Body mass index (BMI) Body weight Oxygen saturation Oxygen saturation in Arterial blood by Pulse oximetry Pain severity - 0-10 verbal numeric rating [Score] - Reported Heart rate Respiratory rate Body temperature Systolic And Diastolic Provider Name and Address Organization Details Last Updated DateTime 3 172.72 cm 23.5 kg/m2 92515.6 2 g 98 % 98 % 0 110 /min 17 /min 98.8 [degF] 164/103 mm[Hg] Jimy Madrid MA [facility] 3 12:29:03 Social History Question Answer Notes LastModified by Organizat ion Details LastModified Time Tobacco Smoking Status Current Every Day Smoker Ángela Loredo MA null, [facility] 01/09/2023 11:45:14 Do You Have An Advance Directive? Yes Information n ot available 01/09/2023 How Many Years Have You Consumed Alcohol? 20 Information not available 01/09/2023 Are You Blind Or Do You Have Difficulty Seeing? Yes Information n ot available 01/09/2023 What Is Your Level Of Caffeine Consumption? Moderate Information not available 01/09/2023 In The 14 Days Before Symptom Onset, Have You Had Close Contact With A Laboratory-confirm ed COVID-19 While That Case Was Ill? No Information n ot available 01/09/2023 In The 14 Days Before [...] Of Diet Are You Following? REGULAR Information n ot available 01/09/2023 Are There Any Guns Present In Your Home? No Information not available 01/09/2023 What Was The Date Of Your Most Recent Tobacco Screening? 01/09/2023 Information not available 01/09/2023 How Many Children Do You Have? 11 Information not available 01/09/2023 What Is Your Current Pack Years? 30ormorepacky ears Information not available 01/09/2023 Do You Use [...] PPD Information not available 01/09/2023 Do You Use Sunscreen Routinely? No Information not available 01/09/2023 Has Tobacco Cessation Counseling Been Provided? Yes Information not available 01/09/2023 On What Date Was Tobacco Cessation Counseling Provided? 01/09/2023 Information not available 01/09/2023 How Many Years Have You Smoked Tobacco? 40 Information not available 01/09/2023 Sex: Male Functional Status Question Answer Note LastModified by Organizat ion Details LastModified Time Do you use any illicit or recreational drugs? No Information not available 01/09/2023 Do you or have you ever used any other forms of tobacco or nicotine? No Information not available 01/09/2023 What is your level of alcohol consumption? Occasional Information not available 01/09/2023 Are you currently employed? No Information not available 01/09/2023 Are you able to care for yourself independently? Yes Information not available 01/09/2023 What is your exercise level? Occasional Information not available 01/09/2023 Mental Status Question Answer Note LastModified by Organization D etails LastModified Time Do you feel stressed (tense, restless, nervous, or anxious, or unable to sleep at night)? [id number] Information not available 01/09/2023 Family History Nothing Reported. Medical History Condition Response Coronary Artery Disease N Other N High Blood Pressure Y Atrial Fibrillation N Thyroid Problems N Kidney or Bladder Problems N GI Problems N Depression N COPD N Blood Clots N Skin Problems N Eating Disorder N Anemia N Heart Attack ([place]) N Anxiety Disorder N Diabetes N Muscle, Joint, or Bone Problems Y Seizures/Epilepsy N Acid Reflux (GERD) N Cancer N Stroke N Asthma N Allergies N ADHD N Substance Abuse N High Cholesterol Y Hepatitis N Liver Disease N Schizophrenia N Headaches Y Heart Failure N Osteoporosis N Past Encounters Encounter ID Performer Location Encounter Start Date Encounter Closed Date Diagnosis/Indication Diagnosis SNOMED-CT Code Diagnosis ICD10 Code Diagnosis IMO Codes Diagnosis Note [id number] Nestor Colindres MD [address] [address] 01/09/2023 11:26:28 01/14/2023 14:19:26 Smoker 11421558 F17.200 1/2 ppd Body mass index 20-24 - normal 046407146 Z68.22 Gout 37287734 M10.9 h/o gout in right foot.. reduced alcohol... History of pancreatitis 3541352068 9107 Z87.19 reduced alcohol... Osteoarthritis 694309601 M19.90 low back and left knee... in pain management ... Essential hypertension 38662755 I10 meds and follow up... Hyperlipidemia 00178734 E78.5 labs and follow up... Paroxysmal atrial fibrillation 187085605 I48.0 seeing cardiology ... [id number] Nestor Colindres MD [address] [address] 02/13/2023 12:20:03 02/16/2023 10:11:50 Body mass index 20-24 - normal 214829570 Z68.22 bmi=23.5 Essential hypertension 99607157 I10 meds and follow up... dos not take daily... amlodipine 10 mg/chortha lidone 50 mg/potassi um 10 meq Smoker 52477331 F17.200 1/2 ppd Gout 94477474 M10.9 h/o gout in right foot.. reduced alcohol... allopurino l... History of pancreatitis 4927800998 9107 Z87.19 reduced alcohol... Osteoarthritis 965904404 M19.90 low back and left knee... in pain management ... Hyperlipidemia 23681197 E78.5 labs and follow up... Paroxysmal atrial fibrillation 118895155 I48.0 seeing cardiology ... [facility] Health Concerns Section Related Observation LastModified by Organization Detai ls LastModified Time None Recorded Concern Status LastModified by Organization Details LastModified Time None Recorded Advance Directives Directive Y: Payers Insurance Date Sequence Insurance Name Policy Number Policy Echevarria Covered Member ID Echevarria Member ID Guarantor Name 02/13/2023 2 [place] WHEN MEDICARE OR MEDICARE REPLACEMENT PRIMARY) Harman Llamas [id number] Harman Llamas 05/18/2023 2 [facility] - DOS ON OR AFTER 20 (MEDICAID REPLACEMENT - HMO) Harman Llamas [id number] Harman Llamas 05/18/2023 1 [place] Harman Llamas [id number] Harman Llamas 05/18/2023 2 [facility] ON OR AFTER 04/27/2020 - DUAL ELIGIBLE (MEDICARE REPLACEMENT/AD VANTAGE - HMO) Harman Llamas [id number] Harman Llamas 05/18/2023 3 *SELF PAY* Se guru Llamas 05/18/2023 SLIDING FEE SCHEDULE - DISCOUNT Harman Llamas 02/17/2023 1 [place] Harman Llamas [id number] Harman Llamas 05/05/2023 1 *SELF PAY* Se guru Llamas 02/23/2023 1 [employer] - GOLD PLUS (MEDICARE REPLACEMENT/AD VANTAGE - HMO) NONE Harman Llamas [id number] Harman Llamas 06/16/2023 [place] WHEN [place] OR MEDIC[place] REPLACEMENT PRIMARY) Harman Llamas [id number] Harman Llamas 05/15/2023 [place] N[facility] Harman Llamas [id number] Harman Llamas 02/23/2023 2 [facility] ON OR AFTER 10/25/20 (MEDICAID REPLACEMENT - HMO) Harman Llamas [id number] Harman Llamas 01/26/2023 2 [facility] ON OR AFTER 10/25/20 (MEDICAID REPLACEMENT - HMO) Harman Llamas [id number] Harman Llamas 05/05/2023 1 [place] Harman Llamas [id number] Harman Llamas 10/07/2022 1 [place] Harman Llamas [id number] Harman Llamas 05/15/2023 1 [place] [employer] - DUAL ELIGIBLE (MEDICARE REPLACEMENT/AD VANTAGE - HMO) [id number] Harman Llamas [id number] Harman Llamas Notes Date Note Type Note Provider Name and Address Organization Details Recorded Time 01/09/2023 text/html ROS as noted in the HPI HTN med hx... was being treated for HTN... 1/2 ppd... once week drinker... rare recreational smoker... Nestor Colindres MD Attn: Accounting,[address], [place], [address], [facility] 01/09/2023 12:11:48 02/13/2023 text/html ROS as noted in the HPI no fevers/chills/SOB. .. smokes cigarettes 1/2 ppd... history pancreatitis... weekend drinker... in pain management... recreational edible user... low back pain with prolonged standing/sitting.. . Nestor Colindres MD Attn: Accounting,[address], [place], [address], [facility] 02/13/2023 12:43:32
--- OUTSIDE RECORDS SUMMARY | 2025-03-02 15:00 | XMS_ITS | Clinical Summary ---
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 Gender Identity Not on file Sexual Orientation Not on file Last Filed Vital Signs Vital Sign Reading Time Taken Comments Blood Pressure 158/82 04/01/2024 1:31 PM FITNESS CENTER ATTENDANT Pulse 82 04/01/2024 1:31 PM FITNESS CENTER ATTENDANT Temperature 36.2 C (97.1 F) 07/09/2020 3:10 PM CDT Respiratory Rate 17 11/04/2023 11:38 AM CDT Oxygen Saturation 99% 04/01/2024 1:31 PM FITNESS CENTER ATTENDANT Inhaled Oxygen Concentration - - Weight 75.8 kg (167 lb 1.6 oz) 04/01/2024 1:31 P M FITNESS CENTER ATTENDANT Height 170.2 cm (5' 7) 04/01/2024 1:31 PM FITNESS CENTER ATTENDANT Body Mass Index 26.17 04/01/2024 1:31 PM FITNESS CENTER ATTENDANT Plan of Treatment Health Maintenance Due Date [...] Associated Diagnosis Comments COLONOSCOPY 07/04/2021 10:43 AM FITNESS CENTER ATTENDANT from Last 3 Months or Most Recently Relevant to Health Maintenance Results * COLONOSCOPY (07/04/2021 10:43 AM FITNESS CENTER ATTENDANT) Anatomical Region Laterality Modality Other Narrative Procedure Note Flaco Tian MD - 07/04/2021 10:43 AM CST [facility] Endoscopy Lab Patient Name: Harman Llamas Procedure Date: 07/04/2021 10:43 AM Date of : 1965 Admit Type: Outpatient Age: 55 Gender: Male Note Status: Finalized Attending MD: Flaco Tian M.D. Procedure Date: 07/04/2021 Procedure: Colonoscopy Indications: Screening for colorectal malignant neoplasm, Thisis the patient's first colonoscopy Providers: Flaco Tian M.D., XANDER Corea (Anesthesia Staff), Ehsan Hilario RN, Hanny, Artist Representative Referring MD: Alise Noguera M.D. Medicines: Monitored [...] physician, the nurse, the anesthesiologist and the geneticist in theprocedure room. Mental Status Examination: alert [...] for surveillance. Procedure Code(s): --- Professional --- 41379, Colonoscopy, flexible; with removal of tumor(s), polyp(s), or other lesion(s) by hotbiopsy forceps Diagnosis Code(s): --- Professional --- Z12.11, Encounter for screening for malignantneoplasm of colon D12.2, Benign neoplasm of ascending colon K64.8, Other hemorrhoids CPT copyright 2020 [employer]. All rights reserved. The codes documented in this report are preliminary and upon broadcaster reviewmay be revised to meet current compliance requirements. Electronically signed by Flaco Tian M.D. Flaco Tian M.D. 07/04/2021 11:09:02 AM Number of Addenda: 0 Note Initiated On: 07/04/2021 10:43 AM Flaco Tian MD ENDOSCOPY PROCEDURES Fi nal Result from Last 3 Months or Most Recently Relevant to Health Maintenance Insurance IDPA HU[employer]NA MEDICARE HMO HUMANA CHOICE MEDICARE O IDPA IDPA [facility] MEDICARE HMO Care Teams Wire Charger Relationship Specialty Start Date End Date Alise Noguera MD [address] [place] [address] PCP - General 12/23/16
== END 2025-03-01 16:02 | disposition left against medical advice (07) ==
LOC: ANHED 15:38
DX: R04.2 Hemoptysis (principal)
CPT/HCPCS: 99199

== ENCOUNTER 2025-04-02 01:12 | Emergency (ER) | payer MEDICARE, OTHER, SELFPAY ==
--- OUTSIDE RECORDS SUMMARY | 2003-12-21 18:00 | XMS_ITS | Continuity of Care Document ---
Author Organization [facility] Address [address] [place] [address] Phone Care Team Providers Care Building Maintenance Technician Name Role Phone Unavailable Unavailable Unavailable Advance Directives Directive Yes / No Effective Date File Name No Information Encounters Encounter Description Practice Location Reason(s) For Visit Diagnoses Date Provider Providers Copied on Encounter [facility] , [address], [place], [place], [id number], [place] tel:[phone] [place] [facility] [place] No Information No Information Family History Family Member Type Diagnosis Age At Onset No Information Payers Payer name Insurance type Covered constitution party ID Authoriza tion(s) No Information Social History Type Description Quantity Date Captured Comments Sex Male Smoking Status No Information Vital Signs Date / Time: Height Weight BMI Pulse Rate Blood Pressure Temperature Respiratory Rate Body Surface Area Head Circumference Head Circ. Percentile Wt./Mateo. Percentile BMI percentile Pulse Ox Inhaled Ox 12:26 PM 0.00 in 182.00 lbs 0.00 kg/m eter (2) 80 /min 160/70 mm[Hg] 98.80 F 18 /min 0.00 cm 0 % Chief Complaint And Reason For Visit No Information Reason For Referral Reason For Referral No Information History Of Present Illness Encounter Date Complaint History Of Prese nt Illness No Information Functional Status Date Functional Assessmen t No Information Instructions Date Instruction Additional Infor mation No Information Assessments Type Assessment Date No Information Patient Care Teams Name Effective Dates (start - stop) Status Members No Information
--- OUTSIDE RECORDS SUMMARY | 2003-12-21 18:00 | XMS_ITS | Continuity of Care Document ---
Author Organization [facility] Address [address] [place] [address] Phone Care Team Providers Care Business Office Manager Name Role Phone Unavailable Unavailable Unavailable Advance Directives Directive Yes / No Effective Date File Name No Information Encounters Encounter Description Practice Location Reason(s) For Visit Diagnoses Date Provider Providers Copied on Encounter [facility] , [address], [place], [place], [id number], [place] tel:[phone] [facility] [place] No Information No Information Family History Family Member Type Diagnosis Age At Onset No Information Payers Payer name Insurance type Covered alliance party ID Authoriza tion(s) No Information Social [...]
--- OUTSIDE RECORDS SUMMARY | 2023-11-17 01:35 | XMS_ITS | Continuity of Care Document ---
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 Name Role Phone Guillermo Adair Unavailable Unavailable Procedures Procedure Date Therapeutic Activities Neuromuscular Re-Ed Therapeutic Exercise Hot or Cold Pack Progress Note Therapeutic Activities Neuromuscular Re-Ed Hot or Cold Pack Therapeutic Activities Neuromuscular Re-Ed Therapeutic Exercise Hot or Cold Pack Therapeutic Activities Therapeutic Exercise Neuromuscular Re-Ed Therapeutic Activities Neuromuscular Re-Ed Therapeutic Exercise Therapeutic Activities Neuromuscular Re-Ed Therapeutic Exercise Hot or Cold Pack Therapeutic Activities Neuromuscular Re-Ed Therapeutic Activities Neuromuscular Re-Ed Therapeutic Exercise Hot or Cold Pack Therapeutic Activities Neuromuscular Re-Ed Therapeutic Exercise Therapeutic Activities Neuromuscular Re-Ed Therapeutic Exercise PT Evaluation Moderate Complexity Neuromuscular Re-Ed Therapeutic Activities Therapeutic Activities Oct- Neuromuscular Re-Ed Jan- Therapeutic Exercise Jan- Manual Therapy Jan- Therapeutic Activities Neuromuscular Re-Ed Jan- Therapeutic Exercise Jan- Therapeutic Activities Neuromuscular Re-Ed Jan- Therapeutic Exercise Jan- Manual Therapy Jan- Therapeutic Activities Neuromuscular Re-Ed Jan- Therapeutic Exercise Jan- Neuromuscular Re-Ed Therapeutic Activities Therapeutic Exercise Neuromuscular Re-Ed Dec- Therapeutic Exercise Dec- Therapeutic Activities Dec- Neuromuscular Re-Ed Dec- Therapeutic Activities Dec- Therapeutic Exercise Dec- Therapeutic Activities Dec- Neuromuscular Re-Ed Dec- Therapeutic Exercise Dec- Therapeutic Activities Dec- Neuromuscular Re-Ed Dec- Therapeutic Exercise Dec- Therapeutic Activities Dec- Neuromuscular Re-Ed Dec- Manual Therapy Dec- Therapeutic Exercise Dec- Therapeutic Activities Dec- Neuromuscular Re-Ed Dec- Therapeutic Exercise Dec- Manual Therapy Dec- PT Evaluation Moderate Complexity Therapeutic Exercise Dec- Therapeutic Activities Advance Directives Directive Yes / No Effective Date File Name No Information Encounters Encounter Description Practice Location Reason(s) For Visit Diagnoses Date Provider Providers Copied on Encounter [facility] [facility], [place], [place], [id number], tel:[phone] [place] No Information 4 Jd Li. [address] [facility], [address], [place], [place], [facility], . tel: [phone] [facility] [facility], [place], [place], [id number], tel:[phone] [place] No Information 4 Leyda Delgado. [address] [facility], [address], [place], [place], [facility], . tel:[phone] Referring Provider: Alise Noguera, [address] [place] [address], [address]. tel:[phone], [id number], [place] [phone] [place] No Information 4 Jd Li. [address] [place] [address], [address], [place], [place], [facility], [place]. tel:[phone] Referring Provider: Alise Noguera, [address] [place] [address], [address]. tel:[phone], [id number], [place] tel:[phone] [place] No Information 4 Jd Li. [address] [place] [address], [address], [place], [facility], [place]. tel:[phone] Referring Provider: Alise Noguera, [address] [place] [address], [address]. tel:[phone], [id number], [place] tel:[phone] [place] No Information 4 Seth Sweet. . Referring Provider: Alise Noguera [address] [place] [address], [address]. tel:[phone], [id number], [place] tel:[phone] [place] No Information 0 4 Madonna Peña. . Referring Provider: Alise Noguera [address] [place] [address], [address]. tel:[phone], [id number], [place] tel:[phone] [place] No Information Jul-2 4 Muehl Guillermo. [address] [facility], [address], [place], [facility], . tel: [phone] Referring Provider: Alise Noguera, [address] [place] [address], [address]. tel:[phone] [place] [address], [id number], [place] tel:[phone] [place] No Information Apr-2 4 Winkeler Kee. . Referring Provider: Alise Noguera, [address] [place] [address], [address]. tel:[phone] [place] [address], [place], [place], [id number], tel:[phone] [place] No Information 2 - 4 Michaell Guillermo. [address] [facility], [address], [place], [facility], . tel:[phone] Referring Provider: Alise Noguera, [address] [place] [address], [address]. tel:[phone], [id number], [place] tel:[phone] [place] No Information 2 2- 4 Modglin Kiko. . Referring Provider: Alise Noguera [address] [place] [address], [address]. tel:[phone] [place] [address], [place], [place], [id number], [place] tel:[phone] [place] No Information 1 4 Modglin Kiko. . Referring Provider: Alise Noguera, [address] [place] [address], [address]. tel:[phone], [id number], [place] tel:[phone] [place] No Information 2-202 4 Muehl Guillermo. [address] [facility], [address], [place], [facility], . tel: [phone] Referring Provider: Alise Noguera, [address] [place] [address], [address]. tel:[phone], [id number], [place] tel:[phone] [place] No Information Jan-2 0-202 2 Martínez Dakotah. . Referring Provider: Alise Noguera, [address] [place] [address], [address]. tel:[phone], [id number], [place] tel:[phone] [place] No Information 8- 2 Muehl Guillermo. [address] [facility], [address], [place], [facility], . tel: [phone] Referring Provider: Alise Noguera, [address] [place] [address], [address]. tel:[phone], [id number], [place] tel:[phone] [place] No Information 1 3-202 2 Martínez Dakotah. . Referring Provider: Alise Noguera [address] [place] [address], [address]. tel:[phone], [id number], [place] tel:[phone] [place] No Information Jan-0 7-202 2 Martínez Dakotah. . Referring Provider: Alise Noguera [address] [place] [address], [address]. tel:[phone] [place] [address], [place], [place], [id number], [place] tel:[phone] [place] No Information Jan-0 4-202 2 Martínez Dakotah. . Referring Provider: Alise Noguera [address] [place] [address], [address]. tel:[phone], [id number], tel:[phone] [place] No Information Sep-3 0- 2 Martínez Dakotah. . Referring Provider: Alise Noguera, [address] [place] [address], [address]. tel:[phone] [place] [address], [id number], [place] tel:[phone] [place] No Information Sep-2 [address] [place] [address], [address], [place], [facility], . tel: [phone] Referring Provider: Alise Noguera, [address] [place] [address], [address]. tel:[phone], [id number], [place] tel:[phone] [place] No Information Sep-2 2- 2 Martínez Dakotah. . Referring Provider: Alise Noguera, [address] [place] [address], [address]. tel:[phone], [id number], tel:[phone] [place] No Information Sep-2 0 2 Modglin Kiko. . Referring Provider: Alise Noguera, [address] [place] [address], [address]. tel:[phone], [id number], [place] tel:[phone] [place] No Information Sep-1 2 Martínez Dakotah. . Referring Provider: Alise Noguera, [address] [place] [address], [address]. tel:[phone] [place] [address], [id number], [place] tel:[phone] [place] No Information Dec- 2 Martínez Avila . Referring Provider: Alise Noguera, [address] [place] [address], [address]. tel:[phone] [facility], [address] [facility] [address], [place], [place], [id number], tel:[phone] [place] No Information Sep-0 2 Martínez Avila . Referring Provider: Alise Noguera, [address] [place] [address]. tel:[phone] Family History Family Member Type Diagnosis Age At Onset No Information Payers Payer name Insurance type Covered green party ID Authoriza nicolasa(s) [employer] Medicare Replacement [id number] Medicaid OON Write Off CI 00 Social History Type Description Quantity Date Captured Comments Sex Male Smoking Status No Information Chief Complaint And Reason For Visit No Information Reason For Referral Reason For Referral No Information Plan Of Treatment Date Type Action Status Goal Tobacco cessation counseling completed Goal Tobacco Cessation Counseling completed Goal Tobacco Cessation Counseling completed Goal Tobacco cessation counseling completed History Of Present Illness Encounter Date Complaint History Of Prese nt Illness No Information Functional Status Date Functional Assessmen t No Information Instructions Date Instruction Additional Infor mation Prescribed activity/exercise edu cation Related to Overweight Dietary needs education Related to Overweight Assessments Type Assessment Date No Information Patient Care Teams Name Effective Dates (start - stop) Status Members No Information
--- OUTSIDE RECORDS SUMMARY | 2023-11-17 01:35 | XMS_ITS | Continuity of Care Document ---
Author Organization [facility] Address [address] [place] [address] [address] [place] [address] Phone Care Team Providers Care Ballet Master/Mistress Name Role Phone Guillermo Adair Unavailable Unavailable [...] Re-Ed Therapeutic Exercise PT Evaluation Moderate Complexity Therapeutic Activities Neuromuscular Re-Ed Therapeutic Activities Oct- Neuromuscular Re-Ed Jan- Therapeutic Exercise Jan- Manual Therapy Jan- Therapeutic Activities Neuromuscular Re-Ed Jan- Therapeutic Exercise Jan- Therapeutic Activities Jan- Neuromuscular Re-Ed Jan- Therapeutic Exercise Jan- Manual Therapy Jan- Therapeutic Activities Therapeutic Exercise Jan- Neuromuscular Re-Ed Jan- Therapeutic Activities Neuromuscular Re-Ed Jan- Therapeutic Exercise Neuromuscular Re-Ed Dec- Therapeutic Exercise Dec- Therapeutic Activities Dec- Therapeutic Activities Dec- Therapeutic Exercise Dec- Neuromuscular Re-Ed Dec- Therapeutic Activities Dec- Neuromuscular Re-Ed Dec- Therapeutic Exercise Dec- Therapeutic Activities Dec- Therapeutic Exercise Dec- Neuromuscular Re-Ed Dec- Therapeutic Activities Dec- Manual Therapy Dec- Neuromuscular Re-Ed Dec- Therapeutic Exercise Dec- Therapeutic Activities Dec- Neuromuscular Re-Ed Dec- Manual Therapy Dec- Therapeutic Exercise Dec- PT Evaluation Moderate Complexity Therapeutic Exercise Dec- Therapeutic Activities Advance Directives Directive Yes / No Effective Date File Name No Information Encounters Encounter Description Practice Location Reason(s) For Visit Diagnoses Date Provider Providers Copied on Encounter [facility] [employer] [facility], [place], [place], [id number], tel:[phone] [place] No Information 4 Jd Li. [address] [facility], [address], [place], [place], [facility], . tel: [phone] [facility] [employer] [facility], [place], [place], [id number], tel:[phone] [place] No Information 4 Leyda Delgado. [address] [facility], [address], [place], [place], [facility], . tel: [phone] Referring Provider: Alise Noguera, [address] [place] [address], [address]. tel:[phone], [id number], [place] [phone] [place] No Information 4 Jd Li. [address] [place] [address], [address], [place], [place], [facility], [place]. tel:[phone] Referring Provider: Alise Noguera, [address] [place] [address], [address]. tel:[phone], [id number], [place] tel:[phone] [place] No Information 4 Jd Li. [address] [place] [address], [address], [place], [place], [facility], [place]. tel:[phone] Referring Provider: Alise Noguera, [address] [place] [address], [address]. tel:[phone], [id number], [place] tel:[phone] [place] No Information 4 Seth Sweet. . Referring Provider: Alise Noguera [address] [place] [address], [address]. tel:[phone], [id number], [place] tel:[phone] [place] No Information 0 4 Madonna Peña. . Referring Provider: Alise Noguera [address] [place] [address], [address]. tel:[phone], [id number], [place] tel:[phone] [place] No Information Jul-2 4 Muehl Guillermo. [address] [facility], [address], [place], [place], [facility], . tel: [phone] Referring Provider: Alise Noguera, [address] [place] [address], [address]. tel:[phone] [place] [address], [id number], [place] tel:[phone] [place] No Information Apr-2 4 Winkeler Kee. . Referring Provider: Alise Noguera, [address] [place] [address], [address]. tel:[phone] [place] [address], [place], [place], [id number], tel:[phone] [place] No Information 2 - 4 Michaell Guillermo. [address] [facility], [address], [place], [place], [facility], . tel:[phone] Referring Provider: Alise Noguera, [address] [place] [address], [address]. tel:[phone], [id number], [place] tel:[phone] [place] No Information 2 2- 4 Modglin Kiko. . Referring Provider: Alise Noguera [address] [place] [address], [address]. tel:[phone] [place] [address], [place], [place], [id number], [place] tel:[phone] [place] No Information 1 4 Modglin Kiko. . Referring Provider: Alise Noguera, [address] [place] [address], [address]. tel:[phone], [id number], [place] tel:[phone] [place] No Information 2-202 4 Muehl Guillermo. [address] [facility], [address], [place], [place], [facility], . tel: [phone] Referring Provider: Alise Noguera, [address] [place] [address], [address]. tel:[phone], [id number], [place] tel:[phone] [place] No Information Jan-2 0-202 2 Martínez Dakotah. . Referring Provider: Alise Noguera, [address] [place] [address], [address]. tel:[phone], [id number], [place] tel:[phone] [place] No Information 8- 2 Muehl Guillermo. [address] [facility], [address], [place], [place], [facility], . tel: [phone] Referring Provider: Alise Noguera, [address] [place] [address], [address]. tel:[phone], [id number], [place] tel:[phone] [place] No Information 1 3-202 2 Martínez Dakotah. . Referring Provider: Alise Noguera [address] [place] [address], [address]. tel:[phone], [id number], [place] tel:[phone] [place] No Information Jan-0 7-202 2 Martínez Dakotah. . Referring Provider: Alise Noguera [address] [place] [address], [address]. tel:[phone] [place] [address], [place], [place], [id number], [place] tel:[phone] [place] No Information Jan-0 4-202 2 Martínez Dakotah. . Referring Provider: Alise Noguera [address] [place] [address], [address]. tel:[phone], [id number], tel:[phone] [place] No Information Sep-3 0- 2 Martínez Dakotah. . Referring Provider: Alise Noguera, [address] [place] [address], [address]. tel:[phone] [place] [address], [id number], [place] tel:[phone] [place] No Information Sep-2 2 Jd Li[address] [place] [address], [address], [place], [facility], . tel: [phone] Referring Provider: Alise Noguera, [address] [place] [address], [address]. tel:[phone], [id number], [place] tel:[phone] [place] No Information Sep-2 2- 2 Martínez Dakotah. . Referring Provider: Alise Noguera, [address] [place] [address], [address]. tel:[phone], [id number], tel:[phone] [place] No Information Sep-2 0 2 Modglin Kiko. . Referring Provider: Alise Noguera, [address] [place] [address], [address]. tel:[phone], [id number], [place] tel:[phone] [place] No Information Sep-1 2 Martínez Dakotah. . Referring Provider: Alise Noguera, [address] [place] [address], [address]. tel:[phone] [place] [address], [id number], [place] tel:[phone] [place] No Information Dec- 2 Martínez Avila . Referring Provider: Alise Noguera, [address] [place] [address], [address]. tel:[phone] [facility], [address] [facility], [place], [place], [id number], tel:[phone] [place] No Information Sep-0 2 Martínez Avila . Referring Provider: Alise Noguera, [address] [place] [address], [address]. tel:[phone] Family History Family Member Type Diagnosis Age At Onset No Information Payers Payer name Insurance type Covered libertarian ID Authoriza nicolasa(s) [employer] Medicare Replacement [id number] Medicaid OON Write Off CI 00 Social [...]
--- OUTSIDE RECORDS SUMMARY | 2024-03-29 07:00 | XMS_ITS ---
Author Organization [facility] [employer] Address [address] [place], [place] [address] Care Team Providers Care Case Preparer And Liner Name Role Phone Poornima Alise Primary Care Provider Alise Noguera Unavailable Unavailable REASON FOR VISIT 3 month f/u Medications Medication SIG (Take, Route, Frequency, Duration) Notes Start Date End Date Status Chlorthalidone 25 MG 1 tablet in the morning with food Orally Once a day; Duration: 30 day(s) 06/11/2022 Not-Taking Eliquis 5 MG as directed Orally q 12 hrs; Duration: 90 days Not-Taking Sotalol HCl 80 MG 1 tablet Orally ever y 12 hrs; Duration: 30 Active Diclofenac Sodium 75 MG twice a day prn pain/inflammation. Take w/ food Oral twice a day 01/11/2020 Not-Taking amLODIPine Besylate 10 MG TAKE 1 TABLET BY MOUTH EVERY DAY; Duration: 90 days Active oxyCODONE-Acetaminophen 7.5-325 MG 1 tablet as needed Orally every 12 hrs Active Allopurinol 300 MG Take 1 tablet by marcela th once daily. to prevent gout Once a day; Duration: 90 days Active Potassium Chloride ER 10 MEQ 2 tablets with food Orally Once a day; Duration: 90 days Active Chlorthalidone 50 MG TAKE 1 TABLET BY MO UT EVERY DAY IN THE MORNING WITH FOOD; Duration: 90 days Active Omeprazole 20 MG TAKE 1 CAPSULE BY MOUTH EVERY DAY; Duration: 90 days Active Social History Sex Assigned At : Social History Observation Description Sex Assigned At Male Encounters Encounter Location Date Provider Diagnosis [facility] [address] [place], [place] [address] 03/29/2024 Alise Noguera Plan Of Treatment No Information Progress Notes * Harman CERVANTES TDOB:1965 (59 yo M)Acc No.[id number]:03/29/2024 Progress Notes Patient: Harman RICCI Provider: Carter Noguera MD :1965 A ge:58 Y S ex:Male Date:03/29/2024 Address:[address] [place], [place] [id number] Subjective: * Chief Complaints: * 1 . 3 month f/u. * Medical History: * Ocular Surgical History: * Medications: T aking Potassium Chloride ER 10 MEQ Tablet Extended Release 2 tablets with food Orally Once a day , Taking Allopurinol 300 MG Tablet Take 1 tablet by mouth once daily. to prevent gout Once a day , Taking Omeprazole 20 MG Capsule Delayed Release TAKE 1 CAPSULE BY MOUTH EVERY DAY , Taking Chlorthalidone 50 MG Tablet TAKE 1 TABLET BY MOUTH EVERY DAY IN THE MORNING WITH FOOD , Taking oxyCODONE-Acetaminophen 7.5- 325 MG Tablet 1 tablet as needed Orally every 12 hrs , Taking Sotalol HCl 80 MG Tablet 1 tablet Orally every 12 hrs , Taking amLODIPine Besylate 10 MG Tablet TAKE 1 TABLET BY MOUTH EVERY DAY , Not-Taking Eliquis 5 MG Tablet as directed Orally q 12 hrs , Not-Taking Chlorthalidone 25 MG Tablet 1 tablet in the morning with food Orally Once a day , Not-Taking Diclofenac Sodium 75 MG Tablet Delayed Release twice a day prn pain/inflammation. Take w/ food Oral twice a day Objective: * Vitals: Vision: Spectacle Rx: Contact Lens: Eye Examination: Special Tests: Assessment: Plan: * Treatment: Care Plan: * Problems: * Billing Information: * Visit Code: * Procedure Codes: * Electronic signature of Josue Noguera MD on 04/02/2025 at 01:16 AM DOG CATCHER Sign off status: Pending * Provider: Carter Noguera MD Date: 05/30/2023 Generated for Franca gould/Tianna/eTpallavismgeno on: 06/03/2024 01:16 AM DOG CATCHER
--- OUTSIDE RECORDS SUMMARY | 2024-05-03 07:30 | XMS_ITS ---
Author Organization [facility] Address [address] [place], [place] [address] Care Team Providers Care Day Camp Counselor Name Role Phone Alise Noguera Primary Care Provider Alise Noguera Unavailable Unavailable REASON FOR VISIT follow up Social History Sex Assigned At : Social History Observation Description Sex Assigned At Male Encounters Encounter Location Date Provider Diagnosis [facility] [address] [place] [id number] 05/03/2024 Alise Noguera Plan Of Treatment No Information Progress Notes * Harman CERVANTES TDOB:1965 (59 yo M)Acc No.[id number]:05/03/2024 Progress Notes Patient: Harman RICCI Provider: Carter Noguera MD :1965 A ge:58 Y S ex:Male Date:05/03/2024 Address:[address] [place], [place] [id number] Subjective: * Chief Complaints: * 1 . Follow up. * Medical History: * Ocular Surgical History: Objective: * Vitals: Vision: Spectacle Rx: Contact Lens: Eye Examination: Special Tests: Assessment: Plan: * Treatment: Care Plan: * Problems: * Billing Information: * Visit Code: * Procedure Codes: * Electronic signature of Josue Noguera MD on 04/02/2025 at 05:07 AM COLOR SEPARATION PHOTOGRAPHER Sign off status: Pending * Provider: Carter Noguera MD Date: 0 05/03/2024 Generated for Franca gould/Tianna/[place] on: 1 06/03/2024 05:07 AM COLOR SEPARATION PHOTOGRAPHER
--- OUTSIDE RECORDS SUMMARY | 2024-08-16 07:00 | XMS_ITS ---
Author Organization [employer] [facility] [employer] Address [address] [place], [place] [phone] Care Team Providers Care Director Security Management Name Role Phone PoornimaAlise bliss Primary Care Provider Alise Noguera Unavailable Unavailable REASON FOR VISIT 2month f/u Medications Medication SIG (Take, Route, Frequency, Duration) Notes Start Date End Date Status Diclofenac Sodium 75 MG twice a day prn pain/inflammation. Take w/ food Oral twice a day 01/11/2020 Not-Taking amLODIPine Besylate 10 MG TAKE 1 TABLET BY MOUTH EVERY DAY; Duration: 90 days Active Chlorthalidone 50 MG TAKE 1 TABLET BY MOUTH EVERY MORNING WITH FOOD; Duration: 90 days 12/13/2024 Active Potassium Chloride ER 10 MEQ 2 tablets with food Orally Once a day; Duration: 90 days 12/13/2024 Active Chlorthalidone 25 MG 1 tablet in the morning with food Orally Once a day; Duration: 30 day(s) 06/11/2022 Not-Taking Allopurinol 300 MG Take 1 tablet by mouth once daily. to prevent gout Once a day; Duration: 90 days Active oxyCODONE-Acetaminophen 7.5-325 MG 1 tablet as needed Orally every 12 hrs Active Sotalol HCl 80 MG 1 tablet Orally ever y 12 hrs; Duration: 30 Active Eliquis 5 MG as directed Orally q 12 hrs; Duration: 90 days Not-Taking Omeprazole 20 MG TAKE 1 CAPSULE BY MOUTH EVERY DAY; Duration: 90 days Active Social History Sex Assigned At : Social History Observation Description Sex Assigned At Male Encounters Encounter Location Date Provider Diagnosis [facility] [address] [place], [place] [phone] 08/16/2024 Alise Noguera Plan Of Treatment No Information Progress Notes * Harman CERVANTES TDOB:1965 (59 yo M)Acc No.[id number]:08/16/2024 Progress Notes Patient: Harman RICCI Provider: Carter Noguera MD :1965 A ge:58 Y S ex:Male Date:08/16/2024 Address:[address] [place], [place] [phone] Subjective: * Chief Complaints: * 1 . 2month f/u. * Medical History: * Ocular Surgical History: * Medications: T aking Allopurinol 300 MG Tablet Take 1 tablet by mouth once daily. to prevent gout Once a day , Taking Omeprazole 20 MG Capsule Delayed Release TAKE 1 CAPSULE BY MOUTH EVERY DAY , Taking oxyCODONE-Acetaminophen 7.5-325 MG Tablet 1 tablet as needed Orally every 12 hrs , Taking Sotalol HCl 80 MG Tablet 1 tablet Orally every 12 hrs , Taking amLODIPine Besylate 10 MG Tablet TAKE 1 TABLET BY MOUTH EVERY DAY , Taking Chlorthalidone 50 MG Tablet TAKE 1 TABLET BY MOUTH EVERY MORNING WITH FOOD , stop date 12/13/2024, Taking Potassium Chloride ER 10 MEQ Tablet Extended Release 2 tablets with food Orally Once a day , stop date 12/13/2024, Not-Taking Eliquis 5 MG Tablet as directed [...] of Josue Noguera MD on 04/02/2025 at 01:17 AM AUTOMOBILE CONTRACT CLERK Sign off status: Pending * Provider: Carter Noguera MD Date: 0 08/16/2024 Generated for Franca gould/Tianna/Payalsmitting on: 1 06/03/2024 01:17 AM AUTOMOBILE CONTRACT CLERK
--- OUTSIDE RECORDS SUMMARY | 2024-08-23 07:00 | XMS_ITS ---
Author Organization [facility] [facility] [employer] Address [address] [place], [place] [phone] Care Team Providers Care Topstitcher Zigzag Name Role Phone PoornimaAlise bliss Primary Care Provider Alise Noguera Unavailable Unavailable REASON FOR VISIT 2 month f/u Medications Medication SIG (Take, Route, Frequency, Duration) Notes Start Date End Date Status Chlorthalidone 25 MG 1 tablet in the morning with food Orally Once a day; Duration: 30 day(s) 06/11/2022 Not-Taking Chlorthalidone 50 MG TAKE 1 TABLET BY MOUTH EVERY MORNING WITH FOOD; Duration: 90 days 12/13/2024 Active Potassium Chloride ER 10 MEQ 2 tablets with food Orally Once a day; Duration: 90 days 12/13/2024 Active Diclofenac Sodium 75 MG twice a day prn pain/inflammation. Take w/ food Oral twice a day 01/11/2020 Not-Taking amLODIPine Besylate 10 MG TAKE 1 TABLET BY MOUTH EVERY DAY; Duration: 90 days Active Eliquis 5 MG as directed Orally q 12 hrs; Duration: 90 days Not-Taking oxyCODONE-Acetaminophen 7.5-325 MG 1 tablet as needed Orally every 12 hrs Active Sotalol HCl 80 MG 1 tablet Orally ever y 12 hrs; Duration: 30 Active Allopurinol 300 MG Take 1 tablet by mouth once daily. to prevent gout Once a day; Duration: 90 days Active Omeprazole 20 MG TAKE 1 CAPSULE BY MOUTH EVERY DAY; Duration: 90 days Active Social History Sex Assigned At : Social History Observation Description Sex Assigned At Male Encounters Encounter Location Date Provider Diagnosis [facility] [address] [place], [place] [phone] 08/23/2024 Alise Noguera Plan Of Treatment No Information Progress Notes * Harman CERVANTES TDOB:1965 (59 yo M)Acc No.[id number]:08/23/2024 Progress Notes Patient: Harman RICCI Provider: Carter Noguera MD :1965 A ge:58 Y S ex:Male Date:08/23/2024 Address:[address] [place], [place] [phone] Subjective: * Chief Complaints: * 1 . 2 month f/u. * Medical History: * Ocular [...] Noguera MD on 04/02/2025 at 05:07 AM CLINICAL EVALUATOR Sign off status: Pending * Provider: Carter Noguera MD Date: 0 08/23/2024 Generated for Franca gould/Tianna/Moses on: 1 06/03/2024 05:07 AM CLINICAL EVALUATOR
--- OUTSIDE RECORDS SUMMARY | 2024-11-23 07:00 | XMS_ITS ---
Author Organization [employer] Address [address] [place], [place] [address] Care Team Providers Care Trading Manager Name Role Phone Alise Noguera Primary Care Provider [phone] Alise Noguera Unavailable Unavailable REASON FOR VISIT [...] Male Encounters Encounter Location Date Provider Diagnosis Planday Jones [address] [place], [place] [id number] 11/23/2024 Alise Noguera Plan Of Treatment No Information Progress Notes * Harman CERVANTES TDOB:1965 (59 yo M)Acc No.[id number]:11/23/2024 Progress Notes Patient: Harman RICCI Provider: Carter Noguera MD :1965 A ge:59 Y S ex:Male Date:11/23/2024 Address:[address] [place], [place] [id number] Subjective: * Chief Complaints: * 1 . [...] Noguera MD on 04/02/2025 at 01:17 AM WAREHOUSE PRODUCTION WORKER Sign off status: Pending * Provider: Carter Noguera MD Date: 0 11/23/2024 Generated for Franca gould/Tianna/Moses on: 06/03/2024 01:17 AM WAREHOUSE PRODUCTION WORKER
--- NOTE | ~2025-04-02 | XR_ITS ---
Examination: XR chest 1V portable Clinical History: cough Comparison: 05/17/2022 Technique: Portable AP Findings: Heart size normal. Lungs clear. No acute bony abnormality. IMPRESSION: 1. No acute cardiopulmonary findings given portable technique. Reviewed, dictated and finalized at location R. IT[employer] LIBRARIAN
--- OUTSIDE RECORDS SUMMARY | 2025-04-02 01:16 | XMS_ITS | Clinical Summary ---
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 Gender Identity Not on file Sexual Orientation Not on file Last Filed Vital Signs Vital Sign Reading Time Taken Comments Blood Pressure 158/82 04/01/2024 1:31 PM INFORMATION SYSTEMS SECURITY OFFICER Pulse 82 04/01/2024 1:31 PM INFORMATION SYSTEMS SECURITY OFFICER Temperature 36.2 C (97.1 F) 07/09/2020 3:10 PM CDT Respiratory Rate 17 11/04/2023 11:38 AM CDT Oxygen Saturation 99% 04/01/2024 1:31 PM INFORMATION SYSTEMS SECURITY OFFICER Inhaled Oxygen Concentration - - Weight 75.8 kg (167 lb 1.6 oz) 04/01/2024 1:31 P M INFORMATION SYSTEMS SECURITY OFFICER Height 170.2 cm (5' 7) 04/01/2024 1:31 PM INFORMATION SYSTEMS SECURITY OFFICER Body Mass Index 26.17 04/01/2024 1:31 PM INFORMATION SYSTEMS SECURITY OFFICER Plan of Treatment Health Maintenance Due Date [...] Associated Diagnosis Comments COLONOSCOPY 07/04/2021 10:43 AM INFORMATION SYSTEMS SECURITY OFFICER from Last 3 Months or Most Recently Relevant to Health Maintenance Results * COLONOSCOPY (07/04/2021 10:43 AM INFORMATION SYSTEMS SECURITY OFFICER) Anatomical Region Laterality Modality Other Narrative Procedure Note Flaco Tian MD - 07/04/2021 10:43 AM CST [facility] Endoscopy Lab Patient Name: Harman Llamas Procedure Date: 07/04/2021 10:43 AM Date of : 1965 Admit Type: Outpatient Age: 55 Gender: Male Note Status: Finalized Attending MD: Flaco Tian M.D. Procedure Date: 07/04/2021 Procedure: Colonoscopy Indications: Screening for colorectal malignant neoplasm, Thisis the patient's first colonoscopy Providers: Flaco Tian M.D., XANDER Corea (Anesthesia Staff), Ehsan Hilario RN, Hanny, Dye Tub Tender Referring MD: Alise Noguera M.D. Medicines: Monitored [...] physician, the nurse, the anesthesiologist and the caster helper in theprocedure room. Mental Status Examination: alert [...] for surveillance. Procedure Code(s): --- Professional --- 86648, Colonoscopy, flexible; with removal of tumor(s), polyp(s), or other lesion(s) by hotbiopsy forceps Diagnosis Code(s): --- Professional --- Z12.11, Encounter for screening for malignantneoplasm of colon D12.2, Benign neoplasm of ascending colon K64.8, Other hemorrhoids CPT copyright 2020 [employer]. All rights reserved. The codes documented in this report are preliminary and upon bell tier reviewmay be revised to meet current compliance requirements. Electronically signed by Flaco Tian M.D. Flaco Tian M.D. 07/04/2021 11:09:02 AM Number of Addenda: 0 Note Initiated On: 07/04/2021 10:43 AM Flaco Tian MD ENDOSCOPY PROCEDURES Fi nal Result from Last 3 Months or Most Recently Relevant to Health Maintenance Insurance IDPA HU[employer]NA MEDICARE HMO HUMANA CHOICE MEDICARE O IDPA IDPA [facility] MEDICARE HMO Care Teams Button Tufter Relationship Specialty Start Date End Date Alise Noguera MD [address] [place] [address] PCP - General 12/23/16
[2025-04-02 01:25] VITALS: BP 118/65; PULSE 54; RESP 18; TEMP 36.3; O2SAT 100
[2025-04-02 01:49] VITALS: BP 119/75; PULSE 48; RESP 16; O2SAT 100
--- NOTE | 2025-04-02 04:43 | ED.URI ---
HPI - URI/Sore Throat General Chief Complaint: Shortness of Breath/Dyspnea Stated Complaint: SOB and gout flare up Time Seen by Provider: 04/02/25 04:37 Source: patient Mode of arrival: ambulatory Limitations: no limitations History of Present Illness HPI Narrative: Patient is a 59-year-old male presents to the emergency department complaining of mucus buildup in the back of his throat. Patient notes this started last night, the mucus is overall white, gets really thick in the back of his throat and pains of heartburn breathe, continue any sleep without the coughing and trying to clear it out. Admits to nasal congestion. Denies any no fevers. Notes that he has a history of needing to get mucus scraped out of his lungs in the past. Patient also notes he is having a gout flare up and wants pain medications. Related Data Home Medications ?Medication ?Instructions ?Recorded ?Confirmed ?Last Taken ?Type amlodipine 10 mg tablet 10 mg PO DAILY 05/17/22 09/05/22 Unknown History chlorthalidone 50 mg tablet 50 mg PO DAILY 05/17/22 09/05/22 Unknown History Held on 05/18/22. Instructions: HOLD - resume if okay with your doctor oxycodone-acetaminophen 7.5 mg-325 1 tablet PO Q12H PRN Pain 05/17/22 09/05/22 Unknown History mg tablet sotalol 80 mg tablet 80 mg PO Q12H 05/17/22 09/05/22 Unknown History Allergies Allergy/AdvReac Type Severity Reaction Status Date / Time ampicillin Allergy Severe Anaphylactic Verified 04/02/25 01:29 Shock lisinopril Allergy Severe Anaphylactic Verified 04/02/25 01:29 Shock Penicillins Allergy Severe Anaphylaxis Verified 04/02/25 01:29 Review of Systems Review of Systems: A 10 system review of systems was completed on the patient and is negative except for what is stated in the HPI. Nursing and ancillary documentation was reviewed. [facility] Past Medical History Medical History Megaloblastic anemia due to alcoholism Smoker Alcoholic pancreatitis PAF (paroxysmal atrial fibrillation) GERD (gastroesophageal reflux disease) Depression Prosthetic eye globe Right side Hypertension Surgical History Surgical History History of enucleation of right eyeball H/O elbow surgery Left Family History Family History Mother Hypertension Father Hypertension Sibling Breast cancer Social History Social History Social History: Mr. Llamas lives alone in [place]. 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 Alcohol use as above. He has smoked up to 1 PPD and has smoked for 40 years. He is down to 1/2PPD. He denies marijuana use now. No other drug use. No hx of IVDU. Smoking packs per day: 0.5 Smoking cigarettes per day: 10.0 Years smoked: 40 Smoking pack-years: 20.00 Smoking status: Current every day smoker Tobacco type: cigarettes Alcohol intake: current Drinks per week: 10 Substance use: current Substance use type: marijuana Last use: 01/26/20 Lack of Transportation: No Lack of Food: Never True Current Housing: I Have Housing Concerned About Future Housing: No Difficulty Paying Gas/Electric Bills: No Difficulty Paying for Meds: No Currently Unemployed: No Education: Don't Know Difficulty w/ Childcare or Family Care: No Living arrangements: alone Occupation/Education: unemployed Gender identity (if verbalized by the patient): Male Sexual Orientation (if Verbalized by the Patient): Straight or Heterosexual Spiritual care concerns: No Exam Narrative: CONST: No acute distress. Well nourished. HENMT: Head is normocephalic and atraumatic. Tacky mucous membranes. No posterior oropharynx erythema. Bilateral nasal turbinate edema. EYES: No scleral icterus. No conjunctival injection or pallor. PERRL. NECK: No meningeal signs. RESP: Able to speak in full sentences. Normal respiratory effort. CTAB. CARDIO: Regular rate. Regular rhythm. 2+ DP and radial pulses bilaterally. GI: Nondistended. No tenderness to palpation. Soft. : No CVA tenderness to palpation. SKIN: No rashes or lesions noted on exposed skin. NEURO: Oriented x3. Moves all extremities. EXTREM/MSK/BACK: No pedal edema. PSYCH: Normal affect. Course Vital Signs Vital signs: Vital Signs Temperature 97.4 F L 04/02/25 01:25 Pulse Rate 54 L 04/02/25 01:25 Respiratory Rate 18 04/02/25 01:25 Blood Pressure 118/65 04/02/25 01:25 Pulse Oximetry 100 04/02/25 01:25 Temperature 97.4 F L 04/02/25 01:25 Pulse Rate 82 04/02/25 06:14 Respiratory Rate 25 H 04/02/25 06:14 Blood Pressure 134/83 04/02/25 06:14 Pulse Oximetry 97 04/02/25 06:14 Oxygen Delivery Room Air 04/02/25 01:49 [facility] Narrative Medical decision making narrative: Patient presents with the above complaint. Initial vitals are remarkable for no significant abnormalities. Physical examination as noted above. Plan discussed: laboratory analysis, chest x-ray. Patient ordered IVF, Toradol, guaifenesin, IV fluids, prednisone, Tessalon Perles, continuous cardiac monitoring, continuous pulse oximetry. Chest x-ray preliminary findings radiology interpretation is hypoinflation with bronchovascular crowding. Patient was reassessed at the bedside. No changes in physical exam. Patient is in no acute distress. Patient notes that he feels well at this time is ready go home. The patient has remained stable throughout the entire ED visit. Counseled patient regarding diagnostic results and potential diagnosis. Anticipatory guidance provided. Patient instructed to follow up with PCP within the next 2-3 days. Patient counseled on: false reassurance from an emergency department evaluation; no current evidence of a medical emergency; return immediately for any new, recurrent, worsening, concerning, or refractory symptoms. Patient prescribed [place], prednisone, guaifenesin. Prescription sent to preferred pharmacy. Medications discussed with patient. Additional verbal and printed discharge instructions were given and discussed with the patient. Patient verbally acknowledges understanding of condition and discharge instructions. All questions were answered to the patient's satisfaction. Patient is in agreement with the plan of care. The patient is stable for discharge and was discharged without incident. Differential Diagnosis Differential Diagnosis: URI, pneumonia, dehydration, gout flare. Medical Records I have reviewed the following patient records and this information was taken into consideration when formulating the assessment and plan.: previous labs and previous ER visits Lab Data [facility] Lab Attestation statement: I personally reviewed the patient's lab results. Lab results narrative: CBC reveals a white blood cell count of 3.9, hemoglobin 11.7, platelet count 88. Comprehensive metabolic panel reveals a sodium 136, total bilirubin 1.4, AST of 166, ALT of 93. COVID and influenza and RSV testing are negative. 04/02/25 05:54 04/02/25 05:54 Labs: Lab Results 04/02/25 Range/Units 05:54 WBC 3.9 L (4.5-10.0) K/mm3 RBC 3.26 L (4.6-6.20) M/mm3 Hgb 11.7 L (14.0-18.0) g/dL Hct 34.5 L (42.0-52.0) % MCV 105.8 H (80-100) fl MCH 35.9 H (26-34) pg MCHC 33.9 (32-36) g/dl RDW 13.5 (11.5-14.5) % Plt Count 88 L (150-375) k/mm3 MPV 10.6 H (7.4-10.4) fl Immature Gran % (Auto) Not Reportable Neut % (Auto) Not Reportable Lymph % (Auto) Not Reportable [place] % (Auto) Not Reportable Eos % (Auto) Not Reportable Baso % (Auto) Not Reportable Lymph # (Auto) Not Reportable [place] # (Auto) Not Reportable Eos # (Auto) Not Reportable Baso # (Auto) Not Reportable Abs Immat Gran (auto) Not Reportable Absolute Neuts (auto) Not Reportable Absolute Nucleated RBC Not Reportable Total Counted 100 Neutrophils % (Manual) 24 L (46-73) % Band Neutrophils % 1 (0-6) % Lymphocytes % (Manual) 66 H (18-44) % Monocytes % (Manual) 8 (3-9) % Eosinophils % (Manual) 0 (0-4) % Basophils % (Manual) 1 (0-1) % Nucleated RBC % Not Reportable Abs Neuts (Manual) 0.97 L (1.3-6.7) K/mm3 Abs Lymphs (Manual) 2.57 (1.1-4.5) K/mm3 Abs Monocytes (Manual) 0.31 (0.1-0.90) K/mm3 Absolute Eos (Manual) 0.00 L (0.02-0.50) K/mm3 Abs Basophils (Manual) 0.03 (0.0-0.1) K/mm3 Atypical Lymphocytes Present Platelet Estimate Decreased (Adequate) % Immature Plt Fraction 4.7 (0.9-11.2) % Hypochromasia Occasional Macrocytosis 1+ (NORMAL) Schistocytes None seen Sodium 136 L (137-145) mmol/L Potassium 3.8 (3.4-5.0) mmol/L Chloride 103 (98-107) mmol/L Carbon Dioxide 26 (22-30) mmol/L Anion Gap 7 (4-12) mmol/L BUN 7 L (9-20) mg/dL Creatinine 0.71 (0.7-1.3) mg/dL Estim Creat Clear Calc 91 ml/min Estimated GFR > 60 (59 - ) Glucose 110 (65-110) mg/dL Calcium 8.8 (8.4-10.2) mg/dL Total Bilirubin 1.4 H (0.2-1.3) mg/dL AST 166 H (17-59) U/L ALT 93 H (6-50) U/L Alkaline Phosphatase 90 (38-126) U/L Total Protein 7.6 (6.3-8.2) g/dL Albumin 4.2 (3.5-5.1) g/dL Influenza A (RT-PCR) Negative (Negative) Influenza B (RT-PCR) Negative (Negative) RSV (RT-PCR) Negative (Negative) SARS-CoV-2 RNA (RT-PCR) Negative (Negative) Discharge Plan Discharge Clinical Impression: URI (upper respiratory infection), Gout flare Patient Disposition: Home Condition: Stable Instructions: Antibiotic Form, Gout (ED), Upper Respiratory Infection (ED) Additional Instructions: Take the steroids as prescribed and pain medications as prescribed and decongestants and as prescribed. Rest and stay well hydrated. Follow-up with your primary care physician in the next few days for reassessment. Return immediately to the emergency department for any new or concerning symptoms especially any emergent concerns for life, limb, eyesight. Patient Language: Cymro Prescriptions: New hydrocodone-acetaminophen 5-325 mg tablet 1 tablet PO Q6H MDD 4 tabs PRN (Reason: pain) 3 Days Qty: 12 0RF prednisone 10 mg tablet 10 mg PO DAILY Qty: 30 0RF guaifenesin 400 mg tablet 400 mg PO QID PRN (Reason: congestion) Qty: 30 0RF No Action methylprednisolone [Medrol ([place])] 4 mg tablets,dose pack See Rx Instructions .ROUTE .COMPLEX Qty: 21 0RF Rx Instructions: orally per package directions colchicine 0.6 mg tablet 0.6 mg PO DAILY 7 Days Qty: 7 0RF sotalol 80 mg tablet 80 mg PO Q12H amlodipine 10 mg tablet 10 mg PO DAILY chlorthalidone 50 mg tablet 50 mg PO DAILY oxycodone-acetaminophen 7.5-325 mg tablet 1 tablet PO Q12H PRN (Reason: Pain) prednisone 10 mg tablet 10 mg PO DIRECTED Qty: 30 0RF Rx Instructions: Take 5 tabs once daily for days 1 & 2, take 4 tabs once daily for days 3 & 4, take 3 tabs once daily for days 5 & 6, take 2 tabs once daily for days 7 & 8, take 1 tab once daily for days 9 & 10 hydrocodone-acetaminophen 5-325 mg tablet 1 tablet PO Q8H PRN (Reason: pain) Qty: 14 0RF acetaminophen 500 mg tablet 1,000 mg PO TID PRN (Reason: dana) 7 Days Qty: 42 0RF methocarbamol 750 mg tablet 1,500 mg PO TID Qty: 42 0RF Follow-up/Referrals: UNKNOWN,DOCTOR [Primary Care Provider] Time of Disposition: 07:08
--- OUTSIDE RECORDS SUMMARY | 2025-04-02 05:07 | XMS_ITS | Patient Health Record ---
Author Organization [facility] Address [address] [place], [place] [address] Care Team Providers Care Healthcare Sales Representative Name Role Phone Poornima Alise Primary Care Provider [phone] Alise Noguera Unavailable Unavailable Allergies Allergen (clinical drug ingredient) Drug/Non Drug Allergy documented on EMR Reaction Allergy Type Onset Date Status lisinopril Lisinopril Unknown Drug Allergy 11/23/2019 Acti ve angiotensin-converti ng enzyme inhibitor (FN) CHARLES Inhibitors Other Reaction: Yes; ANGIOEDEMA-SEVER E Drug Allergy 11/23/2019 Active Results Component Value Reference Range Notes Lipid Profile Reviewed date:06/22/2024 12:23:16 PM Interpretation: Performing Lab:[facility], [address] [facility] [place], [place] [address], Phone - [phone] Notes/Report: TESTING PERFORMED AT: [] [facility], [address] [place] [address], [address], PHONE: [phone], LEAF CONDITIONER: MARCIA RIVAS, PHD This order was split into 2 orders: [id number] (CBC W/AUTO DIFF ), [id number] (Hemoglobin A1C, TSH Only No Reflex,Lipid Profile,CMP) CHOLESTEROL, TOTAL 138 100-199 MG/DL TRIGLYCERIDES 182 0-149 MG/DL HDL CHOLESTEROL 36 >39 MG/DL LDL/HDL RATIO 2.0 0.0-3.6 RATIO LDL/HDL RATIO MEN WOMEN 1/2 AVG.RISK 1.0 1.5 AVG.RISK 3.6 3.2 2X AVG.RISK 6.2 5.0 3X AVG.RISK 8.0 6.1 LDL CHOL CALC ([facility]) 71 0-99 MG/DL Thyroid Stimulating Hormone Reviewed date:06/20/2024 10:46:56 AM Interpretation: Performing Lab:, [facility], [address] [place] [address], [place], [place] [id number], Phone - [phone] Notes/Report: TESTING PERFORMED AT: [CB] [facility], [address] [place] [address], [address], PHONE: [phone], LEAF CONDITIONER: MARCIA RIVAS, PHD This order was split into 2 orders: [id number] (CBC W/AUTO DIFF ), [id number] (Hemoglobin A1C, TSH Only No Reflex,Lipid Profile,CMP) TSH 3.210 0.450-4.500 UIU/ML Hemoglobin A1C Reviewed date:06/20/2024 10:36:50 AM Interpretation: Performing Lab:, [facility], [address] [place] [address], [place], [place] [id number], Phone - [phone] Notes/Report: TESTING PERFORMED AT: [CB] [facility], [address] [place] [address], [address], PHONE: [phone], LEAF CONDITIONER: MARCIA RIVAS, PHD This order was split into 2 orders: [id number] (CBC W/AUTO DIFF ), [id number] (Hemoglobin A1C, TSH Only No Reflex,Lipid Profile,CMP) HEMOGLOBIN A1C 5.9 4.8-5.6 % PREDIABETES: 5.7 - 6.4 DIABETES: >6.4 GLYCEMIC CONTROL FOR ADULTS WITH DIABETES: <7.0 CMP Reviewed date:06/22/2024 12:25:01 PM Interpretation: Performing Lab:, [facility], [address] [place] [address], [place], [place] [id number], Phone - [phone] Notes/Report: TESTING PERFORMED AT: [CB] [facility], [address] [place] [address], [address], PHONE: [phone], LEAF CONDITIONER: MARCIA RIVAS, PHD This order was split into 2 orders: [id number] (CBC W/AUTO DIFF ), [id number] (Hemoglobin A1C, TSH Only No Reflex,Lipid Profile,CMP) [...] Reviewed date:06/22/2024 12:22:49 PM Interpretation: Performing Lab:[facility], [facility] ([facility]), [address] [place], [place] [address], Phone - [phone] Notes/Report: Test Performed at [facility], [address] [facility], [place] [address]. [phone]. Rn Advice: Fariha Hussein MD. CLIA# [id number] This order was split into 2 orders: [id number] (CBC W/AUTO DIFF ), [id number] (Hemoglobin A1C, TSH Only No Reflex,Lipid Profile,CMP) [...] 0.0-10.0 % Basophil % 1.1 0.0-3.0 % Reason For Referral Reason low dose chest CT Pt lives in [place] Diagnosis 1 Cigarette nicotine d ependence without complication (F17.210) Diagnosis 2 Screening for lung c ancer (Z12.2) Referral Organization [facility] e Referring Provider First Name Alise Referring Provider Last Name Poornima Referring Provider Speciality Internal M edicine Referred Provider Specialty Radiology General Notes Sharon Montes 2024 02:42:01 PM >Schedule low dose lung ca screening chest ct @ [address] for 09/08/24 @ 1:30, faxed referal to [phone] and pt notifed via telephone @ [phone]. Clinical Notes Alise Noguera 10/10 08:28:27 AM [...] Notes Problem Long-term current use of anticoagulant (270619107) [facility] (current) use of anticoagulants (Z79.01) Active confirmed Problem Tobacco user (171289102) Cigarette nicotine dependence without complication (F17.210) Active confirmed Problem Atrial fibrillation (88660743) Atrial fibrillation, unspecified type (I48.91) Active confirmed Problem Benign neoplasm of colon (78423055) Adenomatous polyp of colon, unspecified part of colon (D12.6) Active confirmed 2021, repeat SEVEN years Problem Degeneration of lumbar intervertebral disc (56437071) Degeneration, intervertebral disc, lumbar (M51.36) Active confirmed Problem Prosthesis of eyeball (667187912) Prosthetic eye globe (Z97.0) Active confirmed Problem Hyperlipidemia (62129948) Hyperlipidemia, unspecified (E78.5) 014 Active confirmed Problem Chronic pain (61572170) Other chronic pain (G89.29) 015 Active confirmed Problem Essential hypertension (15531026) Essential (primary) hypertension (I10) 012 Active confirmed Problem Alcohol-induced chronic pancreatitis (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) 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) 019 Active confirmed Problem Primary gout (93464619) Idiopathic gout, unspecified ankle and foot (M10.079) 017 Active confirmed Problem Low back pain (731966685) Low back pain (M54.5) 012 Active confirmed CHRONIC Problem Nicotine dependence (disorder) (50650227) Nicotine dependence, cigarettes, w oth disorders (F17.218) 018 Active confirmed Problem Elevated levels of transaminase & lactic acid dehydrogenase (951212519) Nonspec elev of levels of transamns & lactic acid dehydrgnse (R74.0) 016 Active confirmed Problem 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) (992695788853419) Alcohol abuse with other alcohol-induced disorder (F10.188) 016 Inactive confirmed Vital Signs Heart Rate 73 /min 08/24/2024/u appt Routi ne Checkup, no other concerns [place] [facility] Temperature 98.5 degrees Fahrenheit 08/24/2024/u appt Routine Checkup, no other concerns [place] [facility] Oximetry 96 % 08/24/2024/u appt Routi ne Checkup, no other concerns [place] [facility] Blood pressure diastolic 88 mm Hg 08/24/2024 f/u appt Routine Checkup, no other concerns [place] [facility] Weight-kg 69.85 kg 08/24/2024/u appt Routi ne Checkup, no other concerns [place] [facility] Height 68 in 08/24/2024 f/u appt Routi ne Checkup, no other concerns [place] [facility] Blood pressure systolic 144 mm Hg 08/24/2024 f/u appt Routine Checkup, no other concerns [place] [facility] Weight 154 lbs 08/24/2024/u appt Routi ne Checkup, no other concerns [place] [facility] BMI 23.41 kg/m2 08/24/2024 f/u appt Routi ne Checkup, no other concerns [place] [facility] Encounters Encounter Location Date Provider Diagnosis [address] [id number] 06/16/2024 Alise Poornima Essential (primary) hypertension I10 ; Hyperlipidemia, unspecified E78.5 ; Nicotine dependence, cigarettes, w oth disorders F17.218 ; Abnormal blood chemistry R79.9 ; Alcohol abuse with other alcohol-induced disorder F10.188 and Degeneration of intervertebral disc of lumbar region with discogenic back pain and lower extremity pain M51.[address] [id number] 08/24/2024 Alise Poornima Nicotine dependence, cigarettes, w [...] Notes 06/16/2024 Hyperlipidemia, unspecified (ICD-10 - E78.5) 08/24/2024 Essential (primary) hypertension (ICD-10 - I10) controlled. CPM 08/24/2024 Nicotine dependence, cigarettes, w oth disorders (ICD-10 - F17.218) back up to 8 cigarettes/day 06/16/2024 Essential (primary) hypertension (ICD-10 - I10) 06/16/2024 Nicotine dependence, cigarettes, w oth disorders (ICD-10 - F17.218) approx 4 cigs/day 08/24/2024 Atrial fibrillation, unspecified type (ICD-10 - I48.91) in sinus, rate controlled. Cont sotalol. F/u as scheduled cardiology 08/24/2024 Screening for lung cancer (ICD-10 - Z12.2) refer low dose CTlungs 06/16/2024 Abnormal blood chemistry (ICD-10 - R79.9) 08/24/2024 Alcohol abuse with other alcohol-induced disorder [...] Coverage End Date [employer] [address] [address] [place] [address] [id number] Harman Llamas Self - patient is the insured 9 [employer] [address] [address] [place] [address] [id number] Harman Llamas Self - patient is the insured 0 Medical (General) History Medical History History ICD Code Essential (primary) hypertension I10 Alcohol-induced chronic pancreatitis K86 .0 Idiopathic gout, unspecified ankle and f oot M10.079 Nicotine dependence, cigarettes, w oth d isorders F17.218 Atrial fibrillation, unspecified type I4 8.91
--- OUTSIDE RECORDS SUMMARY | 2025-04-02 05:07 | XMS_ITS | Clinical Summary ---
Author Organization [facility] [address] Address [address] [place] [address] Care Team Providers Care Step Down Specialist Name Role Phone Alise Noguera MD Primary [...] (06/19/2021): Added automatically from request for surgery [id number] Localized osteoarthritis of left knee 09/06/2020 Bulging [...] on file Legal Sex Male 7:57 PM GOLD CUTTER Gender Identity Not on file Sexual Orientation Not on file Last Filed Vital Signs Vital Sign Reading Time Taken Comments Blood Pressure 158/82 04/01/2024 1:31 PM GOLD CUTTER Pulse 82 04/01/2024 1:31 PM GOLD CUTTER Temperature 36.2 C (97.1 F) 07/09/2020 3:10 PM CDT Respiratory Rate 17 11/04/2023 11:38 AM CDT Oxygen Saturation 99% 04/01/2024 1:31 PM GOLD CUTTER Inhaled Oxygen Concentration - - Weight 75.8 kg (167 lb 1.6 oz) 04/01/2024 1:31 P M GOLD CUTTER Height 170.2 cm (5' 7) 04/01/2024 1:31 PM G[employer] CUTTER Body Mass Index 26.17 04/01/2024 1:31 PM GOLD CUTTER Plan of Treatment Health Maintenance Due Date [...] Associated Diagnosis Comments COLONOSCOPY 07/04/2021 10:43 AM GOLD CUTTER from Last 3 Months or Most Recently Relevant to Health Maintenance Results * COLONOSCOPY (07/04/2021 10:43 AM GOLD CUTTER) Anatomical Region Laterality Modality Other Narrative Procedure Note Flaco Tian MD - 07/04/2021 10:43 AM CST [facility] Patient Name: Harman Llamas Procedure Date: 07/04/2021 10:43 AM Date of : 1965 Admit Type: Outpatient Age: 55 Gender: Male Note Status: Finalized Attending MD: Flaco Tian M.D. Procedure Date: 07/04/2021 Procedure: Colonoscopy Indications: Screening for colorectal malignant neoplasm, Thisis the patient's first colonoscopy Providers: Flaco Tian M.D., XANDER Corea (Anesthesia Staff), Ehsan Hilario RN, Hanny, Acid Conditioner Referring MD: Alise Noguera M.D. Medicines: Monitored [...] physician, the nurse, the anesthesiologist and the welder experimental in theprocedure room. Mental Status Examination: alert [...] for surveillance. Procedure Code(s): --- Professional --- 16736, Colonoscopy, flexible; with removal of tumor(s), polyp(s), or other lesion(s) by hotbiopsy forceps Diagnosis Code(s): --- Professional --- Z12.11, Encounter for screening for malignantneoplasm of colon D12.2, Benign neoplasm of ascending colon K64.8, Other hemorrhoids CPT copyright 2020 [employer]. All rights reserved. The codes documented in this report are preliminary and upon him coder reviewmay be revised to meet current compliance requirements. Electronically signed by Flaco Tian M.D. Flaco Tian M.D. 07/04/2021 11:09:02 AM Number of Addenda: 0 Note Initiated On: 07/04/2021 10:43 AM Flaco Tian MD ENDOSCOPY PROCEDURES Fi nal Result from Last 3 Months or Most Recently Relevant to Health Maintenance Insurance IDPA [employer] MEDICARE HMO HU[employer]NA CHOICE MEDICARE O IDPA IDPA [facility] MEDICARE HMO Care Teams Step Down Specialist Relationship Specialty Start Date End Date Alise Noguera MD [address] [place] [address] PCP - General 12/23/16
[2025-04-02] MEDS: BENZONATATE 100 MG CAPSULE 200 MG PO (05:45)
[2025-04-02] MEDS: KETOROLAC 15 MG/ML VIAL (*BKC) IV PUSH (05:45)
[2025-04-02] MEDS: SODIUM CHLORIDE 0.9% IV 1,000 ML 999 ML IV CONT (05:46)
[2025-04-02 06:04] LABS: Hematocrit 34.5 % (42.0-52.0); Hemoglobin 11.7 g/dL (14.0-18.0); Immature Platelet Fraction Pct 4.7 % (0.9-11.2); Mean Corpuscular HGB Conc 33.9 g/dl (32-36); Mean Corpuscular Hemoglobin 35.9 pg (26-34); Mean Corpuscular Volume 105.8 fl (80-100); Platelet Count Result 88 k/mm3 (150-375); Red Blood Count 3.26 M/mm3 (4.6-6.20); White Blood Count 3.9 K/mm3 (4.5-10.0)
[2025-04-02 06:14] VITALS: BP 134/83; PULSE 82; RESP 25; O2SAT 97
[2025-04-02 06:18] LABS: Alanine Aminotransferase 93 U/L (6-50); Albumin Level 4.2 g/dL (3.5-5.1); Alkaline Phosphatase 90 U/L (38-126); Anion Gap 7 mmol/L (4-12); Aspartate Amino Transferase 166 U/L (17-59); Bilirubin,Total 1.4 mg/dL (0.2-1.3); Blood Urea Nitrogen 7 mg/dL (9-20); Calcium 8.8 mg/dL (8.4-10.2); Carbon Dioxide 26 mmol/L (22-30); Chloride 103 mmol/L (98-107); Estimated CRCL calculation 91 ml/min; Estimated Glomerular Filt Rate > 60; Glucose 110 mg/dL (65-110); Potassium 3.8 mmol/L (3.4-5.0); Sodium 136 mmol/L (137-145); Total Protein 7.6 g/dL (6.3-8.2)
[2025-04-02 06:36] LABS: Band Neutrophils Percent 1 % (0-6); Basophils Absolute Manual 0.03 K/mm3 (0.0-0.1); Basophils Percent Manual 1 % (0-1); Eosinophils Absolute Manual 0.00 K/mm3 (0.02-0.50); Eosinophils Percent Manual 0 % (0-4); Monocytes Absolute Manual 0.31 K/mm3 (0.1-0.90); Monocytes Percent Manual 8 % (3-9); Neutrophils Absolute Manual 0.97 K/mm3 (1.3-6.7); Neutrophils Percent Manual 24 % (46-73); Total Cells Counted 100
[2025-04-02 06:37] LABS: Hypochromasia Occasional; Macrocytosis 1+ (NORMAL)
[2025-04-02 06:38] LABS: Schistocytes None Seen
[2025-04-02 06:39] LABS: Influenza A QL RT-PCR Negative (Negative); Influenza B QL RT-PCR Negative (Negative); RSV RNA, RT-PCR Negative (Negative); SARS-CoV-2 RNA PCR Negative (Negative)
[2025-04-02 06:48] LABS: Lymphocytes Absolute Manual 2.57 K/mm3 (1.1-4.5); Lymphocytes Percent Manual 66 % (18-44)
[2025-04-02 07:33] VITALS: BP 140/86; PULSE 64; RESP 20; O2SAT 100
== END 2025-04-02 07:35 | disposition home or self-care (01) ==
PROVIDERS: Emergency Provider Student in an Organized Health Care Education/Training Program
DX: J06.9 Acute upper respiratory infection, unspecified (principal); M10.9 Gout, unspecified; K21.9 Gastro-esophageal reflux disease without esophagitis; I48.0 Paroxysmal atrial fibrillation; I10 Essential (primary) hypertension; F17.210 Nicotine dependence, cigarettes, uncomplicated; Z20.822 Contact with and (suspected) exposure to COVID-19
CPT/HCPCS: 36415; 71045; 80053; 85025; 85055; 87637; 96361; 96374; 99284; A9270; J1885; J7030; J7512

== ENCOUNTER 2025-04-14 17:08 | Emergency (ER) | payer MEDICARE, MEDICAID, SELFPAY ==
[2025-04-14 17:18] VITALS: BP 110/70; PULSE 73; RESP 18; TEMP 36.4; O2SAT 96
--- NOTE | 2025-04-14 17:54 | ED_ITS ---
HPI - General Adult General Chief complaint: Extremity Problem,Nontraumatic Stated complaint: Right Foot Pain Time Seen by Provider: 04/14/25 17:50 Source: patient, RN notes reviewed and old records reviewed Mode of arrival: ambulatory Limitations: no limitations History of Present Illness HPI narrative: 59 year old male presents to express care with complaints of gout flare to his left foot with redness swelling and pain to the base of of the big toe for 2 days. Pain with minimal touch to site with warmth and difficulty with his ambulation. Patient was recently treated for gout flare with prednisone on the 7 of this month. patient has not taken any OTC medication for his discomfort, Patient reports that he has not had any alcohol for a couple of weeks. Last noted labs GFR > 60 MD complaint: gout flare to left foot Onset (ago): day(s) (2) Location: left and lower extremity (base of great toe) Severity scale (1-10): 6 Quality: aching, sharp and constant Treatments prior to arrival: none Related Data Home Medications ?Medication ?Instructions ?Recorded ?Confirmed ?Last Taken ?Type amlodipine 10 mg tablet 10 mg PO DAILY 05/17/2208/25 Unknown History Allergies Allergy/AdvReac Type Severity Reaction Status Date / Time ampicillin Allergy Severe Anaphylactic Verified 04/14/25 17:10 Shock lisinopril Allergy Severe Anaphylactic Verified 04/14/25 17:10 Shock Penicillins Allergy Severe Anaphylaxis Verified 04/14/25 17:10 Review of Systems Review of Systems: CONSTITUTIONAL: Denies fever, chills, or sweats. CARDIOVASCULAR: Denies chest pain, palpitations, or edema. RESPIRATORY: Denies cough or dyspnea. SKIN: Denies rash or itching. Denies laceration or abrasions MUSCULOSKELETAL: Reports pain with redness swelling to the base of his left great toe, unable to wear shoe and with difficulty ambulating NEUROLOGIC: Denies numbness, or weakness. All systems reviewed & are unremarkable except as noted in HPI and below PMFSH Past Medical History Medical History Megaloblastic anemia due to alcoholism Smoker Alcoholic pancreatitis PAF (paroxysmal atrial fibrillation) GERD (gastroesophageal reflux disease) Depression Prosthetic eye globe Right side Hypertension Surgical History Surgical History History of enucleation of right eyeball H/O elbow surgery Left Family History Family History Mother Hypertension Father Hypertension Sibling Breast cancer Social History Social History Social History: Mr. Llamas lives alone in [place]. 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 Alcohol use as above. He has smoked up to 1 PPD and has smoked for 40 years. He is down to 1/2PPD. He denies marijuana use now. No other drug use. No hx of IVDU. Smoking packs per day: 0.5 Smoking cigarettes per day: 10.0 Years smoked: 40 Smoking pack-years: 20.00 Smoking status: Current every day smoker Tobacco type: cigarettes Alcohol intake: current Drinks per week: 10 Substance use: current Substance use type: marijuana Last use: 01/26/20 Lack of Transportation: No Lack of Food: Never True Current Housing: I Have Housing Concerned About Future Housing: No Difficulty Paying Gas/Electric Bills: No Difficulty Paying for Meds: No Currently Unemployed: No Education: Don't Know Difficulty w/ Childcare or Family Care: No Living arrangements: alone Occupation/Education: unemployed Gender identity (if verbalized by the patient): Male Sexual Orientation (if Verbalized by the Patient): Straight or Heterosexual Spiritual care concerns: No Comments At time of signature, agree with nursing past medical, surgical, social and family history. There is no relevant family history pertinent to the presenting complaint Exam Narrative: GENERAL: Well-appearing, well-nourished, and in no acute distress. HEAD: Normocephalic, atraumatic. EYES: PERRLA and EOMI. ENT: Nares clear, no rhinorrhea or epistaxis. Mucous membranes moist. NECK: Supple.no lymphadenopathy CHEST: Clear to auscultation. No respiratory distress.SAO2 96% on room air HEART: Regular rate and rhythm. No murmur heard. Normal peripheral pulses. ABDOMEN: Soft, nontender, nondistended, normal active bowel sounds. EXTREMITIES: Normal range of motion. No edema. Positive for swelling redness and pain to the base of the left great toe with difficulty ambulation, acute tenderness to site on palpation of left great toe. SKIN: Warm, dry, no rash. NEURO: No focal deficits. Alert and oriented x3. Course Course Level of Care: Express Care Visit Vital Signs Vital signs: Vital Signs Temperature 36.4 C L 04/14/25 17:18 Pulse Rate 73 04/14/25 17:18 Respiratory Rate 18 04/14/25 17:18 Blood Pressure 110/70 04/14/25 17:18 Pulse Oximetry 96 04/14/25 17:18 Oxygen Delivery Room Air 04/14/25 17:18 Temperature 36.4 C L 04/14/25 17:18 Pulse Rate 73 04/14/25 17:18 Respiratory Rate 18 04/14/25 17:18 Blood Pressure 110/70 04/14/25 17:18 Pulse Oximetry 96 04/14/25 17:18 Oxygen Delivery Room Air 04/14/25 17:18 refused MDM MDM Narrative Medical decision making narrative: Patient present with acute pain for the past 2 days to the left foot at base of great toe with redness, swelling, and pain with difficulty ambulating. Patient appropriate for out patient care and follow up. Patient reports that he doesn't have a doctor now and wants to be seen by medical doctor electrician constructor supervisor for follow up with information for Dr Garcia given to call to set up appointment. Anticipatory guidance and reasons to seek car in ED reviewed with patient with understanding voiced. Differential Diagnosis Differential Diagnosis: Differential diagnostic considerations for extremity problems include sprain/strain, fracture, DVT, herpes zoster, gout, cellulitis, superficial thrombophlebitis, physiologic edema.??? Critical Care Time Critical Care Time Critical Care Time: No Discharge Plan Discharge Clinical Impression: Gout flare Qualifiers: Gout site: foot Gout etiology: unspecified cause Laterality: left Qualified Code(s): M10.9 - Gout, unspecified Patient Disposition: Home Condition: Stable Instructions: Antibiotic Form, Gout (ED) Additional Instructions: Colchicine as prescribed daily for 7 days Prednisone taper start tomorrow Tylenol for lesser pain Ibuprofen regularly for the next 2-3 days for the inflammation Use the medication as provided for severe pain--caution each tablet contains 325 mg of Tylenol--the maximum dose of Tylenol is 4000 mg in 24 hours. This medication may cause constipation consider starting a laxative at this time Follow-up with PCP if further problems or concerns Ice to the area 20-30 minutes 4-6 times a day Elevate above heart If your symptoms persist, change or worsen significantly before you can contact your personal physician then please, without delay, go to the emergency department for further evaluation. Follow-up with PCP in 7-10 days or sooner if needed Dr Garcia is medical doctor electrician constructor supervisor to set up appt Patient Language: Irish Prescriptions: New colchicine 0.6 mg tablet 0.6 mg PO BID Qty: 7 0RF prednisone 10 mg tablet 10 mg PO DIRECTED Qty: 21 0RF Rx Instructions: see taper instructions 6 tabs day 1, 5 tabs day 2, 4 tabs day 3, 3 tab Sy 4, 2 tabs day 5, 1 tab day 6 always take with food hydrocodone-acetaminophen 5-325 mg tablet 1 tablet PO Q6H PRN (Reason: pain) Qty: 10 0RF No Action amlodipine 10 mg tablet 10 mg PO DAILY hydrocodone-acetaminophen 5-325 mg tablet 1 tablet PO Q8H PRN (Reason: pain) Qty: 14 0RF Follow-up/Referrals: PHYSICIAN NOT ON STAFF,NONSTAFF [Primary Care Provider] Jory August APRN [Emergency Provider, Emergency Medicine] Sheela Garcia DO [Physician, Family Practice] - 1 Week Referral Note: Patient needs follow up in regards to his gout and needs to get established with new MD his previous has left Clinical Impression: Gout flare Time of Disposition: 18:11 Quality Stewart Coma Scale Eyes: Open Verbal: Oriented and Alert Motor: Follows Commands Tomer Coma Total Score: 15
== END 2025-04-14 18:20 | disposition home or self-care (01) ==
PROVIDERS: Emergency Provider Registered Nurse
DX: M10.9 Gout, unspecified (principal); F17.210 Nicotine dependence, cigarettes, uncomplicated; I10 Essential (primary) hypertension; K21.9 Gastro-esophageal reflux disease without esophagitis; I48.0 Paroxysmal atrial fibrillation; Z97.0 Presence of artificial eye
CPT/HCPCS: 99213; G0463